=== PATIENT | female | born 1965 ===

== ENCOUNTER 2016-04-29 20:42 | Emergency (ER) | payer SELFPAY, MEDICAID ==
[2016-04-29 20:42] VITALS: BMI 24.2
[2016-04-29 20:56] VITALS: BP 125/90; PULSE 92; RESP 16; TEMP 97.5; O2SAT 99
[2016-04-29] MEDS ORDERED: Albuterol-Ipratrop 3 mg / 0.5 (3 ml) UD INH STA (21:02)
[2016-04-29] MEDS ORDERED: Albuterol-Ipratrop 3 mg / 0.5 (3 ml) UD ONE (22:00)
--- NOTE | 2016-04-29 22:39 | ED PDOC ---
Lower Extremity Pain/Injury Time Seen by Provider: 04/29/16 20:58 Chief Complaint (Nursing): Lower Extremity Problem/Injury Chief Complaint (Provider): Left Knee Pain/Injury History Per: Patient History/Exam Limitations: no limitations Onset/Duration Of Symptoms: Days (x2) Current Symptoms Are (Timing): Still Present Severity: Moderate Additional Complaint(s): Marion Hudson is a 51 year old female, with a past medical history inclusive of HTN, asthma and previous pneumonia, who presents to the ED on 04/29/16 for the evaluation of a moderate amount of left knee pain that she has experienced since a mechanical fall 2 days prior to arrival. Associated swelling also reported, though patient is capable of unassisted ambulation, with patient stating that ED visit was prompted secondary to persistence of pain. Denies distal numbness and has taken no analgesics prior to arrival. Of note, patient has a secondary complaint of a nonproductive cough that she has experienced x1 week. Patient claims that she was recently admitted to [facility] for pneumonia and is concerned that this may be a recurrence. Denies fever/chills. Patient is undomiciled and is well known to both this provider and this ED for similar complaints. PMD: none Past Medical History Reviewed: Historical Data, Nursing Documentation, Vital Signs Vital Signs: Last Vital Signs Temp 97.5 F L 04/29/16 20:54 Pulse 92 H 04/29/16 20:54 Resp 16 04/29/16 20:54 BP 125/90 04/29/16 20:54 Pulse Ox 99 04/29/16 20:54 - Medical History PMH: Anxiety, Asthma, Depression, HTN, Paranoia, Pneumonia, Schizophrenia, TIA Denies: Chronic Kidney Disease - Surgical History Surgical History: No Surg Hx - Family History Family History: States: No Known Family Hx - Living Arrangements Living Arrangements: Other (undomiciled) - Social History Current smoker - smoking cessation education provided: Yes Alcohol: None Drugs: Denies - Immunization History Hx Tetanus Toxoid Vaccination: No Hx Influenza Vaccination: No Hx Pneumococcal Vaccination: No - Home Medications Home Medications: Ambulatory Orders Medication Instructions Recorded Albuterol HFA [Ventolin HFA 90 1 - 2 puff IH Q6 PRN #1 inhaler 04/23/16 mcg/actuation (8 g)] Naproxen [Naprosyn] 1 tab PO BID PRN #60 tab 04/29/16 - Allergies Allergies/Adverse Reactions: Allergies Allergy/AdvReac Type Severity Reaction Status Date / Time shellfish derived Allergy Severe SWELLING Verified 04/27/16 00:42 Review of Systems Constitutional: Negative for: Fever, Chills Respiratory: Positive for: Cough. Negative for: Sputum Musculoskeletal: Positive for: Leg Pain (left knee s/p fall, associated swelling ) Neurological: Negative for: Numbness Physical Exam - Reviewed Nursing Documentation Reviewed: Yes Vital Signs Reviewed: Yes - Physical Exam Appears: Positive for: Non-toxic, In Acute Distress (minimal painful distress; unkempt/malodorous) Head Exam: Positive for: ATRAUMATIC, NORMOCEPHALIC Skin: Positive for: Normal Color, Warm, Dry Eye Exam: Positive for: Normal appearance, PERRL Cardiovascular/Chest: Positive for: Regular Rate, Rhythm. Negative for: Murmur Respiratory: Positive for: Rhonchi (scattered, occasional rhonchi b/l). Negative for: Accessory Muscle Use, Rales, Wheezing, Respiratory Distress Extremity: Positive for: Normal ROM (full, active ROM of left knee; (-) laxity) , Tenderness (along lateral aspect of left knee), Swelling (mild edema along lateral aspect of left knee), Other (dried scabs noted diffusely to b/l arms and legs, patient reports this is secondary to psoriasis). Negative for: Deformity Neurologic/Psych: Positive for: Alert, Oriented. Negative for: Motor/Sensory Deficits (5/5 left knee, neurovascularly intact distally) - ECG O2 Sat by Pulse Oximetry: 99 (RA) Pulse Ox Interpretation: Normal - Radiology X-Ray: Interpreted by Me, Viewed By Me X-Ray Interpretation: No Acute Disease - Other Rad XR Left Knee X-Ray: Interpreted by Me, Viewed By Me X-Ray Interpretation: no fx/dis Medical Decision Making Medical Decision Makin:58 Initial Impression: left knee contusion, cough; will r/o fracture/dislocation, pneumonia Initial Plan: * CXR * XR Left Knee (3 Views) * Motrin 600mg PO * Duoneb 3ml INH * Peak Flow Pre/Post Treatment * Reevaluation 22:31 CXR reviewed, no acute disease. XR Left Knee shows no fracture/dislocation. Upon provider reevaluation patient is feeling better, is medically stable, and requires no further treatment in the ED at this time. Patient will be discharged home with Rx for naprosyn. Counseling was provided and all questions were answered regarding diagnosis and need for follow up with the referred clinic. There is agreement to discharge plan. Return if symptoms persist or worsen. Clinical Impression: knee injury, cough Scribe Attestation: Documented by Angelica Dickinson, acting as a scribe for Chiquita Baldwin MD. Provider Scribe Attestation: All medical record entries made by the Scribe were at my direction and personally dictated by me. I have reviewed the chart and agree that the record accurately reflects my personal performance of the history, physical exam, medical decision making, and the department course for this patient. I have also personally directed, reviewed, and agree with the discharge instructions and disposition. Disposition - Clinical Impression Clinical Impression: Knee injury, Cough - Patient ED Disposition Is Patient to be Admitted: No Counseled Patient/Family Regarding: Studies Performed, Diagnosis, Need For Followup, Rx Given, Smoking Cessation - Disposition Referrals: [facility] [Outside] [facility] [Outside] Disposition: Routine/Home Disposition Time: 22:31 Condition: STABLE Prescriptions: Naproxen [Naprosyn] 1 tab PO BID PRN #60 tab PRN Reason: Pain Instructions: Contusion in Adults (ED), Bronchospasm (ED)
--- NOTE | 2016-04-30 12:02 | RAD ---
HISTORY: cough COMPARISON: 04/26/2016 TECHNIQUE: Chest PA and lateral FINDINGS: LUNGS: The lungs are well inflated and clear. PLEURA: No significant pleural effusion identified. No pneumothorax apparent. CARDIOVASCULAR: The cardiomediastinal silhouette is normal. OSSEOUS STRUCTURES: No significant abnormalities. VISUALIZED UPPER ABDOMEN: Normal. OTHER FINDINGS: None. IMPRESSION: No active pulmonary disease.
--- NOTE | 2016-04-30 12:04 | RAD ---
PROCEDURE: Left Knee Radiographs. HISTORY: Pain. COMPARISON: None. FINDINGS: BONES: There is no acute fracture or bone destruction. Bone alignment and mineralization are normal. JOINTS: There is mild degenerative osteoarthrosis in the medial compartment with reduced joint space and marginal spurring. JOINT EFFUSION: There is a small suprapatellar joint effusion. OTHER FINDINGS: None. IMPRESSION: Mild degenerative osteoarthrosis in the medial compartment and small suprapatellar joint effusion.
[2016-04-30] MEDS ORDERED: Albuterol 0.083% Inhal Sol (2.5 mg/3 mL) UD ONE (13:07)
== END 2016-04-29 23:00 | disposition home or self-care (01) ==
LOC: H.ER 20:42
DX: S80.02XA Contusion of left knee, initial encounter (principal); W19.XXXA Unspecified fall, initial encounter; Y92.89 Other specified places as the place of occurrence of the external cause; I10 Essential (primary) hypertension; J45.909 Unspecified asthma, uncomplicated; Z86.73 Personal history of transient ischemic attack (TIA), and cerebral infarction without residual deficits; R05 Cough

== ENCOUNTER 2016-04-30 11:07 | Emergency (ER) | payer SELFPAY, MEDICAID ==
[2016-04-30 11:07] VITALS: BMI 24.2
[2016-04-30 11:20] VITALS: BP 124/79; PULSE 79; TEMP 96; O2SAT 95
[2016-04-30 11:34] VITALS: RESP 18
[2016-04-30] MEDS ORDERED: Albuterol 0.083% Inhal Sol (2.5 mg/3 mL) UD INH STA (12:28)
--- NOTE | 2016-04-30 14:29 | ED PDOC ---
HPI: General Adult Time Seen by Provider: 04/30/16 11:20 Chief Complaint (Nursing): Shortness Of Breath Chief Complaint (Provider): Medical refill History Per: Patient History/Exam Limitations: no limitations Onset/Duration Of Symptoms: Days Have you had recent travel within the past 21 days to any of the following countries: [place], [place], [place] or [place]?: No Current Symptoms Are (Timing): Still Present Severity: None Additional History Per: Patient Additional Complaint(s): The patient is a 51yo female with PMHx of HTN, Anxiety, Asthma, TIA, presents to the ED for evaluation of mild shortness of breath. Pt is requesting albuterol treatment and refills of her ventolin. She denies any chest pain, dizziness, light headedness. At present, she offers no additional medical complaints. PMD: [place] Past Medical History Reviewed: Historical Data, Nursing Documentation, Vital Signs Vital Signs: Last Vital Signs Temp 96 F L 04/30/16 11:19 Pulse 79 04/30/16 11:19 Resp 18 04/30/16 11:28 BP 124/79 04/30/16 11:19 Pulse Ox 95 04/30/16 11:19 - Medical History PMH: Anxiety, Asthma, Depression, HTN, Paranoia, Pneumonia, Schizophrenia, TIA Denies: Chronic Kidney Disease - Family History Family History: States: Unknown Family Hx - Living Arrangements Living Arrangements: Alone - Immunization History Hx Tetanus Toxoid Vaccination: No Hx Influenza Vaccination: No Hx Pneumococcal Vaccination: No - Home Medications Home Medications: Ambulatory Orders Medication Instructions Recorded Albuterol HFA [Ventolin HFA 90 1 - 2 puff IH Q6 PRN #1 inhaler 04/23/16 mcg/actuation (8 g)] Naproxen [Naprosyn] 1 tab PO BID PRN #60 tab 04/29/16 Albuterol HFA [Ventolin HFA 90 2 puff IH [id number] PRN #60 puff 04/30/16 mcg/actuation (8 g)] - Allergies Allergies/Adverse Reactions: Allergies Allergy/AdvReac Type Severity Reaction Status Date / Time shellfish derived Allergy Severe SWELLING Verified 04/30/16 11:22 Review of Systems ROS Statement: Except As Marked, All Systems Reviewed And Found Negative Respiratory: Positive for: Shortness of Breath (mild) Physical Exam - Reviewed Nursing Documentation Reviewed: Yes Vital Signs Reviewed: Yes - Physical Exam Appears: Positive for: Well, Non-toxic, No Acute Distress Head Exam: Positive for: ATRAUMATIC, NORMAL INSPECTION, NORMOCEPHALIC Skin: Positive for: Normal Color, Warm Eye Exam: Positive for: Normal appearance Neck: Positive for: Normal Cardiovascular/Chest: Positive for: Regular Rate, Rhythm Respiratory: Positive for: Normal Breath Sounds, Wheezing (mild expitory). Negative for: Respiratory Distress Neurologic/Psych: Positive for: Alert, Oriented - ECG O2 Sat by Pulse Oximetry: 95 (RA) Medical Decision Making Medical Decision Making: Time: 1400 Impression: Medication refill Plan: -- Albuterol 2.5 mg iNH --Reassess Time: 1422 Pt reports feeling much better. Stable for discharge home, advised to f/u with pcp. Scribe Attestation: Documented by Suzanne Crabtree acting as a scribe for NADIYA Ferris. Provider Attestation: All medical record entries made by the Scribe were at my direction and personally dictated by me. I have reviewed the chart and agree that the record accurately reflects my personal performance of the history, physical exam, medical decision making, and the department course for this patient. I have also personally directed, reviewed, and agree with the discharge instructions and disposition. Disposition - Clinical Impression Clinical Impression: Asthma - Patient ED Disposition Is Patient to be Admitted: No - Disposition Disposition: Routine/Home Disposition Time: 14:22 Condition: STABLE Prescriptions: Albuterol HFA [Ventolin HFA 90 mcg/actuation (8 g)] 2 puff IH [id number] PRN #60 puff PRN Reason: Cough Instructions: Asthma (ED) Print Language: CYMRO
== END 2016-04-30 14:41 | disposition home or self-care (01) ==
LOC: H.ER 11:07
DX: J45.909 Unspecified asthma, uncomplicated (principal)

== ENCOUNTER 2016-05-02 19:14 | Emergency (ER) | payer MEDICAID, SELFPAY ==
[2016-05-02 19:15] VITALS: BMI 24.2
[2016-05-02 19:38] VITALS: RESP 16; TEMP 97.8; O2SAT 99
[2016-05-02] MEDS ORDERED: Albuterol 0.083% Inhal Sol (2.5 mg/3 mL) UD INH STA (19:39)
[2016-05-02] MEDS ORDERED: Albuterol-Ipratrop 3 mg / 0.5 (3 ml) UD ONE (19:47)
[2016-05-02] MEDS ORDERED: Albuterol 0.083% Inhal Sol (2.5 mg/3 mL) UD ONE (19:53)
--- NOTE | 2016-05-02 20:04 | ED PDOC ---
HPI: CCC, URI, Sore Throat Time Seen by Provider: 05/02/16 19:32 Chief Complaint (Nursing): Alcohol Ingestion Chief Complaint (Provider): Cough/Shortness of Breath History Per: Patient History/Exam Limitations: no limitations Have you had recent travel within the past 21 days to any of the following countries: [place], [place], [place] or [place]?: No Onset/Duration Of Symptoms: Days (today) Current Symptoms Are (Timing): Still Present Sick Contacts (Context): None Associated Symptoms: Cough. denies: Fever, Chills, Other (no chest pain, back pain) Additional Complaint(s): Marion Hudson is a 51 year old female, with a past medical history inclusive of asthma and psoriasis, who presents to the ED on 05/02/16, via EMS, with complaints of both cough and shortness of breath that she has experienced over the course of the day today. Denies fever, chills, chest or back pain, but reports that she has had pneumonia 3x since November 2015 and is requesting a breathing treatment. When asked about alcohol use today, patient states that she "didn't drink much". Patient has a steady gait and is requesting a room with a TV. Of note, patient is currently homeless and is well known to both this ED and this provider for similar complaints. Most recent CXR was as of a visit to this ED 2 days ago, which had subsequently been read as normal by the radiologist. PMD: none Past Medical History Reviewed: Historical Data, Nursing Documentation, Vital Signs Vital Signs: Last Vital Signs Temp 97.8 F 05/02/16 19:20 Pulse 87 05/02/16 20:56 Resp 16 05/02/16 19:20 BP 132/81 05/02/16 20:56 Pulse Ox 99 05/02/16 20:15 - Medical History PMH: Anxiety, Asthma, Depression, HTN, Paranoia, Pneumonia, Schizophrenia, TIA Denies: Chronic Kidney Disease - Surgical History Other surgeries: D&C - Family History Family History: States: Unknown Family Hx - Living Arrangements Living Arrangements: Other (homeless) - Immunization History Hx Tetanus Toxoid Vaccination: No Hx Influenza Vaccination: No Hx Pneumococcal Vaccination: No - Home Medications Home Medications: Ambulatory Orders Medication Instructions Recorded Albuterol HFA [Ventolin HFA 90 1 - 2 puff IH Q6 PRN #1 inhaler 04/23/16 mcg/actuation (8 g)] Naproxen [Naprosyn] 1 tab PO BID PRN #60 tab 04/29/16 Albuterol HFA [Ventolin HFA 90 2 puff IH [id number] PRN #60 puff 04/30/16 mcg/actuation (8 g)] Albuterol HFA [Ventolin HFA 90 2 puff IH Q4 PRN #1 unit 05/02/16 mcg/actuation (8 g)] - Allergies Allergies/Adverse Reactions: Allergies Allergy/AdvReac Type Severity Reaction Status Date / Time shellfish derived Allergy Severe SWELLING Verified 04/30/16 11:22 Review of Systems Constitutional: Negative for: Fever, Chills Cardiovascular: Negative for: Chest Pain Respiratory: Positive for: Cough, Shortness of Breath. Negative for: Sputum Physical Exam - Reviewed Nursing Documentation Reviewed: Yes Vital Signs Reviewed: Yes - Physical Exam Appears: Positive for: Non-toxic, No Acute Distress Head Exam: Positive for: ATRAUMATIC, NORMOCEPHALIC Skin: Positive for: Normal Color, Warm, Dry Cardiovascular/Chest: Positive for: Regular Rate, Rhythm. Negative for: Edema, Murmur Respiratory: Positive for: Normal Breath Sounds. Negative for: Rales, Rhonchi, Wheezing, Respiratory Distress Extremity: Positive for: Other (multiple excoriations noted to b/l UE and LE; no evidence of infection) Neurologic/Psych: Positive for: Alert, Oriented, Gait (steady) - ECG O2 Sat by Pulse Oximetry: 99 (RA) Pulse Ox Interpretation: Normal Medical Decision Making Medical Decision Makin:32 Initial Impression: cough, alcohol dependence Patient is exhibiting no clinical signs of alcohol intoxication at this time. Vital signs normal. Will give albuterol treatment as requested. Initial Plan: * Albuterol 0.083% 2.5mg INH * Peak Flow Pre/Post Treatment. * Reevaluation 20:05 Upon provider reevaluation patient is feeling better, is medically stable, and requires no further treatment in the ED at this time. Patient will be discharged home with Rx for an Albuterol HFA inhaler. Counseling was provided and all questions were answered regarding diagnosis and need for follow up with the referred clinic. There is agreement to discharge plan. Return if symptoms persist or worsen. Clinical Impression: cough, alcohol dependence Scribe Attestation: Documented by Angelica Dickinson, acting as a scribe for Fracisco Garcia PA-C. Provider Scribe Attestation: All medical record entries made by the Scribe were at my direction and personally dictated by me. I have reviewed the chart and agree that the record accurately reflects my personal performance of the history, physical exam, medical decision making, and the department course for this patient. I have also personally directed, reviewed, and agree with the discharge instructions and disposition. Disposition - Clinical Impression Clinical Impression: Cough, Alcohol dependence - Patient ED Disposition Is Patient to be Admitted: No Counseled Patient/Family Regarding: Diagnosis, Need For Followup, Rx Given - Disposition Referrals: [facility] [Outside] Disposition: Routine/Home Disposition Time: 20:05 Condition: STABLE Prescriptions: Albuterol HFA [Ventolin HFA 90 mcg/actuation (8 g)] 2 puff IH Q4 PRN #1 unit PRN Reason: Wheezing Instructions: Abuse of Alcohol (ED) Print Language: BENINESE
[2016-05-02 20:57] VITALS: BP 132/81; PULSE 87
== END 2016-05-02 20:56 | disposition home or self-care (01) ==
LOC: H.ER 19:14
DX: F10.20 Alcohol dependence, uncomplicated (principal); R05 Cough; I10 Essential (primary) hypertension

== ENCOUNTER 2016-05-03 18:35 | Emergency (ER) | payer MEDICAID, SELFPAY ==
[2016-05-03 18:36] VITALS: BMI 24.2
[2016-05-03 18:52] VITALS: PULSE 80; RESP 14; TEMP 98; O2SAT 97
--- NOTE | 2016-05-03 18:57 | ED PDOC ---
HPI: Psych/Substance Abuse Time Seen by Provider: 05/03/16 18:50 Chief Complaint (Nursing): Alcohol Ingestion Chief Complaint (Provider): Alcohol Ingestion History Per: Patient History/Exam Limitations: no limitations Onset/Duration Of Symptoms: Unknown Current Symptoms Are (Timing): Still Present Suicide/Self Injury Attempted (Context): None Modifying Factor(s): Alcohol Involuntary Hold By: None Additional Complaint(s): Marion Hudson is a 51 year old female, with a past medical history inclusive of asthma and habitual alcohol abuse, who presents to the ED on 05/03/16, via EMS, for the evaluation of acute alcohol intoxication of unknown duration after she had been found sitting in the street just prior to arrival. Patient admits to alcohol ingestion and is requesting both food and a room with a TV upon initial evaluation. Patient is undomiciled and is well known to ED for similar complaints/presentation. Of note, patient is also complaining of cough, further stating "I have pneumonia ", though most recent CXR (performed 4 days ago) showed no acute disease as per radiology report. PMD: none Past Medical History Reviewed: Historical Data, Nursing Documentation, Vital Signs Vital Signs: Last Vital Signs Temp 98.0 F 05/03/16 18:50 Pulse 80 05/03/16 18:50 Resp 14 05/03/16 18:50 BP Pulse Ox 97 05/03/16 18:50 - Medical History PMH: Anxiety, Asthma, Depression, HTN, Paranoia, Pneumonia, Schizophrenia, TIA Denies: Chronic Kidney Disease - Surgical History Surgical History: No Surg Hx - Family History Family History: States: Unknown Family Hx - Living Arrangements Living Arrangements: Other (undomiciled) - Social History Alcohol: > 2 Drinks/Day Drugs: Denies - Immunization History Hx Tetanus Toxoid Vaccination: No Hx Influenza Vaccination: No Hx Pneumococcal Vaccination: No - Home Medications Home Medications: Ambulatory Orders Medication Instructions Recorded Albuterol HFA [Ventolin HFA 90 1 - 2 puff IH Q6 PRN #1 inhaler 04/23/16 mcg/actuation (8 g)] Naproxen [Naprosyn] 1 tab PO BID PRN #60 tab 04/29/16 Albuterol HFA [Ventolin HFA 90 2 puff IH [id number] PRN #60 puff 04/30/16 mcg/actuation (8 g)] Albuterol HFA [Ventolin HFA 90 2 puff IH Q4 PRN #1 unit 05/02/16 mcg/actuation (8 g)] - Allergies Allergies/Adverse Reactions: Allergies Allergy/AdvReac Type Severity Reaction Status Date / Time shellfish derived Allergy Severe SWELLING Verified 05/03/16 18:50 Review of Systems Respiratory: Positive for: Cough Psych: Positive for: Other (acute alcohol intoxication) Physical Exam - Reviewed Nursing Documentation Reviewed: Yes Vital Signs Reviewed: Yes - Physical Exam Appears: Positive for: Non-toxic, No Acute Distress Head Exam: Positive for: ATRAUMATIC, NORMOCEPHALIC Skin: Positive for: Normal Color, Warm, Dry ENT: Positive for: Other ((+) alcohol on breath) Cardiovascular/Chest: Positive for: Regular Rate, Rhythm Respiratory: Positive for: Normal Breath Sounds. Negative for: Rales, Rhonchi, Wheezing, Respiratory Distress Neurologic/Psych: Positive for: Alert, Oriented - ECG O2 Sat by Pulse Oximetry: 97 (RA) Pulse Ox Interpretation: Normal Medical Decision Making Medical Decision Makin:50 Initial Impression: alcohol abuse with intoxication Initial Plan: * Accucheck Will observe until clinical sobriety. Scribe Attestation: Documented by Angelica Dickinson, acting as a scribe for Shante Stein PA-C. Provider Scribe Attestation: All medical record entries made by the Scribe were at my direction and personally dictated by me. I have reviewed the chart and agree that the record accurately reflects my personal performance of the history, physical exam, medical decision making, and the department course for this patient. I have also personally directed, reviewed, and agree with the discharge instructions and disposition. Disposition - Clinical Impression Clinical Impression: Alcohol abuse with intoxication - Patient ED Disposition Is Patient to be Admitted: No - Disposition Disposition: Routine/Home Disposition Time: 23:28 Condition: STABLE
[2016-05-03 20:05] VITALS: BP 112/70
== END 2016-05-03 23:35 | disposition home or self-care (01) ==
LOC: H.ER 18:35
DX: F10.129 Alcohol abuse with intoxication, unspecified (principal)

== ENCOUNTER 2016-05-25 06:28 | Emergency (ER) | payer OTHER, SELFPAY ==
[2016-05-25 06:29] VITALS: BMI 24.2
[2016-05-25 06:39] VITALS: BP 142/76; PULSE 88; RESP 18; TEMP 97.9; O2SAT 95
[2016-05-25] MEDS ORDERED: Albuterol-Ipratrop 3 mg / 0.5 (3 ml) UD ONE (06:39)
[2016-05-25] MEDS ORDERED: Albuterol 0.083% Inhal Sol (2.5 mg/3 mL) UD INH ONE (06:42)
--- NOTE | 2016-05-25 06:53 | ED PDOC ---
HPI: General Adult Time Seen by Provider: 05/25/16 06:39 Chief Complaint (Nursing): Alcohol Ingestion Chief Complaint (Provider): Persistent Cough History Per: Patient History/Exam Limitations: no limitations Onset/Duration Of Symptoms: Hrs Have you had recent travel within the past 21 days to any of the following countries: [place], [place], [place] or [place]?: No Current Symptoms Are (Timing): Still Present Severity: Moderate Additional Complaint(s): Marion Hudson is a 51 year old female, with a past medical history of asthma , hypertension, and pneumonia, who presents to the emergency department via EMS due to ETOH abuse, with complaints of a persistent cough. Patient requests nebulizer treatment. PMD: none specified Past Medical History Reviewed: Historical Data, Nursing Documentation, Vital Signs Vital Signs: Last Vital Signs Temp 97.9 F 05/25/16 06:36 Pulse 88 05/25/16 06:36 Resp 18 05/25/16 06:49 BP 142/76 05/25/16 06:36 Pulse Ox 95 05/25/16 06:58 - Medical History PMH: Anxiety, Asthma, Depression, HTN, Paranoia, Pneumonia, Schizophrenia, TIA Denies: Chronic Kidney Disease - Family History Family History: States: Unknown Family Hx - Social History Current smoker - smoking cessation education provided: Yes Alcohol: Occasional - Immunization History Hx Tetanus Toxoid Vaccination: Yes Hx Influenza Vaccination: No Hx Pneumococcal Vaccination: No - Home Medications Home Medications: Ambulatory Orders Medication Instructions Recorded Albuterol HFA [Ventolin HFA 90 1 - 2 puff IH Q6 PRN #1 inhaler 04/23/16 mcg/actuation (8 g)] Albuterol HFA [Ventolin HFA 90 2 puff IH [id number] #1 puff 05/13/16 mcg/actuation (8 g)] Prednisone [Deltasone] 20 mg PO DAILY #5 tablet 05/13/16 Albuterol HFA [Ventolin HFA 90 1 puff INH Q4 PRN #1 inhaler 05/22/16 mcg/actuation (8 g)] Albuterol/Ipratropium [Duoneb 3 3 ml INH RQ6 PRN #1 neb 05/22/16 mg/0.5 mg (3 ml) UD] Gabapentin [Neurontin] 300 mg PO BID #60 cap 05/22/16 Mirtazapine [Remeron] 15 mg PO HS #30 tab 05/22/16 traZODone [Desyrel] 50 mg PO HS PRN #30 tab 05/22/16 hydrOXYzine HCl [Atarax] 25 mg PO Q6 PRN #60 tab 05/23/16 Non-Formulary 1 ea .ROUTE Q6 #1 ea 05/25/16 - Allergies Allergies/Adverse Reactions: Allergies Allergy/AdvReac Type Severity Reaction Status Date / Time shellfish derived Allergy Severe SWELLING Verified 05/19/16 08:43 Review of Systems ROS Statement: Except As Marked, All Systems Reviewed And Found Negative Respiratory: Positive for: Cough Physical Exam - Reviewed Nursing Documentation Reviewed: Yes Vital Signs Reviewed: Yes - Physical Exam Appears: Positive for: No Acute Distress Head Exam: Positive for: ATRAUMATIC, NORMOCEPHALIC Skin: Positive for: Normal Color, Dry Neck: Positive for: Normal, Painless ROM Cardiovascular/Chest: Positive for: Regular Rate, Rhythm. Negative for: Murmur Respiratory: Positive for: Rhonchi. Negative for: Respiratory Distress Gastrointestinal/Abdominal: Positive for: Normal Exam, Soft. Negative for: Tenderness Extremity: Positive for: Normal ROM. Negative for: Tenderness Neurologic/Psych: Positive for: Alert, Oriented - ECG O2 Sat by Pulse Oximetry: 95 (RA) Pulse Ox Interpretation: Normal Medical Decision Making Medical Decision Makin:39 Initial Impression: Asthma Initial Plan: * Nebulizer Treatment * Respiratory Therapy: Peak Flow Pre/Post Treatment * Albuterol 0.083% 2.5 mg INH * Reevaluation pt feels better w treatment instructed outp follow up with neb at home and follow up with pcp in 2 days return to ED if not better Scribe Attestation: Documented by Ron Romero, acting as a scribe for Esperanza Villaseñor MD. Provider Scribe Attestation: All medical record entries made by the Scribe were at my direction and personally dictated by me. I have reviewed the chart and agree that the record accurately reflects my personal performance of the history, physical exam, medical decision making, and the department course for this patient. I have also personally directed, reviewed, and agree with the discharge instructions and disposition. Disposition - Clinical Impression Clinical Impression: Asthma - Patient ED Disposition Is Patient to be Admitted: No Counseled Patient/Family Regarding: Studies Performed, Diagnosis, Need For Followup - Disposition Referrals: [facility] [Outside] [facility] [Outside] Disposition: Routine/Home Disposition Time: 07:00 Condition: GOOD Additional Instructions: follow up with your primary doctor in 1-2 days. return to the ED with any worsening or concerning symptoms. Prescriptions: Non-Formulary 1 ea .ROUTE Q6 #1 ea Instructions: Asthma (ED)
== END 2016-05-25 07:13 | disposition home or self-care (01) ==
LOC: H.ER 06:28
DX: J45.909 Unspecified asthma, uncomplicated (principal); R05 Cough; F20.9 Schizophrenia, unspecified; F41.9 Anxiety disorder, unspecified; I10 Essential (primary) hypertension; Z86.73 Personal history of transient ischemic attack (TIA), and cerebral infarction without residual deficits; F17.200 Nicotine dependence, unspecified, uncomplicated

== ENCOUNTER 2016-06-08 23:31 | Emergency (ER) | payer OTHER, SELFPAY ==
[2016-06-08 23:32] VITALS: BMI 24.2
[2016-06-08 23:39] VITALS: BP 136/73; PULSE 86; RESP 17; TEMP 98.6; O2SAT 97
[2016-06-08] MEDS ORDERED: Albuterol-Ipratrop 3 mg / 0.5 (3 ml) UD INH STA (23:50)
--- NOTE | 2016-06-08 23:57 | ED PDOC ---
HPI: Psych/Substance Abuse Time Seen by Provider: 06/08/16 23:47 Chief Complaint (Nursing): Alcohol Ingestion Chief Complaint (Provider): ETOH History Per: EMS History/Exam Limitations: no limitations Additional Complaint(s): Pretty Hudson is a 51 y/o female well known to the ED and provider, brought in by EMS on 06/08/2016 with complaints of " I need a treatment". Upon arrival, patient is alert awake and ambulatory. Patient admits to drinking alcohol tonight. Rest of HPI/ROS is limited due to patient's state of intoxication . Past Medical History Reviewed: Historical Data, Nursing Documentation, Vital Signs Vital Signs: Last Vital Signs Temp 98.6 F 06/08/16 23:33 Pulse 86 06/08/16 23:33 Resp 17 06/08/16 23:33 BP 136/73 06/08/16 23:33 Pulse Ox 97 06/08/16 23:33 - Medical History PMH: Anxiety, Asthma, Depression, HTN, Paranoia, Pneumonia, Schizophrenia, TIA Denies: Chronic Kidney Disease - Family History Family History: States: Unknown Family Hx - Social History Alcohol: Social - Immunization History Hx Tetanus Toxoid Vaccination: Yes Hx Influenza Vaccination: No Hx Pneumococcal Vaccination: No - Home Medications Home Medications: Ambulatory Orders Medication Instructions Recorded Albuterol HFA [Ventolin HFA 90 1 - 2 puff IH Q6 PRN #1 inhaler 04/23/16 mcg/actuation (8 g)] Albuterol HFA [Ventolin HFA 90 2 puff IH [id number] #1 puff 05/13/16 mcg/actuation (8 g)] Prednisone [Deltasone] 20 mg PO DAILY #5 tablet 05/13/16 Albuterol HFA [Ventolin HFA 90 1 puff INH Q4 PRN #1 inhaler 05/22/16 mcg/actuation (8 g)] Albuterol/Ipratropium [Duoneb 3 3 ml INH RQ6 PRN #1 neb 05/22/16 mg/0.5 mg (3 ml) UD] Gabapentin [Neurontin] 300 mg PO BID #60 cap 05/22/16 Mirtazapine [Remeron] 15 mg PO HS #30 tab 05/22/16 traZODone [Desyrel] 50 mg PO HS PRN #30 tab 05/22/16 hydrOXYzine HCl [Atarax] 25 mg PO Q6 PRN #60 tab 05/23/16 Non-Formulary 1 ea .ROUTE Q6 #1 ea 05/25/16 - Allergies Allergies/Adverse Reactions: Allergies Allergy/AdvReac Type Severity Reaction Status Date / Time shellfish derived Allergy Severe SWELLING Verified 05/19/16 08:43 Review of Systems Review Of Systems: ROS cannot be obtained secondary to pt's inabilty to answer questions. Physical Exam - Reviewed Nursing Documentation Reviewed: Yes Vital Signs Reviewed: Yes - Physical Exam Appears: Positive for: No Acute Distress. Negative for: Non-toxic Head Exam: Positive for: ATRAUMATIC, NORMOCEPHALIC Skin: Positive for: Normal Color, Warm, Dry Eye Exam: Positive for: Normal appearance, EOMI, PERRL Neck: Positive for: Normal, Painless ROM, Supple Cardiovascular/Chest: Positive for: Regular Rate, Rhythm. Negative for: Murmur Respiratory: Positive for: Normal Breath Sounds. Negative for: Wheezing, Respiratory Distress Extremity: Positive for: Normal ROM. Negative for: Deformity, Swelling Neurologic/Psych: Positive for: Alert, Oriented (x3), Gait (normal ). Negative for: Motor/Sensory Deficits - ECG O2 Sat by Pulse Oximetry: 97 Medical Decision Making Medical Decision Makin:47 Initial Impression- ETOH intoxication Initial Plan- * Duoneb 3 ml INH * Pepcid 20 mg PO * Peak Flow 1AM: Pt. stable for discharge. Documented by Patricia Boss, acting as a scribe for Ramírez Stephens MD. All medical record entries made by the Scribe were at my direction and personally dictated by me. I have reviewed the chart and agree that the record accurately reflects my personal performance of the history, physical exam, medical decision making, and the department course for this patient. I have also personally directed, reviewed, and agree with the discharge instructions and disposition. Disposition - Clinical Impression Clinical Impression: Homelessness - Patient ED Disposition Is Patient to be Admitted: No - Disposition Disposition: Routine/Home Disposition Time: 01:20 Condition: STABLE Instructions: Normal Exam (ED)
== END 2016-06-09 03:32 | disposition home or self-care (01) ==
LOC: H.ER 23:31
DX: F10.129 Alcohol abuse with intoxication, unspecified (principal); J45.909 Unspecified asthma, uncomplicated; F20.9 Schizophrenia, unspecified; F41.9 Anxiety disorder, unspecified; I10 Essential (primary) hypertension; Z86.73 Personal history of transient ischemic attack (TIA), and cerebral infarction without residual deficits

== ENCOUNTER 2016-06-09 13:45 | Emergency (ER) | payer OTHER, SELFPAY ==
[2016-06-09 13:46] VITALS: BMI 24.2
[2016-06-09 13:59] VITALS: BP 128/76; PULSE 70; RESP 20; TEMP 97.8; O2SAT 98
[2016-06-09] MEDS ORDERED: Albuterol-Ipratrop 3 mg / 0.5 (3 ml) UD INH STA (14:38)
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
== END 2016-06-09 14:53 | disposition home or self-care (01) ==
LOC: H.ER 13:45
DX: J45.901 Unspecified asthma with (acute) exacerbation (principal); I10 Essential (primary) hypertension; F17.200 Nicotine dependence, unspecified, uncomplicated; Z86.59 Personal history of other mental and behavioral disorders

== ENCOUNTER 2016-06-11 19:37 | Emergency (ER) | payer MEDICAID, OTHER ==
[2016-06-11 19:37] VITALS: BMI 24.2
[2016-06-11 19:57] VITALS: PULSE 84; RESP 14; TEMP 98; O2SAT 96
--- NOTE | 2016-06-11 20:03 | ED PDOC ---
HPI: General Adult Time Seen by Provider: 06/11/16 19:44 Chief Complaint (Nursing): Abnormal Skin Integrity Chief Complaint (Provider): Rash, itchy History/Exam Limitations: no limitations Onset/Duration Of Symptoms: Days Have you had recent travel within the past 21 days to any of the following countries: [place], [place], [place] or [place]?: No Additional Complaint(s): PT states she was diagnosed with scabies and is still itchy. PT states she did not fill Rx for cream. Pt refusing to get undressed and asking for direction to the path. Past Medical History Reviewed: Historical Data, Nursing Documentation, Vital Signs Vital Signs: Last Vital Signs Temp 98.0 F 06/11/16 19:54 Pulse 84 06/11/16 19:54 Resp 14 06/11/16 19:54 BP Pulse Ox 96 06/11/16 19:54 - Medical History PMH: Anxiety, Asthma, Depression, HTN, Paranoia, Pneumonia, Schizophrenia, TIA Denies: Chronic Kidney Disease - Surgical History Surgical History: No Surg Hx - Family History Family History: States: Unknown Family Hx - Living Arrangements Living Arrangements: With Family - Social History Current smoker - smoking cessation education provided: No - Immunization History Hx Tetanus Toxoid Vaccination: Yes Hx Influenza Vaccination: No Hx Pneumococcal Vaccination: No - Home Medications Home Medications: Ambulatory Orders Medication Instructions Recorded Albuterol HFA [Ventolin HFA 90 1 - 2 puff IH Q6 PRN #1 inhaler 04/23/16 mcg/actuation (8 g)] Albuterol HFA [Ventolin HFA 90 2 puff IH [id number] #1 puff 05/13/16 mcg/actuation (8 g)] Prednisone [Deltasone] 20 mg PO DAILY #5 tablet 05/13/16 Albuterol HFA [Ventolin HFA 90 1 puff INH Q4 PRN #1 inhaler 05/22/16 mcg/actuation (8 g)] Albuterol/Ipratropium [Duoneb 3 3 ml INH RQ6 PRN #1 neb 05/22/16 mg/0.5 mg (3 ml) UD] Gabapentin [Neurontin] 300 mg PO BID #60 cap 05/22/16 Mirtazapine [Remeron] 15 mg PO HS #30 tab 05/22/16 traZODone [Desyrel] 50 mg PO HS PRN #30 tab 05/22/16 hydrOXYzine HCl [Atarax] 25 mg PO Q6 PRN #60 tab 05/23/16 Non-Formulary 1 ea .ROUTE Q6 #1 ea 05/25/16 Albuterol HFA [Ventolin HFA 90 1 puff IH ASDIR #1 unit 06/09/16 mcg/actuation (8 g)] - Allergies Allergies/Adverse Reactions: Allergies Allergy/AdvReac Type Severity Reaction Status Date / Time shellfish derived Allergy Severe SWELLING Verified 06/11/16 19:53 Review of Systems ROS Statement: Except As Marked, All Systems Reviewed And Found Negative Skin: Positive for: Rash Physical Exam - Reviewed Nursing Documentation Reviewed: Yes Vital Signs Reviewed: Yes (Limited, pt refusing to be evaluated ) - Physical Exam Appears: Positive for: Well, Non-toxic, No Acute Distress Head Exam: Positive for: ATRAUMATIC, NORMAL INSPECTION, NORMOCEPHALIC Skin: Positive for: Normal Color, Warm, DRY Eye Exam: Positive for: Normal appearance ENT: Positive for: Normal ENT Inspection Neck: Positive for: Normal, Painless ROM Respiratory: Negative for: Accessory Muscle Use, Respiratory Distress Back: Positive for: Normal Inspection Extremity: Positive for: Normal ROM Neurologic/Psych: Positive for: Alert, Oriented, Gait - ECG O2 Sat by Pulse Oximetry: 96 Medical Decision Making Medical Decision Making: Pt discharged and advised to fill Rx. Disposition - Clinical Impression Clinical Impression: Rash - Patient ED Disposition Is Patient to be Admitted: No - Disposition Disposition: Routine/Home Disposition Time: 20:06 Condition: STABLE
== END 2016-06-11 20:30 | disposition home or self-care (01) ==
LOC: H.ER 19:37
DX: R21 Rash and other nonspecific skin eruption (principal)

== ENCOUNTER 2016-06-14 22:23 | Emergency (ER) | payer MEDICAID, OTHER ==
[2016-06-14 22:24] VITALS: BMI 24.2
[2016-06-14 22:32] VITALS: BP 134/83; PULSE 74; RESP 16; TEMP 97.7; O2SAT 100
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
== END 2016-06-14 22:32 | disposition home or self-care (01) ==
LOC: H.ER 22:23
DX: F10.10 Alcohol abuse, uncomplicated (principal); F20.9 Schizophrenia, unspecified; F41.9 Anxiety disorder, unspecified; I10 Essential (primary) hypertension; J45.909 Unspecified asthma, uncomplicated; Z86.73 Personal history of transient ischemic attack (TIA), and cerebral infarction without residual deficits

== ENCOUNTER 2016-07-11 23:27 | Emergency (ER) | payer MEDICAID, OTHER ==
[2016-07-11 23:27] VITALS: BMI 24.2
[2016-07-11 23:30] VITALS: BP 134/82; PULSE 83; RESP 17; TEMP 98; O2SAT 98
--- NOTE | 2016-07-11 23:54 | ED PDOC ---
HPI: Psych/Substance Abuse Time Seen by Provider: 07/11/16 23:34 Chief Complaint (Nursing): Alcohol Ingestion Chief Complaint (Provider): Alcohol Ingestion History Per: Patient Onset/Duration Of Symptoms: Hrs Current Symptoms Are (Timing): Still Present Additional Complaint(s): 51 y/o female presents to the emergency department via EMS for alcohol intoxication prior to arrival. Reports she has an associated headache but is a poor historian and unwilling to answer questions. Patient is well known to the provider for multiple alcohol visits to the ED. Past Medical History Reviewed: Historical Data, Nursing Documentation, Vital Signs Vital Signs: Last Vital Signs Temp 98 F 07/11/16 23:28 Pulse 83 07/11/16 23:28 Resp 17 07/11/16 23:28 BP 134/82 07/11/16 23:28 Pulse Ox 98 07/11/16 23:28 - Medical History PMH: Anxiety, Asthma, Depression, HTN, Paranoia, Pneumonia, Schizophrenia, TIA Denies: Diabetes, Hepatitis, HIV, Chronic Kidney Disease, Seizures, Sexually Transmitted Disease - Surgical History Surgical History: No Surg Hx - Family History Family History: States: Unknown Family Hx - Immunization History Hx Tetanus Toxoid Vaccination: Yes Hx Influenza Vaccination: No Hx Pneumococcal Vaccination: No - Home Medications Home Medications: Ambulatory Orders Medication Instructions Recorded Albuterol HFA [Ventolin HFA 90 1 - 2 puff IH Q6 PRN #1 inhaler 04/23/16 mcg/actuation (8 g)] Albuterol HFA [Ventolin HFA 90 2 puff IH [id number] #1 puff 05/13/16 mcg/actuation (8 g)] Prednisone [Deltasone] 20 mg PO DAILY #5 tablet 05/13/16 Albuterol HFA [Ventolin HFA 90 1 puff INH Q4 PRN #1 inhaler 05/22/16 mcg/actuation (8 g)] Albuterol/Ipratropium [Duoneb 3 3 ml INH RQ6 PRN #1 neb 05/22/16 mg/0.5 mg (3 ml) UD] Gabapentin [Neurontin] 300 mg PO BID #60 cap 05/22/16 Mirtazapine [Remeron] 15 mg PO HS #30 tab 05/22/16 traZODone [Desyrel] 50 mg PO HS PRN #30 tab 05/22/16 hydrOXYzine HCl [Atarax] 25 mg PO Q6 PRN #60 tab 05/23/16 Non-Formulary 1 ea .ROUTE Q6 #1 ea 05/25/16 Albuterol HFA [Ventolin HFA 90 1 puff IH ASDIR #1 unit 06/09/16 mcg/actuation (8 g)] Albuterol HFA [Ventolin HFA 90 1 - 2 puff IH Q6 PRN #1 inhaler 07/12/16 mcg/actuation (8 g)] - Allergies Allergies/Adverse Reactions: Allergies Allergy/AdvReac Type Severity Reaction Status Date / Time shellfish derived Allergy Severe SWELLING Verified 07/11/16 23:30 Review of Systems ROS Statement: Except As Marked, All Systems Reviewed And Found Negative Neurological: Positive for: Headache Physical Exam - Reviewed Nursing Documentation Reviewed: Yes Vital Signs Reviewed: Yes - Physical Exam Appears: Positive for: Non-toxic, No Acute Distress Head Exam: Positive for: ATRAUMATIC, NORMOCEPHALIC Skin: Positive for: Normal Color, Warm, Dry Neck: Positive for: Normal, Supple Cardiovascular/Chest: Positive for: Regular Rate, Rhythm. Negative for: Murmur Respiratory: Positive for: Normal Breath Sounds. Negative for: Accessory Muscle Use, Respiratory Distress Gastrointestinal/Abdominal: Positive for: Normal Exam, Soft. Negative for: Tenderness Extremity: Positive for: Normal ROM. Negative for: Pedal Edema Neurologic/Psych: Positive for: Alert, Oriented, Other (Disheveled with poor hygiene) - ECG O2 Sat by Pulse Oximetry: 98 (RA) Pulse Ox Interpretation: Normal Medical Decision Making Medical Decision Making: Time: 23:34 Initial impression: 51 y/o female with headache insetting of alcohol intoxication Initial plan: --Head w/o contrast CT --Urine --Tylenol 650 mg PO --Revaluation Time: 02:48 --Head CT FINDINGS: Artifacts: Motion artifact limits this study. Brain: The white-lara differentiation is preserved demonstrating no definitive acute territorial type infarct. There is mild prominence of the ventricles and sulci, compatible with atrophy. No definitive acute intracranial hemorrhage is seen. No edema. Midline shift: There is no midline shift. Ventricles: See above. Bones/joints: The calvarium demonstrates no evidence for a depressed fracture. Soft tissues: There is mild soft tissue swelling or scarring of the right frontal scalp. Vasculature: There is atherosclerotic calcification of the cavernous internal carotid arteries. Sinuses: There is mild mucosal thickening of the bilateral maxillary sinuses. Mastoid air cells: No mastoid effusion. IMPRESSION: 1. No definitive acute intracranial hemorrhage or acute territorial type infarct on this motion limited study. 2. Mild atrophy 3. There is mild soft tissue swelling or scarring of the right frontal scalp. 4. If further evaluation is clinically indicated, an MRI of the brain is recommended. Time: 02:55 Upon provider reevaluation patient is medically stable, and requires no further treatment in the ED at this time. Patient will be discharged home with Rx for Ventolin HFA 90 mcg/actuation 8g. Counseling was provided and all questions were answered regarding diagnosis. There is agreement to discharge plan. Return if symptoms persist or worsen. Clinical Impression: Alcohol abuse with uncomplicated intoxication and headache Scribe Attestation: Documented by Mirtha Lao, acting as a scribe for Emeka Carrera MD. Provider Scribe Attestation: All medical record entries made by the Scribe were at my direction and personally dictated by me. I have reviewed the chart and agree that the record accurately reflects my personal performance of the history, physical exam, medical decision making, and the department course for this patient. I have also personally directed, reviewed, and agree with the discharge instructions and disposition. Disposition - Clinical Impression Clinical Impression: Alcohol abuse with uncomplicated intoxication, Headache - Patient ED Disposition Is Patient to be Admitted: No Counseled Patient/Family Regarding: Studies Performed, Diagnosis - Disposition Disposition: Routine/Home Disposition Time: 02:55 Condition: STABLE Prescriptions: Albuterol HFA [Ventolin HFA 90 mcg/actuation (8 g)] 1 - 2 puff IH Q6 PRN #1 inhaler PRN Reason: Shortness Of Breath Instructions: Alcohol Dependence (ED)
[2016-07-12] MEDS ORDERED: Albuterol-Ipratrop 3 mg / 0.5 (3 ml) UD INH STA (00:01)
--- NOTE | 2016-07-12 09:23 | CT ---
PROCEDURE: CT HEAD WITHOUT CONTRAST. HISTORY: headache COMPARISON: Comparison made with prior study dated 02/21/2016. TECHNIQUE: Axial computed tomography images were obtained through the head/brain without intravenous contrast. Radiation dose: Total exam DLP = mGy-cm. This CT exam was performed using one or more of the following dose reduction techniques: Automated exposure control, adjustment of the mA and/or kV according to patient size, and/or use of iterative reconstruction technique. FINDINGS: HEMORRHAGE: No acute parenchymal, subarachnoid nor extra-axial there hemorrhage. BRAIN: Appears to be some minimal chronic periventricular white matter ischemic changes the mild generalized volume loss. . VENTRICLES: No obstructive hydrocephalus. CALVARIUM: No acute calvarial fractures. Hearing in lipoma within the right superior pole soft tissues ; possibly representing a old scar. Clinical correlation recommended to exclude acute posttraumatic soft tissue swelling PARANASAL SINUSES: Unremarkable as visualized. No significant inflammatory changes. MASTOID AIR CELLS: Unremarkable as visualized. No inflammatory changes. OTHER FINDINGS: None. IMPRESSION: No acute intracranial hemorrhage. Suspect minimal chronic periventricular white matter ischemic changes. Mild volume loss. The the the post a
== END 2016-07-12 04:53 | disposition home or self-care (01) ==
LOC: H.ER 23:27
DX: F10.129 Alcohol abuse with intoxication, unspecified (principal); R51 Headache; F20.9 Schizophrenia, unspecified; F32.9 Major depressive disorder, single episode, unspecified; F41.9 Anxiety disorder, unspecified; I10 Essential (primary) hypertension; J45.909 Unspecified asthma, uncomplicated; Z86.73 Personal history of transient ischemic attack (TIA), and cerebral infarction without residual deficits

== ENCOUNTER 2016-07-15 02:39 | Emergency (ER) | payer OTHER ==
[2016-07-15 02:40] VITALS: BMI 24.2
[2016-07-15 02:52] VITALS: PULSE 91; RESP 16; TEMP 97.6; O2SAT 98
[2016-07-15] MEDS ORDERED: Amoxicillin-Clav 875-125 mg Tab PO STA (02:59)
--- NOTE | 2016-07-15 03:03 | ED PDOC ---
HPI: Dental Pain/Injury Time Seen by Provider: 07/15/16 02:52 Chief Complaint (Nursing): ENT Problem Chief Complaint (Provider): toothache History Per: Patient History/Exam Limitations: no limitations Onset/Duration Of Symptoms: Days (1) Current Symptoms Are (Timing): Still Present Dental: 1 - pain Additional History Per: Patient Additional Complaint(s): 51 y/o female presents with left upper tooth pain x 1 day. Patient thinks she chipped that molar yesterday, today noted pain with associated facial swelling. Denies fever, nausea/vomiting, difficulty speaking/swallowing. Past Medical History Reviewed: Historical Data, Nursing Documentation, Vital Signs Vital Signs: Last Vital Signs Temp 97.6 F 07/15/16 02:50 Pulse 91 H 07/15/16 02:50 Resp 16 07/15/16 02:50 BP Pulse Ox 98 07/15/16 02:50 - Medical History PMH: Anxiety, Asthma, Depression, HTN, Paranoia, Pneumonia, Schizophrenia, TIA Denies: HIV, Chronic Kidney Disease, Seizures, Sexually Transmitted Disease - Family History Family History: States: Unknown Family Hx - Immunization History Hx Tetanus Toxoid Vaccination: Yes Hx Influenza Vaccination: No Hx Pneumococcal Vaccination: No - Home Medications Home Medications: Ambulatory Orders Medication Instructions Recorded Albuterol HFA [Ventolin HFA 90 1 puff INH Q4 PRN #1 inhaler 05/22/16 mcg/actuation (8 g)] Albuterol/Ipratropium [Duoneb 3 3 ml INH RQ6 PRN #1 neb 05/22/16 mg/0.5 mg (3 ml) UD] Gabapentin [Neurontin] 300 mg PO BID #60 cap 05/22/16 Mirtazapine [Remeron] 15 mg PO HS #30 tab 05/22/16 traZODone [Desyrel] 50 mg PO HS PRN #30 tab 05/22/16 hydrOXYzine HCl [Atarax] 25 mg PO Q6 PRN #60 tab 05/23/16 Amoxicillin/Clavulanate [Augmentin 1 tab PO Q12 #13 tab 07/15/16 875 MG-125 MG] Ibuprofen [Motrin Tab] 1 tab PO Q6 PRN #20 tab 07/15/16 - Allergies Allergies/Adverse Reactions: Allergies Allergy/AdvReac Type Severity Reaction Status Date / Time shellfish derived Allergy Severe SWELLING Verified 07/13/16 15:54 Review of Systems ROS Statement: Except As Marked, All Systems Reviewed And Found Negative ENT: Positive for: Mouth Pain (left upper molar) Physical Exam - Reviewed Nursing Documentation Reviewed: Yes Vital Signs Reviewed: Yes - Physical Exam Appears: Positive for: Well, Non-toxic, No Acute Distress Head Exam: Positive for: ATRAUMATIC, NORMAL INSPECTION, NORMOCEPHALIC ENT: Positive for: Other (poor dentition; multiple dental caries. Tender left upper back molar with + left facial swelling. No abscess noted) Cardiovascular/Chest: Positive for: Regular Rate, Rhythm Respiratory: Positive for: Normal Breath Sounds Neurologic/Psych: Positive for: Alert, Oriented - ECG O2 Sat by Pulse Oximetry: 98 - Progress ED Course And Treament: Patient educated on findings, discharged with rx Augmentin, ibuprofen (doses given in ED) information given to f/up at dental clinics. Return to ED for worsening/concerning symptoms. Disposition - Clinical Impression Clinical Impression: Toothache, Dental caries - Patient ED Disposition Is Patient to be Admitted: No Counseled Patient/Family Regarding: Diagnosis, Need For Followup, Rx Given - Disposition Disposition: Routine/Home Disposition Time: 03:12 Condition: STABLE Prescriptions: Amoxicillin/Clavulanate [Augmentin 875 MG-125 MG] 1 tab PO Q12 #13 tab Ibuprofen [Motrin Tab] 1 tab PO Q6 PRN #20 tab PRN Reason: Pain, Moderate (4-7) Instructions: Dental Caries (ED), Toothache (ED)
[2016-07-15] MEDS ORDERED: Amoxicillin-Clav 875-125 mg Tab PO ONE (03:08)
== END 2016-07-15 06:46 | disposition home or self-care (01) ==
LOC: H.ER 02:39
DX: K02.9 Dental caries, unspecified (principal); F20.9 Schizophrenia, unspecified; F10.129 Alcohol abuse with intoxication, unspecified

== ENCOUNTER 2016-07-15 14:18 | Emergency (ER) | payer OTHER ==
[2016-07-15 14:18] VITALS: BMI 24.2
[2016-07-15 14:22] VITALS: BP 117/79; PULSE 95; RESP 16; TEMP 98; O2SAT 97
--- NOTE | 2016-07-15 15:05 | ED PDOC ---
HPI: Psych/Substance Abuse Time Seen by Provider: 07/15/16 15:03 Chief Complaint (Nursing): Psychiatric Evaluation Chief Complaint (Provider): left side dental pain History Per: Patient (51 y/o female h/o Alcohol abuse here for left side dental pain . Patient states symptoms ongoing. Denies any fevers/chills.) Past Medical History Reviewed: Historical Data, Nursing Documentation, Vital Signs Vital Signs: Last Vital Signs Temp 98.0 F 07/15/16 14:19 Pulse 95 H 07/15/16 14:19 Resp 16 07/15/16 14:19 BP 117/79 07/15/16 14:19 Pulse Ox 97 07/15/16 14:19 - Medical History PMH: Anxiety, Asthma, Depression, HTN, Paranoia, Pneumonia, Schizophrenia, TIA Denies: HIV, Chronic Kidney Disease, Seizures, Sexually Transmitted Disease - Family History Family History: States: Unknown Family Hx - Immunization History Hx Tetanus Toxoid Vaccination: Yes Hx Influenza Vaccination: No Hx Pneumococcal Vaccination: No - Home Medications Home Medications: Ambulatory Orders Medication Instructions Recorded Albuterol HFA [Ventolin HFA 90 1 puff INH Q4 PRN #1 inhaler 05/22/16 mcg/actuation (8 g)] Albuterol/Ipratropium [Duoneb 3 3 ml INH RQ6 PRN #1 neb 05/22/16 mg/0.5 mg (3 ml) UD] Gabapentin [Neurontin] 300 mg PO BID #60 cap 05/22/16 Mirtazapine [Remeron] 15 mg PO HS #30 tab 05/22/16 traZODone [Desyrel] 50 mg PO HS PRN #30 tab 05/22/16 hydrOXYzine HCl [Atarax] 25 mg PO Q6 PRN #60 tab 05/23/16 Amoxicillin/Clavulanate [Augmentin 1 tab PO Q12 #13 tab 07/15/16 875 MG-125 MG] Clindamycin [Cleocin] 300 mg PO Q6 #40 cap 07/15/16 Ibuprofen [Motrin Tab] 1 tab PO Q6 PRN #20 tab 07/15/16 - Allergies Allergies/Adverse Reactions: Allergies Allergy/AdvReac Type Severity Reaction Status Date / Time shellfish derived Allergy Severe SWELLING Verified 07/15/16 14:19 Review of Systems ROS Statement: Except As Marked, All Systems Reviewed And Found Negative Physical Exam - Reviewed Nursing Documentation Reviewed: Yes Vital Signs Reviewed: Yes - Physical Exam Appears: Positive for: Well, Non-toxic, No Acute Distress Head Exam: Positive for: ATRAUMATIC, NORMAL INSPECTION, NORMOCEPHALIC Skin: Positive for: Normal Color, Warm, DRY Eye Exam: Positive for: EOMI, Normal appearance, PERRL ENT: Positive for: Other (dental caries. Left sided facial swelling noted.). Negative for: Normal ENT Inspection Neck: Positive for: Normal, Painless ROM Cardiovascular/Chest: Positive for: Regular Rate, Rhythm Respiratory: Positive for: CNT, Normal Breath Sounds Gastrointestinal/Abdominal: Positive for: Normal Exam, Bowel Sounds, Soft Back: Positive for: Normal Inspection Extremity: Positive for: Normal ROM Neurologic/Psych: Positive for: Alert, Oriented - ECG O2 Sat by Pulse Oximetry: 97 - Progress ED Course And Treament: Clindamycin 300 mg x 1 dose Disposition - Clinical Impression Clinical Impression: Pain, dental - Disposition Referrals: Luis Culver DDS [Staff Provider] - Disposition: Routine/Home Disposition Time: 15:06 Condition: FAIR Prescriptions: Clindamycin [Cleocin] 300 mg PO Q6 #40 cap Instructions: Toothache (ED)
== END 2016-07-15 16:22 | disposition home or self-care (01) ==
LOC: H.ER 14:18
DX: K02.9 Dental caries, unspecified (principal); F10.129 Alcohol abuse with intoxication, unspecified

== ENCOUNTER 2016-07-15 21:29 | Emergency (ER) | payer MEDICAID, OTHER ==
[2016-07-15 21:29] VITALS: BMI 24.2
[2016-07-15 21:36] VITALS: BP 134/92; PULSE 88; RESP 16; TEMP 98.1; O2SAT 97
--- NOTE | 2016-07-15 21:55 | ED PDOC ---
HPI: Dental Pain/Injury Time Seen by Provider: 07/15/16 21:53 Chief Complaint (Nursing): Dental Pain Chief Complaint (Provider): dental pain History Per: Patient (51 y/o female here with persistent dental pain. Seen in ED earlier today and was given clindamycin. Patient request provider pull out her tooth.) Past Medical History Reviewed: Historical Data, Nursing Documentation, Vital Signs Vital Signs: Last Vital Signs Temp 98.1 F 07/15/16 21:32 Pulse 88 07/15/16 21:32 Resp 16 07/15/16 21:32 BP 134/92 H 07/15/16 21:32 Pulse Ox 97 07/15/16 21:32 - Medical History PMH: Anxiety, Asthma, Depression, HTN, Paranoia, Pneumonia, Schizophrenia, TIA Denies: HIV, Chronic Kidney Disease, Seizures, Sexually Transmitted Disease - Family History Family History: States: Unknown Family Hx - Immunization History Hx Tetanus Toxoid Vaccination: Yes Hx Influenza Vaccination: No Hx Pneumococcal Vaccination: No - Home Medications Home Medications: Ambulatory Orders Medication Instructions Recorded Albuterol HFA [Ventolin HFA 90 1 puff INH Q4 PRN #1 inhaler 05/22/16 mcg/actuation (8 g)] Albuterol/Ipratropium [Duoneb 3 3 ml INH RQ6 PRN #1 neb 05/22/16 mg/0.5 mg (3 ml) UD] Gabapentin [Neurontin] 300 mg PO BID #60 cap 05/22/16 Mirtazapine [Remeron] 15 mg PO HS #30 tab 05/22/16 traZODone [Desyrel] 50 mg PO HS PRN #30 tab 05/22/16 hydrOXYzine HCl [Atarax] 25 mg PO Q6 PRN #60 tab 05/23/16 Amoxicillin/Clavulanate [Augmentin 1 tab PO Q12 #13 tab 07/15/16 875 MG-125 MG] Clindamycin [Cleocin] 300 mg PO Q6 #40 cap 07/15/16 Ibuprofen [Motrin Tab] 1 tab PO Q6 PRN #20 tab 07/15/16 - Allergies Allergies/Adverse Reactions: Allergies Allergy/AdvReac Type Severity Reaction Status Date / Time shellfish derived Allergy Severe SWELLING Verified 07/15/16 21:32 Review of Systems ROS Statement: Except As Marked, All Systems Reviewed And Found Negative ENT: Positive for: Other (dental pain) Physical Exam - Reviewed Nursing Documentation Reviewed: Yes Vital Signs Reviewed: Yes - Physical Exam Appears: Positive for: Well, Non-toxic, No Acute Distress Head Exam: Positive for: ATRAUMATIC, NORMAL INSPECTION, NORMOCEPHALIC Skin: Positive for: Normal Color, Warm, DRY Eye Exam: Positive for: EOMI, Normal appearance, PERRL ENT: Positive for: Normal ENT Inspection, Other (left facial swelling/dental caries) Neck: Positive for: Normal, Painless ROM Cardiovascular/Chest: Positive for: Regular Rate, Rhythm Respiratory: Positive for: CNT, Normal Breath Sounds Gastrointestinal/Abdominal: Positive for: Normal Exam, Bowel Sounds, Soft Back: Positive for: Normal Inspection Extremity: Positive for: Normal ROM Neurologic/Psych: Positive for: Alert, Oriented - ECG O2 Sat by Pulse Oximetry: 97 Disposition - Clinical Impression Clinical Impression: Dental caries, Toothache - Disposition Disposition: Routine/Home Disposition Time: 21:55 Condition: FAIR Instructions: Dental Caries (ED), Toothache (ED)
== END 2016-07-15 22:19 | disposition home or self-care (01) ==
LOC: H.ER 21:29
DX: K02.9 Dental caries, unspecified (principal)

== ENCOUNTER 2016-07-16 13:08 | Observation (INO) | payer SELFPAY ==
[2016-07-16 13:08] VITALS: BMI 24.2
[2016-07-16 13:42] LABS: HEMATOCRIT 33.2 % (34.0-47.0); MEAN CELL VOLUME 85.6 fl (81.0-99.0); MEAN CORPUSCULAR HEMOGLOBIN 28.5 pg (27.0-31.0); MEAN CORPUSCULAR HGB CONC 33.3 g/dL (33.0-37.0); RED CELL DISTRIBUTION WIDTH 16.7 % (11.5-14.5); WHITE BLOOD COUNT 4.7 K/uL (4.8-10.8)
--- NOTE | 2016-07-16 14:04 | RAD ---
HISTORY: psychiatric consult COMPARISON: Comparison chest 04/29/2016 TECHNIQUE: Chest PA and lateral FINDINGS: LUNGS: Round/elliptical shaped opacities both lung bases consistent with nipple shadow artifact. . There is a linear/curvilinear densities in the right medial lung base likely representing chronic atelectasis/scarring PLEURA: No significant pleural effusion identified. No pneumothorax apparent. CARDIOVASCULAR: Normal. OSSEOUS STRUCTURES: Mild multilevel degenerative spondylosis of the thoracic spine VISUALIZED UPPER ABDOMEN: Normal. OTHER FINDINGS: None. IMPRESSION: No acute consolidation. Suspect mild chronic scarring right medial lung base
[2016-07-16 14:30] LABS: ALB/GLOB RATIO 1.3 (1.0-2.1); ALKALINE PHOSPHATASE 88 U/L (38-126); ALT/SGPT 28 U/L (9-52); AST/SGOT 51 U/L (14-36); BILIRUBIN,TOTAL 0.3 mg/dl (0.2-1.3); BLOOD UREA NITROGEN 15 mg/dl (7-17); CALCIUM 8.5 mg/dL (8.4-10.2); CARBON DIOXIDE 25 mmol/L (22-30); CHLORIDE 107 mmol/L (98-107); GFR AFRICAN-AMERICAN > 60; GLUCOSE,RANDOM 85 mg/dL (65-105); POTASSIUM 3.8 MMOL/L (3.6-5.0); SODIUM 147 mmol/l (132-148); TOTAL PROTEIN 7.8 G/DL (6.3-8.2)
--- NOTE | 2016-07-16 15:53 | ED PDOC ---
HPI: Psych/Substance Abuse Time Seen by Provider: 07/16/16 13:09 Chief Complaint (Nursing): Psychiatric Evaluation Chief Complaint (Provider): Suicidal Ideations History Per: Patient History/Exam Limitations: no limitations Additional Complaint(s): Marion Hudson,a 51 year old female, was brought into the ED for suicidal ideation. The patient states that she does not want to be in the ER and is only here because her mom called the police. The patient reports drinking an unknown amount of alcohol prior to arrival. Past Medical History Reviewed: Historical Data, Nursing Documentation, Vital Signs Vital Signs: Last Vital Signs Temp 98.0 F 07/16/16 13:13 Pulse 90 07/16/16 13:13 Resp 14 07/16/16 13:13 BP Pulse Ox 98 07/16/16 13:13 - Medical History PMH: Anxiety, Asthma, Depression, HTN, Paranoia, Pneumonia, Schizophrenia, TIA Denies: HIV, Chronic Kidney Disease, Seizures, Sexually Transmitted Disease - Family History Family History: States: Unknown Family Hx - Immunization History Hx Tetanus Toxoid Vaccination: Yes Hx Influenza Vaccination: No Hx Pneumococcal Vaccination: No - Home Medications Home Medications: Ambulatory Orders Medication Instructions Recorded Albuterol HFA [Ventolin HFA 90 1 puff INH Q4 PRN #1 inhaler 05/22/16 mcg/actuation (8 g)] Albuterol/Ipratropium [Duoneb 3 3 ml INH RQ6 PRN #1 neb 05/22/16 mg/0.5 mg (3 ml) UD] Gabapentin [Neurontin] 300 mg PO BID #60 cap 05/22/16 Mirtazapine [Remeron] 15 mg PO HS #30 tab 05/22/16 traZODone [Desyrel] 50 mg PO HS PRN #30 tab 05/22/16 hydrOXYzine HCl [Atarax] 25 mg PO Q6 PRN #60 tab 05/23/16 Amoxicillin/Clavulanate [Augmentin 1 tab PO Q12 #13 tab 07/15/16 875 MG-125 MG] Clindamycin [Cleocin] 300 mg PO Q6 #40 cap 07/15/16 Ibuprofen [Motrin Tab] 1 tab PO Q6 PRN #20 tab 07/15/16 - Allergies Allergies/Adverse Reactions: Allergies Allergy/AdvReac Type Severity Reaction Status Date / Time shellfish derived Allergy Severe SWELLING Verified 07/16/16 13:13 Review of Systems Psych: Positive for: Suicidal ideation Physical Exam - Reviewed Nursing Documentation Reviewed: Yes Vital Signs Reviewed: Yes - Physical Exam Appears: Positive for: Non-toxic, No Acute Distress Skin: Positive for: Normal Color, Warm, Dry Eye Exam: Positive for: Normal appearance, EOMI ENT: Positive for: Normal ENT Inspection Neck: Positive for: Normal, Painless ROM Cardiovascular/Chest: Positive for: Regular Rate, Rhythm. Negative for: Chest Non Tender, Tachycardia Respiratory: Positive for: Normal Breath Sounds, Accessory Muscle Use. Negative for: Wheezing, Respiratory Distress Gastrointestinal/Abdominal: Positive for: Normal Exam, Soft. Negative for: Tenderness Back: Positive for: Normal Inspection Extremity: Positive for: Normal ROM. Negative for: Tenderness, Deformity, Swelling Neurologic/Psych: Positive for: Alert, Oriented - Laboratory Results Result Diagrams: 07/16/16 13:30 07/16/16 13:55 - ECG O2 Sat by Pulse Oximetry: 98 (RA) Pulse Ox Interpretation: Normal Medical Decision Making Medical Decision Makin:09 51 year old female brought into the ED for suicidal ideation Initial Plan: * EKG * Alcohol serum * CMP * Urine drug screen * Crisis evaluation * CBC * CXR * Admit 15:45 * Reevaluation Scribe Attestation Documented by Jannette Woods acting as a scribe for Rajwinder Mcdaniels PA-C. Provider Attestation All medical record entries made by the Scribe were at my direction and personally dictated by me. I have reviewed the chart and agree that the record accurately reflects my personal performance of the history, physical exam, medical decision making, and the department course for this patient. I have also personally directed, reviewed, and agree with the discharge instructions and disposition. ED OBSERVATION Date of observation admission: 07/16/16 Time of observation admission: 15:45 - Observation admission statement Patient is being placed in observation because:: Pending Sobriety. - Progress Note Progress Note: 07/16/16 19:13 - Patient was up and requested water. 07/16/16 22:34 Pt evaluated by crisis. Pt being sent to [facility] for detox. 07/16/16 23:11 Pt reports feeling tremors. Pt given ativan and permetherin cream for scabies. 07/16/16 00:00 Pt endorsed pending acceptence by [facility] detox. Disposition - Clinical Impression Clinical Impression: Alcohol intoxication, Scabies - Patient ED Disposition Is Patient to be Admitted: Transfer of Care - Disposition Disposition: Transfer of Care Disposition Time: 23:12 Condition: GOOD
[2016-07-16] MEDS ORDERED: Permethrin 5% CREAM TOP STA (23:06)
[2016-07-17 01:14] VITALS: PULSE 86; O2SAT 99
[2016-07-17 01:32] LABS: RBC URINE 8 /hpf (0-3); URINE BACTERIA RARE (<OCC); URINE BILIRUBIN NEGATIVE (NEGATIVE); URINE BLOOD SMALL (NEGATIVE); URINE COLOR YELLOW (YELLOW); URINE GLUCOSE (UA) NEG (Normal); URINE KETONE NEGATIVE (NEGATIVE); URINE LEUKOCYTE ESTERASE NEG Leu/uL (Negative); URINE PROTEIN 30 mg/dL (NEGATIVE); URINE UROBILINOGEN 0.2-1.0 mg/dL (0.2-1.0); WBC URINE 2 /hpf (0-5)
--- NOTE | 2016-07-17 05:29 | ED PDOC ---
- Laboratory Results Result Diagrams: 07/16/16 13:30 07/16/16 13:55 - ECG O2 Sat by Pulse Oximetry: 99 Medical Decision Making Medical Decision Making: pt signed out to me pending crisis eval and detox transfer. will endorse to Dr. Aguirre pending final dispo. Disposition - Clinical Impression Clinical Impression: Alcohol intoxication, Scabies - POA Present On Arrival: None - Disposition Disposition: Transfer of Care Disposition Time: 05:28 Condition: GOOD
--- NOTE | 2016-07-17 06:37 | ED PDOC ---
- Laboratory Results Result Diagrams: 07/16/16 13:30 07/16/16 13:55 - ECG O2 Sat by Pulse Oximetry: 99 - Progress ED Course And Treament: Assumed care from NADIYA [facility]. Pt is cleared by Dr John for discharge. There are no beds at [facility] for detox. Pt is stable for discharge. Disposition - Clinical Impression Clinical Impression: Alcohol intoxication, Scabies - POA Present On Arrival: None - Disposition Disposition: Routine/Home Disposition Time: 06:37 Condition: GOOD
[2016-07-17 06:43] VITALS: BP 125/79; RESP 16; TEMP 98.2
--- NOTE | 2016-07-17 09:01 | CARD ---
APPROVED REPORT EKG Measurement Heart [id number] <Conclusion> Normal sinus rhythm Normal ECG
== END 2016-07-17 06:39 | disposition home or self-care (01) ==
LOC: H.ER 13:08 → H.EROBSV 15:45
PROVIDERS: ADMIT Emergency Medicine; ATTEND Emergency Medicine
DX: F10.129 Alcohol abuse with intoxication, unspecified (principal); B86 Scabies; I10 Essential (primary) hypertension; Z86.59 Personal history of other mental and behavioral disorders; J45.909 Unspecified asthma, uncomplicated; Y90.8 Blood alcohol level of 240 mg/100 ml or more
CPT/HCPCS: 71020; 80053; 81003; 85027; 93005; 99284; G0378; G0480

== ENCOUNTER 2016-07-18 01:07 | Emergency (ER) | payer SELFPAY ==
[2016-07-18 01:07] VITALS: BMI 24.2
--- NOTE | 2016-07-18 01:12 | ED PDOC ---
HPI: General Adult Time Seen by Provider: 07/18/16 01:10 History Per: Patient History/Exam Limitations: no limitations Additional Complaint(s): Pt. comes to ED c/o of "I have scabies", itching rash. Pt. well known to ED with mult visits for ETOH and similar complaints to today. Past Medical History Vital Signs: Last Vital Signs Temp 98.1 F 07/18/16 01:21 Pulse 77 07/18/16 01:21 Resp 16 07/18/16 01:21 BP 134/72 07/18/16 01:21 Pulse Ox 98 07/18/16 01:21 - Medical History PMH: Anxiety, Asthma, Depression, HTN, Paranoia, Pneumonia, Schizophrenia, TIA Denies: HIV, Chronic Kidney Disease, Seizures, Sexually Transmitted Disease - Family History Family History: States: Unknown Family Hx - Immunization History Hx Tetanus Toxoid Vaccination: Yes Hx Influenza Vaccination: No Hx Pneumococcal Vaccination: No - Home Medications Home Medications: Ambulatory Orders Medication Instructions Recorded Albuterol HFA [Ventolin HFA 90 1 puff INH Q4 PRN #1 inhaler 05/22/16 mcg/actuation (8 g)] Albuterol/Ipratropium [Duoneb 3 3 ml INH RQ6 PRN #1 neb 05/22/16 mg/0.5 mg (3 ml) UD] Gabapentin [Neurontin] 300 mg PO BID #60 cap 05/22/16 Mirtazapine [Remeron] 15 mg PO HS #30 tab 05/22/16 traZODone [Desyrel] 50 mg PO HS PRN #30 tab 05/22/16 hydrOXYzine HCl [Atarax] 25 mg PO Q6 PRN #60 tab 05/23/16 Amoxicillin/Clavulanate [Augmentin 1 tab PO Q12 #13 tab 07/15/16 875 MG-125 MG] Clindamycin [Cleocin] 300 mg PO Q6 #40 cap 07/15/16 Ibuprofen [Motrin Tab] 1 tab PO Q6 PRN #20 tab 07/15/16 Albuterol HFA [Ventolin HFA 90 1 puff IH Q6 #60 puff 07/17/16 mcg/actuation (8 g)] Bacitracin OINT 1 applic TP BID #3 tube 07/17/16 DiphenhydrAMINE [Benadryl] 25 mg PO Q4H PRN #30 cap 07/17/16 predniSONE [Prednisone] 20 mg PO BID #10 tab 07/17/16 Permethrin 5% [Permethrin 5% Cream] 60 gm EXT ONCE #1 tube 07/18/16 - Allergies Allergies/Adverse Reactions: Allergies Allergy/AdvReac Type Severity Reaction Status Date / Time shellfish derived Allergy Severe SWELLING Verified 07/17/16 08:39 Review of Systems ROS Statement: Except As Marked, All Systems Reviewed And Found Negative Skin: Positive for: Rash Physical Exam - Reviewed Nursing Documentation Reviewed: Yes Vital Signs Reviewed: Yes - Physical Exam Appears: Positive for: Well (disheveled), Non-toxic, No Acute Distress, Uncomfortable Head Exam: Positive for: ATRAUMATIC, NORMAL INSPECTION, NORMOCEPHALIC Skin: Positive for: Normal Color, Warm, Rash (scaling, toughened skin, papules to hands bilaterally) Eye Exam: Positive for: EOMI, Normal appearance, PERRL ENT: Positive for: Normal ENT Inspection Neck: Positive for: Normal, Painless ROM Cardiovascular/Chest: Positive for: Regular Rate, Rhythm Respiratory: Positive for: CNT, Normal Breath Sounds Gastrointestinal/Abdominal: Positive for: Normal Exam, Bowel Sounds, Soft Back: Positive for: Normal Inspection Extremity: Positive for: Normal ROM Neurologic/Psych: Positive for: Alert, Oriented Medical Decision Making Medical Decision Making: Pt. w/ possible scabies,will d/c home with permethrin. Disposition - Clinical Impression Clinical Impression: Scabies - Patient ED Disposition Is Patient to be Admitted: No - Disposition Referrals: [facility] [Outside] Disposition: Routine/Home Disposition Time: 01:12 Condition: STABLE Prescriptions: Permethrin 5% [Permethrin 5% Cream] 60 gm EXT ONCE #1 tube Instructions: Permethrin (On the skin), Scabies (ED)
[2016-07-18 01:23] VITALS: BP 134/72; PULSE 77; RESP 16; TEMP 98.1; O2SAT 98
== END 2016-07-18 02:15 | disposition home or self-care (01) ==
LOC: H.ER 01:07
DX: B86 Scabies (principal)

== ENCOUNTER 2016-07-21 21:18 | Emergency (ER) | payer SELFPAY ==
[2016-07-21 21:19] VITALS: BMI 24.2
[2016-07-21 21:23] VITALS: BP 127/74; PULSE 74; RESP 18; TEMP 98; O2SAT 99
--- NOTE | 2016-07-21 21:38 | ED PDOC ---
HPI: Psych/Substance Abuse Time Seen by Provider: 07/21/16 21:28 Chief Complaint (Nursing): Alcohol Ingestion Chief Complaint (Provider): Alcohol ingestion History Per: Patient History/Exam Limitations: no limitations Suicide/Self Injury Attempted (Context): None Modifying Factor(s): Alcohol Additional Complaint(s): The pt is a 51yo female, brought to the ED by EMS for public intoxication. Pt admits to drinking. She offers no medical complaints. Past Medical History Reviewed: Historical Data, Nursing Documentation, Vital Signs Vital Signs: Last Vital Signs Temp 98 F 07/21/16 21:21 Pulse 74 07/21/16 21:21 Resp 18 07/21/16 21:21 BP 127/74 07/21/16 21:21 Pulse Ox 99 07/21/16 21:21 - Medical History PMH: Anxiety, Asthma, Depression, HTN, Paranoia, Pneumonia, Schizophrenia, TIA Denies: HIV, Chronic Kidney Disease, Seizures, Sexually Transmitted Disease - Surgical History Surgical History: No Surg Hx - Family History Family History: States: Unknown Family Hx - Social History Alcohol: > 2 Drinks/Day - Immunization History Hx Tetanus Toxoid Vaccination: Yes Hx Influenza Vaccination: No Hx Pneumococcal Vaccination: No - Home Medications Home Medications: Ambulatory Orders Medication Instructions Recorded Albuterol HFA [Ventolin HFA 90 2 puff IH [id number] PRN 07/23/16 mcg/actuation (8 g)] - Allergies Allergies/Adverse Reactions: Allergies Allergy/AdvReac Type Severity Reaction Status Date / Time shellfish derived Allergy Severe SWELLING Verified 07/23/16 08:19 Review of Systems ROS Statement: Except As Marked, All Systems Reviewed And Found Negative Constitutional: Negative for: Fever Psych: Negative for: Anxiety, Suicidal ideation Physical Exam - Reviewed Nursing Documentation Reviewed: Yes Vital Signs Reviewed: Yes - Physical Exam Appears: Positive for: Well, Non-toxic, No Acute Distress Head Exam: Positive for: ATRAUMATIC, NORMAL INSPECTION, NORMOCEPHALIC Skin: Positive for: Normal Color Eye Exam: Positive for: Normal appearance ENT: Positive for: Normal ENT Inspection Neck: Positive for: Normal Cardiovascular/Chest: Positive for: Regular Rate, Rhythm Respiratory: Positive for: Normal Breath Sounds. Negative for: Respiratory Distress Back: Positive for: Normal Inspection Extremity: Positive for: Normal ROM Neurologic/Psych: Positive for: Alert, Oriented, Gait (steady). Negative for: Motor/Sensory Deficits - ECG O2 Sat by Pulse Oximetry: 99 Medical Decision Making Medical Decision Making: Time: 2137 Impression: ETOH intoxication Plan: -- Pt w/ normal speech and steady gait. Stable for d/c home. Scribe Attestation: Documented by Suzanne Crabtree, acting as a scribe for NADIYA Haro Provider Attestation: All medical record entries made by the Scribe were at my direction and personally dictated by me. I have reviewed the chart and agree that the record accurately reflects my personal performance of the history, physical exam, medical decision making, and the department course for this patient. I have also personally directed, reviewed, and agree with the discharge instructions and disposition. Disposition - Clinical Impression Clinical Impression: Alcohol abuse - Patient ED Disposition Is Patient to be Admitted: No - Disposition Disposition: Routine/Home Disposition Time: 21:38 Condition: GOOD
== END 2016-07-21 21:41 | disposition home or self-care (01) ==
LOC: H.ER 21:18
DX: F10.129 Alcohol abuse with intoxication, unspecified (principal)

== ENCOUNTER 2016-07-30 22:50 | Observation (INO) | payer SELFPAY ==
[2016-07-30 22:51] VITALS: BMI 21.6
[2016-07-30 23:48] LABS: BASO % 0.4 % (0.0-2.0); EOS # 0.1 K/uL (0.0-0.7); HEMATOCRIT 32.4 % (34.0-47.0); LYMPH # 1.9 K/uL (1.0-4.3); LYMPH % 33.6 % (20.0-40.0); MEAN CELL VOLUME 89.4 fl (81.0-99.0); MEAN CORPUSCULAR HEMOGLOBIN 28.6 pg (27.0-31.0); MEAN PLATELET VOLUME 6.6 fl (7.2-11.7); MONO # 0.4 K/uL (0.0-0.8); MONO % 6.5 % (0.0-10.0); NEUT # 3.3 K/uL (1.8-7.0); NEUT % 57.5 % (50.0-75.0); RED CELL DISTRIBUTION WIDTH 17.6 % (11.5-14.5); WHITE BLOOD COUNT 5.8 K/uL (4.8-10.8)
[2016-07-30 23:54] LABS: ALB/GLOB RATIO 1.2 (1.0-2.1); ALKALINE PHOSPHATASE 99 U/L (38-126); ALT/SGPT 41 U/L (9-52); AST/SGOT 67 U/L (14-36); BILIRUBIN,TOTAL 0.5 mg/dl (0.2-1.3); BLOOD UREA NITROGEN 13 mg/dl (7-17); CALCIUM 8.5 mg/dL (8.4-10.2); CARBON DIOXIDE 28 mmol/L (22-30); CHLORIDE 107 mmol/L (98-107); GFR AFRICAN-AMERICAN > 60; GLUCOSE,RANDOM 86 mg/dL (65-105); POTASSIUM 3.6 MMOL/L (3.6-5.0); SODIUM 146 mmol/l (132-148); TOTAL PROTEIN 8.1 G/DL (6.3-8.2)
[2016-07-31 00:03] LABS: ALCOHOL SERUM 485 mg/dl (0-10)
--- NOTE | 2016-07-31 00:10 | ED PDOC ---
HPI: Psych/Substance Abuse Time Seen by Provider: 07/30/16 22:56 Chief Complaint (Nursing): Alcohol Ingestion Chief Complaint (Provider): alcohol intoxication, SI History Per: Patient History/Exam Limitations: no limitations Onset/Duration Of Symptoms: Hrs Current Symptoms Are (Timing): Still Present Additional Complaint(s): 51yo female well known to ED for multiple previous visits presents for eval of alcohol intoxication and suicidal ideation. Patient verbalized suicidal ideation (plan to jump off of bridge) and is also extremely agitated. No other medical or psychiatric complaints at this time. Past Medical History Reviewed: Historical Data, Nursing Documentation, Vital Signs Vital Signs: Last Vital Signs Temp 97.1 F L 07/30/16 22:55 Pulse 88 07/30/16 22:55 Resp 16 07/30/16 22:55 BP 122/92 H 07/30/16 22:55 Pulse Ox 99 07/30/16 22:55 - Medical History PMH: Anxiety, Asthma, Depression, HTN, Paranoia, Pneumonia, Schizophrenia, TIA ( a year ago) - Surgical History Surgical History: No Surg Hx - Family History Family History: States: No Known Family Hx - Immunization History Hx Tetanus Toxoid Vaccination: No Hx Influenza Vaccination: No Hx Pneumococcal Vaccination: Yes - Home Medications Home Medications: Ambulatory Orders Medication Instructions Recorded Albuterol HFA [Ventolin HFA 90 2 puff IH [id number] PRN 07/23/16 mcg/actuation (8 g)] - Allergies Allergies/Adverse Reactions: Allergies Allergy/AdvReac Type Severity Reaction Status Date / Time shellfish derived Allergy Severe SWELLING Verified 07/30/16 22:55 Review of Systems ROS Statement: Except As Marked, All Systems Reviewed And Found Negative Psych: Positive for: Suicidal ideation Physical Exam - Reviewed Nursing Documentation Reviewed: Yes Vital Signs Reviewed: Yes - Physical Exam Appears: Positive for: No Acute Distress (poor hygiene, malodorous ) Head Exam: Positive for: ATRAUMATIC, NORMAL INSPECTION, NORMOCEPHALIC Skin: Positive for: Normal Color, Warm, Dry Eye Exam: Positive for: Normal appearance, EOMI, PERRL ENT: Positive for: Normal ENT Inspection Neck: Positive for: Normal, Painless ROM, Supple Cardiovascular/Chest: Positive for: Regular Rate, Rhythm. Negative for: Murmur , Tachycardia Respiratory: Positive for: Normal Breath Sounds. Negative for: Wheezing, Respiratory Distress Gastrointestinal/Abdominal: Positive for: Normal Exam, Soft. Negative for: Tenderness Back: Positive for: Normal Inspection Extremity: Positive for: Normal ROM. Negative for: Deformity, Swelling Neurologic/Psych: Positive for: Alert, Oriented - Laboratory Results Result Diagrams: 07/30/16 23:43 07/30/16 23:43 - ECG O2 Sat by Pulse Oximetry: 99 Pulse Ox Interpretation: Normal (RA) Medical Decision Making Medical Decision Makin: Impression: 51yo female w suicidal ideation in setting of alcohol intoxication Plan: Labs crisis eval Ativan 2mg IM, Haldol 5mg IM accucheck ED obs reassess 2326: Patient at high risk for elopement and self/staff injury. 4 point restraints and 1:1 ordered. Patient s/o to Dr. Jorgensen at 0700 pending crisis eval and re-eval. Scribe Attestation: Documented by Bela Mendiola acting as a scribe for Emeka Carrera MD. Provider Scribe Attestation: All medical record entries made by the Scribe were at my direction and personally dictated by me. I have reviewed the chart and agree that the record accurately reflects my personal performance of the history, physical exam, medical decision making, and the department course for this patient. I have also personally directed, reviewed, and agree with the discharge instructions and disposition. ED OBSERVATION Date of observation admission: 07/31/16 Time of observation admission: 00:00 - Observation admission statement Patient is being placed in observation because:: intoxication, SI - Goals of Observation Goals of observation are:: pending sobriety and crisis eval - Progress Note Progress Note: 0130: Patient sleeping comfortably in bed, vitals stable. 0300: Patient sleeping comfortably in bed, vitals stable. 0430: Patient sleeping comfortably in bed, vitals stable. Disposition - Clinical Impression Clinical Impression: Alcohol intoxication - Patient ED Disposition Is Patient to be Admitted: Transfer of Care - Disposition Disposition: Transfer of Care Disposition Time: 00:00 Condition: FAIR Patient Signed Over To: Janet Jorgensen Handoff Comments: pending crisis eval and re-eval
[2016-07-31 05:47] VITALS: RESP 18
--- NOTE | 2016-07-31 07:26 | ED PDOC ---
- Laboratory Results Result Diagrams: 07/30/16 23:43 07/30/16 23:43 - ECG O2 Sat by Pulse Oximetry: 99 (RA) Pulse Ox Interpretation: Normal Medical Decision Making Medical Decision Makin:00 Patient was signed off to me by Emeka Carrera MD. Pending clinical sobriety, crisis evaluation and dispostion. Scribe Attestation: Documented by Marisa Kwan, acting as a scribe for Janet Jorgensen MD. Provider Scribe Attestation: All medical record entries made by the Scribe were at my direction and personally dictated by me. I have reviewed the chart and agree that the record accurately reflects my personal performance of the history, physical exam, medical decision making, and the department course for this patient. I have also personally directed, reviewed, and agree with the discharge instructions and disposition Disposition - Clinical Impression Clinical Impression: Alcohol intoxication - Disposition Condition: FAIR
[2016-07-31 08:44] VITALS: TEMP 97.7
[2016-07-31 14:15] VITALS: BP 130/78; PULSE 70; O2SAT 98
== END 2016-07-31 01:55 | disposition home or self-care (01) ==
LOC: H.ER 22:50 → H.EROBSV 07-31
PROVIDERS: ADMIT Emergency Medicine; ATTEND Emergency Medicine
DX: F10.129 Alcohol abuse with intoxication, unspecified (principal); F20.9 Schizophrenia, unspecified; I10 Essential (primary) hypertension; J45.909 Unspecified asthma, uncomplicated; Z86.73 Personal history of transient ischemic attack (TIA), and cerebral infarction without residual deficits; F32.9 Major depressive disorder, single episode, unspecified; F41.9 Anxiety disorder, unspecified; R45.851 Suicidal ideations; Y90.8 Blood alcohol level of 240 mg/100 ml or more
CPT/HCPCS: 36415; 80053; 82948; 85025; 96372; 99282; G0378; G0480; J1630; J2060

== ENCOUNTER 2016-08-18 04:02 | Emergency (ER) | payer OTHER ==
[2016-08-18 04:20] VITALS: BMI 23.3
[2016-08-18 04:23] VITALS: BP 130/86; PULSE 76; RESP 16; TEMP 99; O2SAT 98
--- NOTE | 2016-08-18 04:43 | ED PDOC ---
HPI: Psych/Substance Abuse Time Seen by Provider: 08/18/16 04:16 Chief Complaint (Nursing): Alcohol Ingestion Chief Complaint (Provider): Alcohol Ingestion ED Caveat: Intoxicated History Per: Patient History/Exam Limitations: no limitations Current Symptoms Are (Timing): Still Present Suicide/Self Injury Attempted (Context): None Modifying Factor(s): Alcohol Additional Complaint(s): 51 year old female presents to ED due to alcohol intoxication. According to EMS , patient walked into [employer] station claiming to not feel well. Patient was brought here afterwards. PCP: None Past Medical History Reviewed: Historical Data, Nursing Documentation, Vital Signs Vital Signs: Last Vital Signs Temp 99.0 F 08/18/16 04:20 Pulse 76 08/18/16 04:20 Resp 16 08/18/16 04:20 BP 130/86 08/18/16 04:20 Pulse Ox 98 08/18/16 04:20 - Medical History PMH: Anxiety, Asthma, Depression, HTN, Paranoia, Pneumonia, Schizophrenia, TIA - Family History Family History: States: Unknown Family Hx - Social History Alcohol: Social - Immunization History Hx Tetanus Toxoid Vaccination: No Hx Influenza Vaccination: No Hx Pneumococcal Vaccination: Yes - Home Medications Home Medications: Ambulatory Orders Medication Instructions Recorded Albuterol HFA [Ventolin HFA 90 2 puff IH [id number] PRN 07/23/16 mcg/actuation (8 g)] - Allergies Allergies/Adverse Reactions: Allergies Allergy/AdvReac Type Severity Reaction Status Date / Time shellfish derived Allergy Severe SWELLING Verified 08/18/16 04:20 Review of Systems Review Of Systems: ROS cannot be obtained secondary to pt's inabilty to answer questions. Physical Exam - Reviewed Nursing Documentation Reviewed: Yes Vital Signs Reviewed: Yes - Physical Exam Appears: Positive for: Non-toxic, No Acute Distress Skin: Positive for: Normal Color, Warm, Dry Eye Exam: Positive for: Normal appearance, EOMI, PERRL Cardiovascular/Chest: Positive for: Regular Rate, Rhythm. Negative for: Murmur Respiratory: Positive for: Normal Breath Sounds. Negative for: Wheezing Gastrointestinal/Abdominal: Positive for: Soft. Negative for: Tenderness Neurologic/Psych: Positive for: Alert, Gait (unsteady). Negative for: Motor/ Sensory Deficits - ECG O2 Sat by Pulse Oximetry: 98 (RA) Pulse Ox Interpretation: Normal Medical Decision Making Medical Decision Makin Initial impression: alcohol intoxication Initial plan: * Observe patient 600 Pt. awake and alert with steady gait. Scribe Attestation: Documented by Lori Maldonado acting as a scribe for Ramírez Stephens MD. Scribe Attestation: All medical record entries made by the Scribe were at my direction and personally dictated by me. I have reviewed the chart and agree that the record accurately reflects my personal performance of the history, physical exam, medical decision making, and the department course for this patient. I have also personally directed, reviewed, and agree with the discharge instructions and disposition. Disposition - Clinical Impression Clinical Impression: Alcohol intoxication - Disposition Referrals: [facility] [Outside] Disposition Time: 06:00 Condition: STABLE Instructions: Alcohol Intoxication (ED)
== END 2016-08-18 06:12 | disposition home or self-care (01) ==
LOC: H.ER 04:02
DX: F10.129 Alcohol abuse with intoxication, unspecified (principal)

== ENCOUNTER 2016-09-02 18:26 | Observation (INO) | payer OTHER, SELFPAY ==
[2016-09-02 18:26] VITALS: BMI 23.3
[2016-09-02 18:36] VITALS: BP 113/67; PULSE 91; RESP 16; TEMP 98.2; O2SAT 96
--- NOTE | 2016-09-02 20:41 | ED PDOC ---
HPI: General Adult Time Seen by Provider: 09/02/16 19:19 Chief Complaint (Nursing): Medical Clearance Chief Complaint (Provider): Medical And Psychiatric Clearance History Per: Patient History/Exam Limitations: no limitations Have you had recent travel within the past 21 days to any of the following countries: [place], [place], [place] or [place]?: No Additional Complaint(s): Marion Hudson, a 51 year old female, is brought into the ED for medical and psychiatric clearance. The patient is in the custody of the police and is under arrest. She denies any medical complaints. There was no report of public intoxication, drug use or psychiatric behaviour. Denies medical complaints and HI/SI hallucinations. Past Medical History Reviewed: Historical Data, Nursing Documentation, Vital Signs Vital Signs: Last Vital Signs Temp 98.2 F 09/02/16 18:33 Pulse 91 H 09/02/16 18:33 Resp 16 09/02/16 18:33 BP 113/67 09/02/16 18:33 Pulse Ox 96 09/02/16 22:13 - Medical History PMH: Anxiety, Asthma, COPD, Depression, HTN, Paranoia, Pneumonia, Schizophrenia , TIA - Family History Family History: States: Unknown Family Hx - Immunization History Hx Tetanus Toxoid Vaccination: No Hx Influenza Vaccination: No Hx Pneumococcal Vaccination: Yes - Home Medications Home Medications: Ambulatory Orders Medication Instructions Recorded No Known Home Med 08/29/16 - Allergies Allergies/Adverse Reactions: Allergies Allergy/AdvReac Type Severity Reaction Status Date / Time shellfish derived Allergy Severe SWELLING Verified 09/02/16 18:33 Review of Systems ROS Statement: Except As Marked, All Systems Reviewed And Found Negative Constitutional: Positive for: Other (Denies any medical complaints.) Psych: Positive for: Other (Denies homicidal ideations.). Negative for: Suicidal ideation Physical Exam - Reviewed Nursing Documentation Reviewed: Yes Vital Signs Reviewed: Yes - Physical Exam Appears: Positive for: Non-toxic, No Acute Distress (Appears disheveled.) Head Exam: Positive for: ATRAUMATIC, NORMAL INSPECTION, NORMOCEPHALIC Skin: Positive for: Normal Color, Warm, Dry Eye Exam: Positive for: Normal appearance, EOMI ENT: Positive for: Normal ENT Inspection Neck: Positive for: Normal, Painless ROM, Supple Cardiovascular/Chest: Positive for: Regular Rate, Rhythm. Negative for: Tachycardia Respiratory: Positive for: Normal Breath Sounds. Negative for: Wheezing, Respiratory Distress Gastrointestinal/Abdominal: Positive for: Normal Exam, Bowel Sounds, Soft. Negative for: Tenderness, Guarding, Rebound Extremity: Positive for: Normal ROM. Negative for: Tenderness, Pedal Edema, Deformity, Swelling Neurologic/Psych: Positive for: Alert, Oriented, Gait (steady) - ECG O2 Sat by Pulse Oximetry: 96 (RA) Pulse Ox Interpretation: Normal Medical Decision Making Medical Decision Makin Initial Impression: 51 year old female presenting for medical and psychiatric clearance Differentials: Alcohol Intoxication Initial plan: * Alcohol Serum * Drug Screen * Crisis Evaluation * Upreg * Reevaluation Medically patient is cleared and psychiatric evaluation requested. Pt is cleared by crisis Dr John. Medically stable for discharge. Scribe Attestation Documented by Jannette Woods acting as a scribe for Arnold Aguirre MD. Provider Attestation: All medical record entries made by the Scribe were at my direction and personally dictated by me. I have reviewed the chart and agree that the record accurately reflects my personal performance of the history, physical exam, medical decision making, and the department course for this patient. I have also personally directed, reviewed, and agree with the discharge instructions and disposition. ED OBSERVATION Date of observation admission: 09/02/16 Time of observation admission: 09:09 - Observation admission statement Patient is being placed in observation because:: Pending sobriety. Disposition - Clinical Impression Clinical Impression: Alcohol intoxication - Patient ED Disposition Is Patient to be Admitted: No Doctor Will See Patient In The: Office Counseled Patient/Family Regarding: Studies Performed, Diagnosis, Need For Followup - Disposition Disposition: Discharged/Transfer to Law Enforcement Disposition Time: 21:08 Condition: GOOD
[2016-09-02 20:55] LABS: BARBITURATES, UR NEGATIVE (NEGATIVE); BENZODIAZEPINES, UR POSITIVE (NEGATIVE); OPIATES, UR NEGATIVE (NEGATIVE); PHENCYCLIDINE, UR NEGATIVE (NEGATIVE)
== END 2016-09-02 22:30 | disposition home or self-care (01) ==
LOC: H.ER 18:26 → H.EROBSV 21:08
PROVIDERS: ADMIT Emergency Medicine; ATTEND Emergency Medicine
DX: F10.129 Alcohol abuse with intoxication, unspecified (principal); F20.9 Schizophrenia, unspecified; F22 Delusional disorders; I10 Essential (primary) hypertension; J44.9 Chronic obstructive pulmonary disease, unspecified; Z86.73 Personal history of transient ischemic attack (TIA), and cerebral infarction without residual deficits; F32.9 Major depressive disorder, single episode, unspecified; F41.9 Anxiety disorder, unspecified; Y90.8 Blood alcohol level of 240 mg/100 ml or more

== ENCOUNTER 2016-09-11 16:13 | Observation (INO) | payer SELFPAY ==
[2016-09-11 16:13] VITALS: BMI 23.3
[2016-09-11 16:23] VITALS: RESP 16; O2SAT 97
--- NOTE | 2016-09-11 16:42 | ED PDOC ---
HPI: Psych/Substance Abuse Time Seen by Provider: 09/11/16 16:30 Chief Complaint (Nursing): Alcohol Ingestion Chief Complaint (Provider): Alcohol Ingestion ED Caveat: Intoxicated History Per: Patient History/Exam Limitations: intoxication Onset/Duration Of Symptoms: Hrs (Prior to arrival) Current Symptoms Are (Timing): Still Present Additional Complaint(s): Marion is a 51-year-old female who was brought to the ED for alcohol intoxication. Patient is sleeping in ED, unable to awaken. PMD: Unknown Past Medical History Reviewed: Historical Data, Nursing Documentation, Vital Signs Vital Signs: Last Vital Signs Temp 99 F 09/11/16 16:20 Pulse 80 09/11/16 16:20 Resp 16 09/11/16 16:20 BP 109/59 L 09/11/16 16:20 Pulse Ox 97 09/11/16 16:20 - Medical History PMH: Anxiety, Asthma, COPD, Depression, HTN, Paranoia, Pneumonia, Schizophrenia , TIA - Surgical History Surgical History: No Surg Hx - Family History Family History: States: Unknown Family Hx - Immunization History Hx Tetanus Toxoid Vaccination: No Hx Influenza Vaccination: No Hx Pneumococcal Vaccination: Yes - Home Medications Home Medications: Ambulatory Orders Medication Instructions Recorded No Known Home Med 08/29/16 - Allergies Allergies/Adverse Reactions: Allergies Allergy/AdvReac Type Severity Reaction Status Date / Time shellfish derived Allergy Severe SWELLING Verified 09/02/16 18:33 Review of Systems Review Of Systems: ROS cannot be obtained secondary to pt's inabilty to answer questions. Physical Exam - Reviewed Nursing Documentation Reviewed: Yes Vital Signs Reviewed: Yes - Physical Exam Appears: Positive for: Non-toxic (but appears disheveled), No Acute Distress Head Exam: Positive for: ATRAUMATIC, NORMAL INSPECTION (no trauma noted to head or extremities), NORMOCEPHALIC Skin: Positive for: Normal Color, Warm, Dry Neck: Positive for: Normal, Painless ROM Cardiovascular/Chest: Positive for: Regular Rate, Rhythm. Negative for: Murmur Respiratory: Positive for: Normal Breath Sounds. Negative for: Accessory Muscle Use, Respiratory Distress Extremity: Positive for: Normal ROM. Negative for: Pedal Edema, Deformity Neurologic/Psych: Positive for: Other (Patient somnulent, unable to arouse with verbal stimuli). Negative for: Alert - ECG O2 Sat by Pulse Oximetry: 97 (RA) Pulse Ox Interpretation: Normal Medical Decision Making Medical Decision Making: Time: 16:31 Initial Impression: ETOH intoxication Initial Plan: --Ordered alcohol serum and AccuCheck --Pending clinical sobriety and reevaluation Time: 16:55 --Patient placed under ED-Observation for altered mentation, pending clinical sobriety Scribe Attestation: Documented by Eri Cerda, acting as a scribe for Hui Villarreal PA-C Provider Scribe Attestation: All medical record entries made by the Scribe were at my direction and personally dictated by me. I have reviewed the chart and agree that the record accurately reflects my personal performance of the history, physical exam, medical decision making, and the department course for this patient. I have also personally directed, reviewed, and agree with the discharge instructions and disposition. ED OBSERVATION Date of observation admission: 09/11/16 Time of observation admission: 16:55 - Observation admission statement Patient is being placed in observation because:: Altered mentation - Goals of Observation Goals of observation are:: Clinical sobriety - Progress Note Progress Note: 09/11/16 Time: 17:00 --Patient is resting comfortably. Vital signs stable. Time: 18:30 --Patient continues to rest. Vital signs stable. Time: 20:00 --Patient is resting comfortably. Vital signs are stable. alcohol 262 Time: 21:30 --Patient continues to rest. Vital signs remain stable. 09/11/16 22:12 Re-evaluated at 22:00 Patient ambulating without difficulty. Appears clinically sober. 09/11/16 22:14 Disposition - Clinical Impression Clinical Impression: Alcohol intoxication - Patient ED Disposition Is Patient to be Admitted: No - Disposition Disposition: Routine/Home Disposition Time: 22:13 Condition: FAIR
[2016-09-11 22:14] VITALS: BP 138/68; PULSE 78; TEMP 98
== END 2016-09-11 22:17 | disposition home or self-care (01) ==
LOC: H.ER 16:13 → H.EROBSV 16:56
PROVIDERS: ADMIT Emergency Medicine; ATTEND Emergency Medicine
DX: F10.129 Alcohol abuse with intoxication, unspecified (principal); F20.9 Schizophrenia, unspecified; F22 Delusional disorders; I10 Essential (primary) hypertension; J44.9 Chronic obstructive pulmonary disease, unspecified; Z86.73 Personal history of transient ischemic attack (TIA), and cerebral infarction without residual deficits; F32.9 Major depressive disorder, single episode, unspecified; F41.9 Anxiety disorder, unspecified; J18.9 Pneumonia, unspecified organism

== ENCOUNTER 2016-09-24 17:36 | Emergency (ER) | payer SELFPAY ==
[2016-09-24 17:36] VITALS: BMI 23.3
[2016-09-24 17:42] VITALS: BP 155/103; PULSE 98; RESP 18; TEMP 97.2; O2SAT 100
[2016-09-24] MEDS ORDERED: Alum-Mag Hydrox-Simethicone Susp (30 mL) PO STA (17:45)
[2016-09-24] MEDS ORDERED: Alum-Mag Hydrox-Simethicone Susp (30 mL) ONE (17:57)
--- NOTE | 2016-10-17 20:12 | ED PDOC ---
HPI: Psych/Substance Abuse Time Seen by Provider: 09/24/16 17:44 Chief Complaint (Nursing): Alcohol Ingestion Chief Complaint (Provider): Alcohol Ingestion History Per: Patient History/Exam Limitations: no limitations Onset/Duration Of Symptoms: Mins (just prior to arrival) Current Symptoms Are (Timing): Still Present Modifying Factor(s): Alcohol Severity: Moderate Associated Symptoms: Agitation Additional Complaint(s): 51 year old female with a pertinent medical history of psychiatric problems, well known to the ED, is brought into the ED by EMS for a psychiatric evaluation. Patient was found in a [facility] yelling and cursing at customers just prior to arrival. Patient admits to drinking alcohol. Patient reports having mild abdominal pain, but states that she "does not want to be here". PMD: Patient does not have a PMD. Past Medical History Reviewed: Historical Data, Nursing Documentation, Vital Signs Vital Signs: Last Vital Signs Temp 97.2 F L 09/24/16 17:39 Pulse 98 H 09/24/16 17:39 Resp 18 09/24/16 17:39 BP 155/103 H 09/24/16 17:39 Pulse Ox 100 09/24/16 17:39 - Medical History PMH: Anxiety, Asthma, COPD, Depression, HTN, Paranoia, Pneumonia, Schizophrenia , TIA - Family History Family History: States: Unknown Family Hx - Social History Alcohol: > 2 Drinks/Day - Immunization History Hx Tetanus Toxoid Vaccination: No Hx Influenza Vaccination: No Hx Pneumococcal Vaccination: Yes - Home Medications Home Medications: Ambulatory Orders Medication Instructions Recorded Cephalexin [cephalexin] 500 mg PO Q6 #27 cap 09/30/16 - Allergies Allergies/Adverse Reactions: Allergies Allergy/AdvReac Type Severity Reaction Status Date / Time shellfish derived Allergy Severe SWELLING Verified 09/26/16 01:51 Review of Systems ROS Statement: Except As Marked, All Systems Reviewed And Found Negative Gastrointestinal: Positive for: Abdominal Pain (mild). Negative for: Nausea, Vomiting, Diarrhea Physical Exam - Reviewed Nursing Documentation Reviewed: Yes Vital Signs Reviewed: Yes - Physical Exam Appears: Positive for: Well, Non-toxic, No Acute Distress Head Exam: Positive for: ATRAUMATIC, NORMOCEPHALIC Skin: Positive for: Normal Color, Warm, Dry Cardiovascular/Chest: Positive for: Regular Rate, Rhythm Respiratory: Positive for: Normal Breath Sounds. Negative for: Respiratory Distress Gastrointestinal/Abdominal: Positive for: Normal Exam Neurologic/Psych: Positive for: Alert, Oriented (3x), Gait (steady) - ECG O2 Sat by Pulse Oximetry: 100 (RA) Pulse Ox Interpretation: Normal Medical Decision Making Medical Decision Makin:44 Initial impression: 51 year old female with alcohol ingestion. Initial plan: * maalox plus 30ml PO * reevaluation 18:50 Patient reports that her abdominal pain has resolved, and is now asking for a sandwich. Patient is stable for discharge. Scribe Attestation: Documented by Olya Grey, acting as a scribe for Rajwinder Mcdaniels PA-C. Provider Scribe Attestation: All medical record entries made by the Scribe were at my direction and personally dictated by me. I have reviewed the chart and agree that the record accurately reflects my personal performance of the history, physical exam, medical decision making, and the department course for this patient. I have also personally directed, reviewed, and agree with the discharge instructions and disposition. Disposition - Clinical Impression Clinical Impression: Alcohol abuse - Disposition Disposition: Routine/Home Disposition Time: 18:50 Condition: STABLE Forms: [employer] (Thai)
== END 2016-09-24 18:50 | disposition home or self-care (01) ==
LOC: H.ER 17:36
DX: F10.10 Alcohol abuse, uncomplicated (principal); Z86.59 Personal history of other mental and behavioral disorders

== ENCOUNTER 2016-09-28 16:42 | Emergency (ER) | payer SELFPAY ==
[2016-09-28 16:42] VITALS: BMI 23.3
[2016-09-28 16:47] VITALS: BP 108/69; PULSE 88; RESP 16; TEMP 98.3; O2SAT 100
--- NOTE | 2016-09-28 16:56 | ED PDOC ---
HPI: Psych/Substance Abuse Time Seen by Provider: 09/28/16 16:47 Chief Complaint (Nursing): Alcohol Ingestion Chief Complaint (Provider): Medical Clearance History Per: Patient, EMS Additional Complaint(s): Marion Hudson is a 51 y/o female, accompanied via [place] [employer], presenting to the ER on 09/28/2016 for medical clearance. Patient was initally under custody of the police. Upon arrival, the police decided to release the patient from custody. Patient is offering no medical or physical complaints at this time. Rest of HPI/ROS is limited. Past Medical History Reviewed: Historical Data, Nursing Documentation, Vital Signs Vital Signs: Last Vital Signs Temp 98.3 F 09/28/16 16:43 Pulse 88 09/28/16 16:43 Resp 16 09/28/16 16:43 BP 108/69 09/28/16 16:43 Pulse Ox 100 09/28/16 16:43 - Medical History PMH: Anxiety, Asthma, COPD, Depression, HTN, Paranoia, Pneumonia, Schizophrenia , TIA - Surgical History Surgical History: No Surg Hx - Family History Family History: States: Unknown Family Hx - Social History Current smoker - smoking cessation education provided: No Alcohol: Social Drugs: Denies - Immunization History Hx Tetanus Toxoid Vaccination: No Hx Influenza Vaccination: No Hx Pneumococcal Vaccination: Yes - Home Medications Home Medications: Ambulatory Orders Medication Instructions Recorded No Known Home Med 08/29/16 - Allergies Allergies/Adverse Reactions: Allergies Allergy/AdvReac Type Severity Reaction Status Date / Time shellfish derived Allergy Severe SWELLING Verified 09/26/16 01:51 Review of Systems Review Of Systems: ROS cannot be obtained secondary to pt's inabilty to answer questions. Physical Exam - Reviewed Nursing Documentation Reviewed: Yes Vital Signs Reviewed: Yes - Physical Exam Appears: Positive for: Non-toxic, No Acute Distress Head Exam: Positive for: ATRAUMATIC, NORMOCEPHALIC Skin: Positive for: Normal Color. Negative for: Rash Eye Exam: Positive for: Normal appearance Neck: Positive for: Normal Cardiovascular/Chest: Positive for: Regular Rate, Rhythm. Negative for: Murmur Respiratory: Positive for: Normal Breath Sounds. Negative for: Respiratory Distress Extremity: Positive for: Normal ROM. Negative for: Deformity, Swelling Neurologic/Psych: Positive for: Alert, Oriented. Negative for: Motor/Sensory Deficits - ECG O2 Sat by Pulse Oximetry: 100 Medical Decision Making Medical Decision Makin:47 Initial Impression- Medical Clearance Pt is no longer under involuntary hold by [place] [employer]. Pt does not require any emergent treatment in the ED as she does not present with any acute emergencies. Pt is stable for routine discharge. Documented by Patricia Boss, acting as a scribe for Rajwinder Mcdaniels PA-C All medical record entries made by the Scribe were at my direction and personally dictated by me. I have reviewed the chart and agree that the record accurately reflects my personal performance of the history, physical exam, medical decision making, and the department course for this patient. I have also personally directed, reviewed, and agree with the discharge instructions and disposition. Disposition - Clinical Impression Clinical Impression: Normal exam - Disposition Disposition Time: 16:55 Condition: GOOD Forms: [facility] (Puerto Rican)
--- NOTE | 2016-09-28 17:08 | ED PDOC ---
HPI: Psych/Substance Abuse Time Seen by Provider: 09/28/16 16:47 Chief Complaint (Nursing): Alcohol Ingestion Past Medical History Vital Signs: Last Vital Signs Temp 98.3 F 09/28/16 16:43 Pulse 88 09/28/16 16:43 Resp 16 09/28/16 16:43 BP 108/69 09/28/16 16:43 Pulse Ox 100 09/28/16 16:43 - Medical History PMH: Anxiety, Asthma, COPD, Depression, HTN, Paranoia, Pneumonia, Schizophrenia , TIA - Family History Family History: States: Unknown Family Hx - Immunization History Hx Tetanus Toxoid Vaccination: No Hx Influenza Vaccination: No Hx Pneumococcal Vaccination: Yes - Home Medications Home Medications: Ambulatory Orders Medication Instructions Recorded No Known Home Med 08/29/16 - Allergies Allergies/Adverse Reactions: Allergies Allergy/AdvReac Type Severity Reaction Status Date / Time shellfish derived Allergy Severe SWELLING Verified 09/26/16 01:51 - ECG O2 Sat by Pulse Oximetry: 100 Disposition - Clinical Impression Clinical Impression: Normal exam - Patient ED Disposition Is Patient to be Admitted: No - Disposition Disposition: Routine/Home Disposition Time: 16:52 Condition: GOOD
== END 2016-09-28 17:09 | disposition home or self-care (01) ==
LOC: H.ER 16:42
DX: Z00.00 Encounter for general adult medical examination without abnormal findings (principal)

== ENCOUNTER 2016-09-30 20:53 | Emergency (ER) | payer SELFPAY ==
[2016-09-30 20:54] VITALS: BMI 23.3
[2016-09-30 20:59] VITALS: BP 136/83; PULSE 103; RESP 16; TEMP 98.5; O2SAT 100
--- NOTE | 2016-09-30 21:13 | ED PDOC ---
Lower Extremity Pain/Injury Time Seen by Provider: 09/30/16 20:59 Chief Complaint (Nursing): Lower Extremity Problem/Injury Chief Complaint (Provider): right knee pain History Per: Patient History/Exam Limitations: no limitations Onset/Duration Of Symptoms: Days (2) Current Symptoms Are (Timing): Still Present Additional History Per: Patient Additional Complaint(s): 51 y/o female brought in by EMS for eval of right knee pain x 2 days. Patient states she noticed cut to right knee a few days ago, since then has noticed white pus coming out of it. Denies fever, nausea/vomiting, numbness/weakness lower extremities, limitation of movement. Past Medical History Reviewed: Historical Data, Nursing Documentation, Vital Signs Vital Signs: Last Vital Signs Temp 98.5 F 09/30/16 20:56 Pulse 103 H 09/30/16 20:56 Resp 16 09/30/16 20:56 BP 136/83 09/30/16 20:56 Pulse Ox 100 09/30/16 20:56 - Medical History PMH: Anxiety, Asthma, COPD, Depression, HTN, Paranoia, Pneumonia, Schizophrenia , TIA - Family History Family History: States: Unknown Family Hx - Immunization History Hx Tetanus Toxoid Vaccination: No Hx Influenza Vaccination: No Hx Pneumococcal Vaccination: Yes - Home Medications Home Medications: Ambulatory Orders Medication Instructions Recorded Cephalexin [cephalexin] 500 mg PO Q6 #27 cap 09/30/16 - Allergies Allergies/Adverse Reactions: Allergies Allergy/AdvReac Type Severity Reaction Status Date / Time shellfish derived Allergy Severe SWELLING Verified 09/26/16 01:51 Review of Systems ROS Statement: Except As Marked, All Systems Reviewed And Found Negative Musculoskeletal: Positive for: Leg Pain (right knee pain) Physical Exam - Reviewed Nursing Documentation Reviewed: Yes Vital Signs Reviewed: Yes - Physical Exam Appears: Positive for: Well, Non-toxic, No Acute Distress Cardiovascular/Chest: Positive for: Regular Rate, Rhythm Respiratory: Positive for: Normal Breath Sounds Extremity: Positive for: Normal ROM, Other (scabbed abrasion noted right lateral knee with surrounding erythema. No drainage, fluctuance noted. FROM right lower extremity) - ECG O2 Sat by Pulse Oximetry: 100 - Progress ED Course And Treament: tylenol PO, keflex PO Patient educated on findings, discharged with rx Keflex. Advised neosporin. Follow up PMD 2-3 days. Return to ED for worsening/concerning symptoms. Disposition - Clinical Impression Clinical Impression: Abrasion of knee, right, Cellulitis - Patient ED Disposition Is Patient to be Admitted: No Counseled Patient/Family Regarding: Diagnosis, Need For Followup, Rx Given - Disposition Disposition: Routine/Home Disposition Time: 21:14 Condition: GOOD Prescriptions: Cephalexin [cephalexin] 500 mg PO Q6 #27 cap Instructions: Cellulitis (ED), Abrasion (ED)
== END 2016-09-30 22:08 | disposition home or self-care (01) ==
LOC: H.ER 20:53
DX: L03.115 Cellulitis of right lower limb (principal); F20.9 Schizophrenia, unspecified; F32.9 Major depressive disorder, single episode, unspecified; F41.9 Anxiety disorder, unspecified; I10 Essential (primary) hypertension; Z86.73 Personal history of transient ischemic attack (TIA), and cerebral infarction without residual deficits

== ENCOUNTER 2016-10-08 21:17 | Emergency (ER) | payer SELFPAY ==
--- NOTE | 2016-10-08 21:43 | ED PDOC ---
HPI: General Adult Time Seen by Provider: 10/08/16 21:28 Chief Complaint (Provider): Thirsty History Per: Patient History/Exam Limitations: no limitations Have you had recent travel within the past 21 days to any of the following countries: [place], [place], [place] or [place]?: No Additional Complaint(s): Pt broughti n by EMS and [place] police for evaluation. Pt states she is thirsty. Past Medical History Reviewed: Historical Data, Nursing Documentation, Vital Signs - Medical History PMH: Anxiety, Asthma, COPD, Depression, HTN, Paranoia, Pneumonia, Schizophrenia , TIA - Family History Family History: States: Unknown Family Hx - Immunization History Hx Tetanus Toxoid Vaccination: No Hx Influenza Vaccination: No Hx Pneumococcal Vaccination: Yes - Home Medications Home Medications: Ambulatory Orders Medication Instructions Recorded Cephalexin [cephalexin] 500 mg PO Q6 #27 cap 09/30/16 - Allergies Allergies/Adverse Reactions: Allergies Allergy/AdvReac Type Severity Reaction Status Date / Time shellfish derived Allergy Severe SWELLING Verified 09/26/16 01:51 Review of Systems ROS Statement: Except As Marked, All Systems Reviewed And Found Negative Constitutional: Negative for: Fever Cardiovascular: Negative for: Chest Pain Respiratory: Negative for: Cough, Shortness of Breath Physical Exam - Reviewed Nursing Documentation Reviewed: Yes Vital Signs Reviewed: Yes - Physical Exam Appears: Positive for: Well, Non-toxic, No Acute Distress Head Exam: Positive for: ATRAUMATIC, NORMAL INSPECTION, NORMOCEPHALIC Skin: Positive for: Normal Color, Warm, DRY Eye Exam: Positive for: Normal appearance ENT: Positive for: Normal ENT Inspection Neck: Positive for: Normal, Painless ROM Cardiovascular/Chest: Positive for: Regular Rate, Rhythm Respiratory: Positive for: CNT, Normal Breath Sounds Gastrointestinal/Abdominal: Positive for: Normal Exam, Bowel Sounds, Soft Back: Positive for: Normal Inspection Extremity: Positive for: Normal ROM Neurologic/Psych: Positive for: Alert, Oriented Medical Decision Making Medical Decision Making: crisis evaluation completed. Disposition - Clinical Impression Clinical Impression: Alcohol abuse - Patient ED Disposition Is Patient to be Admitted: No Counseled Patient/Family Regarding: Diagnosis, Need For Followup - Disposition Disposition: Routine/Home Disposition Time: 21:29 Condition: GOOD Additional Instructions: Pt is medically and psychiatrically stable for incarceration. Instructions: Abuse of Alcohol (ED)
[2016-10-08 21:47] VITALS: BP 124/82; PULSE 84; RESP 18; TEMP 97.9; O2SAT 99
== END 2016-10-08 22:35 | disposition home or self-care (01) ==
LOC: H.ER 21:17
DX: F10.10 Alcohol abuse, uncomplicated (principal); F20.9 Schizophrenia, unspecified; F32.9 Major depressive disorder, single episode, unspecified; F41.9 Anxiety disorder, unspecified; I10 Essential (primary) hypertension; Z86.73 Personal history of transient ischemic attack (TIA), and cerebral infarction without residual deficits

== ENCOUNTER 2016-10-20 16:44 | Emergency (ER) | payer SELFPAY | END 2016-10-20 16:58 | disposition left against medical advice (07) | LOC: H.ER 16:44 | DX: Z02.89 Encounter for other administrative examinations (principal) ==

== ENCOUNTER 2016-10-27 18:43 | Emergency (ER) | payer SELFPAY ==
[2016-10-27 19:11] VITALS: BMI 23.3
[2016-10-27 19:13] VITALS: BP 118/74; PULSE 90; RESP 16; TEMP 98; O2SAT 98
--- NOTE | 2016-10-27 19:13 | ED PDOC ---
HPI: General Adult Time Seen by Provider: 10/27/16 18:47 Chief Complaint (Provider): Denies complaint History Per: Patient History/Exam Limitations: no limitations Have you had recent travel within the past 21 days to any of the following countries: [place], [place], [place] or [place]?: No Additional Complaint(s): Pt walks in with EMS with steady gait. PT denies complaint. Pt asks to use the phone. EMS state they were told to bring her by police. Past Medical History Reviewed: Historical Data, Nursing Documentation, Vital Signs - Medical History PMH: Anxiety, Asthma, COPD, Depression, HTN, Paranoia, Pneumonia, Schizophrenia , TIA Denies: Diabetes, Hepatitis, HIV, Seizures, Sexually Transmitted Disease - Surgical History Surgical History: No Surg Hx - Family History Family History: States: Unknown Family Hx - Living Arrangements Living Arrangements: With Family - Social History Current smoker - smoking cessation education provided: No Alcohol: Occasional Drugs: Denies - Immunization History Hx Tetanus Toxoid Vaccination: No Hx Influenza Vaccination: No Hx Pneumococcal Vaccination: Yes - Home Medications Home Medications: Ambulatory Orders Medication Instructions Recorded Cephalexin [cephalexin] 500 mg PO Q6 #27 cap 09/30/16 - Allergies Allergies/Adverse Reactions: Allergies Allergy/AdvReac Type Severity Reaction Status Date / Time shellfish derived Allergy Severe SWELLING Verified 10/27/16 19:11 Review of Systems ROS Statement: Except As Marked, All Systems Reviewed And Found Negative Constitutional: Negative for: Fever, Chills Cardiovascular: Negative for: Chest Pain Respiratory: Negative for: Cough, Shortness of Breath Physical Exam - Reviewed Nursing Documentation Reviewed: Yes Vital Signs Reviewed: Yes - Physical Exam Appears: Positive for: Well, Non-toxic, No Acute Distress Head Exam: Positive for: ATRAUMATIC, NORMAL INSPECTION, NORMOCEPHALIC Skin: Positive for: Normal Color, Warm, DRY Eye Exam: Positive for: Normal appearance ENT: Positive for: Normal ENT Inspection Neck: Positive for: Normal, Painless ROM Cardiovascular/Chest: Positive for: Regular Rate, Rhythm Respiratory: Positive for: CNT, Normal Breath Sounds Back: Positive for: Normal Inspection Extremity: Positive for: Normal ROM Neurologic/Psych: Positive for: Alert, Oriented Disposition - Clinical Impression Clinical Impression: Alcohol abuse - Patient ED Disposition Is Patient to be Admitted: No - Disposition Disposition: Routine/Home Disposition Time: 18:51 Condition: GOOD
== END 2016-10-27 19:22 | disposition home or self-care (01) ==
LOC: H.ER 18:43
DX: F10.129 Alcohol abuse with intoxication, unspecified (principal)

== ENCOUNTER 2016-11-01 02:02 | Emergency (ER) | payer SELFPAY ==
[2016-11-01 02:03] VITALS: BMI 23.3
--- NOTE | 2016-11-01 03:53 | ED PDOC ---
HPI: Psych/Substance Abuse Time Seen by Provider: 11/01/16 03:53 Chief Complaint (Provider): etoh History Per: Patient, EMS Additional Complaint(s): 51 year old female with history of alcohol abuse presents to ED acutely intoxicated. Patient is non-domiciled and well known to ED. She offers no acute complaints. Past Medical History Reviewed: Historical Data, Nursing Documentation, Vital Signs - Medical History PMH: Anxiety, Asthma, COPD, Depression, HTN, Paranoia, Schizophrenia - Family History Family History: States: No Known Family Hx - Living Arrangements Living Arrangements: Other (non-domiciled) - Social History Alcohol: > 2 Drinks/Day - Home Medications Home Medications: Ambulatory Orders Medication Instructions Recorded Cephalexin [cephalexin] 500 mg PO Q6 #27 cap 09/30/16 - Allergies Allergies/Adverse Reactions: Allergies Allergy/AdvReac Type Severity Reaction Status Date / Time shellfish derived Allergy Severe SWELLING Verified 10/27/16 19:11 Review of Systems ROS Statement: Except As Marked, All Systems Reviewed And Found Negative Psych: Positive for: Other (etoh) Physical Exam - Reviewed Nursing Documentation Reviewed: Yes Vital Signs Reviewed: Yes - Physical Exam Appears: Positive for: Well Head Exam: Positive for: ATRAUMATIC, NORMAL INSPECTION Skin: Negative for: Rash Eye Exam: Positive for: Normal appearance Cardiovascular/Chest: Positive for: Regular Rate, Rhythm Respiratory: Positive for: Normal Breath Sounds. Negative for: Wheezing, Respiratory Distress - ECG O2 Sat by Pulse Oximetry: 100 Pulse Ox Interpretation: Normal Medical Decision Making Medical Decision Makin51 year old intoxicated female Patient was observed in ED for 3 hours. He condition has remained stable throughout ED stay. 6:00 AM: patient is awake, alert, steady gait, stable for discharge. Disposition - Clinical Impression Clinical Impression: Alcohol intoxication, Alcoholism - Patient ED Disposition Is Patient to be Admitted: No - Disposition Referrals: [facility] [Outside] Disposition: Routine/Home Disposition Time: 04:06 Condition: STABLE Instructions: Alcohol Intoxication (ED), Abuse of Alcohol (ED)
[2016-11-01 04:06] VITALS: O2SAT 100
[2016-11-01 07:22] VITALS: BP 123/79; PULSE 83; RESP 18; TEMP 97.9
== END 2016-11-01 04:50 | disposition home or self-care (01) ==
LOC: H.ER 02:02
DX: F10.229 Alcohol dependence with intoxication, unspecified (principal); F20.9 Schizophrenia, unspecified; F32.9 Major depressive disorder, single episode, unspecified; F41.9 Anxiety disorder, unspecified; I10 Essential (primary) hypertension; J44.9 Chronic obstructive pulmonary disease, unspecified

== ENCOUNTER 2016-11-01 19:00 | Observation (INO) | payer SELFPAY ==
[2016-11-01 19:01] VITALS: BMI 23.3
[2016-11-01 19:06] VITALS: RESP 16
--- NOTE | 2016-11-01 22:02 | ED PDOC ---
HPI: CCC, URI, Sore Throat Time Seen by Provider: 11/01/16 19:31 Chief Complaint (Nursing): Cough, Cold, Congestion Chief Complaint (Provider): Cough History Per: Patient History/Exam Limitations: no limitations Onset/Duration Of Symptoms: Days (chronic) Additional Complaint(s): Marion Hudson is a 51 year old female, with a past history of alcohol abuse, who presents to the emergency department intoxicated complaining of chronic cough. Patient is well known in the ED and denies any acute complaints. PMD: None provided. Past Medical History Reviewed: Historical Data, Nursing Documentation, Vital Signs Vital Signs: Last Vital Signs Temp 98.1 F 11/01/16 19:04 Pulse 81 11/01/16 19:04 Resp 16 11/01/16 19:04 BP 128/79 11/01/16 19:04 Pulse Ox 100 11/02/16 01:47 - Medical History PMH: Anxiety, Asthma, COPD, Depression, HTN, Paranoia, Pneumonia, Schizophrenia , TIA Denies: Diabetes, Hepatitis, HIV, Seizures, Sexually Transmitted Disease - Family History Family History: States: Unknown Family Hx - Social History Alcohol: < 2 Drinks/Day - Immunization History Hx Tetanus Toxoid Vaccination: No Hx Influenza Vaccination: No Hx Pneumococcal Vaccination: Yes - Home Medications Home Medications: Ambulatory Orders Medication Instructions Recorded Cephalexin [cephalexin] 500 mg PO Q6 #27 cap 09/30/16 Albuterol HFA [Ventolin HFA 90 2 puff IH [id number] #1 puff 11/02/16 mcg/actuation (8 g)] - Allergies Allergies/Adverse Reactions: Allergies Allergy/AdvReac Type Severity Reaction Status Date / Time shellfish derived Allergy Severe SWELLING Verified 11/01/16 07:09 Review of Systems ROS Statement: Except As Marked, All Systems Reviewed And Found Negative Respiratory: Positive for: Cough Physical Exam - Reviewed Nursing Documentation Reviewed: Yes Vital Signs Reviewed: Yes - Physical Exam Appears: Positive for: Well, No Acute Distress Head Exam: Positive for: ATRAUMATIC, NORMAL INSPECTION, NORMOCEPHALIC Skin: Positive for: Normal Color, Warm, Dry Eye Exam: Positive for: Normal appearance, EOMI, PERRL Neck: Positive for: Normal, Painless ROM, Supple Respiratory: Positive for: Normal Breath Sounds. Negative for: Respiratory Distress Gastrointestinal/Abdominal: Positive for: Normal Exam, Bowel Sounds, Soft Extremity: Positive for: Normal ROM Neurologic/Psych: Positive for: Alert, Oriented - ECG O2 Sat by Pulse Oximetry: 100 (RA) Pulse Ox Interpretation: Normal Medical Decision Making Medical Decision Making: Initial Impression: homelessness Initial Plan: --Chest two views (PA/LAT) [RAD] Time: 1999 Patient has been admitted to ED OBS Scribe Attestation: Documented by Aman Weiner, acting as a scribe for Ramírez Stephens MD Provider Scribe Attestation: All medical record entries made by the Scribe were at my direction and personally dictated by me. I have reviewed the chart and agree that the record accurately reflects my personal performance of the history, physical exam, medical decision making, and the department course for this patient. I have also personally directed, reviewed, and agree with the discharge instructions and disposition. ED OBSERVATION Discharge: Yes Date of observation admission: 11/01/16 Time of observation admission: 20:00 - Observation admission statement Patient is being placed in observation because:: Alcohol Intoxication - Goals of Observation Goals of observation are:: Clinical sobriety - Progress Note Progress Note: 11/01/16 21:30 Patient resting comfortably, vitals stable 11/01/16 23:00 Patient resting comfortably, vitals stable 11/02/16 12:30 Patient resting comfortably, vitals stable 11/02/16 1:47 Patient is medically stable for discharge. Patient is alert, oriented, and walking with a steady gait. Disposition - Clinical Impression Clinical Impression: Chronic cough - Disposition Disposition Time: 20:00 Condition: STABLE - Pt Status Changed To: Hospital Disposition Of: Observation (ED OBS)
[2016-11-02 04:58] VITALS: BP 129/71; PULSE 73; TEMP 98.3; O2SAT 97
--- NOTE | 2016-11-02 11:39 | RAD ---
HISTORY: cough COMPARISON: 07/16/2016 TECHNIQUE: Chest PA and lateral FINDINGS: LUNGS: No active pulmonary disease. PLEURA: No significant pleural effusion identified. No pneumothorax apparent. CARDIOVASCULAR: No radiographic findings to suggest acute or significant cardiovascular disease. OSSEOUS STRUCTURES: No significant abnormalities. VISUALIZED UPPER ABDOMEN: Large air-fluid level in the stomach of uncertain etiology/ significance. OTHER FINDINGS: None. IMPRESSION: No active disease. No acute/significant interval changes. No preliminary report provided by emergency department personnel.
== END 2016-11-02 06:37 | disposition home or self-care (01) ==
LOC: H.ER 19:00 → H.EROBSV 20:00
PROVIDERS: ADMIT Emergency Medicine; ATTEND Emergency Medicine
DX: J44.9 Chronic obstructive pulmonary disease, unspecified (principal); F10.10 Alcohol abuse, uncomplicated; I10 Essential (primary) hypertension; F20.9 Schizophrenia, unspecified; F41.9 Anxiety disorder, unspecified; F32.9 Major depressive disorder, single episode, unspecified; Z59.0 Homelessness; Z86.73 Personal history of transient ischemic attack (TIA), and cerebral infarction without residual deficits
CPT/HCPCS: 71020; 99282; G0378

== ENCOUNTER 2016-11-05 12:29 | Emergency (ER) | payer SELFPAY ==
[2016-11-05 12:33] VITALS: BP 125/90; PULSE 101; RESP 16; TEMP 98.7; O2SAT 97; BMI 18.3
--- NOTE | 2016-11-05 13:10 | ED PDOC ---
HPI: Psych/Substance Abuse Time Seen by Provider: 11/05/16 12:40 Chief Complaint (Nursing): Cough, Cold, Congestion Chief Complaint (Provider): Cough History Per: Patient History/Exam Limitations: no limitations Additional Complaint(s): Marion Hudson is a 51 year old female that is well known to the ED with police. PT denies complaint. Patient denies any fever. Pt asks to use phone. Past Medical History Reviewed: Historical Data, Nursing Documentation, Vital Signs Vital Signs: Last Vital Signs Temp 98.7 F 11/05/16 12:32 Pulse 101 H 11/05/16 12:32 Resp 16 11/05/16 12:32 BP 125/90 11/05/16 12:32 Pulse Ox 97 11/05/16 12:32 - Medical History PMH: Anxiety, Asthma, COPD, Depression, HTN, Paranoia, Pneumonia, Schizophrenia , TIA Denies: Diabetes, Hepatitis, HIV, Seizures, Sexually Transmitted Disease - Family History Family History: States: Unknown Family Hx - Immunization History Hx Tetanus Toxoid Vaccination: No Hx Influenza Vaccination: No Hx Pneumococcal Vaccination: Yes - Home Medications Home Medications: Ambulatory Orders Medication Instructions Recorded Cephalexin [cephalexin] 500 mg PO Q6 #27 cap 09/30/16 Albuterol HFA [Ventolin HFA 90 2 puff IH [id number] #1 puff 11/02/16 mcg/actuation (8 g)] - Allergies Allergies/Adverse Reactions: Allergies Allergy/AdvReac Type Severity Reaction Status Date / Time shellfish derived Allergy Severe SWELLING Verified 11/01/16 07:09 Review of Systems Constitutional: Negative for: Fever Respiratory: Positive for: Cough Physical Exam - Reviewed Nursing Documentation Reviewed: Yes Vital Signs Reviewed: Yes - Physical Exam Appears: Positive for: Non-toxic, No Acute Distress Head Exam: Positive for: ATRAUMATIC, NORMOCEPHALIC Skin: Positive for: Normal Color, Warm Eye Exam: Positive for: Normal appearance, EOMI, PERRL ENT: Positive for: Normal ENT Inspection Neck: Positive for: Normal Cardiovascular/Chest: Positive for: Regular Rate, Rhythm. Negative for: Murmur Respiratory: Positive for: Normal Breath Sounds. Negative for: Wheezing Back: Positive for: Normal Inspection Extremity: Positive for: Normal ROM Neurologic/Psych: Positive for: Alert, Oriented, Gait (steady). Negative for: Motor/Sensory Deficits - ECG O2 Sat by Pulse Oximetry: 97 (RA) Pulse Ox Interpretation: Normal Medical Decision Making Medical Decision Making: Impression: Cough Plan: * Patient has no complaints, and reports that she does not want to be seen. Patient is stable for discharge, but left ED before papers were printed. Scribe Attestation: Documented by Irma Felipe, acting as a scribe for Rajwinder Mcdaniels PA-C. Provider Scribe Attestation: All medical record entries made by the Scribe were at my direction and personally dictated by me. I have reviewed the chart and agree that the record accurately reflects my personal performance of the history, physical exam, medical decision making, and the department course for this patient. I have also personally directed, reviewed, and agree with the discharge instructions and disposition. Disposition - Clinical Impression Clinical Impression: Normal exam - Patient ED Disposition Is Patient to be Admitted: No - Disposition Disposition: Routine/Home Disposition Time: 13:05 Condition: STABLE Forms: [employer] (Estonian)
== END 2016-11-05 13:00 | disposition left against medical advice (07) ==
LOC: H.ER 12:29
DX: R05 Cough (principal); F20.9 Schizophrenia, unspecified; F32.9 Major depressive disorder, single episode, unspecified; F41.9 Anxiety disorder, unspecified; I10 Essential (primary) hypertension; Z86.73 Personal history of transient ischemic attack (TIA), and cerebral infarction without residual deficits; J44.9 Chronic obstructive pulmonary disease, unspecified

== ENCOUNTER 2016-11-16 04:36 | Emergency (ER) | payer OTHER ==
[2016-11-16 04:36] VITALS: BMI 27.4
[2016-11-16 04:40] VITALS: BP 139/96; PULSE 83; RESP 18; TEMP 98.2; O2SAT 99
== END 2016-11-16 06:16 | disposition home or self-care (01) ==
LOC: H.ER 04:36
DX: F10.129 Alcohol abuse with intoxication, unspecified (principal)

== ENCOUNTER 2016-12-24 12:26 | Emergency (ER) | payer SELFPAY ==
[2016-12-24 12:31] VITALS: BP 134/70; PULSE 92; RESP 18; TEMP 97; O2SAT 97
--- NOTE | 2016-12-24 12:39 | ED PDOC ---
HPI: Psych/Substance Abuse Time Seen by Provider: 12/24/16 12:33 Chief Complaint (Nursing): Alcohol Ingestion History Per: EMS (Brought by EMS for ETOH ingestion. Pt denies SI/HI. No trauma) Modifying Factor(s): Alcohol Past Medical History Vital Signs: Last Vital Signs Temp 97 F L 12/24/16 12:29 Pulse 92 H 12/24/16 12:29 Resp 18 12/24/16 12:29 BP 134/70 12/24/16 12:29 Pulse Ox 97 12/24/16 12:29 - Medical History PMH: Anxiety, Asthma, COPD, Depression, HTN, Paranoia, Pneumonia, Schizophrenia , TIA Denies: Diabetes, Hepatitis, HIV, Seizures, Sexually Transmitted Disease - Family History Family History: States: Unknown Family Hx - Immunization History Hx Tetanus Toxoid Vaccination: No Hx Influenza Vaccination: No Hx Pneumococcal Vaccination: No - Home Medications Home Medications: Ambulatory Orders Medication Instructions Recorded Erythromycin 0.5% [Erythromycin] 1 applic OU Q6 #1 tube 12/22/16 - Allergies Allergies/Adverse Reactions: Allergies Allergy/AdvReac Type Severity Reaction Status Date / Time shellfish derived Allergy Severe SWELLING Verified 12/24/16 12:29 Review of Systems Psych: Negative for: Suicidal ideation Physical Exam - Physical Exam Appears: Positive for: Non-toxic, No Acute Distress Cardiovascular/Chest: Positive for: Regular Rate, Rhythm Respiratory: Positive for: CNT, Normal Breath Sounds Neurologic/Psych: Positive for: Alert, Oriented, Motor/Sensory Deficits (Awake alert ambulating without difficulty.) - ECG O2 Sat by Pulse Oximetry: 97 Disposition - Clinical Impression Clinical Impression: Alcohol ingestion - Patient ED Disposition Is Patient to be Admitted: No Counseled Patient/Family Regarding: Diagnosis, Need For Followup - Disposition Disposition: Routine/Home Disposition Time: 12:39 Condition: FAIR Instructions: Alcohol Use Disorder (ED)
== END 2016-12-24 13:41 | disposition home or self-care (01) ==
LOC: H.ER 12:26
DX: F10.129 Alcohol abuse with intoxication, unspecified (principal)

== ENCOUNTER 2017-01-22 10:15 | Emergency (ER) | payer MEDICAID, OTHER, SELFPAY ==
[2017-01-22 10:28] VITALS: BP 122/81; PULSE 63; RESP 20; TEMP 97; O2SAT 96
--- NOTE | 2017-01-22 11:19 | ED PDOC ---
HPI: General Adult Time Seen by Provider: 01/22/17 10:35 Chief Complaint (Nursing): Medical Clearance History Per: Patient Additional Complaint(s): Pt. brought in by [facility] for medical and psychiatric clearance for incarceration. Pt. c/o b/l leg pain x 3-4 months. States pain has been the same throughout. Denies SOB, fever, weakness, bleeding, melena, hematochezia, BRBPR, hematemesis , chest pain. Of note, pt. was seen in [facility] ED for leg pain and had blood work done. Past Medical History Reviewed: Historical Data, Nursing Documentation, Vital Signs Vital Signs: Last Vital Signs Temp 97.0 F L 01/22/17 10:28 Pulse 63 01/22/17 10:28 Resp 20 01/22/17 10:28 BP 122/81 01/22/17 10:28 Pulse Ox 96 01/22/17 10:28 - Medical History PMH: Anxiety, Asthma, COPD, Depression, HTN, Paranoia, Pneumonia, Schizophrenia , TIA Denies: Diabetes, Hepatitis, HIV, Seizures, Sexually Transmitted Disease - Family History Family History: States: No Known Family Hx - Immunization History Hx Tetanus Toxoid Vaccination: No Hx Influenza Vaccination: No Hx Pneumococcal Vaccination: No - Home Medications Home Medications: Ambulatory Orders Medication Instructions Recorded Erythromycin 0.5% [Erythromycin] 1 applic OU Q6 #1 tube 12/22/16 Azithromycin [Zithromax] 250 mg PO DAILY #4 tab 01/22/17 - Allergies Allergies/Adverse Reactions: Allergies Allergy/AdvReac Type Severity Reaction Status Date / Time shellfish derived Allergy Severe SWELLING Verified 01/21/17 09:08 Review of Systems ROS Statement: Except As Marked, All Systems Reviewed And Found Negative Musculoskeletal: Positive for: Leg Pain Physical Exam - Reviewed Nursing Documentation Reviewed: Yes Vital Signs Reviewed: Yes - Physical Exam Appears: Positive for: Well, Non-toxic, No Acute Distress Head Exam: Positive for: ATRAUMATIC, NORMAL INSPECTION, NORMOCEPHALIC Skin: Positive for: Normal Color, Warm. Negative for: Rash Eye Exam: Positive for: EOMI, Normal appearance, PERRL ENT: Positive for: TM Is/Are (non-erythematous, non-bulging b/l), Other (dry blood noted b/l; white FB noted in R nostril (likely tissue)). Negative for: Pharyngeal Erythema, Tonsillar Exudate, Tonsillar Swelling Neck: Positive for: Normal, Painless ROM Cardiovascular/Chest: Positive for: Regular Rate, Rhythm Respiratory: Positive for: CNT, Normal Breath Sounds Gastrointestinal/Abdominal: Positive for: Normal Exam, Bowel Sounds, Soft. Negative for: Tenderness Back: Positive for: Normal Inspection Extremity: Positive for: Normal ROM. Negative for: Pedal Edema (b/l), Calf Tenderness (b/l) Neurologic/Psych: Positive for: Alert, Oriented, Gait (steady). Negative for: Aphasia, Facial Droop - ECG O2 Sat by Pulse Oximetry: 96 - Progress ED Course And Treament: Labs and case d/w Dr. Aguirre and states pt. can be cleared medically. Pt. denies SI/HI, hallucinations. Disposition - Clinical Impression Clinical Impression: Alcohol intoxication, Cough, Epistaxis - Patient ED Disposition Is Patient to be Admitted: No - Disposition Referrals: [facility] [Outside] Disposition Time: 11:00 Condition: STABLE Additional Instructions: Patient is medically and psychiatrically cleared for incarceration. Prescriptions: Azithromycin [Zithromax] 250 mg PO DAILY #4 tab Instructions: Nosebleed (ED), Acute Bronchitis (ED), Alcohol Intoxication (ED) Print Language: AMERICAN
== END 2017-01-22 12:13 ==
LOC: H.ER 10:15
DX: F10.129 Alcohol abuse with intoxication, unspecified (principal)

== ENCOUNTER 2017-01-22 15:30 | Emergency (ER) | payer MEDICAID, OTHER, SELFPAY ==
[2017-01-22 15:55] VITALS: BP 154/89; PULSE 84; RESP 16; O2SAT 100
[2017-01-22] MEDS ORDERED: DiphenhydrAMINE 50 mg/ml Inj ONE (16:55)
[2017-01-22] MEDS ORDERED: DiphenhydrAMINE 50 mg/ml Inj IM STA (16:56)
--- NOTE | 2017-01-22 17:10 | ED PDOC ---
HPI: General Adult Time Seen by Provider: 01/22/17 15:37 Chief Complaint (Nursing): Lower Extremity Problem/Injury History Per: Patient, Other ([facility]) Additional Complaint(s): As per [facility] pt. 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 Pt. states her nail discoloration has been going on for several years. Reports no pain to the foot. Denies fever, trauma. Of note, pt. was seen earlier today for medical and psych clearance for incarceration. Past Medical History Reviewed: Historical Data, Nursing Documentation, Vital Signs Vital Signs: Last Vital Signs Temp Pulse 84 01/22/17 15:51 Resp 16 01/22/17 15:51 BP 154/89 H 01/22/17 15:51 Pulse Ox 100 01/22/17 19:22 - Medical History PMH: Anxiety, Asthma, COPD, Depression, HTN, Paranoia, Pneumonia, Schizophrenia , TIA Denies: Diabetes, Hepatitis, HIV, Seizures, Sexually Transmitted Disease - Family History Family History: States: Unknown Family Hx - Immunization History Hx Tetanus Toxoid Vaccination: No Hx Influenza Vaccination: No Hx Pneumococcal Vaccination: No - Home Medications Home Medications: Ambulatory Orders Medication Instructions Recorded Clotrimazole 1% Cream [Lotrimin 1% 1 applic EXT BID #1 tube 01/22/17 CREAM] - Allergies Allergies/Adverse Reactions: Allergies Allergy/AdvReac Type Severity Reaction Status Date / Time shellfish derived Allergy Severe SWELLING Verified 01/22/17 15:33 Review of Systems ROS Statement: Except As Marked, All Systems Reviewed And Found Negative Physical Exam - Physical Exam Appears: Positive for: Well, Non-toxic, No Acute Distress Skin: Positive for: Normal Color, Warm. Negative for: Rash Pulses-Dorsalis Pedis (L): 2+ Pulses-Dorsalis Pedis (R): 2+ Extremity: Positive for: Other (all toes with greenish discoloration to toenails without break in skin integrity; old healing laceraiton on L calf without surrounding erythema; chronic swelling to b/l legs; negative santana's sign b/l) Neurologic/Psych: Positive for: Alert, Oriented - ECG O2 Sat by Pulse Oximetry: 100 - Progress ED Course And Treament: Duplex b/l lower extremity vein US ordered. Duplex b/l lower extremity vein US: no DVT. L calf area with old healing 2cm laceration without active bleeding or surrounding erythema. Pt. is uncertain how or when she sustained laceration. Wound irrigated and DSD applied. Denies SI/HI, hallucinations. Disposition - Clinical Impression Clinical Impression: Onychomycosis, Leg edema - Patient ED Disposition Is Patient to be Admitted: No - Disposition [facility]errals: [facility] [Outside] Disposition: Discharged/Transfer to Law Enforcement Disposition Time: 19:19 Condition: STABLE Additional Instructions: Patient is medically and psychiatrically cleared for incarceration. Prescriptions: Clotrimazole 1% Cream [Lotrimin 1% CREAM] 1 applic EXT BID #1 tube Instructions: Skin Yeast Infection (ED), Leg Edema (ED) Forms: [email or web address] (Nepali) Print Language: YI
--- NOTE | 2017-01-22 18:49 | US ---
PROCEDURE: Bilateral lower extremity venous duplex Doppler. HISTORY: pain COMPARISON: None available. TECHNIQUE: Bilateral common femoral, superficial femoral, popliteal and posterior tibial veins were evaluated. Flow was assessed with color Doppler, compressibility, assessment of phasic flow and augmentation response. FINDINGS: COMMON FEMORAL VEIN: Right CFV: Unremarkable. Left CFV: Unremarkable. SUPERFICIAL FEMORAL VEIN: Right SFV: Unremarkable. Left SFV: Unremarkable. POPLITEAL VEIN: Right Popliteal: Unremarkable. Left Popliteal: Unremarkable. POSTERIOR TIBIAL VEIN: Right PTV: Unremarkable. Left PTV: Unremarkable. OTHER FINDINGS: None. IMPRESSION: No evidence of deep venous thrombosis of the right or left lower extremity. .
== END 2017-01-22 20:10 ==
LOC: H.ER 15:30
DX: R60.0 Localized edema (principal); B35.1 Tinea unguium; F20.9 Schizophrenia, unspecified; F32.9 Major depressive disorder, single episode, unspecified; F41.9 Anxiety disorder, unspecified; I10 Essential (primary) hypertension; J44.9 Chronic obstructive pulmonary disease, unspecified; Z86.73 Personal history of transient ischemic attack (TIA), and cerebral infarction without residual deficits
CPT/HCPCS: 93970; 96372; 99282; J1200

== ENCOUNTER 2017-04-25 17:04 | Emergency (ER) | payer MEDICAID, OTHER ==
[2017-04-25 17:10] VITALS: BP 122/82; PULSE 74; RESP 16; TEMP 98; O2SAT 97
--- NOTE | 2017-04-25 20:05 | CT ---
EXAM: CT Head Without Intravenous Contrast CLINICAL HISTORY: 52 years old, female; Signs and symptoms; Other: Fall/etho TECHNIQUE: Axial computed tomography images of the head/brain without intravenous contrast. All CT scans at this facility use one or more dose reduction techniques, viz.: automated exposure control; ma/kV adjustment per patient size (including targeted exams where dose is matched to indication; i.e. head); or iterative reconstruction technique. Coronal and sagittal reformatted images were created and reviewed. COMPARISON: CT - HEAD W/O CONTRAST 2016-07-12 01:53 FINDINGS: Brain: No hemorrhage. No significant white matter disease. No edema. Ventricles: No hydrocephalus. Bones: Skull is intact. Soft tissues: Right frontal scalp hematoma, correlate clinically. Sinuses: No acute sinusitis. Mastoid air cells: No mastoid effusion. IMPRESSION: No CT evidence of acute intracranial abnormality. Right frontal scalp hematoma, correlate clinically.
--- NOTE | 2017-05-06 13:15 | ED PDOC ---
HPI: Psych/Substance Abuse Time Seen by Provider: 04/25/17 18:02 Chief Complaint (Nursing): Alcohol Ingestion Chief Complaint (Provider): Alcohol ingestion History Per: Patient History/Exam Limitations: no limitations Onset/Duration Of Symptoms: Hrs (today) Current Symptoms Are (Timing): Still Present Suicide/Self Injury Attempted (Context): None Associated Symptoms: denies: Suicidal Thoughts, Suicidal Plan Involuntary Hold By: None Additional Complaint(s): Marion Hudson is a 52 year old female, with a previous history of alcohol abuse, who was brought to the emergency department via EMS for alcohol intoxication. Per EMS, patient was found publicly intoxicated with an unsteady gait. Patient admits to drink alcohol. She denies any suicidal or homicidal ideation. No further medical complaints. PMD: None provided. Past Medical History Reviewed: Historical Data, Nursing Documentation, Vital Signs Vital Signs: Last Vital Signs Temp 98.0 F 04/25/17 17:09 Pulse 74 04/25/17 17:09 Resp 16 04/25/17 17:09 BP 122/82 04/25/17 17:09 Pulse Ox 97 04/25/17 17:09 - Medical History PMH: Anxiety, Asthma, COPD, Depression, HTN, Paranoia, Pneumonia, Schizophrenia , TIA Denies: Diabetes, Hepatitis, HIV, Seizures, Sexually Transmitted Disease - Surgical History Surgical History: No Surg Hx - Family History Family History: States: Unknown Family Hx - Social History Current smoker - smoking cessation education provided: Yes (Heavy smoker >10 cigarettes daily) Alcohol: > 2 Drinks/Day Drugs: Denies - Immunization History Hx Tetanus Toxoid Vaccination: No Hx Influenza Vaccination: No Hx Pneumococcal Vaccination: No - Home Medications Home Medications: Ambulatory Orders Medication Instructions Recorded Clotrimazole 1% Cream [Lotrimin 1% 1 applic EXT BID #1 tube 01/22/17 CREAM] Azithromycin [Zithromax] 250 mg PO DAILY #6 tab 05/05/17 Benzonatate [Tessalon Perle] 100 mg PO Q8 PRN #10 capsule 05/05/17 - Allergies Allergies/Adverse Reactions: Allergies Allergy/AdvReac Type Severity Reaction Status Date / Time shellfish derived Allergy Severe SWELLING Verified 05/05/17 22:08 Review of Systems ROS Statement: Except As Marked, All Systems Reviewed And Found Negative Constitutional: Positive for: Other (alcohol intoxication) Psych: Negative for: Suicidal ideation (or homicidal ideation) Physical Exam - Reviewed Nursing Documentation Reviewed: Yes Vital Signs Reviewed: Yes - Physical Exam Appears: Positive for: Non-toxic Head Exam: Positive for: NORMAL INSPECTION, NORMOCEPHALIC Skin: Positive for: Normal Color, Warm, Dry Eye Exam: Positive for: Normal appearance Neck: Positive for: Painless ROM Extremity: Positive for: Normal ROM. Negative for: Deformity, Swelling Neurologic/Psych: Positive for: Alert - ECG O2 Sat by Pulse Oximetry: 97 (RA) Pulse Ox Interpretation: Normal Medical Decision Making Medical Decision Making: Initial Impression: Alcohol intoxication Initial Plan: --Head w/o contrast [CT] --Reevaluation 20:[address] FINDINGS: Brain: No hemorrhage. No significant white matter disease. No edema. Ventricles: No hydrocephalus. Bones: Skull is intact. Soft tissues: Right frontal scalp hematoma, correlate clinically. Sinuses: No acute sinusitis. Mastoid air cells: No mastoid effusion. IMPRESSION: No CT evidence of acute intracranial abnormality. Right frontal scalp hematoma, correlate clinically. Scribe Attestation: Documented by Aman Weiner, acting as a scribe for John Peterson PA-C Provider Scribe Attestation: All medical record entries made by the Scribe were at my direction and personally dictated by me. I have reviewed the chart and agree that the record accurately reflects my personal performance of the history, physical exam, medical decision making, and the department course for this patient. I have also personally directed, reviewed, and agree with the discharge instructions and disposition. Disposition - Clinical Impression Clinical Impression: Alcohol abuse, Alcohol intoxication, Alcohol abuse with alcohol-induced disorder - Patient ED Disposition Is Patient to be Admitted: No - Disposition Referrals: [facility] [Outside] Disposition Time: 17:09 Condition: FAIR Instructions: Alcohol Abuse and Alcoholism (DC) Forms: [employer] (Korean)
== END 2017-04-25 20:39 | disposition home or self-care (01) ==
LOC: H.ER 17:04
DX: F10.129 Alcohol abuse with intoxication, unspecified (principal); F17.210 Nicotine dependence, cigarettes, uncomplicated; Z86.59 Personal history of other mental and behavioral disorders; I10 Essential (primary) hypertension; J44.9 Chronic obstructive pulmonary disease, unspecified; Z86.73 Personal history of transient ischemic attack (TIA), and cerebral infarction without residual deficits

== ENCOUNTER 2017-04-28 12:54 | Emergency (ER) | payer MEDICAID, OTHER ==
[2017-04-28 14:02] LABS: BASO % 0.7 % (0.0-2.0); EOS % 0.7 % (0.0-4.0); HEMOGLOBIN 11.6 g/dL (12.0-16.0); LYMPH # 2.9 K/uL (1.0-4.3); LYMPH % 46.2 % (20.0-40.0); MEAN CELL VOLUME 83.9 fl (81.0-99.0); MEAN CORPUSCULAR HEMOGLOBIN 28.5 pg (27.0-31.0); MEAN PLATELET VOLUME 7.5 fl (7.2-11.7); MONO # 0.3 K/uL (0.0-0.8); MONO % 4.4 % (0.0-10.0); NEUT # 3.1 K/uL (1.8-7.0); NRBC % 0.1 % (0.0-0.0); RBC 4.08 Mil/uL (3.80-5.20); RED CELL DISTRIBUTION WIDTH 18.4 % (11.5-14.5)
[2017-04-28 14:14] LABS: WHITE BLOOD COUNT 6.4 K/uL (4.8-10.8)
[2017-04-28 14:20] LABS: BLOOD UREA NITROGEN 18 mg/dl (7-17); CALCIUM 8.9 mg/dL (8.4-10.2); GFR AFRICAN-AMERICAN > 60; GFR NON-AFRICAN AMERICAN > 60
--- NOTE | 2017-04-28 16:16 | ED PDOC ---
HPI: Psych/Substance Abuse Time Seen by Provider: 04/28/17 13:19 Chief Complaint (Nursing): Alcohol Ingestion History Per: EMS (patient brought by EMS from [place] for intoxication and aggressive behavior) History/Exam Limitations: intoxication Past Medical History Reviewed: Historical Data, Nursing Documentation, Vital Signs Vital Signs: Last Vital Signs Temp 97.8 F 04/28/17 13:15 Pulse 76 04/28/17 15:30 Resp 14 04/28/17 15:30 BP 122/75 04/28/17 15:30 Pulse Ox 98 04/28/17 15:30 - Medical History PMH: Anxiety, Asthma, COPD, Depression, HTN, Paranoia, Pneumonia, Schizophrenia , TIA Denies: Diabetes, Hepatitis, HIV, Chronic Kidney Disease, Seizures, Sexually Transmitted Disease - Family History Family History: States: Unknown Family Hx - Immunization History Hx Tetanus Toxoid Vaccination: No Hx Influenza Vaccination: No Hx Pneumococcal Vaccination: No - Home Medications Home Medications: Ambulatory Orders Medication Instructions Recorded Clotrimazole 1% Cream [Lotrimin 1% 1 applic EXT BID #1 tube 01/22/17 CREAM] - Allergies Allergies/Adverse Reactions: Allergies Allergy/AdvReac Type Severity Reaction Status Date / Time shellfish derived Allergy Severe SWELLING Verified 04/28/17 12:58 Review of Systems Review Of Systems: ROS cannot be obtained secondary to pt's inabilty to answer questions. Physical Exam - Reviewed Nursing Documentation Reviewed: Yes Vital Signs Reviewed: Yes - Physical Exam Appears: Positive for: Well, Non-toxic, No Acute Distress Head Exam: Positive for: ATRAUMATIC, NORMAL INSPECTION, NORMOCEPHALIC Eye Exam: Positive for: Normal appearance ENT: Positive for: Normal ENT Inspection Neck: Positive for: Normal, Painless ROM Cardiovascular/Chest: Positive for: Regular Rate, Rhythm Respiratory: Positive for: CNT, Normal Breath Sounds - Laboratory Results Result Diagrams: 04/28/17 13:30 04/28/17 13:30 - ECG O2 Sat by Pulse Oximetry: 98 Disposition - Clinical Impression Clinical Impression: Alcohol intoxication - Patient ED Disposition Is Patient to be Admitted: Transfer of Care - Disposition Disposition: Transfer of Care Disposition Time: 16:50 Condition: STABLE Instructions: Alcohol Abuse and Alcoholism (DC) Patient Signed Over To: Chiquita Baldwin Present On Arrival: None
[2017-04-28 19:25] VITALS: O2SAT 99
--- NOTE | 2017-04-28 20:47 | ED PDOC ---
- Laboratory Results Result Diagrams: 04/28/17 13:30 04/28/17 13:30 - ECG O2 Sat by Pulse Oximetry: 99 Medical Decision Making Medical Decision Makin:00 -Patient was endorsed to me by Dr. Trammell. Patient is intoxicated and medicated for violent behavior and alcohol induced psychosis. 20:00 -Patient is awake, stable for discharge to police custody. Disposition - Clinical Impression Clinical Impression: Alcohol intoxication - Disposition Condition: IMPROVED Additional Instructions: MEDICALLY AND PSYCHIATRICALLY STABLE FOR INCARCERATION Instructions: Alcohol Abuse and Alcoholism (DC) Forms: [employer] (Yi)
[2017-04-29 03:37] VITALS: RESP 17
[2017-04-29 03:39] VITALS: BP 121/73; PULSE 82; TEMP 98
== END 2017-04-28 21:00 ==
LOC: H.ER 12:54
DX: F10.129 Alcohol abuse with intoxication, unspecified (principal); F20.9 Schizophrenia, unspecified; I10 Essential (primary) hypertension; Z86.73 Personal history of transient ischemic attack (TIA), and cerebral infarction without residual deficits; B20 Human immunodeficiency virus [HIV] disease
CPT/HCPCS: 80048; 80320; 82948; 85025; 96372; 99285; J1630; J2060

== ENCOUNTER 2017-05-05 22:07 | Emergency (ER) | payer OTHER ==
[2017-05-05 22:13] VITALS: BP 112/80; PULSE 98; RESP 16; TEMP 98.5; O2SAT 97
--- NOTE | 2017-05-05 22:21 | ED PDOC ---
History of Present Illness History of Present Illness: Non-productive cough since 05/02/2017. Denies fever, chest pain, SOB, bodyaches, hemoptysis. Pt. states she had pneumonia last year. HPI: Influenza Time Seen by Provider: 05/05/17 22:14 Chief Complaint: Cough, Cold, Congestion Past Medical History Reviewed: Historical Data, Nursing Documentation, Vital Signs Vital Signs: Last Vital Signs Temp 98.5 F 05/05/17 22:08 Pulse 98 H 05/05/17 22:08 Resp 16 05/05/17 22:08 BP 112/80 05/05/17 22:08 Pulse Ox 97 05/05/17 22:08 - Medical History PMH: Anxiety, Asthma, COPD, Depression, HTN, Paranoia, Pneumonia, Schizophrenia , TIA Denies: Diabetes, Hepatitis, HIV, Chronic Kidney Disease, Seizures, Sexually Transmitted Disease - Family History Family History: States: No Known Family Hx - Immunization History Hx Tetanus Toxoid Vaccination: No Hx Influenza Vaccination: No Hx Pneumococcal Vaccination: No - Home Medications Home Medications: Ambulatory Orders Medication Instructions Recorded Clotrimazole 1% Cream [Lotrimin 1% 1 applic EXT BID #1 tube 01/22/17 CREAM] Azithromycin [Zithromax] 250 mg PO DAILY #6 tab 05/05/17 Benzonatate [Tessalon Perle] 100 mg PO Q8 PRN #10 capsule 05/05/17 - Allergies Allergies/Adverse Reactions: Allergies Allergy/AdvReac Type Severity Reaction Status Date / Time shellfish derived Allergy Severe SWELLING Verified 05/05/17 22:08 Review of Systems ROS Statement: Except As Marked, All Systems Reviewed And Found Negative Respiratory: Positive for: Cough Physical Exam - Physical Exam Appears: Positive for: Well, Non-toxic, No Acute Distress Skin: Positive for: Normal Color, Warm. Negative for: Rash Eye Exam: Positive for: Normal appearance ENT: Positive for: Normal ENT Inspection Neck: Positive for: Normal, Painless ROM Cardiovascular/Chest: Positive for: Regular Rate, Rhythm Respiratory: Positive for: Normal Breath Sounds. Negative for: Respiratory Distress Back: Positive for: Normal Inspection Extremity: Positive for: Normal ROM Neurologic/Psych: Positive for: Alert, Oriented, Gait (steady, unassisted) - ECG O2 Sat by Pulse Oximetry: 97 - Radiology X-Ray: Interpreted by Me (CXR) X-Ray Interpretation: No Acute Disease Disposition - Clinical Impression Clinical Impression: Acute bronchitis - Disposition Referrals: [facility] [Outside] Disposition: Routine/Home Disposition Time: 22:33 Condition: STABLE Prescriptions: Azithromycin [Zithromax] 250 mg PO DAILY #6 tab Benzonatate [Tessalon Perle] 100 mg PO Q8 PRN #10 capsule PRN Reason: Cough Instructions: Acute Bronchitis, Adult (DC) Forms: [employer] (Nauruan)
--- NOTE | 2017-05-06 08:23 | RAD ---
HISTORY: cough COMPARISON: No prior. TECHNIQUE: Chest PA and lateral FINDINGS: LUNGS: No active pulmonary disease. PLEURA: No significant pleural effusion identified. No pneumothorax apparent. CARDIOVASCULAR: Normal. OSSEOUS STRUCTURES: No significant abnormalities. VISUALIZED UPPER ABDOMEN: Normal. OTHER FINDINGS: None. IMPRESSION: No interval pathology noted. Prior radiographic findings compatible with reactive airway disease and/or viral bronchitis have cleared/resolved
== END 2017-05-05 23:05 | disposition home or self-care (01) ==
LOC: H.ER 22:07
DX: J20.9 Acute bronchitis, unspecified (principal); F17.210 Nicotine dependence, cigarettes, uncomplicated

== ENCOUNTER 2017-05-06 23:27 | Emergency (ER) | payer OTHER ==
[2017-05-06 23:35] VITALS: BP 113/71; PULSE 80; RESP 19; TEMP 98.2; O2SAT 98
--- NOTE | 2017-05-07 00:37 | ED PDOC ---
HPI: Psych/Substance Abuse Time Seen by Provider: 05/07/17 00:19 Chief Complaint (Nursing): Alcohol Ingestion Chief Complaint (Provider): Alcohol Intoxication History Per: Patient History/Exam Limitations: no limitations Onset/Duration Of Symptoms: Hrs Current Symptoms Are (Timing): Better Additional Complaint(s): Patient is a 52 year old female who presents to ED via [facility] for evaluation of alcohol intoxication. Patient was found intoxicated in a [employer]. Patient admits to drinking vodka tonight, however cannot quantify how much and states "a lot". Patient states she has no physical complaints at this time. Patient is well known to ED staff and presents often with ETOH intoxication. PMD: Vikram Past Medical History Reviewed: Historical Data, Nursing Documentation, Vital Signs Vital Signs: Last Vital Signs Temp 98.2 F 05/06/17 23:34 Pulse 80 05/06/17 23:34 Resp 19 05/06/17 23:34 BP 113/71 05/06/17 23:34 Pulse Ox 98 05/06/17 23:34 - Medical History PMH: Anxiety, Asthma, COPD, Depression, HTN, Paranoia, Pneumonia, Schizophrenia , TIA Denies: Diabetes, Hepatitis, HIV, Chronic Kidney Disease, Seizures, Sexually Transmitted Disease - Surgical History Other surgeries: D&C x3 - Family History Family History: States: Unknown Family Hx - Social History Current smoker - smoking cessation education provided: No Alcohol: > 2 Drinks/Day - Home Medications Home Medications: Ambulatory Orders Medication Instructions Recorded Clotrimazole 1% Cream [Lotrimin 1% 1 applic EXT BID #1 tube 01/22/17 CREAM] Azithromycin [Zithromax] 250 mg PO DAILY #6 tab 05/05/17 Benzonatate [Tessalon Perle] 100 mg PO Q8 PRN #10 capsule 05/05/17 - Allergies Allergies/Adverse Reactions: Allergies Allergy/AdvReac Type Severity Reaction Status Date / Time shellfish derived Allergy Severe SWELLING Verified 05/06/17 23:35 Review of Systems ROS Statement: Except As Marked, All Systems Reviewed And Found Negative Psych: Positive for: Other (intoxication) Physical Exam - Reviewed Nursing Documentation Reviewed: Yes Vital Signs Reviewed: Yes - Physical Exam Appears: Positive for: Well, Non-toxic, No Acute Distress Head Exam: Positive for: ATRAUMATIC, NORMOCEPHALIC Skin: Positive for: Warm, Dry Eye Exam: Positive for: EOMI, PERRL. Negative for: Nystagmus, Conjunctival injection Neck: Positive for: Painless ROM, Supple Cardiovascular/Chest: Positive for: Regular Rate, Rhythm. Negative for: Bradycardia, Tachycardia Respiratory: Positive for: Normal Breath Sounds (respirations even and nonlabored, speaking in full sentences.). Negative for: Decreased Breath Sounds , Accessory Muscle Use, Stridor, Wheezing, Respiratory Distress Gastrointestinal/Abdominal: Positive for: Soft. Negative for: Tenderness, Distended, Guarding Neurologic/Psych: Positive for: Alert, Oriented (x3), Gait (steady in ED). Negative for: Motor/Sensory Deficits, Aphasia, Facial Droop - ECG O2 Sat by Pulse Oximetry: 98 (RA) Pulse Ox Interpretation: Normal Medical Decision Making Medical Decision Making: Initial Impression: ETOH ingestion/intoxication Plan: -Given patient ambulatory in ED with steady, unassisted gait and alert and oriented x3, VSS - patient requires no further intervention at this time. Patient was able to provide her HPI and cooperated with physical exam. Patient is stable and appropriate for discharge. -ETOH cessation Based on history, exam and diagnostic results, plan will be for outpatient follow up. Patient instructed to follow-up with pmd / referral provided / the clinic in 1- 2 days without fail. Return to the emergency room at any time for any new or worsening symptoms. Patient states she fully agrees with and understands discharge instructions. States that she agrees with the plan and disposition. Verbalized and repeated discharge instructions and plan. I have given the patient opportunity to ask any additional questions. Patient ambulated from ED exam room without further incident. Disposition - Clinical Impression Clinical Impression: Alcohol ingestion - Patient ED Disposition Is Patient to be Admitted: No Counseled Patient/Family Regarding: Diagnosis, Need For Followup - Disposition Referrals: Kam Sue MD [Staff Provider] - [facility] [Outside] Disposition: Routine/Home Disposition Time: 00:41 Condition: FAIR Instructions: Alcohol Use - When Is Drinking a Problem?, Alcohol Abuse and Alcoholism (DC) Forms: [employer] (Arabic) Print Language: AMHARIC - POA Present On Arrival: None
[2017-05-07] MEDS ORDERED: Albuterol-Ipratrop 3 mg / 0.5 (3 ml) UD ONE (06:44)
== END 2017-05-07 01:29 | disposition home or self-care (01) ==
LOC: H.ER 23:27
DX: F10.129 Alcohol abuse with intoxication, unspecified (principal)

== ENCOUNTER 2017-05-07 02:57 | Emergency (ER) | payer OTHER ==
[2017-05-07 03:00] VITALS: BMI 21.6
[2017-05-07 03:05] VITALS: TEMP 98; O2SAT 100
--- NOTE | 2017-05-07 04:42 | ED PDOC ---
HPI: Psych/Substance Abuse Time Seen by Provider: 05/07/17 02:58 Chief Complaint (Nursing): Alcohol Ingestion Chief Complaint (Provider): Alcohol Ingestion ED Caveat: Uncooperative History Per: Patient History/Exam Limitations: no limitations Modifying Factor(s): Alcohol Additional Complaint(s): 52 year old female brought in by EMS presents to ED due to alcohol intoxication and is well known to this ED. EMS states patient jumped in front of their EMS rig. Patient brought to the ED for an evaluation but is uncooperative. PCP: None Past Medical History Reviewed: Historical Data, Nursing Documentation, Vital Signs Vital Signs: Last Vital Signs Temp 98 F 05/07/17 03:00 Pulse 97 H 05/07/17 03:00 Resp 18 05/07/17 03:00 BP 134/90 05/07/17 03:00 Pulse Ox 100 05/07/17 03:00 - Medical History PMH: Anxiety, Asthma, COPD, Depression, HTN, Paranoia, Pneumonia, Schizophrenia , TIA Denies: Diabetes, Hepatitis, HIV, Chronic Kidney Disease, Seizures, Sexually Transmitted Disease - Family History Family History: States: Unknown Family Hx - Social History Alcohol: > 2 Drinks/Day - Immunization History Hx Tetanus Toxoid Vaccination: No Hx Influenza Vaccination: No Hx Pneumococcal Vaccination: No - Home Medications Home Medications: Ambulatory Orders Medication Instructions Recorded Clotrimazole 1% Cream [Lotrimin 1% 1 applic EXT BID #1 tube 01/22/17 CREAM] Azithromycin [Zithromax] 250 mg PO DAILY #6 tab 05/05/17 Benzonatate [Tessalon Perle] 100 mg PO Q8 PRN #10 capsule 05/05/17 - Allergies Allergies/Adverse Reactions: Allergies Allergy/AdvReac Type Severity Reaction Status Date / Time shellfish derived Allergy Severe SWELLING Verified 05/07/17 03:06 Review of Systems Review Of Systems: ROS cannot be obtained secondary to pt's inabilty to answer questions. (Patient is uncooperative in ED.) Physical Exam - Reviewed Nursing Documentation Reviewed: Yes Vital Signs Reviewed: Yes - Physical Exam Appears: Positive for: Non-toxic, No Acute Distress (alcohol on breath) Skin: Positive for: Normal Color, Warm, Dry Cardiovascular/Chest: Positive for: Regular Rate, Rhythm. Negative for: Murmur Respiratory: Positive for: Normal Breath Sounds. Negative for: Respiratory Distress Gastrointestinal/Abdominal: Positive for: Soft. Negative for: Tenderness Neurologic/Psych: Positive for: Alert, Gait (unsteady), Other (patinet is slurring her speech). Negative for: Motor/Sensory Deficits - ECG O2 Sat by Pulse Oximetry: 100 (RA) Pulse Ox Interpretation: Normal Medical Decision Making Medical Decision Makin Initial impression: alcohol intoxication Initial plan: * EtOH serum * Accucheck 0315 Patient is extremely uncooperative and is a high risk of elopement. Patient will be placed in 4 point restrained and be chemically sedated to relieve acute agitation. 07 Patient signed out to Dr. Trammell pending sobriety and re-evaluation. Scribe Attestation: Documented by Lori Maldonado acting as a scribe Emeka Carrera MD. Scribe Attestation: All medical record entries made by the Scribe were at my direction and personally dictated by me. I have reviewed the chart and agree that the record accurately reflects my personal performance of the history, physical exam, medical decision making, and the department course for this patient. I have also personally directed, reviewed, and agree with the discharge instructions and disposition. Disposition - Clinical Impression Clinical Impression: Alcohol intoxication - Patient ED Disposition Is Patient to be Admitted: Transfer of Care - Disposition Disposition: Transfer of Care Disposition Time: 07:00 Condition: FAIR Forms: [employer] (Ethiopian) Patient Signed Over To: Laurie Trammell
[2017-05-07] MEDS ORDERED: Albuterol-Ipratrop 3 mg / 0.5 (3 ml) UD INH STA (06:40)
--- NOTE | 2017-05-07 07:45 | ED PDOC ---
- ECG O2 Sat by Pulse Oximetry: 100 (RA) Medical Decision Making Medical Decision Makin:00a - received patient from Dr. Carrera. Regular visitor with EtOH abuse. COPD history. Wheezing a bit. duoneb ordered. Disposition Doctor Will See Patient In The: Office Counseled Patient/Family Regarding: Diagnosis, Need For Followup - Clinical Impression Clinical Impression: Alcohol intoxication - POA Present On Arrival: None - Disposition Disposition: Routine/Home Disposition Time: 14:42 Condition: IMPROVED Forms: [employer] (Martiniquais)
[2017-05-07 08:06] VITALS: RESP 16
[2017-05-07 15:28] VITALS: BP 111/79; PULSE 90
== END 2017-05-07 14:50 | disposition home or self-care (01) ==
LOC: H.ER 02:57
DX: F10.129 Alcohol abuse with intoxication, unspecified (principal); J44.9 Chronic obstructive pulmonary disease, unspecified; Z86.73 Personal history of transient ischemic attack (TIA), and cerebral infarction without residual deficits; F20.9 Schizophrenia, unspecified; I10 Essential (primary) hypertension
CPT/HCPCS: 12011; 80320; 94640; 96372; 99284; J1630; J2060

== ENCOUNTER 2017-05-11 03:46 | Emergency (ER) | payer OTHER ==
[2017-05-11 03:46] VITALS: BMI 21.6
[2017-05-11 03:59] VITALS: O2SAT 98
[2017-05-11] MEDS ORDERED: Albuterol-Ipratrop 3 mg / 0.5 (3 ml) UD ONE (04:40)
[2017-05-11] MEDS: Albuterol-Ipratrop 3 mg / 0.5 (3 ml) UD INH STA (04:41)
--- NOTE | 2017-05-11 04:56 | ED PDOC ---
HPI: General Adult Time Seen by Provider: 05/11/17 03:58 Chief Complaint (Nursing): Cough, Cold, Congestion Chief Complaint (Provider): Cough, Cold, Congestion History Per: Patient History/Exam Limitations: no limitations Onset/Duration Of Symptoms: Sudden Onset Current Symptoms Are (Timing): Still Present Additional Complaint(s): Patient is a 52 year old female who presents to ED via [facility] for evaluation cough, cold, and congestion, onset of 2 days. Of note, patient is also intoxicated from drinking alcohol and is well known to the provider and this ED for several alcohol intoxication visits in the past. Patient states she has no physical complaints at this time. PMD: Kam Sue Past Medical History Reviewed: Historical Data, Nursing Documentation, Vital Signs Vital Signs: Last Vital Signs Temp 98.6 F 05/11/17 03:57 Pulse 86 05/11/17 03:57 Resp 16 05/11/17 03:57 BP 130/86 05/11/17 03:57 Pulse Ox 98 05/11/17 05:02 - Medical History PMH: Anxiety, Asthma, COPD, Depression, HTN, Paranoia, Pneumonia, Schizophrenia , TIA Denies: Diabetes, Hepatitis, HIV, Chronic Kidney Disease, Seizures, Sexually Transmitted Disease - Family History Family History: States: Unknown Family Hx - Social History Current smoker - smoking cessation education provided: Yes (heavy) Ex-Smoker (has not smoked in the last 12 months): No Alcohol: > 2 Drinks/Day Drugs: Denies - Immunization History Hx Tetanus Toxoid Vaccination: No Hx Influenza Vaccination: No Hx Pneumococcal Vaccination: No - Home Medications Home Medications: Ambulatory Orders Medication Instructions Recorded No Known Home Med 05/10/17 - Allergies Allergies/Adverse Reactions: Allergies Allergy/AdvReac Type Severity Reaction Status Date / Time shellfish derived Allergy Severe SWELLING Verified 05/10/17 01:08 Review of Systems ROS Statement: Except As Marked, All Systems Reviewed And Found Negative Constitutional: Positive for: Chills ENT: Positive for: Nose Congestion Respiratory: Positive for: Cough Psych: Negative for: Suicidal ideation Physical Exam - Reviewed Nursing Documentation Reviewed: Yes Vital Signs Reviewed: Yes - Physical Exam Appears: Positive for: Well, Non-toxic, No Acute Distress Head Exam: Positive for: ATRAUMATIC, NORMAL INSPECTION, NORMOCEPHALIC Skin: Positive for: Normal Color, Warm, DRY Eye Exam: Positive for: EOMI, Normal appearance, PERRL ENT: Positive for: Normal ENT Inspection Neck: Positive for: Normal, Painless ROM Cardiovascular/Chest: Positive for: Regular Rate, Rhythm. Negative for: Murmur Respiratory: Positive for: Normal Breath Sounds. Negative for: Respiratory Distress Gastrointestinal/Abdominal: Positive for: Normal Exam, Soft. Negative for: Tenderness Back: Positive for: Normal Inspection Extremity: Positive for: Normal ROM. Negative for: Pedal Edema, Deformity Neurologic/Psych: Positive for: Alert, Oriented, Gait (steady) - ECG O2 Sat by Pulse Oximetry: 98 (RA) Pulse Ox Interpretation: Normal Medical Decision Making Medical Decision Making: Time: --04:29 Impression: --52 yo female with alcohol intoxication, cough, cold and congestion Plan: --albuterol 3ml INH --Peak Flow Pre/ Post Tx Reassess -- Scribe Attestation: Documented by Wyatt Toth acting as a scribe for Emeka Carrera MD. Provider Attestation: All medical record entries made by the Scribe were at my direction and personally dictated by me. I have reviewed the chart and agree that the record accurately reflects my personal performance of the history, physical exam, medical decision making, and the department course for this patient. I have also personally directed, reviewed, and agree with the discharge instructions and disposition. Transfers Disposition - Clinical Impression Clinical Impression: URI (upper respiratory infection) - Patient ED Disposition Is Patient to be Admitted: No - Disposition Disposition: Routine/Home Disposition Time: 05:00 Condition: STABLE Instructions: Acute Bronchitis Forms: [employer] (Belarusian)
[2017-05-11 06:57] VITALS: BP 135/82; PULSE 83; RESP 17; TEMP 98.4
== END 2017-05-11 06:45 | disposition home or self-care (01) ==
LOC: H.ER 03:46
DX: J06.9 Acute upper respiratory infection, unspecified (principal); Z86.73 Personal history of transient ischemic attack (TIA), and cerebral infarction without residual deficits; I10 Essential (primary) hypertension; F32.9 Major depressive disorder, single episode, unspecified; F41.9 Anxiety disorder, unspecified

== ENCOUNTER 2017-05-11 18:44 | Emergency (ER) | payer OTHER ==
[2017-05-11 18:44] VITALS: BMI 21.6
[2017-05-11 18:48] VITALS: TEMP 98.2; O2SAT 99
--- NOTE | 2017-05-11 20:42 | ED PDOC ---
HPI: General Adult Time Seen by Provider: 05/11/17 19:06 Chief Complaint (Nursing): Medical Clearance Chief Complaint (Provider): medical clearance Past Medical History Vital Signs: Last Vital Signs Temp 98.2 F 05/11/17 18:46 Pulse 90 05/11/17 18:46 Resp 18 05/11/17 18:46 BP 125/85 05/11/17 18:46 Pulse Ox 99 05/11/17 18:46 - Medical History PMH: Anxiety, Asthma, COPD, Depression, HTN, Paranoia, Pneumonia, Schizophrenia , TIA Denies: Diabetes, Hepatitis, HIV, Chronic Kidney Disease, Seizures, Sexually Transmitted Disease - Family History Family History: States: Unknown Family Hx - Immunization History Hx Tetanus Toxoid Vaccination: No Hx Influenza Vaccination: No Hx Pneumococcal Vaccination: No - Home Medications Home Medications: Ambulatory Orders Medication Instructions Recorded No Known Home Med 05/10/17 - Allergies Allergies/Adverse Reactions: Allergies Allergy/AdvReac Type Severity Reaction Status Date / Time shellfish derived Allergy Severe SWELLING Verified 05/10/17 01:08 - ECG O2 Sat by Pulse Oximetry: 99 Disposition - Clinical Impression Clinical Impression: Alcoholism - Disposition Disposition: Discharged/Transfer to Law Enforcement Disposition Time: 20:42 Condition: STABLE Additional Instructions: MEDICALLY AND PSYCHIATRICALLY STABLE FOR INCARCERATION Instructions: Alcohol Abuse and Alcoholism (DC)
[2017-05-11 21:23] VITALS: BP 151/87; PULSE 95; RESP 16
== END 2017-05-11 21:57 ==
LOC: H.ER 18:44
DX: F10.20 Alcohol dependence, uncomplicated (principal)

== ENCOUNTER 2017-05-20 16:14 | Emergency (ER) | payer MEDICAID, OTHER ==
[2017-05-20 16:14] VITALS: BMI 21.6
[2017-05-20 16:33] VITALS: BP 124/87; PULSE 78; RESP 16; TEMP 97.3; O2SAT 97
--- NOTE | 2017-05-20 16:46 | ED PDOC ---
HPI: Psych/Substance Abuse Time Seen by Provider: 05/20/17 16:42 Chief Complaint (Nursing): Alcohol Ingestion Chief Complaint (Provider): alcohol intoxicatioon Additional Complaint(s): Pt brought in for public intoxication. Pt would like to be discharged and offers no complaints. Requesting to use phone. Admits alcohol use today. Denies trauma/fall/drugs. Known well to ER for alcohol intoxication. Past Medical History Reviewed: Historical Data, Nursing Documentation, Vital Signs Vital Signs: Last Vital Signs Temp 97.3 F L 05/20/17 16:17 Pulse 78 05/20/17 16:17 Resp 16 05/20/17 16:17 BP 124/87 05/20/17 16:17 Pulse Ox 97 05/20/17 16:17 - Medical History PMH: Anxiety, Asthma, COPD, Depression, HTN, Paranoia, Pneumonia, Schizophrenia , TIA Denies: Diabetes, Hepatitis, HIV, Chronic Kidney Disease, Seizures, Sexually Transmitted Disease - Family History Family History: States: Unknown Family Hx - Immunization History Hx Tetanus Toxoid Vaccination: No Hx Influenza Vaccination: No Hx Pneumococcal Vaccination: No - Home Medications Home Medications: Ambulatory Orders Medication Instructions Recorded No Known Home Med 05/10/17 - Allergies Allergies/Adverse Reactions: Allergies Allergy/AdvReac Type Severity Reaction Status Date / Time shellfish derived Allergy Severe SWELLING Verified 05/10/17 01:08 Review of Systems ROS Statement: Except As Marked, All Systems Reviewed And Found Negative Neurological: Negative for: Weakness, Numbness, Headache, Dizziness Physical Exam - Reviewed Nursing Documentation Reviewed: Yes Vital Signs Reviewed: Yes - Physical Exam Appears: Positive for: No Acute Distress (but dissheveled and unkempt) Head Exam: Positive for: ATRAUMATIC, NORMOCEPHALIC Skin: Positive for: Warm, Dry Eye Exam: Positive for: Nystagmus (mild) ENT: Positive for: Other (tacky mucus membranes) Neck: Positive for: Painless ROM, Supple Respiratory: Negative for: Accessory Muscle Use, Respiratory Distress Gastrointestinal/Abdominal: Negative for: Distended Extremity: Positive for: Normal ROM. Negative for: Deformity Lymphatic: Negative for: Adenopathy Neurologic/Psych: Positive for: Alert, Oriented, Gait (steady), Other (mild slurred). Negative for: Motor/Sensory Deficits - ECG O2 Sat by Pulse Oximetry: 97 Disposition - Clinical Impression Clinical Impression: Alcohol intoxication Counseled Patient/Family Regarding: Studies Performed, Diagnosis - Disposition Referrals: [facility] [place] [Outside] Disposition: Routine/Home Disposition Time: 16:45 Condition: STABLE Instructions: Alcohol Abuse and Alcoholism (DC)
== END 2017-05-20 16:53 | disposition home or self-care (01) ==
LOC: H.ER 16:14
DX: F10.129 Alcohol abuse with intoxication, unspecified (principal)

== ENCOUNTER 2017-05-20 17:24 | Emergency (ER) | payer MEDICAID ==
[2017-05-20 17:24] VITALS: BMI 21.6
[2017-05-20 17:31] VITALS: BP 126/82; PULSE 71; RESP 16; TEMP 97.6; O2SAT 97
--- NOTE | 2017-05-20 17:47 | ED PDOC ---
HPI: Psych/Substance Abuse Time Seen by Provider: 05/20/17 17:42 Chief Complaint (Nursing): Alcohol Ingestion Chief Complaint (Provider): etoh History Per: Patient, EMS Additional Complaint(s): 56-year-old female with history of alcohol abuse presents to emergency department for the second time today. EMS states the patient tried to get on a bus and police were called. Patient offers no complaints upon arrival and states that she would like to leave. Past Medical History Reviewed: Historical Data, Nursing Documentation, Vital Signs Vital Signs: Last Vital Signs Temp 97.6 F 05/20/17 17:28 Pulse 71 05/20/17 17:28 Resp 16 05/20/17 17:28 BP 126/82 05/20/17 17:28 Pulse Ox 97 05/20/17 17:28 - Medical History PMH: Anxiety, Asthma, COPD, Depression, HTN, Paranoia, Pneumonia, Schizophrenia , TIA - Family History Family History: States: No Known Family Hx - Social History Alcohol: > 2 Drinks/Day - Immunization History Hx Tetanus Toxoid Vaccination: No Hx Influenza Vaccination: No Hx Pneumococcal Vaccination: No - Home Medications Home Medications: Ambulatory Orders Medication Instructions Recorded No Known Home Med 05/10/17 - Allergies Allergies/Adverse Reactions: Allergies Allergy/AdvReac Type Severity Reaction Status Date / Time shellfish derived Allergy Severe SWELLING Verified 05/10/17 01:08 Review of Systems ROS Statement: Except As Marked, All Systems Reviewed And Found Negative Psych: Positive for: Other (etoh) Physical Exam - Reviewed Nursing Documentation Reviewed: Yes Vital Signs Reviewed: Yes - Physical Exam Appears: Positive for: Non-toxic, No Acute Distress. Negative for: Well ( Unkempt, smells of urine) Skin: Negative for: Rash Eye Exam: Positive for: Normal appearance Cardiovascular/Chest: Positive for: Regular Rate, Rhythm Respiratory: Positive for: Normal Breath Sounds Neurologic/Psych: Positive for: Alert, Oriented, Gait (steady) - ECG O2 Sat by Pulse Oximetry: 97 Pulse Ox Interpretation: Normal Medical Decision Making Medical Decision Makin-year-old female with history of alcohol abuse. Patient arrives for the second time today. Patient is awake and alert, has steady gait, she is asking to leave. Patient stable for discharge. Disposition - Clinical Impression Clinical Impression: Alcohol abuse - Patient ED Disposition Is Patient to be Admitted: No Counseled Patient/Family Regarding: Need For Followup - Disposition Referrals: [facility] [place] [Outside] Disposition: Routine/Home Disposition Time: 17:48 Condition: STABLE Instructions: Alcohol Abuse and Alcoholism (DC) Forms: [employer] (Divehi)
== END 2017-05-20 19:52 | disposition home or self-care (01) ==
LOC: H.ER 17:24
DX: F10.10 Alcohol abuse, uncomplicated (principal)

== ENCOUNTER 2017-05-22 16:15 | Emergency (ER) | payer MEDICAID ==
[2017-05-22 16:16] VITALS: BMI 21.6
[2017-05-22 16:38] VITALS: BP 113/75; PULSE 90; RESP 18; TEMP 97.6; O2SAT 99
--- NOTE | 2017-05-22 16:46 | ED PDOC ---
HPI: General Adult Time Seen by Provider: 05/22/17 16:43 Chief Complaint (Nursing): Medical Clearance Chief Complaint (Provider): "I just want to relax" History Per: Patient History/Exam Limitations: no limitations Onset/Duration Of Symptoms: Days Have you had recent travel within the past 21 days to any of the following countries: [place], [place], [place] or [place]?: No Current Symptoms Are (Timing): Still Present Additional Complaint(s): Pt brought in police custody for evaluation. PT denies complaints. Pt calm in ER and states she just wants to relax. Pt drank juice in ER. Pt reports drinking earlier today and falling asleep in doorway of [employer]. PT denies SI/ HI. Past Medical History Reviewed: Historical Data, Nursing Documentation, Vital Signs Vital Signs: Last Vital Signs Temp 97.6 F 05/22/17 16:36 Pulse 90 05/22/17 16:36 Resp 18 05/22/17 16:36 BP 113/75 05/22/17 16:36 Pulse Ox 99 05/22/17 16:46 - Medical History PMH: Anxiety, Asthma, COPD, Depression, HTN, Paranoia, Pneumonia, Schizophrenia , TIA Denies: Diabetes, Hepatitis, HIV, Chronic Kidney Disease, Seizures, Sexually Transmitted Disease - Family History Family History: States: Unknown Family Hx - Living Arrangements Living Arrangements: With Family - Social History Current smoker - smoking cessation education provided: No - Immunization History Hx Tetanus Toxoid Vaccination: No Hx Influenza Vaccination: No Hx Pneumococcal Vaccination: No - Home Medications Home Medications: Ambulatory Orders Medication Instructions Recorded No Known Home Med 05/10/17 - Allergies Allergies/Adverse Reactions: Allergies Allergy/AdvReac Type Severity Reaction Status Date / Time shellfish derived Allergy Severe SWELLING Verified 05/10/17 01:08 Review of Systems ROS Statement: Except As Marked, All Systems Reviewed And Found Negative Constitutional: Negative for: Fever, Chills Cardiovascular: Negative for: Chest Pain Respiratory: Negative for: Cough, Shortness of Breath Gastrointestinal: Negative for: Abdominal Pain Psych: Negative for: Psychosis, Suicidal ideation Physical Exam - Reviewed Nursing Documentation Reviewed: Yes Vital Signs Reviewed: Yes - Physical Exam Appears: Positive for: Non-toxic, No Acute Distress. Negative for: Well (Poor hygiene ) Head Exam: Positive for: ATRAUMATIC, NORMAL INSPECTION, NORMOCEPHALIC Skin: Positive for: Normal Color, Warm, DRY Eye Exam: Positive for: Normal appearance ENT: Positive for: Normal ENT Inspection Neck: Positive for: Normal, Painless ROM Cardiovascular/Chest: Positive for: Regular Rate, Rhythm Respiratory: Positive for: CNT, Normal Breath Sounds Back: Positive for: Normal Inspection Extremity: Positive for: Normal ROM Neurologic/Psych: Positive for: Alert, Oriented - ECG O2 Sat by Pulse Oximetry: 99 Disposition - Clinical Impression Clinical Impression: Alcohol abuse - Patient ED Disposition Is Patient to be Admitted: No Counseled Patient/Family Regarding: Diagnosis, Need For Followup - Disposition Referrals: [facility] [Outside] Disposition: Routine/Home Disposition Time: 16:46 Condition: GOOD Additional Instructions: Pt. is medically and psychiatrically stable for incarceration. Instructions: General (DC) Forms: [employer] (Luxembourgish)
== END 2017-05-22 17:23 ==
LOC: H.ER 16:15
DX: F10.10 Alcohol abuse, uncomplicated (principal); F20.9 Schizophrenia, unspecified; Z86.73 Personal history of transient ischemic attack (TIA), and cerebral infarction without residual deficits; I10 Essential (primary) hypertension

== ENCOUNTER 2017-05-30 21:45 | Emergency (ER) | payer MEDICAID ==
[2017-05-30 21:45] VITALS: BMI 21.6
[2017-05-30 21:55] VITALS: BP 112/77; PULSE 87; RESP 16; TEMP 97.9; O2SAT 98
--- NOTE | 2017-05-30 22:07 | ED PDOC ---
HPI: General Adult Time Seen by Provider: 05/30/17 22:03 Chief Complaint (Nursing): Weakness/Neurological Deficit Chief Complaint (Provider): etoh History Per: Patient, EMS Additional Complaint(s): 52 year old female with history of etoh abuse presents to ED stating she is tired and feels weak after walking in the rain today. Patient admits to drinking today. Upon entry to ED room, patient states she wants to be switched to a room with a TV. Past Medical History Reviewed: Historical Data, Nursing Documentation, Vital Signs Vital Signs: Last Vital Signs Temp 97.9 F 05/30/17 21:53 Pulse 87 05/30/17 21:53 Resp 16 05/30/17 21:53 BP 112/77 05/30/17 21:53 Pulse Ox 98 05/30/17 22:08 - Medical History PMH: Anxiety, Asthma, COPD, Depression, HTN, Paranoia, Pneumonia, Schizophrenia , TIA - Family History Family History: States: No Known Family Hx - Social History Alcohol: > 2 Drinks/Day - Home Medications Home Medications: Ambulatory Orders Medication Instructions Recorded No Known Home Med 05/10/17 - Allergies Allergies/Adverse Reactions: Allergies Allergy/AdvReac Type Severity Reaction Status Date / Time shellfish derived Allergy Severe SWELLING Verified 05/30/17 21:52 Review of Systems ROS Statement: Except As Marked, All Systems Reviewed And Found Negative Constitutional: Positive for: Weakness Cardiovascular: Negative for: Chest Pain Gastrointestinal: Negative for: Nausea, Vomiting Psych: Positive for: Other (etoh) Physical Exam - Reviewed Nursing Documentation Reviewed: Yes Vital Signs Reviewed: Yes - Physical Exam Appears: Positive for: Non-toxic, No Acute Distress. Negative for: Well ( appears unkempt, smells of urine) Skin: Positive for: Normal Color. Negative for: Rash Cardiovascular/Chest: Positive for: Regular Rate, Rhythm Respiratory: Positive for: Normal Breath Sounds Neurologic/Psych: Positive for: Alert, Oriented, Gait (steady) - ECG O2 Sat by Pulse Oximetry: 98 Pulse Ox Interpretation: Normal Medical Decision Making Medical Decision Makin52 year old with history of alcohol abuse Patient is awake, alert, has steady gait. She was observed in ED for 1.5 hours. Her condition has remained stable throughout her stay. 11:30 pm: patient is stable for discharge. Disposition - Clinical Impression Clinical Impression: Alcohol abuse with intoxication - Patient ED Disposition Is Patient to be Admitted: No - Disposition Referrals: [facility] [Outside] Disposition: Routine/Home Disposition Time: 23:20 Condition: STABLE Instructions: Alcohol Abuse and Alcoholism (DC), Effects of Alcohol on Your Health Forms: [employer] (Frisian)
== END 2017-05-30 23:27 | disposition home or self-care (01) ==
LOC: H.ER 21:45
DX: F10.129 Alcohol abuse with intoxication, unspecified (principal); F20.9 Schizophrenia, unspecified; Z86.73 Personal history of transient ischemic attack (TIA), and cerebral infarction without residual deficits; F32.9 Major depressive disorder, single episode, unspecified; F41.9 Anxiety disorder, unspecified; I10 Essential (primary) hypertension; J44.9 Chronic obstructive pulmonary disease, unspecified

== ENCOUNTER 2017-06-01 09:11 | Emergency (ER) | payer MEDICAID ==
[2017-06-01 09:12] VITALS: BMI 21.6
[2017-06-01 09:26] VITALS: BP 143/78; PULSE 83; RESP 18; TEMP 98; O2SAT 97
--- NOTE | 2017-06-01 09:32 | ED PDOC ---
HPI: Psych/Substance Abuse Time Seen by Provider: 06/01/17 09:21 Chief Complaint (Nursing): Alcohol Ingestion Chief Complaint (Provider): Alcohol Ingestion History Per: Patient History/Exam Limitations: no limitations Onset/Duration Of Symptoms: Mins (prior to arrival) Current Symptoms Are (Timing): Still Present Modifying Factor(s): Alcohol Additional Complaint(s): 52 year old female well known to provider and ED with a history of alcoholism was brought to the ED via EMS for evaluation. Patient was found sleeping [employer] and brought here. Denies any medical complaints. PMD: none provided Past Medical History Reviewed: Historical Data, Nursing Documentation, Vital Signs Vital Signs: Last Vital Signs Temp 98 F 06/01/17 09:15 Pulse 83 06/01/17 09:15 Resp 18 06/01/17 09:15 BP 143/78 06/01/17 09:15 Pulse Ox 97 06/01/17 09:15 - Medical History PMH: Anxiety, Asthma, COPD, Depression, HTN, Paranoia, Pneumonia, Schizophrenia , TIA Denies: Diabetes, Hepatitis, HIV, Chronic Kidney Disease, Seizures, Sexually Transmitted Disease - Surgical History Surgical History: No Surg Hx - Family History Family History: States: Unknown Family Hx - Immunization History Hx Tetanus Toxoid Vaccination: No Hx Influenza Vaccination: No Hx Pneumococcal Vaccination: No - Home Medications Home Medications: Ambulatory Orders Medication Instructions Recorded No Known Home Med 05/10/17 - Allergies Allergies/Adverse Reactions: Allergies Allergy/AdvReac Type Severity Reaction Status Date / Time shellfish derived Allergy Severe SWELLING Verified 05/30/17 21:52 Review of Systems ROS Statement: Except As Marked, All Systems Reviewed And Found Negative Physical Exam - Reviewed Nursing Documentation Reviewed: Yes Vital Signs Reviewed: Yes - Physical Exam Appears: Positive for: No Acute Distress Head Exam: Positive for: ATRAUMATIC, NORMOCEPHALIC Skin: Positive for: Normal Color, Warm, Dry Eye Exam: Positive for: EOMI, Normal appearance, PERRL Neurologic/Psych: Positive for: Alert, Oriented (x 3), Gait (steady) - ECG O2 Sat by Pulse Oximetry: 97 (RA) Pulse Ox Interpretation: Normal Medical Decision Making Medical Decision Making: Upon provider evaluation, patient requires no further treatment in the ED at this time. Will be discharged home. Return if symptoms persist or worsen. Scribe Attestation: Documented by Ladan Johnson, acting as a scribe for Esperanza Villaseñor MD Provider Scribe Attestation: All medical record entries made by the Scribe were at my direction and personally dictated by me. I have reviewed the chart and agree that the record accurately reflects my personal performance of the history, physical exam, medical decision making, and the department course for this patient. I have also personally directed, reviewed, and agree with the discharge instructions and disposition. Disposition - Clinical Impression Clinical Impression: Alcohol abuse - Patient ED Disposition Is Patient to be Admitted: No - Disposition Disposition: Transfer of Care Disposition Time: 09:30 Condition: IMPROVED Additional Instructions: follow up with your doctor return with any worsening symptoms Instructions: Effects of Alcohol on Your Health Forms: [employer] (Burmese)
== END 2017-06-01 09:23 | disposition home or self-care (01) ==
LOC: H.ER 09:11
DX: F10.10 Alcohol abuse, uncomplicated (principal)

== ENCOUNTER 2017-06-13 17:44 | Emergency (ER) | payer MEDICAID, OTHER ==
[2017-06-13 17:44] VITALS: BMI 21.6
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
--- NOTE | 2017-06-13 20:18 | CT ---
EXAM: CT Head Without Intravenous Contrast EXAM DATE/TIME: 06/13/2017 5:55 PM CLINICAL HISTORY: 52 years old, female; Injury or trauma; Fall; Initial encounter; Blunt trauma (contusions or hematomas); Additional info: Fall yesterday TECHNIQUE: Axial computed tomography images of the head/brain without intravenous contrast. All CT scans at this facility use one or more dose reduction techniques, viz.: automated exposure control; ma/kV adjustment per patient size (including targeted exams where dose is matched to indication; i.e. head); or iterative reconstruction technique. Coronal and sagittal reformatted images were created and reviewed. COMPARISON: Prior head CT of 2015-01-14 FINDINGS: LIMITATIONS: Mild streak/motion artifact. BRAIN: No significant acute abnormality identified. No acute hemorrhage seen within the brain. No acute extra-axial fluid collections visualized. No evidence of significant mass effect within the brain. VENTRICLES: No evidence of significant hydrocephalus. BONES/JOINTS: No acute fractures or other acute bony abnormality noted. SOFT TISSUES: Soft tissue swelling in the right frontal scalp. SINUSES: Visualized paranasal sinuses appear clear. MASTOID AIR CELLS: Mastoid air cells appear clear. IMPRESSION: - No evidence of acute intracranial injury or fractures. - See above for remaining findings.
--- NOTE | 2017-06-13 20:35 | CT ---
EXAM: CT Maxillofacial Without Intravenous Contrast EXAM DATE/TIME: 06/13/2017 5:55 PM CLINICAL HISTORY: 52 years old, female; Injury or trauma; Fall; Initial encounter; Blunt trauma (contusions or hematomas); Lip/oral cavity; Upper; Additional info: Fall yesterday TECHNIQUE: Axial computed tomography images of the face without intravenous contrast. All CT scans at this facility use one or more dose reduction techniques, viz.: automated exposure control; ma/kV adjustment per patient size (including targeted exams where dose is matched to indication; i.e. head); or iterative reconstruction technique. Coronal and sagittal reformatted images were created and reviewed. COMPARISON: Prior CT facial bones of 2015-01-14 FINDINGS: BONES/JOINTS: No acute fractures seen. No evidence of acute dislocation. SOFT TISSUES: Soft tissue swelling in the region anteriorly. ORBITS: Intraorbital soft tissues appear grossly intact. No evidence of significant orbital emphysema. SINUSES: No evidence of sinus fluid levels. DENTAL: Lucencies are seen surrounding the roots of multiple, bilateral upper and lower teeth, suspicious for multiple periodontal abscesses. IMPRESSION: - No acute facial bone fractures identified. - Incidental multiple periodontal abscesses. - See above for remaining findings.
[2017-06-13 23:57] VITALS: BP 123/78; PULSE 84; RESP 18; TEMP 98.5; O2SAT 100
== END 2017-06-13 23:57 | disposition home or self-care (01) ==
LOC: H.ER 17:44
DX: F10.129 Alcohol abuse with intoxication, unspecified (principal); K05.219 Aggressive periodontitis, localized, unspecified severity; S09.90XA Unspecified injury of head, initial encounter; S09.93XA Unspecified injury of face, initial encounter; W19.XXXA Unspecified fall, initial encounter; Y92.89 Other specified places as the place of occurrence of the external cause; F20.9 Schizophrenia, unspecified; F32.9 Major depressive disorder, single episode, unspecified; F41.9 Anxiety disorder, unspecified; I10 Essential (primary) hypertension; J44.9 Chronic obstructive pulmonary disease, unspecified; Z86.73 Personal history of transient ischemic attack (TIA), and cerebral infarction without residual deficits

== ENCOUNTER 2017-06-14 07:24 | Emergency (ER) | payer MEDICAID ==
[2017-06-14 07:24] VITALS: BMI 21.6
[2017-06-14 07:38] VITALS: RESP 18; TEMP 97.5; O2SAT 97
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
[2017-06-14 08:25] VITALS: BP 104/67; PULSE 79
== END 2017-06-14 08:10 | disposition home or self-care (01) ==
LOC: H.ER 07:24
DX: F10.10 Alcohol abuse, uncomplicated (principal); I10 Essential (primary) hypertension; J44.9 Chronic obstructive pulmonary disease, unspecified; S00.31XA Abrasion of nose, initial encounter; Z86.73 Personal history of transient ischemic attack (TIA), and cerebral infarction without residual deficits; Z87.891 Personal history of nicotine dependence

== ENCOUNTER 2017-06-20 11:53 | Emergency (ER) | payer MEDICAID, OTHER ==
[2017-06-20 11:53] VITALS: BMI 21.6
--- NOTE | 2017-06-20 12:11 | ED PDOC ---
HPI: General Adult Time Seen by Provider: 06/20/17 11:57 Chief Complaint (Nursing): Medical Clearance Chief Complaint (Provider): Denies complaint History Per: Patient History/Exam Limitations: no limitations Have you had recent travel within the past 21 days to any of the following countries: [place], [place], [place] or [place]?: No Additional Complaint(s): 52 yo female with history of alcohol abuse and COPD brought in by police for evaluation. Pt denies fever/chills, N/V/D, SOB or chest pain. Past Medical History Reviewed: Historical Data, Nursing Documentation, Vital Signs Vital Signs: Last Vital Signs Temp 97.5 F L 06/20/17 12:07 Pulse 100 H 06/20/17 12:07 Resp 20 06/20/17 12:07 BP 133/73 06/20/17 12:07 Pulse Ox 98 06/20/17 12:10 - Medical History PMH: Anxiety, Asthma, COPD, Depression, HTN, Paranoia, Pneumonia, Schizophrenia , TIA Denies: Diabetes, Hepatitis, HIV, Chronic Kidney Disease, Seizures, Sexually Transmitted Disease - Surgical History Surgical History: No Surg Hx - Family History Family History: States: Unknown Family Hx - Living Arrangements Living Arrangements: With Family - Social History Current smoker - smoking cessation education provided: No - Immunization History Hx Tetanus Toxoid Vaccination: No Hx Influenza Vaccination: No Hx Pneumococcal Vaccination: No - Home Medications Home Medications: Ambulatory Orders Medication Instructions Recorded Amoxicillin 500 mg PO TID #30 tablet 06/13/17 - Allergies Allergies/Adverse Reactions: Allergies Allergy/AdvReac Type Severity Reaction Status Date / Time shellfish derived Allergy Severe SWELLING Verified 06/20/17 11:56 Review of Systems ROS Statement: Except As Marked, All Systems Reviewed And Found Negative Constitutional: Negative for: Fever, Chills Cardiovascular: Negative for: Chest Pain, Palpitations Respiratory: Negative for: Cough, Shortness of Breath Gastrointestinal: Negative for: Nausea, Vomiting, Abdominal Pain, Diarrhea Physical Exam - Reviewed Nursing Documentation Reviewed: Yes Vital Signs Reviewed: Yes - Physical Exam Appears: Positive for: Well, Non-toxic, No Acute Distress Head Exam: Positive for: ATRAUMATIC, NORMAL INSPECTION, NORMOCEPHALIC Skin: Positive for: Normal Color, Warm, DRY Eye Exam: Positive for: Normal appearance ENT: Positive for: Normal ENT Inspection Neck: Positive for: Normal, Painless ROM Cardiovascular/Chest: Positive for: Regular Rate, Rhythm Respiratory: Positive for: Normal Breath Sounds. Negative for: Accessory Muscle Use, Respiratory Distress Back: Positive for: Normal Inspection Extremity: Positive for: Normal ROM Neurologic/Psych: Positive for: Alert, Oriented - ECG O2 Sat by Pulse Oximetry: 98 Medical Decision Making Medical Decision Making: Crisis evaluation completed. Disposition - Clinical Impression Clinical Impression: Normal exam - Patient ED Disposition Is Patient to be Admitted: No - Disposition Disposition: Routine/Home Disposition Time: 12:10 Condition: GOOD Additional Instructions: Pt is medically and psychiatrically stable for incarceration. Instructions: General (DC) Forms: [employer] (Faroese)
[2017-06-20 12:12] VITALS: BP 133/73; PULSE 100; RESP 20; TEMP 97.5; O2SAT 98
== END 2017-06-20 13:14 | disposition home or self-care (01) ==
LOC: H.ER 11:53
DX: F20.9 Schizophrenia, unspecified; F32.9 Major depressive disorder, single episode, unspecified; F41.9 Anxiety disorder, unspecified; I10 Essential (primary) hypertension; J44.9 Chronic obstructive pulmonary disease, unspecified; Z86.73 Personal history of transient ischemic attack (TIA), and cerebral infarction without residual deficits

== ENCOUNTER 2017-06-22 13:47 | Emergency (ER) | payer OTHER ==
[2017-06-22 13:48] VITALS: BMI 21.6
[2017-06-22 13:55] VITALS: BP 98/72; PULSE 104; RESP 18; TEMP 97; O2SAT 98
== END 2017-06-22 14:15 | disposition left against medical advice (07) ==
LOC: H.ER 13:47
DX: Z02.89 Encounter for other administrative examinations (principal)

== ENCOUNTER 2017-06-26 12:30 | Emergency (ER) | payer OTHER ==
[2017-06-26 12:30] VITALS: BMI 21.6
[2017-06-26 12:37] VITALS: BP 120/76; PULSE 79; RESP 18; TEMP 97.8; O2SAT 98
--- NOTE | 2017-06-26 13:31 | ED PDOC ---
HPI: Psych/Substance Abuse Time Seen by Provider: 06/26/17 12:52 Chief Complaint (Nursing): Alcohol Ingestion Chief Complaint (Provider): Medical Clearance for Incaceration History Per: Patient History/Exam Limitations: no limitations Suicide/Self Injury Attempted (Context): None Modifying Factor(s): Alcohol Involuntary Hold By: None Additional Complaint(s): 52 year old female is brought into the emergency department by emergency medical services for medical clearance for incarceration. Patient admits to drinking alcohol. She offers no medical complaint at this time and states that she just wants to go home. Denies chest pain, shortness of breath, abdominal pain, SI/HI, hallucinations. Patient was eating a sandwich during history. Past Medical History Reviewed: Historical Data, Nursing Documentation, Vital Signs Vital Signs: Last Vital Signs Temp 97.8 F 06/26/17 12:35 Pulse 79 06/26/17 12:35 Resp 18 06/26/17 12:35 BP 120/76 06/26/17 12:35 Pulse Ox 98 06/26/17 12:35 - Medical History PMH: Anxiety, Asthma, COPD, Depression, HTN, Paranoia, Pneumonia, Schizophrenia , TIA Denies: Diabetes, Hepatitis, HIV, Chronic Kidney Disease, Seizures, Sexually Transmitted Disease - Surgical History Surgical History: No Surg Hx - Family History Family History: States: Unknown Family Hx - Social History Current smoker - smoking cessation education provided: No Ex-Smoker (has not smoked in the last 12 months): No Alcohol: > 2 Drinks/Day Drugs: Denies - Immunization History Hx Tetanus Toxoid Vaccination: No Hx Influenza Vaccination: No Hx Pneumococcal Vaccination: No - Home Medications Home Medications: Ambulatory Orders Medication Instructions Recorded Amoxicillin 500 mg PO TID #30 tablet 06/13/17 - Allergies Allergies/Adverse Reactions: Allergies Allergy/AdvReac Type Severity Reaction Status Date / Time shellfish derived Allergy Severe SWELLING Verified 06/22/17 13:53 Review of Systems ROS Statement: Except As Marked, All Systems Reviewed And Found Negative Cardiovascular: Negative for: Chest Pain Respiratory: Negative for: Shortness of Breath Gastrointestinal: Negative for: Abdominal Pain Physical Exam - Reviewed Nursing Documentation Reviewed: Yes Vital Signs Reviewed: Yes - Physical Exam Appears: Positive for: Non-toxic, No Acute Distress Head Exam: Positive for: NORMAL INSPECTION Skin: Positive for: Normal Color, Warm, Dry, Rash Eye Exam: Positive for: Normal appearance, EOMI, PERRL, Nystagmus ENT: Positive for: Normal ENT Inspection, Other (Alcohol on breath). Negative for: Nasal Congestion, Tonsillar Exudate, Tonsillar Swelling Neck: Positive for: Normal, Painless ROM, Supple Cardiovascular/Chest: Positive for: Regular Rate, Rhythm, Chest Non Tender. Negative for: Tachycardia Respiratory: Positive for: Normal Breath Sounds. Negative for: Wheezing, Respiratory Distress Gastrointestinal/Abdominal: Positive for: Normal Exam, Bowel Sounds, Soft. Negative for: Tenderness, Mass, Guarding, Rebound Back: Positive for: Normal Inspection. Negative for: L CVA Tenderness, R CVA Tenderness Extremity: Positive for: Normal ROM. Negative for: Tenderness, Deformity, Swelling Neurologic/Psych: Positive for: Alert (AAO x3), Oriented, Gait - ECG O2 Sat by Pulse Oximetry: 98 (RA) Pulse Ox Interpretation: Normal Medical Decision Making Medical Decision Makin Initial Impression 52 year old female presenting for medical clearance for incarceration Documented by Jannette Woods acting as a scribe for Tadeo Villafuerte PA-C. All medical record entries made by the Scribe were at my direction and personally dictated by me. I have reviewed the chart and agree that the record accurately reflects my personal performance of the history, physical exam, medical decision making, and the department course for this patient. I have also personally directed, reviewed, and agree with the discharge instructions and disposition. Disposition - Clinical Impression Clinical Impression: Alcohol intoxication - Patient ED Disposition Is Patient to be Admitted: No - Disposition Disposition: Discharged/Transfer to Law Enforcement Disposition Time: 13:00 Condition: STABLE Additional Instructions: Patient is medically and psychiatrically cleared for incarceration. Instructions: Alcohol Abuse and Alcoholism (DC) Forms: [employer] (French) Print Language: YORUBA
== END 2017-06-26 13:24 ==
LOC: H.ER 12:30
DX: F10.129 Alcohol abuse with intoxication, unspecified (principal); F20.9 Schizophrenia, unspecified; F32.9 Major depressive disorder, single episode, unspecified; F41.9 Anxiety disorder, unspecified; I10 Essential (primary) hypertension; J44.9 Chronic obstructive pulmonary disease, unspecified; Z86.73 Personal history of transient ischemic attack (TIA), and cerebral infarction without residual deficits

== ENCOUNTER 2017-07-11 05:55 | Emergency (ER) | payer OTHER ==
[2017-07-11 05:55] VITALS: BMI 21.6
[2017-07-11] MEDS ORDERED: Albuterol-Ipratrop 3 mg / 0.5 (3 ml) UD INH STA (06:11)
--- NOTE | 2017-07-11 06:21 | ED PDOC ---
History of Present Illness History of Present Illness: 52 years old female with history of COPD brought to the ED by [facility] for evaluation of shortness of breath and cough. Patient is well known to provider for multiple visits related alcohol abuse. Patient is requesting treatment. PMD: non provided HPI: Influenza Time Seen by Provider: 07/11/17 06:03 Chief Complaint: Cough, Cold, Congestion Chief Complaint (Provider): Cough, Cold, Congestion History Per: Patient Exam Limitations: no limitations Symptoms include: cough Past Medical History Reviewed: Historical Data, Nursing Documentation, Vital Signs Vital Signs: Last Vital Signs Temp 97.8 F 07/11/17 06:07 Pulse 82 07/11/17 06:07 Resp 18 07/11/17 06:07 BP 98/53 L 07/11/17 06:07 Pulse Ox 100 07/11/17 06:07 - Medical History PMH: Anxiety, Asthma, COPD, Depression, HTN, Paranoia, Pneumonia, Schizophrenia , TIA Denies: Diabetes, Hepatitis, HIV, Chronic Kidney Disease, Seizures, Sexually Transmitted Disease - Surgical History Surgical History: No Surg Hx - Family History Family History: States: Unknown Family Hx - Social History Current smoker - smoking cessation education provided: Yes Alcohol: > 2 Drinks/Day Drugs: Denies - Immunization History Hx Tetanus Toxoid Vaccination: No Hx Influenza Vaccination: No Hx Pneumococcal Vaccination: No - Home Medications Home Medications: Ambulatory Orders Medication Instructions Recorded Amoxicillin 500 mg PO TID #30 tablet 06/13/17 Albuterol HFA [Ventolin HFA 90 1 puff IH ASDIR #1 unit 07/11/17 mcg/actuation (8 g)] Albuterol Sulfate [Proair Hfa] 0.09 mg IH Q6 PRN #1 inh 07/11/17 Prednisone 50 mg PO DAILY #5 tablet 07/11/17 predniSONE [predniSONE Tab] 60 mg PO QAM #12 tab 07/11/17 - Allergies Allergies/Adverse Reactions: Allergies Allergy/AdvReac Type Severity Reaction Status Date / Time shellfish derived Allergy Severe SWELLING Verified 07/12/17 01:31 Review of Systems ROS Statement: Except As Marked, All Systems Reviewed And Found Negative Respiratory: Positive for: Cough, Shortness of Breath, Wheezing Physical Exam - Reviewed Nursing Documentation Reviewed: Yes Vital Signs Reviewed: Yes - Physical Exam Appears: Positive for: No Acute Distress Head Exam: Positive for: ATRAUMATIC, NORMOCEPHALIC Skin: Positive for: Normal Color, Warm, Dry Respiratory: Positive for: Wheezing (Bilateral expiratory) Neurologic/Psych: Positive for: Alert, Oriented Medical Decision Making Medical Decision Making: Time: 610 Initial Impression: 52 years old female with COPD. Patient is instructed to avoid smoking. Initial Plan: --Duoneb 3 mg --PredniSONE 60 mg PO --Peak flow pre/post treatment Scribe Attestation: Documented by Jaye Jamil, acting as a scribe for Emeka Carrera MD. Provider Scribe Attestation: All medical record entries made by the Scribe were at my direction and personally dictated by me. I have reviewed the chart and agree that the record accurately reflects my personal performance of the history, physical exam, medical decision making, and the department course for this patient. I have also personally directed, reviewed, and agree with the discharge instructions and disposition. - ECG O2 Sat by Pulse Oximetry: 100 Disposition - Clinical Impression Clinical Impression: Bronchitis, COPD (chronic obstructive pulmonary disease) - Disposition Disposition: Routine/Home Disposition Time: 06:30 Condition: IMPROVED Prescriptions: Albuterol Sulfate [Proair Hfa] 0.09 mg IH Q6 PRN #1 inh PRN Reason: Shortness Of Breath predniSONE [predniSONE Tab] 60 mg PO QAM #12 tab Instructions: Chronic Bronchitis Forms: [employer] (Ukrainian)
[2017-07-11] MEDS ORDERED: Albuterol-Ipratrop 3 mg / 0.5 (3 ml) UD ONE (06:45)
[2017-07-11 07:48] VITALS: BP 112/67; PULSE 81; RESP 20; TEMP 98.1
[2017-07-12 06:22] VITALS: O2SAT 100
== END 2017-07-11 07:20 | disposition home or self-care (01) ==
LOC: H.ER 05:55
DX: J44.9 Chronic obstructive pulmonary disease, unspecified (principal); J40 Bronchitis, not specified as acute or chronic; F20.9 Schizophrenia, unspecified; F32.9 Major depressive disorder, single episode, unspecified; F41.9 Anxiety disorder, unspecified; I10 Essential (primary) hypertension; Z86.73 Personal history of transient ischemic attack (TIA), and cerebral infarction without residual deficits; F17.200 Nicotine dependence, unspecified, uncomplicated

== ENCOUNTER 2017-07-11 21:44 | Emergency (ER) | payer OTHER ==
[2017-07-11 21:44] VITALS: BMI 21.6
[2017-07-11 21:49] VITALS: RESP 17; O2SAT 100
--- NOTE | 2017-07-11 21:55 | ED PDOC ---
HPI: General Adult Time Seen by Provider: 07/11/17 21:50 Chief Complaint (Nursing): Cough, Cold, Congestion Chief Complaint (Provider): cough History Per: Patient Additional Complaint(s): 52-year-old female well-known to emergency department presents this evening requesting a breathing treatment. Patient was seen last night for same and was given prescription for albuterol and prednisone but she did not fill the prescriptions. Patient admits to drinking today. She is well-known to emergency department for frequent visits. PMD: none Past Medical History Reviewed: Historical Data, Nursing Documentation, Vital Signs Vital Signs: Last Vital Signs Temp 97.5 F L 07/11/17 21:46 Pulse 67 07/11/17 21:46 Resp 17 07/11/17 21:46 BP 132/75 07/11/17 21:46 Pulse Ox 100 07/11/17 21:55 - Medical History PMH: Anxiety, Asthma, COPD, Depression, HTN, Paranoia, Schizophrenia, TIA - Family History Family History: States: No Known Family Hx - Living Arrangements Living Arrangements: Other (non-domiciled) - Social History Current smoker - smoking cessation education provided: Yes Alcohol: > 2 Drinks/Day - Home Medications Home Medications: Ambulatory Orders Medication Instructions Recorded Amoxicillin 500 mg PO TID #30 tablet 06/13/17 Albuterol HFA [Ventolin HFA 90 1 puff IH ASDIR #1 unit 07/11/17 mcg/actuation (8 g)] Albuterol Sulfate [Proair Hfa] 0.09 mg IH Q6 PRN #1 inh 07/11/17 Prednisone 50 mg PO DAILY #5 tablet 07/11/17 predniSONE [predniSONE Tab] 60 mg PO QAM #12 tab 07/11/17 - Allergies Allergies/Adverse Reactions: Allergies Allergy/AdvReac Type Severity Reaction Status Date / Time shellfish derived Allergy Severe SWELLING Verified 06/22/17 13:53 Review of Systems ROS Statement: Except As Marked, All Systems Reviewed And Found Negative Cardiovascular: Negative for: Chest Pain Respiratory: Positive for: Cough Psych: Positive for: Other (etoh) Physical Exam - Reviewed Nursing Documentation Reviewed: Yes Vital Signs Reviewed: Yes - Physical Exam Appears: Negative for: Well (unkempt appearing) Skin: Positive for: Normal Color. Negative for: Rash Eye Exam: Positive for: Normal appearance Cardiovascular/Chest: Positive for: Regular Rate, Rhythm Respiratory: Positive for: Wheezing (bilateral inspiratory and expiratory) Extremity: Positive for: Normal ROM Neurologic/Psych: Positive for: Alert, Oriented, Gait (steady) - ECG O2 Sat by Pulse Oximetry: 100 Pulse Ox Interpretation: Normal Medical Decision Making Medical Decision Making: Impression: asthma exacerbation Plan: Duoneb x 1 PO prednisone 60 mg Patient is ambulatory throughout ED, asking for food. Patient given prescriptions for Ventolin and prednisone. She is stable for discharge. Disposition - Clinical Impression Clinical Impression: Asthma - Patient ED Disposition Is Patient to be Admitted: No Counseled Patient/Family Regarding: Diagnosis, Need For Followup, Rx Given - Disposition Referrals: [facility] [Outside] Disposition: Routine/Home Disposition Time: 22:04 Condition: STABLE Additional Instructions: TAKE RX MEDS DIRECTED. FOLLOW UP WITH CLINIC. Prescriptions: Albuterol HFA [Ventolin HFA 90 mcg/actuation (8 g)] 1 puff IH ASDIR #1 unit Prednisone 50 mg PO DAILY #5 tablet Instructions: Asthma, Adult (DC) Forms: [employer] (Bahamian)
[2017-07-11] MEDS ORDERED: Albuterol-Ipratrop 3 mg / 0.5 (3 ml) UD INH STA (22:03)
[2017-07-11] MEDS ORDERED: Albuterol-Ipratrop 3 mg / 0.5 (3 ml) UD ONE (22:14)
[2017-07-11 22:31] VITALS: BP 131/74; PULSE 88; TEMP 97.9
== END 2017-07-11 23:00 | disposition home or self-care (01) ==
LOC: H.ER 21:44
DX: J45.901 Unspecified asthma with (acute) exacerbation (principal); F20.9 Schizophrenia, unspecified; F32.9 Major depressive disorder, single episode, unspecified; F41.9 Anxiety disorder, unspecified; I10 Essential (primary) hypertension; J44.9 Chronic obstructive pulmonary disease, unspecified; Z86.73 Personal history of transient ischemic attack (TIA), and cerebral infarction without residual deficits; F17.200 Nicotine dependence, unspecified, uncomplicated

== ENCOUNTER 2017-07-19 08:43 | Emergency (ER) | payer OTHER ==
[2017-07-19 08:48] VITALS: TEMP 98
--- NOTE | 2017-07-19 09:41 | ED PDOC ---
HPI: Psych/Substance Abuse Time Seen by Provider: 07/19/17 09:36 Chief Complaint (Nursing): Lower Extremity Problem/Injury History Per: EMS Onset/Duration Of Symptoms: Unknown Current Symptoms Are (Timing): Still Present Modifying Factor(s): Alcohol Additional Complaint(s): Brought by EMS found in street, h/o ETOH consumption Past Medical History Vital Signs: Last Vital Signs Temp 98 F 07/19/17 08:47 Pulse 85 07/19/17 08:47 Resp 20 07/19/17 08:47 BP 138/90 07/19/17 08:47 Pulse Ox 98 07/19/17 08:49 - Medical History PMH: Anxiety, Asthma, COPD, Depression, HTN, Paranoia, Pneumonia, Schizophrenia , TIA Denies: Diabetes, Hepatitis, HIV, Chronic Kidney Disease, Seizures, Sexually Transmitted Disease - Family History Family History: States: Unknown Family Hx - Immunization History Hx Tetanus Toxoid Vaccination: No Hx Influenza Vaccination: No Hx Pneumococcal Vaccination: No - Home Medications Home Medications: Ambulatory Orders Medication Instructions Recorded Amoxicillin 500 mg PO TID #30 tablet 06/13/17 Albuterol HFA [Ventolin HFA 90 1 puff IH ASDIR #1 unit 07/11/17 mcg/actuation (8 g)] Albuterol Sulfate [Proair Hfa] 0.09 mg IH Q6 PRN #1 inh 07/11/17 Prednisone 50 mg PO DAILY #5 tablet 07/11/17 predniSONE [predniSONE Tab] 60 mg PO QAM #12 tab 07/11/17 - Allergies Allergies/Adverse Reactions: Allergies Allergy/AdvReac Type Severity Reaction Status Date / Time shellfish derived Allergy Severe SWELLING Verified 07/19/17 08:49 Review of Systems Review Of Systems: ROS cannot be obtained secondary to pt's inabilty to answer questions. Physical Exam - Reviewed Nursing Documentation Reviewed: Yes Vital Signs Reviewed: Yes - Physical Exam Appears: Positive for: Non-toxic, No Acute Distress Head Exam: Positive for: ATRAUMATIC, NORMAL INSPECTION, NORMOCEPHALIC Skin: Positive for: Normal Color, Warm, DRY Eye Exam: Positive for: EOMI, Normal appearance, PERRL ENT: Positive for: Normal ENT Inspection Neck: Positive for: Normal, Painless ROM Cardiovascular/Chest: Positive for: Regular Rate, Rhythm Respiratory: Positive for: CNT, Normal Breath Sounds Gastrointestinal/Abdominal: Positive for: Normal Exam, Soft Back: Positive for: Normal Inspection Extremity: Positive for: Normal ROM Neurologic/Psych: Negative for: Alert (Sleept arousable, slurred speech), Motor/ Sensory Deficits - ECG O2 Sat by Pulse Oximetry: 98 - Progress Re-evaluation Time: 11:00 Condition: Improved (Awake alert oriented x 3 no focal neuro defiicts) Disposition - Clinical Impression Clinical Impression: Alcohol abuse - Patient ED Disposition Is Patient to be Admitted: No - Disposition Disposition Time: 11:00 Condition: FAIR Instructions: Alcohol Abuse and Alcoholism (DC) Forms: [facility] (Andorran)
[2017-07-19 14:24] VITALS: BP 130/90; PULSE 83; RESP 18; O2SAT 99
== END 2017-07-19 13:45 | disposition home or self-care (01) ==
LOC: H.ER 08:43
DX: F10.10 Alcohol abuse, uncomplicated (principal); Z86.59 Personal history of other mental and behavioral disorders; I10 Essential (primary) hypertension; J44.9 Chronic obstructive pulmonary disease, unspecified; Z86.73 Personal history of transient ischemic attack (TIA), and cerebral infarction without residual deficits

== ENCOUNTER 2017-07-31 06:31 | Emergency (ER) | payer OTHER ==
[2017-07-31 06:41] VITALS: BP 147/89; PULSE 104; RESP 16; TEMP 98; O2SAT 99
[2017-07-31] MEDS ORDERED: Albuterol-Ipratrop 3 mg / 0.5 (3 ml) UD INH STA (07:36)
--- NOTE | 2017-07-31 07:39 | ED PDOC ---
Lower Extremity Pain/Injury Time Seen by Provider: 07/31/17 07:31 Chief Complaint (Nursing): Lower Extremity Problem/Injury Chief Complaint (Provider): Lower Extremity Problem/Injury History Per: Patient History/Exam Limitations: no limitations Onset/Duration Of Symptoms: Days (a couple) Current Symptoms Are (Timing): Still Present Additional History Per: EMS Additional Complaint(s): 52 year old female well known to the ED presents today via EMS complaining of a laceration to her left buttocks that she acquired at her mothers house a couple days ago. Upon entering the room, the patient was resting comfortably. She is requesting a breathing treatment, and speaking in full sentences. PMD: none provided Past Medical History Reviewed: Historical Data, Nursing Documentation, Vital Signs Vital Signs: Last Vital Signs Temp 98 F 07/31/17 06:40 Pulse 104 H 07/31/17 06:40 Resp 16 07/31/17 06:40 BP 147/89 07/31/17 06:40 Pulse Ox 99 07/31/17 06:40 - Medical History PMH: Anxiety, Asthma, COPD, Depression, HTN, Paranoia, Pneumonia, Schizophrenia , TIA Denies: Diabetes, Hepatitis, HIV, Chronic Kidney Disease, Seizures, Sexually Transmitted Disease - Surgical History Other surgeries: Dialation and curettage - Family History Family History: States: Unknown Family Hx - Social History Ex-Smoker (has not smoked in the last 12 months): Yes Alcohol: Social Drugs: Denies - Immunization History Hx Tetanus Toxoid Vaccination: No Hx Influenza Vaccination: No Hx Pneumococcal Vaccination: No - Home Medications Home Medications: Ambulatory Orders Medication Instructions Recorded Amoxicillin 500 mg PO TID #30 tablet 06/13/17 Albuterol HFA [Ventolin HFA 90 1 puff IH ASDIR #1 unit 07/11/17 mcg/actuation (8 g)] Albuterol Sulfate [Proair Hfa] 0.09 mg IH Q6 PRN #1 inh 07/11/17 Prednisone 50 mg PO DAILY #5 tablet 07/11/17 predniSONE [predniSONE Tab] 60 mg PO QAM #12 tab 07/11/17 Cephalexin [cephalexin] 500 mg PO QID #27 cap 07/31/17 Ibuprofen [Motrin] 600 mg PO Q6H PRN #20 tab 07/31/17 - Allergies Allergies/Adverse Reactions: Allergies Allergy/AdvReac Type Severity Reaction Status Date / Time shellfish derived Allergy Severe SWELLING Verified 07/19/17 08:49 Review of Systems ROS Statement: Except As Marked, All Systems Reviewed And Found Negative Skin: Positive for: Other (laceration to left buttocks) Physical Exam - Reviewed Nursing Documentation Reviewed: Yes Vital Signs Reviewed: Yes - Physical Exam Appears: Positive for: No Acute Distress (sleeping comfortably) Head Exam: Positive for: ATRAUMATIC, NORMOCEPHALIC Skin: Positive for: Normal Color, Warm, Dry Eye Exam: Positive for: Normal appearance ENT: Positive for: Normal ENT Inspection Neck: Positive for: Normal, Painless ROM, Supple Cardiovascular/Chest: Positive for: Regular Rate, Rhythm. Negative for: Murmur Respiratory: Positive for: Normal Breath Sounds. Negative for: Accessory Muscle Use, Wheezing, Respiratory Distress Extremity: Positive for: Normal ROM, Other (2cm laceration to left inferior buttocks with no erythema, edema, fluctuance, or drainage). Negative for: Tenderness, Pedal Edema, Swelling Neurologic/Psych: Positive for: Alert, Oriented (x3). Negative for: Motor/ Sensory Deficits - ECG O2 Sat by Pulse Oximetry: 99 (RA) Pulse Ox Interpretation: Normal Medical Decision Making Medical Decision Making: Time: 07:36 Initial Plan: --Duoneb 3ml INH --Keflex 500mg PO --Peak flow pre/post 7:36 Patient informed that laceration is too old to be sutured. Scribe Attestation: Documented by Angei Cee, acting as a scribe for Janet Jorgensen MD. Provider Scribe Attestation: All medical entries made by the Scribe were at my direction and personally dictated by me. I have reviewed the chart and agree that the record accurately reflects my personal performance of the history, physical exam, medical decision making, and the department course for this patient. I have also personally directed, reviewed, and agree with the discharge instructions and disposition. Disposition - Clinical Impression Clinical Impression: Laceration - Disposition Referrals: [facility] [Outside] Disposition: Routine/Home Disposition Time: 08:43 Condition: STABLE Prescriptions: Cephalexin [cephalexin] 500 mg PO QID #27 cap Ibuprofen [Motrin] 600 mg PO Q6H PRN #20 tab PRN Reason: Pain, Moderate (4-7) Instructions: Wound Care Forms: [facility] (Romansh)
== END 2017-07-31 09:20 | disposition home or self-care (01) ==
LOC: H.ER 06:31
DX: S31.821A Laceration without foreign body of left buttock, initial encounter (principal); Y92.89 Other specified places as the place of occurrence of the external cause; J44.9 Chronic obstructive pulmonary disease, unspecified; F20.9 Schizophrenia, unspecified; F32.9 Major depressive disorder, single episode, unspecified; F41.9 Anxiety disorder, unspecified; I10 Essential (primary) hypertension; Z86.73 Personal history of transient ischemic attack (TIA), and cerebral infarction without residual deficits; Z87.891 Personal history of nicotine dependence

== ENCOUNTER 2017-09-04 20:53 | Emergency (ER) | payer OTHER ==
[2017-09-04 20:53] VITALS: BMI 23.3
[2017-09-04 21:02] VITALS: PULSE 76; RESP 20; TEMP 98; O2SAT 98
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
[2017-09-04 22:57] VITALS: BP 130/86
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
== END 2017-09-04 23:14 | disposition home or self-care (01) ==
LOC: H.ER 20:53
DX: S09.90XA Unspecified injury of head, initial encounter (principal); S02.2XXA Fracture of nasal bones, initial encounter for closed fracture; S00.03XA Contusion of scalp, initial encounter; Z86.59 Personal history of other mental and behavioral disorders; I10 Essential (primary) hypertension; J44.9 Chronic obstructive pulmonary disease, unspecified; Z86.73 Personal history of transient ischemic attack (TIA), and cerebral infarction without residual deficits; Y04.2XXA Assault by strike against or bumped into by another person, initial encounter

== ENCOUNTER 2017-09-10 19:06 | Emergency (ER) | payer OTHER ==
[2017-09-10 19:06] VITALS: BMI 23.3
[2017-09-10 19:12] VITALS: BP 139/79; PULSE 78; RESP 20; O2SAT 96
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
[2017-09-10 20:41] VITALS: TEMP 98
== END 2017-09-10 19:40 | disposition home or self-care (01) ==
LOC: H.ER 19:06
DX: F10.10 Alcohol abuse, uncomplicated (principal)

== ENCOUNTER 2017-09-11 04:08 | Emergency (ER) | payer OTHER ==
[2017-09-11 04:08] VITALS: BMI 23.3
[2017-09-11 04:45] VITALS: RESP 18; O2SAT 99
[2017-09-11] MEDS ORDERED: Atrop/Hyos/Scop/PhenoB Elixir PO STA (05:02)
[2017-09-11] MEDS ORDERED: Sodium Chloride 0.9% 1,000 ML IV STA (05:03)
[2017-09-11 06:02] LABS: BASO % 0.7 % (0.0-2.0); EOS # 0.1 K/uL (0.0-0.7); EOS % 1.5 % (0.0-4.0); HEMOGLOBIN 9.8 g/dL (12.0-16.0); LYMPH # 0.7 K/uL (1.0-4.3); LYMPH % 15.5 % (20.0-40.0); MEAN CELL VOLUME 97.3 fl (81.0-99.0); MEAN CORPUSCULAR HEMOGLOBIN 32.2 pg (27.0-31.0); MEAN CORPUSCULAR HGB CONC 33.1 g/dL (33.0-37.0); MONO # 0.5 K/uL (0.0-0.8); MONO % 10.8 % (0.0-10.0); NEUT # 3.4 K/uL (1.8-7.0); NEUT % 71.5 % (50.0-75.0); RBC 3.05 Mil/uL (3.80-5.20); RED CELL DISTRIBUTION WIDTH 19.5 % (11.5-14.5); WHITE BLOOD COUNT 4.8 K/uL (4.8-10.8)
[2017-09-11 06:12] LABS: ALB/GLOB RATIO 1.2 (1.0-2.1); ALBUMIN 4.2 g/dL (3.5-5.0); ALT/SGPT 99 U/L (9-52); AST/SGOT 235 U/L (14-36); BLOOD UREA NITROGEN 14 mg/dl (7-17); CALCIUM 8.5 mg/dL (8.4-10.2); GFR NON-AFRICAN AMERICAN > 60; LIPASE 99 U/L (23-300)
--- NOTE | 2017-09-11 06:23 | ED PDOC ---
HPI: Abdomen Time Seen by Provider: 09/11/17 04:46 Chief Complaint (Nursing): Abdominal Pain Chief Complaint (Provider): Abdominal Pain History Per: Patient History/Exam Limitations: no limitations Onset/Duration Of Symptoms: Days (x1) Current Symptoms Are (Timing): Still Present Additional Complaint(s): 52 year old female with pmHx of HTN, COPD and gastritis, arrives to ED with complaints of upper abdominal pain associated with nonbloody, nonbilious vomiting ongoing for 1 day. Additionally, patient reports having shakes from alcohol withdrawal. She states she wants to quit drinking for herself. Last alcohol use was reported as last night. Patient denies any chest pain, shortness of breath, fever, chills or diarrhea. Past Medical History Reviewed: Historical Data, Nursing Documentation, Vital Signs Vital Signs: Last Vital Signs Temp 98.9 F 09/11/17 04:15 Pulse 79 09/11/17 04:15 Resp 18 09/11/17 04:15 BP 146/96 H 09/11/17 04:15 Pulse Ox 99 09/11/17 06:29 - Medical History PMH: Anxiety, Asthma, COPD, Depression, Gastritis, HTN, Paranoia, Pneumonia, Schizophrenia, TIA Denies: HIV, Chronic Kidney Disease, Sexually Transmitted Disease - Surgical History Surgical History: No Surg Hx - Family History Family History: States: Unknown Family Hx - Immunization History Hx Tetanus Toxoid Vaccination: No Hx Influenza Vaccination: No Hx Pneumococcal Vaccination: No - Home Medications Home Medications: Ambulatory Orders Medication Instructions Recorded Nitrofurantoin Macrocrystals 1 cap PO BID #14 cap 08/13/17 [Macrobid] Phenazopyridine [Pyridium] 200 mg PO TID #15 tab 08/13/17 Ciprofloxacin [Cipro] 1 tab PO BID #14 tab 08/25/17 Ondansetron [Zofran Odt] 4 mg PO Q8 PRN #10 odt 08/25/17 Famotidine [Pepcid] 20 mg PO DAILY #14 tab 09/11/17 - Allergies Allergies/Adverse Reactions: Allergies Allergy/AdvReac Type Severity Reaction Status Date / Time shellfish derived Allergy Severe SWELLING Verified 09/11/17 04:41 Review of Systems ROS Statement: Except As Marked, All Systems Reviewed And Found Negative Constitutional: Negative for: Fever, Chills Cardiovascular: Negative for: Chest Pain Respiratory: Negative for: Shortness of Breath Gastrointestinal: Positive for: Vomiting (NBNB), Abdominal Pain (upper). Negative for: Diarrhea Neurological: Positive for: Other (shaking) Physical Exam - Reviewed Nursing Documentation Reviewed: Yes Vital Signs Reviewed: Yes - Physical Exam Appears: Positive for: Non-toxic, No Acute Distress Head Exam: Positive for: ATRAUMATIC, NORMAL INSPECTION, NORMOCEPHALIC Skin: Positive for: Normal Color Eye Exam: Positive for: Normal appearance ENT: Positive for: Normal ENT Inspection Neck: Positive for: Normal Cardiovascular/Chest: Positive for: Regular Rate, Rhythm Respiratory: Positive for: Normal Breath Sounds. Negative for: Wheezing, Respiratory Distress Gastrointestinal/Abdominal: Positive for: Soft, Tenderness (epigastric). Negative for: Mass Neurologic/Psych: Positive for: Alert (x3), Oriented. Negative for: Motor/ Sensory Deficits - Laboratory Results Result Diagrams: 09/11/17 05:50 09/11/17 05:50 - ECG O2 Sat by Pulse Oximetry: 99 (RA) Pulse Ox Interpretation: Normal Medical Decision Making Medical Decision Making: Initial Impression: Epigastric pain; vomiting; shaking Differential diagnosis include but not limited to: gastritis; pancreatitis; early alcohol withdrawal Initial Plan: * Alcohol serum * CMP * Lipase * Urine * Urine dipstick * CBC * 5ml PO * Librium 50mg PO * Lidocaine 2% viscous 15ml PO * NS 1,000ml IV per 1,000mls/hr * Pepcid 20mg IVP * Zofran 4mg IVP Scribe Attestation: Documented by Marisa Kwan, acting as a scribe for Arnold Aguirre MD. Provider Scribe Attestation: All medical record entries made by the Scribe were at my direction and personally dictated by me. I have reviewed the chart and agree that the record accurately reflects my personal performance of the history, physical exam, medical decision making, and the department course for this patient. I have also personally directed, reviewed, and agree with the discharge instructions and disposition. Disposition - Clinical Impression Clinical Impression: Abdominal pain - Patient ED Disposition Is Patient to be Admitted: No Doctor Will See Patient In The: Office Counseled Patient/Family Regarding: Studies Performed, Diagnosis, Need For Followup - Disposition Referrals: Kam Sue MD [Staff Provider] - Disposition: Routine/Home Disposition Time: 06:35 Condition: GOOD Additional Instructions: Follow up with your PCP in 2-3 days. Prescriptions: Famotidine [Pepcid] 20 mg PO DAILY #14 tab Instructions: Stomach Ache and Stomach Upset
[2017-09-11 07:07] VITALS: BP 149/89; PULSE 74; TEMP 98.3
== END 2017-09-11 07:10 | disposition home or self-care (01) ==
LOC: H.ER 04:08
DX: R10.9 Unspecified abdominal pain (principal); Z86.59 Personal history of other mental and behavioral disorders; I10 Essential (primary) hypertension; J44.9 Chronic obstructive pulmonary disease, unspecified; Z86.73 Personal history of transient ischemic attack (TIA), and cerebral infarction without residual deficits
CPT/HCPCS: 80053; 80320; 81025; 83690; 85025; 96361; 96374; 96375; 99284; J2405; J7030

== ENCOUNTER 2017-09-17 01:38 | Emergency (ER) | payer OTHER ==
[2017-09-17 01:39] VITALS: BMI 23.3
--- NOTE | 2017-09-17 01:55 | ED PDOC ---
HPI: General Adult Time Seen by Provider: 09/17/17 01:52 Chief Complaint (Nursing): Alcohol Ingestion Chief Complaint (Provider): clearance History Per: Patient Additional Complaint(s): 52 y/o female presents for medical and psychiatric clearance prior to incarceration. Patient arrives with [place] police matron at bedside and is currently under arrest. Patient has history of alcohol abuse and admits to drinking today. Patient is well known to ED. She offers no acute complaints at this time. PMD: none Past Medical History Reviewed: Historical Data, Nursing Documentation, Vital Signs Vital Signs: Last Vital Signs Temp 98.0 F 09/17/17 01:47 Pulse 69 09/17/17 01:47 Resp 18 09/17/17 01:47 BP 133/85 09/17/17 01:47 Pulse Ox 96 09/17/17 01:55 - Medical History PMH: Anxiety, Asthma, COPD, Depression, Gastritis, HTN, Paranoia, Schizophrenia , Seizures, TIA Denies: Sexually Transmitted Disease - Family History Family History: States: No Known Family Hx - Living Arrangements Living Arrangements: Other (non-domiciled) - Social History Alcohol: > 2 Drinks/Day - Home Medications Home Medications: Ambulatory Orders Medication Instructions Recorded Nitrofurantoin Macrocrystals 1 cap PO BID #14 cap 08/13/17 [Macrobid] Phenazopyridine [Pyridium] 200 mg PO TID #15 tab 08/13/17 Ciprofloxacin [Cipro] 1 tab PO BID #14 tab 08/25/17 Ondansetron [Zofran Odt] 4 mg PO Q8 PRN #10 odt 08/25/17 Famotidine [Pepcid] 20 mg PO DAILY #14 tab 09/11/17 - Allergies Allergies/Adverse Reactions: Allergies Allergy/AdvReac Type Severity Reaction Status Date / Time shellfish derived Allergy Severe SWELLING Verified 09/11/17 04:41 Review of Systems ROS Statement: Except As Marked, All Systems Reviewed And Found Negative Psych: Negative for: Suicidal ideation Physical Exam - Reviewed Nursing Documentation Reviewed: Yes Vital Signs Reviewed: Yes - Physical Exam Appears: Positive for: Well, Non-toxic, No Acute Distress Skin: Positive for: Normal Color. Negative for: Rash Eye Exam: Positive for: Normal appearance Cardiovascular/Chest: Positive for: Regular Rate, Rhythm Respiratory: Positive for: Normal Breath Sounds. Negative for: Respiratory Distress Extremity: Positive for: Normal ROM Neurologic/Psych: Positive for: Alert, Oriented - ECG O2 Sat by Pulse Oximetry: 96 Pulse Ox Interpretation: Normal Medical Decision Making Medical Decision Makin-year-old female here for medical and psychiatric clearance. As per crisis counselor and psychiatrist conservation biology professor Dr. John, patient does not meet criteria for psychiatric admission. Patient is medically and psychiatrically stable for incarceration. Disposition - Clinical Impression Clinical Impression: Alcohol abuse - Patient ED Disposition Is Patient to be Admitted: No - Disposition Referrals: [facility] [Outside] Disposition: Discharged/Transfer to Law Enforcement Disposition Time: 03:32 Condition: FAIR Additional Instructions: Patient is medically and psychiatrically stable for incarceration. Instructions: Alcohol Abuse and Alcoholism (DC) Forms: [employer] (Australian)
[2017-09-17 04:29] VITALS: BP 111/68; PULSE 80; RESP 16; TEMP 98; O2SAT 98
== END 2017-09-17 04:20 ==
LOC: H.ER 01:38
DX: F10.10 Alcohol abuse, uncomplicated (principal)

== ENCOUNTER 2017-10-30 21:29 | Emergency (ER) | payer SELFPAY ==
[2017-10-30 21:29] VITALS: BMI 23.3
--- NOTE | 2017-10-30 22:25 | ED PDOC ---
HPI: Psych/Substance Abuse Time Seen by Provider: 10/30/17 21:47 Chief Complaint (Nursing): Alcohol Ingestion Chief Complaint (Provider): Alcohol Intoxication ED Caveat: Intoxicated History Per: Patient, EMS History/Exam Limitations: no limitations Additional Complaint(s): 52 year old female, with a past medical history of anxiety, asthma, COPD, gastritis, HTN, schizophrenia, seizures, and TIA, brought in by EMS for alcohol intoxication. Patient was reportedly seen running in and out of traffic. Patient reported to be agitated on scene and en route to ED. Patient denies any complaints or reports of trauma at this time. Patient is well known to ED staff for frequent visits due to alcohol abuse. Past Medical History Reviewed: Historical Data, Nursing Documentation, Vital Signs Vital Signs: Last Vital Signs Temp 98.0 F 10/30/17 21:38 Pulse 94 H 10/30/17 21:38 Resp 16 10/30/17 21:38 BP 143/96 H 10/30/17 21:38 Pulse Ox 98 10/30/17 21:38 - Medical History PMH: Anxiety, Asthma, COPD, Depression, Fractures (nasal fracture), Gastritis, HTN, Paranoia, Pneumonia, Schizophrenia, Seizures, TIA - Surgical History Surgical History: No Surg Hx - Family History Family History: States: Unknown Family Hx - Living Arrangements Living Arrangements: Other (undomiciled) - Social History Alcohol: > 2 Drinks/Day - Home Medications Home Medications: Ambulatory Orders Medication Instructions Recorded Nitrofurantoin Macrocrystals 1 cap PO BID #14 cap 08/13/17 [Macrobid] Phenazopyridine [Pyridium] 200 mg PO TID #15 tab 08/13/17 Ciprofloxacin [Cipro] 1 tab PO BID #14 tab 08/25/17 Ondansetron [Zofran Odt] 4 mg PO Q8 PRN #10 odt 08/25/17 Famotidine [Pepcid] 20 mg PO DAILY #14 tab 09/11/17 - Allergies Allergies/Adverse Reactions: Allergies Allergy/AdvReac Type Severity Reaction Status Date / Time shellfish derived Allergy Severe SWELLING Verified 09/11/17 04:41 Review of Systems ROS Statement: Except As Marked, All Systems Reviewed And Found Negative Physical Exam - Reviewed Nursing Documentation Reviewed: Yes Vital Signs Reviewed: Yes - Physical Exam Comments: GENERAL APPEARANCE: Patient is ambulatory in ED with staggered gait. Odor of alcohol on breath. Disheveled appearing. SKIN: Warm, dry; (-) cyanosis ENMT: Mucous membranes moist. Airway patent: (-) stridor. NECK: Supple, FROM HEART AND CARDIOVASCULAR: (-) irregularity CHEST AND RESPIRATORY: (-) rales, (-) rhonchi, (-) wheezes; breath sounds equal. Respirations even and nonlabored. ABDOMEN: Soft, (-) distention, (-) tenderness, (-) guarding. NEURO AND PSYCH: Mental status as above. Affect: agitated. Pupils equal and reactive; EOMI; (-) facial asymmetry. - ECG O2 Sat by Pulse Oximetry: 98 (RA) Pulse Ox Interpretation: Normal Medical Decision Making Medical Decision Makin Impression: Alcohol intoxication Plan: -Will monitor until clinically sober -Accucheck -Re-evaluation Accucheck: 102 2300 Patient resting comfortably on re-evaluation with no additional complaints at present. 0230 Patient sleeping comfortably on re-evaluation. No acute distress noted. 0300 Patient requesting Tylenol at this time. Tylenol 650mg PO ordered. Patient also requesting a food tray. 0330 Patient tolerating PO intake. 0400 Patient asleep in ED. Vitals stable. 0600 Repeat HR: 71 Repeat BP: 141/72 Patient now awake, alert, and oriented x3. No complaints verbalized. Ambulatory in ED with a steady, unassisted gait. Lungs clear to auscultation, cardiac RRR, abdomen soft, non-tender, repeat neuro exam shows no focal findings. VSS, stable for discharge. Lab/Diagnostic results d/w the patient in great detail. Diagnosis of alcohol abuse with intoxication d/w the patient. Based on history, exam and diagnostic results, plan will be for outpatient follow up. Patient was observed in ED for 8+ hours with no evidence of neurologica deterioration. Patient instructed to follow-up with pmd / referral provided / the clinic in 1- 2 days without fail. Return to the emergency room at any time for any new or worsening symptoms. Patient states she fully agrees with and understands discharge instructions. States that she agrees with the plan and disposition. Verbalized and repeated discharge instructions and plan. I have given the patient opportunity to ask any additional questions. Scribe Attestation: Documented by Teodoro Pradhan, acting as a scribe for Olya Alexander PA-C. Provider Scribe Attestation: All medical record entries made by the Scribe were at my direction and personally dictated by me. I have reviewed the chart and agree that the record accurately reflects my personal performance of the history, physical exam, medical decision making, and the department course for this patient. I have also personally directed, reviewed, and agree with the discharge instructions and disposition. Disposition - Clinical Impression Clinical Impression: Alcohol abuse with intoxication - Patient ED Disposition Is Patient to be Admitted: No Counseled Patient/Family Regarding: Studies Performed, Diagnosis, Need For Followup - Disposition Referrals: LTAC[facility] within [facility] [Outside] Disposition: Routine/Home Disposition Time: 06:03 Condition: STABLE Additional Instructions: The emergency medical care you received today was directed towards the acute presenting symptoms. If you were prescribed any medication, please fill it and give as directed. It may take several days for your symptoms to resolve. Return to the Emergency Department at any time if symptoms worsen, do not improve, or if any other problems arise. Please contact your doctor in 2 days for re-evaluation and follow up / or call one of the physicians/clinics you have been referred to that are listed on the Patient Visit Information form that is included in your discharge packet. Bring any paperwork you were given at discharge with you along with any medications to your follow up visit. Our treatment cannot replace ongoing medical care by a primary care provider (PCP) outside of the emergency department. Instructions: Alcohol Abuse and Alcoholism (DC), Effects of Alcohol on Your Health Forms: [employer] (Divehi) Print Language: ARMENIAN - POA Present On Arrival: None Results - Lab Results Lab Results: 10/30/17 22:01 POC Glucose (mg/dL) 102
[2017-10-31 07:59] VITALS: TEMP 97.9
[2017-10-31 08:03] VITALS: BP 141/72; PULSE 71; RESP 16
[2017-11-02 12:08] VITALS: O2SAT 98
== END 2017-10-31 06:20 | disposition home or self-care (01) ==
LOC: H.ER 21:29
DX: F10.129 Alcohol abuse with intoxication, unspecified (principal)

== ENCOUNTER 2017-11-17 02:27 | Emergency (ER) | payer OTHER ==
[2017-11-17 02:27] VITALS: BMI 23.3
[2017-11-17 02:32] VITALS: BP 104/73; PULSE 83; RESP 18; TEMP 97.8; O2SAT 97
--- NOTE | 2017-11-17 03:48 | ED PDOC ---
HPI: Psych/Substance Abuse <Ramírez Stephens - Last Filed: 11/17/17 06:47> Chief Complaint (Provider): etoh History Per: Patient, EMS Additional Complaint(s): 52 y/o female brought in by EMS for alcohol intoxication. Patient was lying on ground of a building. Patient awake, admits to drinking tonight. Denies acute medical or psychiatric complaints. No signs of trauma noted <Bharti Sanford - Last Filed: 11/18/17 03:29> Time Seen by Provider: 11/17/17 02:30 Chief Complaint (Nursing): Alcohol Ingestion Past Medical History Vital Signs: Last Vital Signs Temp 97.8 F 11/17/17 02:30 Pulse 83 11/17/17 02:30 Resp 18 11/17/17 02:30 BP 104/73 11/17/17 02:30 Pulse Ox 97 11/17/17 03:48 <Ramírez Stephens - Last Filed: 11/17/17 06:47> Reviewed: Historical Data, Nursing Documentation, Vital Signs Vital Signs: Last Vital Signs Temp 97.8 F 11/17/17 02:30 Pulse 83 11/17/17 02:30 Resp 18 11/17/17 02:30 BP 104/73 11/17/17 02:30 Pulse Ox 97 11/17/17 02:30 - Medical History PMH: Anxiety, Asthma, COPD, Depression, Fractures, Gastritis, HTN, Paranoia, Pneumonia, Schizophrenia, Seizures, TIA Denies: Diabetes, Hepatitis, HIV, Chronic Kidney Disease, Sexually Transmitted Disease - Family History Family History: States: Unknown Family Hx - Immunization History Hx Tetanus Toxoid Vaccination: Yes Hx Influenza Vaccination: No Hx Pneumococcal Vaccination: No <Bharti Sanford - Last Filed: 11/18/17 03:29> - Home Medications Home Medications: Ambulatory Orders Medication Instructions Recorded No Known Home Med 11/16/17 - Allergies Allergies/Adverse Reactions: Allergies Allergy/AdvReac Type Severity Reaction Status Date / Time shellfish derived Allergy Severe SWELLING Verified 11/16/17 05:01 Review of Systems ROS Statement: Except As Marked, All Systems Reviewed And Found Negative <Bharti Sanford - Last Filed: 11/18/17 03:29> Physical Exam - Reviewed Nursing Documentation Reviewed: Yes Vital Signs Reviewed: Yes - Physical Exam Appears: Positive for: Well, Non-toxic, No Acute Distress Head Exam: Positive for: ATRAUMATIC, NORMAL INSPECTION, NORMOCEPHALIC Skin: Positive for: Normal Color Eye Exam: Positive for: Normal appearance ENT: Positive for: Normal ENT Inspection Cardiovascular/Chest: Positive for: Regular Rate, Rhythm Respiratory: Positive for: Normal Breath Sounds Gastrointestinal/Abdominal: Positive for: Normal Exam Back: Positive for: Normal Inspection Extremity: Positive for: Normal ROM Neurologic/Psych: Positive for: Alert, Oriented <Bharti Sanford - Last Filed: 11/18/17 03:29> - ECG O2 Sat by Pulse Oximetry: 97 - Progress ED Course And Treament: accucheck 6:00 Patient awake, alert, oriented x3. Ambulating steady gait Stable for discharge <Bharti Sanford - Last Filed: 11/18/17 03:29> Disposition <Ramírez Stephens - Last Filed: 11/17/17 06:47> - Patient ED Disposition Is Patient to be Admitted: No Counseled Patient/Family Regarding: Studies Performed, Diagnosis, Need For Followup - Disposition Disposition: Routine/Home Disposition Time: 06:00 <Bharti Sanford - Last Filed: 11/18/17 03:29> - Clinical Impression Clinical Impression: Alcohol intoxication - Disposition Condition: STABLE Instructions: Alcohol Abuse and Alcoholism (DC) - PA / IT RISK ADVISOR / Resident Statement MD/ has reviewed & agrees with the documentation as recorded. <Ramírez Stephens - Last Filed: 11/17/17 06:47>
== END 2017-11-17 06:37 | disposition home or self-care (01) ==
LOC: H.ER 02:27
DX: F10.129 Alcohol abuse with intoxication, unspecified (principal)

== ENCOUNTER 2017-11-19 21:16 | Emergency (ER) | payer SELFPAY ==
[2017-11-19 21:16] VITALS: BMI 23.3
[2017-11-19 21:20] VITALS: BP 130/83; PULSE 104; RESP 16; TEMP 98.4; O2SAT 98
== END 2017-11-19 21:45 | disposition left against medical advice (07) ==
LOC: H.ER 21:16
DX: Z02.89 Encounter for other administrative examinations (principal)

== ENCOUNTER 2017-11-19 22:09 | Emergency (ER) | payer SELFPAY ==
[2017-11-19 22:09] VITALS: BMI 23.3
[2017-11-19 22:17] VITALS: BP 140/68; PULSE 88; RESP 16; TEMP 98.3; O2SAT 97
== END 2017-11-19 22:22 | disposition left against medical advice (07) ==
LOC: H.ER 22:09
DX: Z02.89 Encounter for other administrative examinations (principal)

== ENCOUNTER 2017-11-29 03:32 | Emergency (ER) | payer OTHER ==
[2017-11-29 03:32] VITALS: BMI 23.3
[2017-11-29 03:47] VITALS: RESP 16; TEMP 97.9
--- NOTE | 2017-11-29 04:07 | ED PDOC ---
HPI: Psych/Substance Abuse Time Seen by Provider: 11/29/17 03:49 Chief Complaint (Nursing): Alcohol Ingestion Chief Complaint (Provider): Alcohol Ingestion ED Caveat: Intoxicated History Per: EMS History/Exam Limitations: intoxication Onset/Duration Of Symptoms: Mins (sea captain) Current Symptoms Are (Timing): Still Present Additional Complaint(s): 52 year old female well known the ED staff for frequent visits presents to the ED via EMS for alcohol intoxication. Pt was found sleeping in the street. At this time, due to intoxication, pt is a poor historian, limiting history. All pmhx was pulled from previous charting. No reports of trauma. PMD: none provided Past Medical History Reviewed: Historical Data, Nursing Documentation, Vital Signs Vital Signs: Last Vital Signs Temp 97.9 F 11/29/17 03:44 Pulse 87 11/29/17 03:44 Resp 16 11/29/17 03:44 BP Pulse Ox 97 11/29/17 03:44 - Medical History PMH: Anxiety, Asthma, COPD, Depression, Fractures, Gastritis, HTN, Paranoia, Pneumonia, Schizophrenia, Seizures, TIA - Family History Family History: States: Unknown Family Hx - Living Arrangements Living Arrangements: Other (homeless) - Social History Alcohol: Other (hx abuse) - Home Medications Home Medications: Ambulatory Orders Medication Instructions Recorded No Known Home Med 11/16/17 - Allergies Allergies/Adverse Reactions: Allergies Allergy/AdvReac Type Severity Reaction Status Date / Time shellfish derived Allergy Severe SWELLING Verified 11/30/17 18:55 Review of Systems Review Of Systems: ROS cannot be obtained secondary to pt's inabilty to answer questions. Physical Exam - Reviewed Nursing Documentation Reviewed: Yes Vital Signs Reviewed: Yes - Physical Exam Comments: GENERAL APPEARANCE: Patient is somnolent, but responsive to painful stimuli, in no acute distress. Odor of alcohol. Poor hygiene, disheveled appearing. ENMT: Mucous membranes moist. Airway patent: (-) stridor. NECK: Supple HEART AND CARDIOVASCULAR: (-) irregularity CHEST AND RESPIRATORY: (-) rales, (-) rhonchi, (-) wheezes; breath sounds equal. ABDOMEN: Soft, (-) distention, (-) tenderness, (-) guarding. NEURO AND PSYCH: Mental status as above. Affect: somnolent.Pupils equal and reactive; (-) facial asymmetry - ECG O2 Sat by Pulse Oximetry: 97 (RA) Pulse Ox Interpretation: Normal Medical Decision Making Medical Decision Making: Initial Impression: alcohol abuse and intoxication Time: 035 Initial Plan: --Accucheck --Re-evaluation Accucheck: 92 0530 Patient sleeping comfortably on re-evaluation. No distress noted. 0600 Continuation of care per Dr Stephens. [address] Fox pending re-evaluation and clinical sobriety. Scribe Attestation: Documented by Angie Cee, acting as a scribe for Olya Alexander PA-C. Provider Scribe Attestation: All medical record entries made by the Scribe were at my direction and personally dictated by me. I have reviewed the chart and agree that the record accurately reflects my personal performance of the history, physical exam, m edical decision making, and the department course for this patient. I have also personally directed, reviewed, and agree with the discharge instructions and disposition. Disposition - Clinical Impression Clinical Impression: Alcohol abuse with intoxication - Disposition Disposition: Transfer of Care (Dr oFx @ 0700 pending sobriety) Disposition Time: 07:00 Condition: FAIR Instructions: Alcohol Abuse and Alcoholism (DC), Effects of Alcohol on Your Health Forms: [employer] (Latvian) Print Language: KYRGYZ - POA Present On Arrival: None Results - Lab Results Lab Results: 11/29/17 11/29/17 05:39 04:00 POC Glucose (mg/dL) 93 Alcohol, Quantitative 414 H*
--- NOTE | 2017-11-29 07:11 | ED PDOC ---
- ECG O2 Sat by Pulse Oximetry: 97 (RA) Medical Decision Making Medical Decision Makinam received pending sobriety etoh 414 allowed to sleep in ED 8+ hrs and obtain clinical sobriety. Poor hygiene but stable gait and no acute complaints on re-eval prior to DC Disposition Counseled Patient/Family Regarding: Studies Performed, Diagnosis, Need For Followup - Clinical Impression Clinical Impression: Alcohol abuse with intoxication - POA Present On Arrival: None - Disposition Disposition: Routine/Home Disposition Time: 15:30 Condition: FAIR Instructions: Alcohol Abuse and Alcoholism (DC), Effects of Alcohol on Your Health Forms: [employer] (Guatemalan) Print Language: FRENCH
[2017-11-30 07:13] VITALS: BP 106/64; PULSE 87
[2017-11-30 15:23] VITALS: O2SAT 97
== END 2017-11-29 18:00 | disposition home or self-care (01) ==
LOC: H.ER 03:32
DX: F10.129 Alcohol abuse with intoxication, unspecified (principal)

== ENCOUNTER 2017-12-04 01:24 | Emergency (ER) | payer OTHER ==
[2017-12-04 01:24] VITALS: BMI 23.3
[2017-12-04 01:28] VITALS: BP 124/79; PULSE 93; RESP 17; TEMP 98; O2SAT 100
--- NOTE | 2017-12-04 01:44 | ED PDOC ---
HPI: Psych/Substance Abuse Time Seen by Provider: 12/04/17 01:29 Chief Complaint (Nursing): Alcohol Ingestion Chief Complaint (Provider): Alcohol Intoxication History Per: Patient History/Exam Limitations: no limitations Onset/Duration Of Symptoms: Hrs Current Symptoms Are (Timing): Still Present Modifying Factor(s): Alcohol Additional Complaint(s): 52 y/o female brought in by EMS for public alcohol intoxication, onset prior to arrival. Patient is well known to the provider for multiple visits related to alcohol abuse. Patient offers no complaints at this time. PMD: None Provided Past Medical History Reviewed: Historical Data, Nursing Documentation, Vital Signs Vital Signs: Last Vital Signs Temp 98.0 F 12/04/17 01:26 Pulse 93 H 12/04/17 01:26 Resp 17 12/04/17 01:26 BP 124/79 12/04/17 01:26 Pulse Ox 100 12/04/17 01:26 - Medical History PMH: Anxiety, Asthma, COPD, Depression, Fractures, Gastritis, HTN, Paranoia, Pneumonia, Schizophrenia, Seizures, TIA Denies: Diabetes, Hepatitis, HIV, Chronic Kidney Disease, Sexually Transmitted Disease - Surgical History Surgical History: No Surg Hx - Family History Family History: States: Unknown Family Hx - Social History Alcohol: > 2 Drinks/Day Drugs: Denies - Immunization History Hx Tetanus Toxoid Vaccination: Yes Hx Influenza Vaccination: No Hx Pneumococcal Vaccination: No - Home Medications Home Medications: Ambulatory Orders Medication Instructions Recorded Polymyxin/Trimethoprim Sulfate 1 drop OU BID 5 Days #1 bottle 12/03/17 [Polytrim Ophth Soln] - Allergies Allergies/Adverse Reactions: Allergies Allergy/AdvReac Type Severity Reaction Status Date / Time shellfish derived Allergy Severe SWELLING Verified 12/03/17 01:57 Review of Systems ROS Statement: Except As Marked, All Systems Reviewed And Found Negative Psych: Positive for: Other (Alcohol Intoxication) Physical Exam - Reviewed Nursing Documentation Reviewed: Yes Vital Signs Reviewed: Yes - Physical Exam Appears: Positive for: No Acute Distress Head Exam: Positive for: ATRAUMATIC, NORMOCEPHALIC Skin: Positive for: Normal Color, Warm, Dry Eye Exam: Positive for: Normal appearance, EOMI, PERRL Neck: Positive for: Normal, Painless ROM Cardiovascular/Chest: Positive for: Regular Rate, Rhythm. Negative for: Murmur Respiratory: Positive for: Normal Breath Sounds. Negative for: Respiratory Distress Gastrointestinal/Abdominal: Positive for: Normal Exam, Soft. Negative for: Tenderness Back: Positive for: Normal Inspection. Negative for: L CVA Tenderness, R CVA Tenderness, Vertebral Tenderness Extremity: Positive for: Normal ROM. Negative for: Pedal Edema, Deformity Neurologic/Psych: Positive for: Gait (steady), Other (Normal speech). Negative for: Motor/Sensory Deficits - ECG O2 Sat by Pulse Oximetry: 100 (RA) Pulse Ox Interpretation: Normal Medical Decision Making Medical Decision Making: Time: 144 Impression: 52 y/o female with alcohol intoxication. Plan: -- Patient to be discharged home, pending clinical sobriety. Time: 608 -- At this time, patient appears clinically sober. Patient is stable for discharge home with a diagnosis of alcoholism _ ___ Scribe Attestation: Documented by Karina Lopez, acting as a scribe for Emeka Carrera MD. Provider Scribe Attestation: All medical record entries made by the Scribe were at my direction and personally dictated by me. I have reviewed the chart and agree that the record accurately reflects my personal performance of the history, physical exam, medical decision making, and the department course for this patient. I have also personally directed, reviewed, and agree with the discharge instructions and disposition. Disposition - Clinical Impression Clinical Impression: Alcoholism - Patient ED Disposition Is Patient to be Admitted: No - Disposition Disposition: Routine/Home Disposition Time: 06:09 Condition: STABLE Instructions: Alcohol Abuse and Alcoholism (DC) Forms: [employer] (Djiboutian)
== END 2017-12-04 06:30 | disposition home or self-care (01) ==
LOC: H.ER 01:24
DX: F10.229 Alcohol dependence with intoxication, unspecified (principal); Z86.59 Personal history of other mental and behavioral disorders; I10 Essential (primary) hypertension; J44.9 Chronic obstructive pulmonary disease, unspecified; Z86.73 Personal history of transient ischemic attack (TIA), and cerebral infarction without residual deficits

== ENCOUNTER 2017-12-12 14:06 | Emergency (ER) | payer OTHER, SELFPAY ==
[2017-12-12 14:06] VITALS: BMI 23.3
[2017-12-12 14:22] VITALS: RESP 18
[2017-12-12 15:39] LABS: BASO % 0.4 % (0.0-2.0); EOS % 1.3 % (0.0-4.0); HEMOGLOBIN 10.6 g/dL (12.0-16.0); LYMPH # 0.8 K/uL (1.0-4.3); LYMPH % 35.4 % (20.0-40.0); MEAN CELL VOLUME 94.7 fl (81.0-99.0); MEAN CORPUSCULAR HEMOGLOBIN 31.2 pg (27.0-31.0); MONO # 0.2 K/uL (0.0-0.8); MONO % 8.7 % (0.0-10.0); NEUT # 1.3 K/uL (1.8-7.0); NEUT % 54.2 % (50.0-75.0); NRBC % 0.1 % (0.0-0.0); RBC 3.4 Mil/uL (3.80-5.20); WHITE BLOOD COUNT 2.3 K/uL (4.8-10.8)
[2017-12-12 16:18] LABS: ALB/GLOB RATIO 1.1 (1.0-2.1); ALT/SGPT 41 U/L (9-52); AST/SGOT 98 U/L (14-36); BLOOD UREA NITROGEN 13 mg/dl (7-17); CALCIUM 8.4 mg/dL (8.4-10.2); GFR NON-AFRICAN AMERICAN > 60
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
[2017-12-12 23:28] VITALS: BP 114/68; PULSE 105; TEMP 99; O2SAT 97
== END 2017-12-13 00:07 | disposition home or self-care (01) ==
LOC: H.ER 14:06
DX: F10.129 Alcohol abuse with intoxication, unspecified (principal); F20.9 Schizophrenia, unspecified; F32.9 Major depressive disorder, single episode, unspecified; I10 Essential (primary) hypertension
CPT/HCPCS: 80053; 80320; 85025; 96372; 99284; J2060

== ENCOUNTER 2018-01-16 11:28 | Emergency (ER) | payer MEDICAID, OTHER ==
[2018-01-16 11:28] VITALS: BMI 23.3
--- NOTE | 2018-01-16 14:19 | ED PDOC ---
Lower Extremity Pain/Injury Time Seen by Provider: 01/16/18 12:11 Chief Complaint (Nursing): Lower Extremity Problem/Injury Chief Complaint (Provider): Chronic Pain History Per: Patient History/Exam Limitations: no limitations Onset/Duration Of Symptoms: Days (seven days s/p tib fib fx) Additional Complaint(s): Pt presents to the ED complaining of pain resulting from a previously treated tib fib fx for which she is not wearing a hard cast or boot, but is wearing a soft brace; she indicates that [facility] provided her with pain medications and she still has several tablets remaining, but desires to save them for later and is seeking narcotic relief at the Emergency Room. - Risk Factors DVT Risk Factors: Pos: None Past Medical History Reviewed: Historical Data, Nursing Documentation, Vital Signs Vital Signs: Last Vital Signs Temp 98.0 F 01/16/18 12:12 Pulse 80 01/16/18 12:12 Resp 19 01/16/18 12:12 BP 109/62 01/16/18 12:12 Pulse Ox 100 01/16/18 12:12 - Medical History PMH: Anxiety, Asthma, COPD, Depression, Fractures, Gastritis, HTN, Paranoia, Pneumonia, Schizophrenia, Seizures, TIA Denies: Diabetes, Hepatitis, HIV, Chronic Kidney Disease, Sexually Transmitted Disease - Family History Family History: States: Unknown Family Hx - Immunization History Hx Tetanus Toxoid Vaccination: Yes Hx Influenza Vaccination: No Hx Pneumococcal Vaccination: No - Home Medications Home Medications: Ambulatory Orders Medication Instructions Recorded Docusate [Colace] 100 mg PO BID #60 cap 01/11/18 Lactobacillus Acidophilus [Bacid 1 cap PO BID #60 cap 01/11/18 Acidophilus] Multivitamins [Hexavitamin] 1 tab PO DAILY #30 tab 01/11/18 oxyCODONE/Acetaminophen [Percocet 1 tab PO Q6H PRN #15 tab 01/11/18 5/325 mg Tab] - Allergies Allergies/Adverse Reactions: Allergies Allergy/AdvReac Type Severity Reaction Status Date / Time shellfish derived Allergy Severe SWELLING Verified 12/27/17 07:53 Review of Systems ROS Statement: Except As Marked, All Systems Reviewed And Found Negative Musculoskeletal: Positive for: Leg Pain (right leg pain s/p fracture) Psych: Positive for: Anxiety, Depression. Negative for: Suicidal ideation Physical Exam - Reviewed Nursing Documentation Reviewed: Yes Vital Signs Reviewed: Yes - Physical Exam Appears: Positive for: Well, Non-toxic, No Acute Distress Head Exam: Positive for: ATRAUMATIC, NORMAL INSPECTION Skin: Positive for: Normal Color Eye Exam: Positive for: Normal appearance Neck: Positive for: Normal, Painless ROM, Supple. Negative for: Decreased ROM Cardiovascular/Chest: Positive for: Regular Rate, Rhythm. Negative for: Chest Non Tender, Edema, Gallop, Bradycardia, Tachycardia Respiratory: Positive for: Normal Breath Sounds. Negative for: Decreased Breath Sounds, Accessory Muscle Use, Crackles, Rales, Rhonchi, Stridor, Wheezing Pulses-Carotid (L): 2+ Pulses-Carotid (R): 2+ Pulses-Radial (L): 2+ Pulses-Radial (R): 2+ Extremity: Positive for: Tenderness (left lower leg), Capillary Refill (less than two seconds bilaterally). Negative for: Pedal Edema, Calf Tenderness, Deformity, Swelling - ECG O2 Sat by Pulse Oximetry: 100 Medical Decision Making Medical Decision Making: treated with toradol 60mg IM Disposition - Clinical Impression Clinical Impression: Chronic pain due to injury - Patient ED Disposition Is Patient to be Admitted: No Doctor Will See Patient In The: Hospital (follow up at [facility] as currently scheduled tomorrow for orthopedic procedure) Counseled Patient/Family Regarding: Studies Performed, Diagnosis, Need For Followup - Disposition Disposition: Routine/Home Disposition Time: 14:22 Condition: STABLE Instructions: Chronic Pain (DC)
[2018-01-16 18:06] VITALS: BP 107/74; PULSE 84; RESP 18; TEMP 99.5; O2SAT 98
== END 2018-01-16 15:11 | disposition home or self-care (01) ==
LOC: H.ER 11:28
DX: G89.21 Chronic pain due to trauma (principal)
CPT/HCPCS: 96372; 99285; J1885

== ENCOUNTER 2018-01-26 10:06 | Emergency (ER) | payer OTHER ==
[2018-01-26 10:06] VITALS: BMI 23.3
[2018-01-26 10:12] VITALS: O2SAT 98
--- NOTE | 2018-01-26 10:47 | ED PDOC ---
Lower Extremity Pain/Injury Time Seen by Provider: 01/26/18 10:45 Chief Complaint (Nursing): Lower Extremity Problem/Injury Chief Complaint (Provider): right leg pain/cough History Per: Patient (52 y/o female here for evaluation of ongoing right leg pain while in cast. Patient has had h/o trimalleolar fracture 12/27/2017 and has had surgical repair at that time. Notes additional complaint of cough and concerned for pneumonia.) Past Medical History Reviewed: Historical Data, Nursing Documentation, Vital Signs Vital Signs: Last Vital Signs Temp 99.0 F 01/26/18 10:11 Pulse 96 H 01/26/18 10:11 Resp 18 01/26/18 10:11 BP 146/96 H 01/26/18 10:11 Pulse Ox 98 01/26/18 10:11 - Medical History PMH: Anemia, Anxiety, Asthma, COPD, Depression, Fractures, Gastritis, HTN, Paranoia, Pneumonia, Schizophrenia, Seizures, TIA Denies: Diabetes, Hepatitis, HIV, Chronic Kidney Disease, Sexually Transmitted Disease - Family History Family History: States: Unknown Family Hx - Immunization History Hx Tetanus Toxoid Vaccination: Yes Hx Influenza Vaccination: No Hx Pneumococcal Vaccination: No - Home Medications Home Medications: Ambulatory Orders Medication Instructions Recorded RX: Docusate [Colace] 100 mg PO BID #60 cap 01/11/18 RX: Lactobacillus Acidophilus 1 cap PO BID #60 cap 01/11/18 [Bacid Acidophilus] RX: Multivitamins [Hexavitamin] 1 tab PO DAILY #30 tab 01/11/18 Cephalexin [Keflex] 500 mg PO TID #21 capsule 01/26/18 Sulfamethoxazole/Trimethoprim 1 tab PO BID #14 tab 01/26/18 [Bactrim DS 800 mg-160 mg] - Allergies Allergies/Adverse Reactions: Allergies Allergy/AdvReac Type Severity Reaction Status Date / Time shellfish derived Allergy Severe SWELLING Verified 01/25/18 01:39 Review of Systems ROS Statement: Except As Marked, All Systems Reviewed And Found Negative Physical Exam - Reviewed Nursing Documentation Reviewed: Yes Vital Signs Reviewed: Yes - Physical Exam Appears: Positive for: Well, Non-toxic, No Acute Distress Head Exam: Positive for: ATRAUMATIC, NORMAL INSPECTION, NORMOCEPHALIC Skin: Positive for: Normal Color, Warm, DRY Eye Exam: Positive for: EOMI, Normal appearance, PERRL ENT: Positive for: Normal ENT Inspection Neck: Positive for: Normal, Painless ROM Cardiovascular/Chest: Positive for: Regular Rate, Rhythm Respiratory: Positive for: CNT, Normal Breath Sounds Gastrointestinal/Abdominal: Positive for: Normal Exam, Soft Back: Positive for: Normal Inspection Extremity: Positive for: Normal ROM, Other (right leg in short leg cast. ) Neurologic/Psych: Positive for: Alert, Oriented - Laboratory Results Result Diagrams: 01/26/18 13:27 01/26/18 13:27 - ECG O2 Sat by Pulse Oximetry: 98 - Progress ED Course And Treament: d/w podiatry resident 10:35am recommends zosyn 3.375gm /vancomycin and possible admission. cxr: nad See by Dr. Ortiz, hospitalist after d/w podiatry resident. Patient to f/u outpatient with podiatry clinic for I &D. We will d/c with keflex/bactrim Disposition - Clinical Impression Clinical Impression: Leg wound, right - Patient ED Disposition Is Patient to be Admitted: No - Disposition Referrals: Kam Sue MD [Primary Care Provider] - Podiatry Clinic [Outside] Disposition: Routine/Home Disposition Time: 14:41 Condition: FAIR Prescriptions: Cephalexin [Keflex] 500 mg PO TID #21 capsule Sulfamethoxazole/Trimethoprim [Bactrim DS 800 mg-160 mg] 1 tab PO BID #14 tab Instructions: Wound Care (DC), Wound Infection
--- NOTE | 2018-01-26 12:15 | RAD ---
Date of service: 01/26/2018 HISTORY: routine COMPARISON: 05/05/2017 TECHNIQUE: Chest PA and lateral FINDINGS: LUNGS: No active pulmonary disease. PLEURA: No significant pleural effusion identified. No pneumothorax apparent. CARDIOVASCULAR: No aortic atherosclerotic calcification present. Normal cardiac size. No pulmonary vascular congestion. OSSEOUS STRUCTURES: No significant abnormalities. VISUALIZED UPPER ABDOMEN: Normal. OTHER FINDINGS: None. IMPRESSION: No active disease. No significant interval change compared to the prior examination(s).
[2018-01-26] MEDS ORDERED: Piperacillin/Tazobact 3.375 GM in Sodium Chloride 0.9% 100 ML IVPB STA (12:17)
--- NOTE | 2018-01-26 12:42 | RAD ---
Date of service: 01/26/2018 PROCEDURE: Radiographs of the right tibia and fibula. HISTORY: leg pain COMPARISON: None available TECHNIQUE: Frontal and lateral views obtained. FINDINGS: BONES: Comminuted fracture of the medial malleolus-probably involving the tibial plafond and the posterior malleolus is suspect. Examination is made through casting material no comparisons are available. Evaluation for any concomitant lateral malleolar fracture components is impeded and indeterminate. There is a lateral bracket plate with multiple screws transfixing the distal tibial fractures. Above this there proximal tibial shaft radiolucencies inferred as prior orthopedic hardware related. JOINT SPACES: Unremarkable. OTHER FINDINGS: Soft tissue swelling about the medial and lateral ankle specially the lateral ankle-of unknown chronicity. IMPRESSION: Reduction internal fixation of a comminuted distal tibial fracture-the details of which are unclear but likely affect the medial malleolus and the posterior malleolus. Limited visualization of the tibial plafond on this exam. Fracture lines are partially visualize compatible with incomplete healing. Comparison with prior studies recommended No gross hardware failure appreciated.
[2018-01-26] MEDS ORDERED: Sodium Chloride 0.9% 1,000 ML IV STA (12:44)
[2018-01-26] MEDS ORDERED: Vancomycin 1 g Inj ONE (13:29)
[2018-01-26] MEDS ORDERED: Piperacillin/Tazobact 3.375 gm Inj IVPB ONE (13:29)
[2018-01-26 13:35] LABS: BASO # 0.1 K/uL (0.0-0.2); EOS % 0.6 % (0.0-4.0); HEMOGLOBIN 9.9 g/dL (12.0-16.0); LYMPH # 1.3 K/uL (1.0-4.3); MEAN CELL VOLUME 90.3 fl (81.0-99.0); MEAN CORPUSCULAR HEMOGLOBIN 29.7 pg (27.0-31.0); MEAN CORPUSCULAR HGB CONC 32.9 g/dL (33.0-37.0); MEAN PLATELET VOLUME 6.9 fl (7.2-11.7); MONO # 0.5 K/uL (0.0-0.8); MONO % 9.2 % (0.0-10.0); NEUT # 3.5 K/uL (1.8-7.0); NEUT % 65.2 % (50.0-75.0); NRBC % 0.1 % (0.0-0.0); RBC 3.35 Mil/uL (3.80-5.20); RED CELL DISTRIBUTION WIDTH 17.3 % (11.5-14.5); WHITE BLOOD COUNT 5.3 K/uL (4.8-10.8)
[2018-01-26 13:43] LABS: ALBUMIN 3.9 g/dL (3.5-5.0); ALT/SGPT 21 U/L (9-52); AST/SGOT 41 U/L (14-36); BLOOD UREA NITROGEN 13 mg/dl (7-17); CALCIUM 9.5 mg/dL (8.4-10.2); GFR NON-AFRICAN AMERICAN > 60
[2018-01-26 13:59] LABS: VENOUS BLOOD GAS PCO2 40 mmHg (40-60); VENOUS BLOOD GAS PO2 48 mm/Hg (30-55); VENOUS BLOOD PH 7.47 (7.32-7.43)
[2018-01-26 16:47] VITALS: BP 128/78; PULSE 78; RESP 19; TEMP 98
--- NOTE | 2018-01-27 07:33 | CP.PCM.CON ---
History of Present Illness - History of Present Illness History of Present Illness: Podiatry consult note for Dr. Ryan, 52 y/o female patient was seen and evaluated in the ED for ongoing right leg pain while in cast. Patient is s/p right ankle ORIF post tri-malleolar fracture. Patient has been seen at [facility] clinic sporadically, and is now presenting to the [place] ED. Patient states she is still drinking alcohol, and is currently homeless. Patient states she has been walking on her cast with crutches. Patient was diagnosed with scabies and states she has not yet taken the medication as she could not afford it. Patient is complaining of nausea, vomiting, and cough. PMHx: Anemia, Anxiety, Asthma, COPD, Depression, Fractures, Gastritis, HTN, Paranoia, Pneumonia, Schizophrenia, Seizures, TIA Review of Systems - Review of Systems Review of Systems: As per HPI Past Patient History - Infectious Disease Hx of Infectious Diseases: None - Tetanus Immunizations Tetanus Immunization: Unknown - Past Medical History & Family History Past Medical History?: Yes - Past Social History Smoking Status: Light Smoker < 10 Cigarettes Daily - CARDIAC Hx Hypertension: Yes - PULMONARY Hx Asthma: Yes Hx Chronic Obstructive Pulmonary Disease (COPD): Yes Hx Pneumonia: Yes - NEUROLOGICAL Hx Seizures: Yes Hx Transient Ischemic Attacks (TIA): Yes - HEENT Hx HEENT Problems: No - RENAL Hx Chronic Kidney Disease: No - ENDOCRINE/METABOLIC Hx Endocrine Disorders: No - HEMATOLOGICAL/ONCOLOGICAL Hx Anemia: Yes Hx Human Immunodeficiency Virus (HIV): No - INTEGUMENTARY Hx Dermatological Problems: Yes Hx Eczema: Yes Hx Psoriasis: Yes Other/Comment: scabies - MUSCULOSKELETAL/RHEUMATOLOGICAL Hx Fractures: Yes - GASTROINTESTINAL Hx Gastritis: Yes - GENITOURINARY/GYNECOLOGICAL Hx Sexually Transmitted Disorders: No - PSYCHIATRIC Hx Anxiety: Yes Hx Depression: Yes Hx Paranoia: Yes Hx Schizophrenia: Yes - SURGICAL HISTORY Hx Surgeries: Yes Hx Dilation and Curettage: Yes Other/Comment: rt leg s/p fx - ANESTHESIA Hx Anesthesia: Yes Hx Anesthesia Reactions: No Hx Malignant Hyperthermia: No Meds Allergies/Adverse Reactions: Allergies Allergy/AdvReac Type Severity Reaction Status Date / Time shellfish derived Allergy Severe SWELLING Verified 01/25/18 01:39 Physical Exam - Constitutional Appears: Well, Non-toxic, In Acute Distress - Head Exam Head Exam: ATRAUMATIC, NORMOCEPHALIC - Extremities Exam Additional comments: Right Lower Extremity Exam VASC: DP and PT 2/4, CFT less than 3 seconds X 5, moderate edema noted to the dorsum of the right foot and ankle DERM: wound dehiscence noted to lateral aspect of the incision site, lupe-wound erythema, no drainage, positive malodor, significant pain on palpation noted to the incision sites, incision to the medial aspect of the foot intact, no dehiscence noted NEURO: grossly intact ORTHO: pain on palpation to the incision sites, pain with ankle range of motion - Neurological Exam Neurological exam: Alert, Oriented x3 - Psychiatric Exam Psychiatric exam: Normal Affect, Normal Mood Results - Vital Signs Recent Vital Signs: Last Vital Signs Temp 98 F 01/26/18 16:46 Pulse 78 01/26/18 16:46 Resp 19 01/26/18 16:46 BP 128/78 01/26/18 16:46 Pulse Ox 98 01/26/18 16:46 - Labs Result Diagrams: 01/26/18 13:27 01/26/18 13:27 Labs: Laboratory Results - last 24 hr 01/26/18 01/26/18 01/26/18 13:10 13:27 13:27 WBC 5.3 D RBC 3.35 L Hgb 9.9 L Hct 30.3 L MCV 90.3 D MCH 29.7 MCHC 32.9 L RDW 17.3 H Plt Count 278 D MPV 6.9 L Neut % (Auto) 65.2 Lymph % (Auto) 24.0 [place] % (Auto) 9.2 Eos % (Auto) 0.6 Baso % (Auto) 1.0 Neut # (Auto) 3.5 Lymph # (Auto) 1.3 [place] # (Auto) 0.5 Eos # (Auto) 0.0 Baso # (Auto) 0.1 pO2 48 VBG pH 7.47 H VBG pCO2 40 VBG HCO3 28.6 VBG Total CO2 30.3 H VBG O2 Sat (Calc) 88.5 H VBG Base Excess 5.0 H VBG Potassium 3.6 Sodium 133.0 135 Chloride 98.0 97 L Glucose 118 H Lactate 1.7 FiO2 21.0 Potassium 3.8 Carbon Dioxide 27 Anion Gap 15 BUN 13 Creatinine 0.6 L Est GFR ( Amer) > 60 Est GFR (Non-Af Amer) > 60 Random Glucose 121 H Calcium 9.5 Total Bilirubin 0.7 AST 41 H D ALT 21 Alkaline Phosphatase 154 H D Troponin I < 0.0120 Total Protein 7.8 Albumin 3.9 Globulin 3.8 Albumin/Globulin Ratio 1.0 Venous Blood Potassium 3.6 Alcohol, Quantitative < 10 Assessment & Plan - Assessment and Plan (Free Text) Assessment: 53 y/o female patient s/p right ankle ORIF seen and evaluated in the ED for right ankle pain Plan: Patient seen and evaluated in ED Chart labs and vitals reviewed- VSS, afebrile Ordered x-rays - incomplete healing, fracture liens visualized, hardware intact Patient cast changed- and reapplied with dressing Patient strongly advised to follow up at the [facility] Patient to return to ED is signs of infection noted Thank you for the podiatry recommendation - Date & Time Date: 01/26/18 Time: 11:11
== END 2018-01-26 16:47 | disposition home or self-care (01) ==
LOC: H.ER 10:06 → SUPCPDRO 10:06 → H.ER 16:47
DX: S81.801A Unspecified open wound, right lower leg, initial encounter (principal); Z86.59 Personal history of other mental and behavioral disorders; I10 Essential (primary) hypertension; J44.9 Chronic obstructive pulmonary disease, unspecified; F17.210 Nicotine dependence, cigarettes, uncomplicated; Z86.73 Personal history of transient ischemic attack (TIA), and cerebral infarction without residual deficits
CPT/HCPCS: 71046; 73590; 80053; 80320; 82803; 84484; 85025; 87040; 96374; 96375; 99283; J2405; J2543; J7030

== ENCOUNTER 2018-01-29 16:42 | Emergency (ER) | payer OTHER ==
[2018-01-29 16:42] VITALS: BMI 23.3
[2018-01-29 16:50] VITALS: BP 104/86; PULSE 103; RESP 16; TEMP 97.6; O2SAT 97
--- NOTE | 2018-01-29 17:01 | ED PDOC ---
HPI: Psych/Substance Abuse Time Seen by Provider: 01/29/18 16:50 Chief Complaint (Nursing): Alcohol Ingestion Chief Complaint (Provider): Alcohol Ingestion History Per: Patient, EMS History/Exam Limitations: no limitations Onset/Duration Of Symptoms: Hrs Current Symptoms Are (Timing): Still Present Associated Symptoms: denies: Suicidal Thoughts Additional Complaint(s): Marion Hudson is a 52 year old female with a past medical history of hypertension, seizures, and anxiety who was brought to the ED by EMS after finding her in a park just prior to arrival. Patient admits to ETOH use and denies any injury, suicidal ideation, or homicidal ideation. Patient offers no other medical complaints at this time. PMD: none provided Past Medical History Reviewed: Historical Data, Nursing Documentation, Vital Signs Vital Signs: Last Vital Signs Temp 97.6 F 01/29/18 16:44 Pulse 103 H 01/29/18 16:44 Resp 16 01/29/18 16:44 BP 104/86 01/29/18 16:44 Pulse Ox 97 01/29/18 16:44 - Medical History PMH: Anemia, Anxiety, Asthma, COPD, Depression, Fractures, Gastritis, HTN, Paranoia, Pneumonia, Schizophrenia, Seizures, TIA Denies: Diabetes, Hepatitis, HIV, Chronic Kidney Disease, Sexually T ransmitted Disease - Surgical History Other surgeries: dilation and curretage - Family History Family History: States: Unknown Family Hx - Social History Current smoker - smoking cessation education provided: Yes Alcohol: Social Drugs: Denies - Immunization History Hx Tetanus Toxoid Vaccination: Yes Hx Influenza Vaccination: No Hx Pneumococcal Vaccination: No - Home Medications Home Medications: Ambulatory Orders Medication Instructions Recorded No Known Home Med 01/28/18 - Allergies Allergies/Adverse Reactions: Allergies Allergy/AdvReac Type Severity Reaction Status Date / Time shellfish derived Allergy Severe SWELLING Verified 01/25/18 01:39 Review of Systems ROS Statement: Except As Marked, All Systems Reviewed And Found Negative Constitutional: Negative for: Other (injury) Psych: Negative for: Suicidal ideation, Other (homicidal ideation) Physical Exam - Reviewed Nursing Documentation Reviewed: Yes Vital Signs Reviewed: Yes - Physical Exam Appears: Positive for: Non-toxic, No Acute Distress Head Exam: Positive for: ATRAUMATIC, NORMAL INSPECTION, NORMOCEPHALIC Skin: Positive for: Normal Color, Warm, DRY Eye Exam: Positive for: EOMI, Normal appearance, PERRL ENT: Positive for: Normal ENT Inspection Cardiovascular/Chest: Positive for: Regular Rate, Rhythm. Negative for: Murmur Respiratory: Positive for: Normal Breath Sounds. Negative for: Respiratory Distress Gastrointestinal/Abdominal: Positive for: Normal Exam, Soft. Negative for: Tenderness Extremity: Positive for: Normal ROM, Other (cast right lower extremity). Negative for: Deformity Neurologic/Psych: Positive for: Alert, Oriented. Negative for: Motor/Sensory Deficits - ECG O2 Sat by Pulse Oximetry: 97 (RA) Pulse Ox Interpretation: Normal Medical Decision Making Medical Decision Making: Time: 16:53 Plan: --Alcohol Serum --Accucheck Scribe Attestation: Documented by, Karen Ray acting as a scribe for King Kline MD. Provider Scribe Attestation: All medical record entries made by the Scribe were at my direction and personally dictated by me. I have reviewed the chart and agree that the record accurately reflects my personal performance of the history, physical exam, medical decision making, and the department course for this patient. I have also personally directed, reviewed, and agree with the discharge instructions and disposition. Disposition - Clinical Impression Clinical Impression: Alcohol intoxication - Patient ED Disposition Is Patient to be Admitted: Transfer of Care - Disposition Disposition: Transfer of Care Disposition Time: 19:00 Condition: FAIR Forms: [employer] ([place]) Patient Signed Over To: Ramírez Stephens
--- NOTE | 2018-01-29 20:02 | ED PDOC ---
- ECG O2 Sat by Pulse Oximetry: 97 (RA) Pulse Ox Interpretation: Normal Medical Decision Making Medical Decision Making: Time: 19:00 Patient was signed out to me by Dr. Kline pending sobriety. 2200 Sleeping comfortably 100 Patient requesting tylenol for non-specific pain 200 Patient awake, alert, steady on crutches Stable for discharge Scribe Attestation: Documented by, Karen Ray acting as a scribe for Ramírez Stephens MD. Provider Scribe Attestation: All medical record entries made by the Scribe were at my direction and personally dictated by me. I have reviewed the chart and agree that the record accurately reflects my personal performance of the history, physical exam, medical decision making, and the department course for this patient. I have also personally directed, reviewed, and agree with the discharge instructions and disposition. Disposition - Clinical Impression Clinical Impression: Alcohol intoxication - POA Present On Arrival: None - Disposition Referrals: Alcoholics Anonymous [Outside] Disposition: Routine/Home Disposition Time: 02:00 Condition: STABLE Instructions: Alcohol Abuse and Alcoholism (DC) Forms: [employer] ([place])
== END 2018-01-30 02:27 | disposition home or self-care (01) ==
LOC: H.ER 16:42
DX: F10.129 Alcohol abuse with intoxication, unspecified (principal); F17.200 Nicotine dependence, unspecified, uncomplicated; Z86.59 Personal history of other mental and behavioral disorders; I10 Essential (primary) hypertension; J44.9 Chronic obstructive pulmonary disease, unspecified; Z86.73 Personal history of transient ischemic attack (TIA), and cerebral infarction without residual deficits

== ENCOUNTER 2018-02-03 12:12 | Inpatient (IN) | payer OTHER, SELFPAY ==
[2018-02-03 12:18] VITALS: BMI 20.7
--- NOTE | 2018-02-03 12:27 | ED PDOC ---
HPI: General Adult Time Seen by Provider: 02/03/18 12:26 Chief Complaint (Nursing): Cough, Cold, Congestion Chief Complaint (Provider): cough, congestion History Per: Patient Additional Complaint(s): 53-year-old non-domiciled female with history of asthma presents with cough, chest congestion and chills 3 days. Patient states that today she felt as if she had fever. She states she has had history of pneumonia in the recent past. Patient denies any alcohol use today and states she is a nonsmoker. PMD: none Past Medical History Reviewed: Historical Data, Nursing Documentation, Vital Signs Vital Signs: Last Vital Signs Temp 97 F L 02/03/18 12:17 Pulse 114 H 02/03/18 12:17 Resp BP 130/72 02/03/18 12:17 Pulse Ox 97 02/03/18 12:17 - Medical History PMH: Anemia, Anxiety, Asthma, COPD, Depression, Fractures, Gastritis, HTN, Paranoia, Pneumonia, Schizophrenia, Seizures, TIA - Surgical History Other surgeries: right ankle surgery - Family History Family History: States: No Known Family Hx - Living Arrangements Living Arrangements: Other (non-domiciled) - Social History Current smoker - smoking cessation education provided: No Alcohol: > 2 Drinks/Day Drugs: Denies - Home Medications Home Medications: Ambulatory Orders Medication Instructions Recorded No Known Home Med 01/28/18 - Allergies Allergies/Adverse Reactions: Allergies Allergy/AdvReac Type Severity Reaction Status Date / Time shellfish derived Allergy Severe SWELLING Verified 01/25/18 01:39 Review of Systems ROS Statement: Except As Marked, All Systems Reviewed And Found Negative Constitutional: Positive for: Fever, Chills Cardiovascular: Positive for: Chest Pain Respiratory: Positive for: Cough, Shortness of Breath Gastrointestinal: Negative for: Nausea, Vomiting Musculoskeletal: Positive for: Leg Pain (right) Physical Exam - Reviewed Nursing Documentation Reviewed: Yes Vital Signs Reviewed: Yes - Physical Exam Appears: Positive for: Well, Non-toxic, No Acute Distress Skin: Positive for: Normal Color. Negative for: Rash Eye Exam: Positive for: Normal appearance Cardiovascular/Chest: Positive for: Regular Rate, Rhythm Respiratory: Positive for: Decreased Breath Sounds (over right lung base), W heezing, Respiratory Distress Extremity: Positive for: Other (cast in place to right lower extremity) Neurologic/Psych: Positive for: Alert, Oriented, Gait (using crutches) - Laboratory Results Result Diagrams: 02/03/18 18:45 02/03/18 18:45 - ECG Interpretation Of ECG: Sinus tach 106 bpm, otherwise normal ekg, reviewed by PA and ED attending O2 Sat by Pulse Oximetry: 97 Pulse Ox Interpretation: Normal - Other Rad CXR X-Ray: Interpreted by Me, Viewed By Me X-Ray Interpretation: RLL pneumonia Medical Decision Making Medical Decision Makin53 y/o female with URI symptoms Plan: CXR EKG CBC CMP Flu swab Blood cultures IVF PO prednisone PO tylenol and motrin Chest x-ray shows pneumonia. Patient's temperature continued to spike while in ED. Patient with WBC count of 15.5, fever, tachycardia and pneumonia on CXR. Hospitalist to admit patient. Patient agrees with admission. Initial doses zithromax and rocephin given. Disposition - Clinical Impression Clinical Impression: Pneumonia, Sepsis - Patient ED Disposition Is Patient to be Admitted: Yes - Disposition Disposition Time: 19:42 Condition: FAIR Forms: [employer] (Macedonian) - Pt Status Changed To: Hospital Disposition Of: Inpatient - Admit Certification Admit to Inpatient:: After my assessment, the patient will require hospitalization for at least two midnights. This is because of the severity of symptoms shown, intensity of services needed, and/or the medical risk in this patient being treated as an outpatient. Results - Diagnostic Imaging Results Radiology Results Chest X-Ray 02/03/18 12:28 IMPRESSION: Right lower lobe pneumonia. Follow-up after medical management is recommended to ensure complete resolution. - Lab Results Lab Results: 02/03/18 02/03/18 02/03/18 18:45 18:45 18:45 WBC 15.5 H D RBC 3.34 L Hgb 9.7 L Hct 30.0 L MCV 89.7 MCH 29.0 MCHC 32.3 L RDW 17.6 H Plt Count 199 MPV 7.1 L Neut % (Auto) 96.7 H Lymph % (Auto) 1.7 [place] % (Auto) 1.3 Eos % (Auto) 0.0 Baso % (Auto) 0.3 Neut # (Auto) 15.0 H Lymph # (Auto) 0.3 [place] # (Auto) 0.2 Eos # (Auto) 0.0 Baso # (Auto) 0.0 Neutrophils % (Manual) Pending Lymphocytes % (Manual) Pending Monocytes % (Manual) Pending Platelet Estimate Pending Sodium 133 Potassium 3.8 Chloride 98 Carbon Dioxide 21 L Anion Gap 18 BUN 16 Creatinine 1.1 Est GFR ( Amer) > 60 Est GFR (Non-Af Amer) 52 Random Glucose 175 H Calcium 9.1 Total Bilirubin 0.5 AST 40 H ALT 17 Alkaline Phosphatase 126 Total Protein 7.9 Albumin 3.9 Globulin 3.9 Albumin/Globulin Ratio 1.0 Influenza Typ A,B (EIA) Negative for flu a/b
[2018-02-03] MEDS ORDERED: Albuterol-Ipratrop 3 mg / 0.5 (3 ml) UD INH STA (12:28)
[2018-02-03] MEDS ORDERED: Albuterol-Ipratrop 3 mg / 0.5 (3 ml) UD ONE (12:43)
--- NOTE | 2018-02-03 13:59 | RAD ---
Date of service: 02/03/2018 HISTORY: Cough COMPARISON: 01/26/2018. TECHNIQUE: Chest PA and lateral FINDINGS: LINES AND TUBES: None. LUNG AND PLEURA: There is confluent airspace disease in the right lower lobe. The left lung is clear. HEART AND MEDIASTINUM: The heart is not enlarged. No aortic atherosclerotic calcification present. The hilar and mediastinal contours are within normal limits. SKELETAL STRUCTURES: The bony structures are within normal limits for the patient's age. VISUALIZED UPPER ABDOMEN: Normal. OTHER FINDINGS: None. IMPRESSION: Right lower lobe pneumonia. Follow-up after medical management is recommended to ensure complete resolution.
[2018-02-03] MEDS ORDERED: cefTRIAXone (Rocephin) 1 gm Inj IM STA (15:09)
[2018-02-03] MEDS ORDERED: Sodium Chloride 0.9% 1,000 ML IV STA (17:25)
[2018-02-03 18:59] LABS: BASO % 0.3 % (0.0-2.0); HEMOGLOBIN 9.7 g/dL (12.0-16.0); LYMPH # 0.3 K/uL (1.0-4.3); LYMPH % 1.7 % (20.0-40.0); MEAN CELL VOLUME 89.7 fl (81.0-99.0); MEAN CORPUSCULAR HGB CONC 32.3 g/dL (33.0-37.0); MEAN PLATELET VOLUME 7.1 fl (7.2-11.7); MONO # 0.2 K/uL (0.0-0.8); MONO % 1.3 % (0.0-10.0); NEUT % 96.7 % (50.0-75.0); PLATELET COUNT 199 K/uL (130-400); RBC 3.34 Mil/uL (3.80-5.20); RED CELL DISTRIBUTION WIDTH 17.6 % (11.5-14.5); WHITE BLOOD COUNT 15.5 K/uL (4.8-10.8)
[2018-02-03 19:10] LABS: ALBUMIN 3.9 g/dL (3.5-5.0); ALT/SGPT 17 U/L (9-52); AST/SGOT 40 U/L (14-36); BLOOD UREA NITROGEN 16 mg/dl (7-17); CALCIUM 9.1 mg/dL (8.4-10.2); GFR NON-AFRICAN AMERICAN 52
[2018-02-03 20:03] LABS: BANDS 2 % (0-2); LYMPHOCYTE 2 % (20-50); MONOCYTE 1 % (0-10); NEUTROPHIL 95 % (42-75); PLATELET ESTIMATE NORMAL (NORMAL); TOTAL CELLS COUNTED 100
[2018-02-03 20:04] LABS: ANISOCYTOSIS SLIGHT
[2018-02-03 20:05] LABS: OVALOCYTES SLIGHT; STOMATOCYTES SLIGHT
[2018-02-03 20:31] LABS: VENOUS BLOOD GAS PCO2 36 mmHg (40-60); VENOUS BLOOD GAS PO2 71 mm/Hg (30-55); VENOUS BLOOD PH 7.46 (7.32-7.43)
--- NOTE | 2018-02-03 20:38 | CP.PCM.HP ---
<ReedButch - Last Filed: 02/03/18 21:04> History of Present Illness - History of Present Illness History of Present Illness: 53 year old female homeless patient with a PMH of asthma, HTN, alcohol abuse, and pneumonia who presents to the ED c/o cough, chest congestion and chills 3 days. She reports feeling warm today like she has having fever and decide to come to the ED. Patient was noted to have a cast on R leg. Per medical records she had an admission last month on [facility] due to R tibial fracture. Patient also c/o having diarrhea x1 yesterday. She denies blurry vision, headache, shortness of breath, palpitations, chest pain, abdominal pain, or n/v/, melena, no urinary sx. Patient denies any alcohol use today and states she is a nonsmoker. Per records: PMD: none PMH: Astma, Heart murmur, HTN, Alcohol abuse, Ezcema, PNA, Anxiety/Depression PSH: D&C at age 45 with no complications Medications: Patient denies taking any medications, including prescription or herbal Allergies: NKDA FH: Mother had hypothyroid. Other family history unknown SH: Drinks half to one bottle of vodka daily. Last drink was 2 days ago. Denies smoking and drug use. Next of kin: Marion (Mom): Present on Admission - Present on Admission Any Indicators Present on Admission: No Review of Systems - Review of Systems All systems: reviewed and no additional remarkable complaints except (HPI) Past Patient History - Infectious Disease Hx of Infectious Diseases: None - Tetanus Immunizations Tetanus Immunization: Unknown - Past Medical History & Family History Past Medical History?: Yes - Past Social History Alcohol: > 2 Drinks/Day Drugs: Denies - CARDIAC Hx Hypertension: Yes - PULMONARY Hx Asthma: Yes Hx Chronic Obstructive Pulmonary Disease (COPD): Yes Hx Pneumonia: Yes - NEUROLOGICAL Hx Seizures: Yes Hx Transient Ischemic Attacks (TIA): Yes - HEENT Hx HEENT Problems: No - RENAL Hx Chronic Kidney Disease: No - ENDOCRINE/METABOLIC Hx Endocrine Disorders: No - HEMATOLOGICAL/ONCOLOGICAL Hx Anemia: Yes - INTEGUMENTARY Hx Dermatological Problems: Yes Hx Eczema: Yes Hx Psoriasis: Yes Other/Comment: scabies - MUSCULOSKELETAL/RHEUMATOLOGICAL Hx Fractures: Yes - GASTROINTESTINAL Hx Gastritis: Yes - GENITOURINARY/GYNECOLOGICAL Hx Sexually Transmitted Disorders: No - PSYCHIATRIC Hx Anxiety: Yes Hx Depression: Yes Hx Paranoia: Yes Hx Schizophrenia: Yes - SURGICAL HISTORY Hx Surgeries: Yes Hx Dilation and Curettage: Yes Other/Comment: rt leg s/p fx - ANESTHESIA Hx Anesthesia: Yes Hx Anesthesia Reactions: No Hx Malignant Hyperthermia: No Meds Allergies/Adverse Reactions: Allergies Allergy/AdvReac Type Severity Reaction Status Date / Time shellfish derived Allergy Severe SWELLING Verified 01/25/18 01:39 Physical Exam - Constitutional Additional comments: Sleepy but cooperative with exam - Head Exam Head Exam: NORMAL INSPECTION - Eye Exam Eye Exam: EOMI Pupil Exam: PERRL - Respiratory Exam Respiratory Exam: Decreased Breath Sounds, Wheezes. absent: Rales - Cardiovascular Exam Cardiovascular Exam: Tachycardia, REGULAR RHYTHM, +S1, +S2, Systolic Murmur - GI/Abdominal Exam GI & Abdominal Exam: Normal Bowel Sounds, Soft. absent: Distended, Tenderness - Extremities Exam Extremities exam: Negative for: pedal edema - Neurological Exam Neurological exam: CN II-XII Intact, Oriented x3 - Skin Skin Exam: Dry, Warm Additional comments: Multiple scratch lesions noted on back, legs and arms Results - Vital Signs Recent Vital Signs: Last Vital Signs Temp 99.2 F 02/03/18 20:04 Pulse 104 H 02/03/18 20:04 Resp 20 02/03/18 20:04 BP 131/81 02/03/18 20:27 Pulse Ox 98 02/03/18 20:04 - Labs Result Diagrams: 02/03/18 18:45 02/03/18 18:45 Labs: Laboratory Results - last 24 hr 02/03/18 02/03/18 02/03/18 18:45 18:45 18:45 WBC 15.5 H D RBC 3.34 L Hgb 9.7 L Hct 30.0 L MCV 89.7 MCH 29.0 MCHC 32.3 L RDW 17.6 H Plt Count 199 MPV 7.1 L Neut % (Auto) 96.7 H Lymph % (Auto) 1.7 L [place] % (Auto) 1.3 Eos % (Auto) 0.0 Baso % (Auto) 0.3 Neut # (Auto) 15.0 H Lymph # (Auto) 0.3 L [place] # (Auto) 0.2 Eos # (Auto) 0.0 Baso # (Auto) 0.0 Neutrophils % (Manual) 95 H Band Neutrophils % 2 Lymphocytes % (Manual) 2 L Monocytes % (Manual) 1 Platelet Estimate Normal Anisocytosis (manual) Slight Ovalocytes Slight Stomatocytes Slight pO2 VBG pH VBG pCO2 VBG HCO3 VBG Total CO2 VBG O2 Sat (Calc) VBG Base Excess VBG Potassium Glucose Lactate FiO2 Sodium 133 Potassium 3.8 Chloride 98 Carbon Dioxide 21 L Anion Gap 18 BUN 16 Creatinine 1.1 Est GFR ( Amer) > 60 Est GFR (Non-Af Amer) 52 Random Glucose 175 H Calcium 9.1 Total Bilirubin 0.5 AST 40 H ALT 17 Alkaline Phosphatase 126 Total Protein 7.9 Albumin 3.9 Globulin 3.9 Albumin/Globulin Ratio 1.0 Venous Blood Potassium Influenza Typ A,B (EIA) Negative for flu a/b 02/03/18 20:26 WBC RBC Hgb Hct MCV MCH MCHC RDW Plt Count MPV Neut % (Auto) Lymph % (Auto) [place] % (Auto) Eos % (Auto) Baso % (Auto) Neut # (Auto) Lymph # (Auto) [place] # (Auto) Eos # (Auto) Baso # (Auto) Neutrophils % (Manual) Band Neutrophils % Lymphocytes % (Manual) Monocytes % (Manual) Platelet Estimate Anisocytosis (manual) Ovalocytes Stomatocytes pO2 71 H VBG pH 7.46 H VBG pCO2 36 L VBG HCO3 26.4 VBG Total CO2 26.7 VBG O2 Sat (Calc) 96.8 H VBG Base Excess 2.0 VBG Potassium 3.7 Glucose 141 H Lactate 1.1 FiO2 21.0 Sodium 129.0 L Potassium Chloride 99.0 Carbon Dioxide Anion Gap BUN Creatinine Est GFR ( Amer) Est GFR (Non-Af Amer) Random Glucose Calcium Total Bilirubin AST ALT Alkaline Phosphatase Total Protein Albumin Globulin Albumin/Globulin Ratio Venous Blood Potassium 3.7 Influenza Typ A,B (EIA) Assessment & Plan - Assessment and Plan (Free Text) Assessment: 53 yo female patient admitted due to sepsis, pneumonia and asthma exacerbation. Patient is homeless and has h/o etoh abuse. Plan: Pneumonia/sepsis - fever, tachy, elevated wbc - admit to tele - CXR: R lower pneumonia - EKG: sinus tachy - s/p rocephin and azithro in Ed - Continue rocephin and azithromycin daily - tylenol for fever - pulmonology consul - labs and cultures in am Hx of Asthma - Duonebs Q6 vicky and q2 prn - Pulmonology consult Hx of alcohol abuse - Monitor for possible withdrawal symptoms - f/u Blood alcohol level - Ativan q4h PRN - start Folate and thiamine PO R tibial fracture - cast in place - following Dr Ryan at [facility] Normocytic anemia - Likely 2/2 alcohol abuse - f/u CBC Hx of HTN - Patient is not currently taking any medications - Patient is hemodynamically stable - monitor BP Hx of depression - As per prior medical records - Patient is not currently taking any medications Hx of schizophrenia - As per prior medical records - Patient is not currently taking any medications Prophylaxis - DVT: lovenox - GI protonix <Fredis Lakhani - Last Filed: 02/04/18 00:54> Results - Vital Signs Recent Vital Signs: Last Vital Signs Temp 98.2 F 02/03/18 23:41 Pulse 89 02/03/18 23:41 Resp 18 02/03/18 23:41 BP 123/74 02/03/18 23:41 Pulse Ox 98 02/03/18 23:41 - Labs Result Diagrams: 02/03/18 18:45 02/03/18 18:45 Labs: Laboratory Results - last 24 hr 02/03/18 02/03/18 02/03/18 18:45 18:45 18:45 WBC 15.5 H D RBC 3.34 L Hgb 9.7 L Hct 30.0 L MCV 89.7 MCH 29.0 MCHC 32.3 L RDW 17.6 H Plt Count 199 MPV 7.1 L Neut % (Auto) 96.7 H Lymph % (Auto) 1.7 L [place] % (Auto) 1.3 Eos % (Auto) 0.0 Baso % (Auto) 0.3 Neut # (Auto) 15.0 H Lymph # (Auto) 0.3 L [place] # (Auto) 0.2 Eos # (Auto) 0.0 Baso # (Auto) 0.0 Neutrophils % (Manual) 95 H Band Neutrophils % 2 Lymphocytes % (Manual) 2 L Monocytes % (Manual) 1 Platelet Estimate Normal Anisocytosis (manual) Slight Ovalocytes Slight Stomatocytes Slight pO2 VBG pH VBG pCO2 VBG HCO3 VBG Total CO2 VBG O2 Sat (Calc) VBG Base Excess VBG Potassium Glucose Lactate FiO2 Sodium 133 Potassium 3.8 Chloride 98 Carbon Dioxide 21 L Anion Gap 18 BUN 16 Creatinine 1.1 Est GFR ( Amer) > 60 Est GFR (Non-Af Amer) 52 Random Glucose 175 H Calcium 9.1 Total Bilirubin 0.5 AST 40 H ALT 17 Alkaline Phosphatase 126 Total Protein 7.9 Albumin 3.9 Globulin 3.9 Albumin/Globulin Ratio 1.0 Venous Blood Potassium Urine Opiates Screen Urine Methadone Screen Ur Barbiturates Screen Ur Phencyclidine Scrn Ur Amphetamines Screen U Benzodiazepines Scrn U Oth Cocaine Metabols U Cannabinoids Screen Alcohol, Quantitative Influenza Typ A,B (EIA) Negative for flu a/b 02/03/18 02/03/18 02/03/18 20:26 21:10 21:10 WBC RBC Hgb Hct MCV MCH MCHC RDW Plt Count MPV Neut % (Auto) Lymph % (Auto) [place] % (Auto) Eos % (Auto) Baso % (Auto) Neut # (Auto) Lymph # (Auto) [place] # (Auto) Eos # (Auto) Baso # (Auto) Neutrophils % (Manual) Band Neutrophils % Lymphocytes % (Manual) Monocytes % (Manual) Platelet Estimate Anisocytosis (manual) Ovalocytes Stomatocytes pO2 71 H VBG pH 7.46 H VBG pCO2 36 L VBG HCO3 26.4 VBG Total CO2 26.7 VBG O2 Sat (Calc) 96.8 H VBG Base Excess 2.0 VBG Potassium 3.7 Glucose 141 H Lactate 1.1 FiO2 21.0 Sodium 129.0 L Potassium Chloride 99.0 Carbon Dioxide Anion Gap BUN Creatinine Est GFR ( Amer) Est GFR (Non-Af Amer) Random Glucose Calcium Total Bilirubin AST ALT Alkaline Phosphatase Total Protein Albumin Globulin Albumin/Globulin Ratio Venous Blood Potassium 3.7 Urine Opiates Screen Negative Urine Methadone Screen Negative Ur Barbiturates Screen Negative Ur Phencyclidine Scrn Negative Ur Amphetamines Screen Negative U Benzodiazepines Scrn Negative U Oth Cocaine Metabols Negative U Cannabinoids Screen Negative Alcohol, Quantitative < 10 Influenza Typ A,B (EIA) Attending/Attestation - Attestation I have personally seen and examined this patient.: Yes I have fully participated in the care of the patient.: Yes I have reviewed all pertinent clinical information: Yes Notes (Text): 02/04/18 00:36 I saw, examined and discussed this patient with Dr Reed. I agree with the assessment and plan mentioned above which represent my direct input. This is a 53 years old homeless female who comes with productive cough, yellow sputum, generalized weakness and chills with Pneumonia diagnosed 2 weeks ago but did not fill her prescription. CXR shows right lower lobe infiltrate. The patient is being treated for Right lower lobe Pneumonia with Azithromycin and Ceftriaxone. The Asthmatic Crisis is being treated with Albuterol/Ipratropium. We will have a pulmonary consult. Treat Impending Alcohol withdrawal with Ativan PRN, Thiamine, Folic Acid and Multivitamins. The right distal Tibia/Fibula fracture will be followed OP by Dr Ryan at [facility]. Fredis Lakhani MD.
[2018-02-03 21:39] LABS: BARBITURATES, UR NEGATIVE (NEGATIVE); BENZODIAZEPINES, UR NEGATIVE (NEGATIVE); OPIATES, UR NEGATIVE (NEGATIVE); PHENCYCLIDINE, UR NEGATIVE (NEGATIVE)
[2018-02-03] MEDS: guaiFENesin 600 mg ER Tab PO SCH (23:11)
[2018-02-04] MEDS: Albuterol-Ipratrop 3 mg / 0.5 (3 ml) UD INH SCH ×4 (00:59→19:29)
[2018-02-04 06:13] LABS: BASO % 0.4 % (0.0-2.0); EOS % 0.2 % (0.0-4.0); HEMOGLOBIN 8.9 g/dL (12.0-16.0); LYMPH # 1.5 K/uL (1.0-4.3); LYMPH % 15.1 % (20.0-40.0); MEAN CELL VOLUME 89.4 fl (81.0-99.0); MEAN CORPUSCULAR HEMOGLOBIN 29.7 pg (27.0-31.0); MEAN CORPUSCULAR HGB CONC 33.2 g/dL (33.0-37.0); MEAN PLATELET VOLUME 7.4 fl (7.2-11.7); MONO # 0.5 K/uL (0.0-0.8); MONO % 4.9 % (0.0-10.0); NEUT # 7.7 K/uL (1.8-7.0); NEUT % 79.4 % (50.0-75.0); RED CELL DISTRIBUTION WIDTH 17.4 % (11.5-14.5); WHITE BLOOD COUNT 9.7 K/uL (4.8-10.8)
[2018-02-04 06:40] LABS: ALB/GLOB RATIO 0.9 (1.0-2.1); ALBUMIN 3.4 g/dL (3.5-5.0); ALT/SGPT 21 U/L (9-52); AST/SGOT 38 U/L (14-36); BLOOD UREA NITROGEN 11 mg/dl (7-17); CALCIUM 9.1 mg/dL (8.4-10.2); GFR NON-AFRICAN AMERICAN > 60
[2018-02-04] MEDS ORDERED: Potassium Chloride 20 mEq ER Tab PO ONE (07:08)
--- NOTE | 2018-02-04 08:41 | CP.PCM.PN ---
<GonzalezDennise - Last Filed: 02/04/18 11:35> Subjective - Date & Time of Evaluation Date of Evaluation: 02/04/18 Time of Evaluation: 08:38 - Subjective Subjective: 53 year old female homeless patient with a PMH of asthma, HTN, alcohol abuse, and pneumonia who presents seen at bedside c/o cough, chest congestion and chills 3 days. Denies acute overnight events. She denies blurry vision, headache, shortness of breath, palpitations, chest pain, abdominal pain, or n/v/, melena, no urinary sx. Objective - Vital Signs/Intake and Output Vital Signs (last 24 hours): Temp Pulse Resp BP Pulse Ox 98.5 F 95 H 18 138/83 100 02/04/18 08:05 02/04/18 08:05 02/04/18 08:05 02/04/18 08:05 02/04/18 08:05 - Medications Medications: Current Medications Acetaminophen (Tylenol 325mg Tab) 650 mg PO Q6 PRN PRN Reason: Other Acetaminophen (Tylenol 325mg Tab) 650 mg PO Q6 PRN PRN Reason: Fever >100.4 F Albuterol/Ipratropium (Duoneb 3 Mg/0.5 Mg (3 Ml) Ud) 3 ml INH RQ6 VICKY Last Admin: 02/04/18 07:59 Dose: 3 ml Albuterol/Ipratropium (Duoneb 3 Mg/0.5 Mg (3 Ml) Ud) 3 ml INH Q2 PRN PRN Reason: Shortness of Breath Azithromycin (Zithromax) 500 mg PO DAILY VICKY; Protocol Enoxaparin Sodium (Lovenox) 40 mg SC DAILY VICKY; Protocol Folic Acid (Folic Acid) 1 mg PO DAILY [facility] Guaifenesin (Mucinex La) 600 mg PO Q12 VICKY Last Admin: 02/03/18 23:11 Dose: 600 mg Ceftriaxone Sodium 1 gm/ (Sodium Chloride) 100 mls @ 100 mls/hr IVPB DAILY [facility]; Protocol Ibuprofen (Motrin Tab) 600 mg PO Q6 PRN PRN Reason: Pain, severe (8-10) Lorazepam (Ativan) 0.5 mg IVP Q4 PRN PRN Reason: Agitation Pantoprazole Sodium (Protonix Ec Tab) 40 mg PO DAILY [facility] Thiamine HCl (Vitamin B1 Tab) 100 mg PO DAILY [facility] - Labs Labs: 02/04/18 04:15 02/04/18 04:15 - Constitutional Appears: Well, Non-toxic, No Acute Distress - Head Exam Head Exam: ATRAUMATIC, NORMOCEPHALIC - Eye Exam Eye Exam: EOMI, Normal appearance Pupil Exam: NORMAL ACCOMODATION - ENT Exam ENT Exam: Mucous Membranes Moist - Respiratory Exam Respiratory Exam: Clear to Ausculation Bilateral, NORMAL BREATHING PATTERN - Cardiovascular Exam Cardiovascular Exam: REGULAR RHYTHM, +S1, +S2 - GI/Abdominal Exam GI & Abdominal Exam: Normal Bowel Sounds - Neurological Exam Neurological Exam: Alert, Awake, Oriented x3 - Psychiatric Exam Psychiatric exam: Normal Affect - Skin Skin Exam: Normal Color Assessment and Plan - Assessment and Plan (Free Text) Assessment: 53 yo female patient admitted due to sepsis, pneumonia and asthma exacerbation. Patient is homeless and has h/o etoh abus Plan: Pneumonia/sepsis - fever, tachy, elevated wbc - CXR: R lower pneumonia - EKG: sinus tachy - s/p rocephin and azithro in Ed - Continue rocephin and azithromycin daily - tylenol for fever - pulmonology consult - WBC 15.5 to 9.7 (today) - K 3.2, Potasisium chloride 40 meq PO once one - Mg lab ordered 1.4 - Strep and legionella ag urine ordered. Hx of Asthma - Duonebs Q6 vicky and q2 prn - Pulmonology consult Hx of alcohol abuse - Monitor for possible withdrawal symptoms - f/u Blood alcohol level - Ativan q4h PRN - start Folate and thiamine PO R tibial fracture - cast in place - Podiatry consult placed; recommendations appreciated Normocytic anemia - Likely 2/2 alcohol abuse - f/u CBC Hg 9.7 - 8.9 ( today ) Hx of HTN - Patient is not currently taking any medications - Patient is hemodynamically stable - monitor BP Hx of depression - As per prior medical records - Patient is not currently taking any medications Hx of schizophrenia - As per prior medical records - Patient is not currently taking any medications Prophylaxis - DVT: lovenox - GI protonix <Diana Ortiz - Last Filed: 02/04/18 15:52> Objective - Vital Signs/Intake and Output Vital Signs (last 24 hours): Temp Pulse Resp BP Pulse Ox 99.2 F 119 H 20 124/73 99 02/04/18 15:47 02/04/18 15:47 02/04/18 15:47 02/04/18 15:47 02/04/18 15:47 - Medications Medications: Current Medications Acetaminophen (Tylenol 325mg Tab) 650 mg PO Q6 PRN PRN Reason: Other Acetaminophen (Tylenol 325mg Tab) 650 mg PO Q6 PRN PRN Reason: Fever >100.4 F Albuterol/Ipratropium (Duoneb 3 Mg/0.5 Mg (3 Ml) Ud) 3 ml INH RQ6 VICKY Last Admin: 02/04/18 13:17 Dose: 3 ml Albuterol/Ipratropium (Duoneb 3 Mg/0.5 Mg (3 Ml) Ud) 3 ml INH Q2 PRN PRN Reason: Shortness of Breath Azithromycin (Zithromax) 500 mg PO DAILY [facility]; Protocol Last Admin: 02/04/18 09:31 Dose: 500 mg Enoxaparin Sodium (Lovenox) 40 mg SC DAILY VICKY; Protocol Last Admin: 02/04/18 09:30 Dose: 40 mg Folic Acid (Folic Acid) 1 mg PO DAILY VICKY Last Admin: 02/04/18 09:29 Dose: 1 mg Guaifenesin (Mucinex La) 600 mg PO Q12 VICKY Last Admin: 02/04/18 09:30 Dose: 600 mg Ceftriaxone Sodium 1 gm/ (Sodium Chloride) 100 mls @ 100 mls/hr IVPB DAILY VICKY; Protocol Last Admin: 02/04/18 09:37 Dose: 100 mls/hr Ibuprofen (Motrin Tab) 600 mg PO Q6 PRN PRN Reason: Pain, severe (8-10) Lorazepam (Ativan) 0.5 mg IVP Q4 PRN PRN Reason: Agitation Last Admin: 02/04/18 14:08 Dose: 0.5 mg Pantoprazole Sodium (Protonix Ec Tab) 40 mg PO DAILY VICKY Last Admin: 02/04/18 09:30 Dose: 40 mg Sodium Hypochlorite (Dakins Solution 0.125%) 1 appl TOP QOTHERDAY [facility] Thiamine HCl (Vitamin B1 Tab) 100 mg PO DAILY [facility] Last Admin: 02/04/18 09:31 Dose: 100 mg - Labs Labs: 02/04/18 04:15 02/04/18 04:15 Attending/Attestation - Attestation I have personally seen and examined this patient.: Yes I have fully participated in the care of the patient.: Yes I have reviewed all pertinent clinical information, including history, physical exam and plan: Yes Notes (Text): 02/04/18 15:51 agree with findings and plan as above. cont abx for pna, no longer septic. lower extremity wounds managed by podiatry. hd stable
[2018-02-04] MEDS ORDERED: cefTRIAXone 1,000 MG in PED IV SYRINGE 1 SYR IVPB SCH (09:00)
[2018-02-04] MEDS: guaiFENesin 600 mg ER Tab PO SCH ×2 (09:30→22:00)
[2018-02-04] MEDS: Pantoprazole 40 mg EC Tab PO SCH (09:30)
[2018-02-04] MEDS: Enoxaparin 40 mg Syringe SC SCH (09:30)
--- NOTE | 2018-02-04 11:23 | CP.PCM.CON ---
History of Present Illness - History of Present Illness History of Present Illness: Podiatry Consult note for Dr. Ryan 52 y/o F patient with PMH of Astma, Heart murmur, HTN, Alcohol abuse, Ezcema, PNA, Anxiety/Depression seen and evaluated in bedside 5 weeks s/p ORIF R ankle. Patient states that she had surgery at her right ankle last month and she did a surgery with Dr. Ryan to fix the fracture. Patient states that she was in the clinic at [facility] 2 weeks ago at where her cast was hanged. Patient states that she is admitted for her pneumonia. patient is very non compliant the cast looks dirty and loose from the plantar side. Patient denies any pain at the surgery site. Denies any further pedal complaints at this time. Denies any recent N/V/F/C/CP/SOB/D PMH: Astma, Heart murmur, HTN, Alcohol abuse, Ezcema, PNA, Anxiety/Depression PSH: D&C at age 45 with no complications, ORIF R ankle Allergies: Shellfish SH: Drinks half to one bottle of vodka daily. Last drink was 2 days ago. Denies smoking and drug use. Review of Systems - Review of Systems Review of Systems: As Per HPI Past Patient History - Infectious Disease Hx of Infectious Diseases: None - Tetanus Immunizations Tetanus Immunization: Unknown - Past Medical History & Family History Past Medical History?: Yes - Past Social History Smoking Status: Never Smoked - CARDIAC Hx Cardiac Disorders: Yes Hx Hypertension: Yes - PULMONARY Hx Respiratory Disorders: Yes Hx Asthma: Yes Hx Chronic Obstructive Pulmonary Disease (COPD): Yes Hx Pneumonia: Yes - NEUROLOGICAL Hx Neurological Disorder: Yes Hx Seizures: Yes Hx Transient Ischemic Attacks (TIA): Yes - HEENT Hx HEENT Problems: Yes Other/Comment: Eye glasses - RENAL Hx Chronic Kidney Disease: No - ENDOCRINE/METABOLIC Hx Endocrine Disorders: No - HEMATOLOGICAL/ONCOLOGICAL Hx Blood Disorders: Yes Hx Anemia: Yes Hx Blood Transfusions: Yes Hx Blood Transfusion Reaction: No - INTEGUMENTARY Hx Dermatological Problems: Yes Hx Eczema: Yes Hx Psoriasis: Yes Other/Comment: Scabies - MUSCULOSKELETAL/RHEUMATOLOGICAL Hx Musculoskeletal Disorders: Yes Hx Falls: Yes Hx Fractures: Yes (right ankle) - GASTROINTESTINAL Hx Gastrointestinal Disorders: Yes Hx Gastritis: Yes - GENITOURINARY/GYNECOLOGICAL Hx Genitourinary Disorders: No Hx Sexually Transmitted Disorders: No - PSYCHIATRIC Hx Psychophysiologic Disorder: Yes Hx Anxiety: Yes Hx Depression: Yes Hx Paranoia: Yes Hx Schizophrenia: Yes Hx Substance Use: No - SURGICAL HISTORY Hx Surgeries: Yes Hx Dilation and Curettage: Yes Other/Comment: rt leg s/p fx - ANESTHESIA Hx Anesthesia: Yes Hx Anesthesia Reactions: No Hx Malignant Hyperthermia: No Meds Allergies/Adverse Reactions: Allergies Allergy/AdvReac Type Severity Reaction Status Date / Time shellfish derived Allergy Severe SWELLING Verified 01/25/18 01:39 - Medications Medications: Current Medications Acetaminophen (Tylenol 325mg Tab) 650 mg PO Q6 PRN PRN Reason: Other Acetaminophen (Tylenol 325mg Tab) 650 mg PO Q6 PRN PRN Reason: Fever >100.4 F Albuterol/Ipratropium (Duoneb 3 Mg/0.5 Mg (3 Ml) Ud) 3 ml INH RQ6 JAIDA Last Admin: 02/04/18 07:59 Dose: 3 ml Albuterol/Ipratropium (Duoneb 3 Mg/0.5 Mg (3 Ml) Ud) 3 ml INH Q2 PRN PRN Reason: Shortness of Breath Azithromycin (Zithromax) 500 mg PO DAILY [facility]; Protocol Last Admin: 02/04/18 09:31 Dose: 500 mg Enoxaparin Sodium (Lovenox) 40 mg SC DAILY [facility]; Protocol Last Admin: 02/04/18 09:30 Dose: 40 mg Folic Acid (Folic Acid) 1 mg PO DAILY [facility] Last Admin: 02/04/18 09:29 Dose: 1 mg Guaifenesin (Mucinex La) 600 mg PO Q12 JAIDA Last Admin: 02/04/18 09:30 Dose: 600 mg Ceftriaxone Sodium 1 gm/ (Sodium Chloride) 100 mls @ 100 mls/hr IVPB DAILY [facility]; Protocol Last Admin: 02/04/18 09:37 Dose: 100 mls/hr Ibuprofen (Motrin Tab) 600 mg PO Q6 PRN PRN Reason: Pain, severe (8-10) Lorazepam (Ativan) 0.5 mg IVP Q4 PRN PRN Reason: Agitation Pantoprazole Sodium (Protonix Ec Tab) 40 mg PO DAILY [facility] Last Admin: 02/04/18 09:30 Dose: 40 mg Thiamine HCl (Vitamin B1 Tab) 100 mg PO DAILY [facility] Last Admin: 02/04/18 09:31 Dose: 100 mg Physical Exam - Constitutional Appears: Non-toxic, No Acute Distress - Head Exam Head Exam: ATRAUMATIC, NORMOCEPHALIC - Extremities Exam Additional comments: R LE focused exam: Vasc: DP/PT pulses are 2/4. Cap refill < 3 sec to all digits. Temp gradient warm to cool. Periwound erythema and moderate non pitting edema noted. Neuro: Epicritic and protective sensation grossly diminished to right LE Derm: Anterior ankle surgical site looks dehesced, Open with black yellow necrotic tissue, after debridement (an open ulcer about [id number] with fibrous, necrotic and granular base 50:20:30). positive malodor. Positive drainage of pus. No tracking or probing to bone noted. Other surgical wound looks well coapted and sutures intact and uin place with no signs of dehiscence. MSK: No pain on palpating the surgical sites, Muscle power couldn't be assessed due to the open wound. - Neurological Exam Neurological exam: Alert, Oriented x3 - Psychiatric Exam Psychiatric exam: Normal Affect, Normal Mood Results - Vital Signs Recent Vital Signs: Last Vital Signs Temp 98.5 F 02/04/18 08:05 Pulse 95 H 02/04/18 08:05 Resp 18 02/04/18 08:05 BP 138/83 02/04/18 08:05 Pulse Ox 100 02/04/18 08:05 - Labs Result Diagrams: 02/04/18 04:15 02/04/18 04:15 Labs: Laboratory Results - last 24 hr 02/03/18 02/03/18 02/03/18 18:45 18:45 18:45 WBC 15.5 H D RBC 3.34 L Hgb 9.7 L Hct 30.0 L MCV 89.7 MCH 29.0 MCHC 32.3 L RDW 17.6 H Plt Count 199 MPV 7.1 L Neut % (Auto) 96.7 H Lymph % (Auto) 1.7 L Doddridge % (Auto) 1.3 Eos % (Auto) 0.0 Baso % (Auto) 0.3 Neut # (Auto) 15.0 H Lymph # (Auto) 0.3 L Doddridge # (Auto) 0.2 Eos # (Auto) 0.0 Baso # (Auto) 0.0 Neutrophils % (Manual) 95 H Band Neutrophils % 2 Lymphocytes % (Manual) 2 L Monocytes % (Manual) 1 Platelet Estimate Normal Anisocytosis (manual) Slight Ovalocytes Slight Stomatocytes Slight pO2 VBG pH VBG pCO2 VBG HCO3 VBG Total CO2 VBG O2 Sat (Calc) VBG Base Excess VBG Potassium Glucose Lactate FiO2 Sodium 133 Potassium 3.8 Chloride 98 Carbon Dioxide 21 L Anion Gap 18 BUN 16 Creatinine 1.1 Est GFR ( Amer) > 60 Est GFR (Non-Af Amer) 52 Random Glucose 175 H Calcium 9.1 Magnesium Total Bilirubin 0.5 AST 40 H ALT 17 Alkaline Phosphatase 126 Total Protein 7.9 Albumin 3.9 Globulin 3.9 Albumin/Globulin Ratio 1.0 Venous Blood Potassium Urine Opiates Screen Urine Methadone Screen Ur Barbiturates Screen Ur Phencyclidine Scrn Ur Amphetamines Screen U Benzodiazepines Scrn U Oth Cocaine Metabols U Cannabinoids Screen Alcohol, Quantitative Influenza Typ A,B (EIA) Negative for flu a/b 02/03/18 02/03/18 02/03/18 20:26 21:10 21:10 WBC RBC Hgb Hct MCV MCH MCHC RDW Plt Count MPV Neut % (Auto) Lymph % (Auto) Doddridge % (Auto) Eos % (Auto) Baso % (Auto) Neut # (Auto) Lymph # (Auto) Doddridge # (Auto) Eos # (Auto) Baso # (Auto) Neutrophils % (Manual) Band Neutrophils % Lymphocytes % (Manual) Monocytes % (Manual) Platelet Estimate Anisocytosis (manual) Ovalocytes Stomatocytes pO2 71 H VBG pH 7.46 H VBG pCO2 36 L VBG HCO3 26.4 VBG Total CO2 26.7 VBG O2 Sat (Calc) 96.8 H VBG Base Excess 2.0 VBG Potassium 3.7 Glucose 141 H Lactate 1.1 FiO2 21.0 Sodium 129.0 L Potassium Chloride 99.0 Carbon Dioxide Anion Gap BUN Creatinine Est GFR ( Amer) Est GFR (Non-Af Amer) Random Glucose Calcium Magnesium Total Bilirubin AST ALT Alkaline Phosphatase Total Protein Albumin Globulin Albumin/Globulin Ratio Venous Blood Potassium 3.7 Urine Opiates Screen Negative Urine Methadone Screen Negative Ur Barbiturates Screen Negative Ur Phencyclidine Scrn Negative Ur Amphetamines Screen Negative U Benzodiazepines Scrn Negative U Oth Cocaine Metabols Negative U Cannabinoids Screen Negative Alcohol, Quantitative < 10 Influenza Typ A,B (EIA) 02/04/18 02/04/18 02/04/18 04:15 04:15 04:15 WBC 9.7 RBC 3.00 L Hgb 8.9 L Hct 26.9 L MCV 89.4 MCH 29.7 MCHC 33.2 RDW 17.4 H Plt Count 185 MPV 7.4 Neut % (Auto) 79.4 H Lymph % (Auto) 15.1 L Doddridge % (Auto) 4.9 Eos % (Auto) 0.2 Baso % (Auto) 0.4 Neut # (Auto) 7.7 H Lymph # (Auto) 1.5 Doddridge # (Auto) 0.5 Eos # (Auto) 0.0 Baso # (Auto) 0.0 Neutrophils % (Manual) Band Neutrophils % Lymphocytes % (Manual) Monocytes % (Manual) Platelet Estimate Anisocytosis (manual) Ovalocytes Stomatocytes pO2 VBG pH VBG pCO2 VBG HCO3 VBG Total CO2 VBG O2 Sat (Calc) VBG Base Excess VBG Potassium Glucose Lactate FiO2 Sodium 136 Potassium 3.2 L Chloride 102 Carbon Dioxide 24 Anion Gap 13 BUN 11 Creatinine 0.5 L Est GFR ( Amer) > 60 Est GFR (Non-Af Amer) > 60 Random Glucose 82 Calcium 9.1 Magnesium 1.6 Total Bilirubin 0.9 AST 38 H ALT 21 Alkaline Phosphatase 104 Total Protein 7.1 Albumin 3.4 L Globulin 3.6 Albumin/Globulin Ratio 0.9 L Venous Blood Potassium Urine Opiates Screen Urine Methadone Screen Ur Barbiturates Screen Ur Phencyclidine Scrn Ur Amphetamines Screen U Benzodiazepines Scrn U Oth Cocaine Metabols U Cannabinoids Screen Alcohol, Quantitative Influenza Typ A,B (EIA) Assessment & Plan - Assessment and Plan (Free Text) Assessment: 52 y/o F patient seen and evaluated in bedside 5 weeks s/p ORIF R ankle Plan: Patient seen and evaluated at the bedside Plan discussed with Dr. Ryan Chart, labs and vitals reviewed; Afebrile, absent leukocytosis ID consulted, recommendations appreciated Continue IV Abx as per ID Ordered R ankle and Tib-fibula X-ray Cast removed and and sutures removed from the anterior wound, bedside debridement was done, Patient didn't have pain Wound cleaned with betadine (Confirmed from the patient no betadine allergy), then washed with copious amount of saline, Xeroform and DSD applied as dressing. Posterior splint applied. Patient instructed to maintain the posterior splint C/D/I. Ordered Wound VAC for the patient to be applied with the next dressing. Patient might be taken later next week after being cleared from pneumonia to the OR for debridement Patient instructed to stay NWB and to use crutches with ambulation. Patient expressed verbal understanding. Podiatry will continue to follow up the patient while in house. - Date & Time Date: 02/04/18 Time: 15:57
[2018-02-04] MEDS ORDERED: Sodium Chloride 3% for Inhalation 4 ML VIAL.NEB IH PRN (12:59)
[2018-02-04] MEDS ORDERED: Povidone Iodine Topical 10% Sol ONE (13:24)
[2018-02-04] MEDS ORDERED: Povidone Iodine Topical 10% Sol TOP ONE (14:50)
--- NOTE | 2018-02-04 15:55 | CARD ---
APPROVED REPORT Date of service: 02/03/2018 EKG Measurement Heart [id number] [id number] <Conclusion> Sinus tachycardia Otherwise normal ECG
--- NOTE | 2018-02-04 15:57 | RAD ---
Date of service: 02/04/2018 PROCEDURE: Radiographs of the right tibia and fibula. HISTORY: Dehesced wound of ORIF R ankle, R/O OM COMPARISON: 01/26/2018 TECHNIQUE: Frontal and lateral views obtained. FINDINGS: BONES: Status post ORIF distal tibial fracture. No new fracture identified. Orthopedic hardware appears intact and unchanged in position. There is callus seen posterior to the posterior malleolar fracture fragment. There is also callus seen about the lateral aspect of the distal fibula implying possible healing fibular fracture. No osseous erosion appreciated. JOINT SPACES: Unremarkable. OTHER FINDINGS: None. IMPRESSION: Status post ORIF distal tibial fracture. No plain radiographic evidence of osteomyelitis.
--- NOTE | 2018-02-04 15:59 | RAD ---
Date of service: 02/04/2018 PROCEDURE: Right Ankle Radiographs. HISTORY: Dehesced wound of ORIF R ankle, R/O OM COMPARISON: 01/26/2018 FINDINGS: BONES: Status post ORIF distal tibial fracture. Fixation plate with screws as well as oblique medial malleolar screw are noted. The hardware is intact and unchanged in position. There is callus dorsal to the distal tibial fracture. There is a small amount of callus seen lateral to the distal fibula implying possible healing fracture. No osseous erosion. Bony detail partially obscured by overlying fiberglass splint. JOINTS: Normal. No osteoarthritis. Ankle mortise maintained. Talar dome intact SOFT TISSUES: Normal. OTHER FINDINGS: None. IMPRESSION: ORIF distal tibial fracture. Possible healing distal fibular fracture. No plain radiographic evidence of osteomyelitis.
--- NOTE | 2018-02-04 23:36 | CON ---
DATE: 02/03/2018 HISTORY OF PRESENT ILLNESS: Ms. Hudson is a 53-year-old female who was referred for pulmonary evaluation because of pneumonia. She indicated that she had ORIF of right ankle 5 weeks ago and has been living in a [facility]. She developed cough with some shortness of breath, exercise intolerance, and thick tenacious mucus production over the past several days, was seen in the emergency room and was admitted for pneumonia. PAST MEDICAL HISTORY: She has a past medical history of chronic alcoholism, bronchial asthma, homelessness, and pneumonia in the past. FAMILY HISTORY: Noncontributory. SOCIAL HISTORY: Socially, she continues to drink alcohol heavily. Denies smoking. Her last drink was just 2 days prior to presentation to the hospital. FAMILY HISTORY: Non-revealing. PHYSICAL EXAMINATION: GENERAL: The patient is alert and oriented. SKIN: Shows fair turgor. HEENT: Mouth shows poor hygiene with mucous engorgement of pharynx. Some facial lacerations noted. VITAL SIGNS: Blood pressure of 131/81, pulse of 104, respiratory rate 20. She is afebrile. O2 sat 98% on room air. SKIN: Shows fair turgor except for facial lacerations. LUNGS: Poor aeration bilaterally with coarse bilateral rales. HEART: Regular. BREASTS: Normal. ABDOMEN: Soft, nontender. No organomegaly. EXTREMITIES: Right lower extremity is bandaged. Left lower extremity appears unremarkable. CENTRAL NERVOUS SYSTEM: Grossly intact. LABORATORY DATA: WBC 15.5, hemoglobin 9.7, platelet count 199,000. Sodium 135, potassium 3.8, BUN 16, creatinine 1.1, glucose of 175. Chest x-ray is remarkable for pneumonia right lung. IMPRESSION: Pneumonia right lung, history of bronchial asthma, history of chronic alcoholism, history of right lower extremity surgery. PLAN: Intravenous antibiotics, intravenous fluids; would give anti-anxiety medications, oxygen. We would obtain sputum for Gram stain and cultures, Legionella mycoplasma titer, analgesics for pain and . The patient is advised alcohol abstinence. Further therapy will depend on findings. Cody Curry MD [facility] # [id number]
[2018-02-05] MEDS: Albuterol-Ipratrop 3 mg / 0.5 (3 ml) UD INH SCH ×4 (01:00→19:01)
[2018-02-05 06:49] LABS: HEMOGLOBIN 9.8 g/dL (12.0-16.0); MEAN CELL VOLUME 89.9 fl (81.0-99.0); MEAN CORPUSCULAR HEMOGLOBIN 29.6 pg (27.0-31.0); MEAN CORPUSCULAR HGB CONC 32.9 g/dL (33.0-37.0); RBC 3.3 Mil/uL (3.80-5.20); RED CELL DISTRIBUTION WIDTH 17.4 % (11.5-14.5)
[2018-02-05 07:32] LABS: BLOOD UREA NITROGEN 11 mg/dl (7-17); CALCIUM 9.3 mg/dL (8.4-10.2); GFR NON-AFRICAN AMERICAN > 60
[2018-02-05] MEDS: Pantoprazole 40 mg EC Tab PO SCH (09:36)
[2018-02-05] MEDS: guaiFENesin 600 mg ER Tab PO SCH ×2 (09:36→20:46)
[2018-02-05] MEDS: Enoxaparin 40 mg Syringe SC SCH (09:36)
--- NOTE | 2018-02-05 09:55 | CP.PCM.PN ---
Subjective - Date & Time of Evaluation Date of Evaluation: 02/05/18 Time of Evaluation: 09:50 - Subjective Subjective: Seen at bedside this morning. Denies pain. SOB improved. Had low grade temp overnight. Tolerating PO. C/o family not "taking care of her". Denies itching. No changes in urination or stools. "Wants to be able to walk again" Objective - Vital Signs/Intake and Output Vital Signs (last 24 hours): Temp Pulse Resp BP Pulse Ox 98.8 F 94 H 18 137/85 99 02/05/18 07:51 02/05/18 07:51 02/05/18 07:51 02/05/18 07:51 02/05/18 07:51 - Medications Medications: Current Medications Acetaminophen (Tylenol 325mg Tab) 650 mg PO Q6 PRN PRN Reason: Other Last Admin: 02/05/18 00:40 Dose: 650 mg Acetaminophen (Tylenol 325mg Tab) 650 mg PO Q6 PRN PRN Reason: Fever >100.4 F Albuterol/Ipratropium (Duoneb 3 Mg/0.5 Mg (3 Ml) Ud) 3 ml INH RQ6 JAIDA Last Admin: 02/05/18 08:24 Dose: 3 ml Albuterol/Ipratropium (Duoneb 3 Mg/0.5 Mg (3 Ml) Ud) 3 ml INH Q2 PRN PRN Reason: Shortness of Breath Azithromycin (Zithromax) 500 mg PO DAILY [facility]; Protocol Last Admin: 02/05/18 09:36 Dose: 500 mg Enoxaparin Sodium (Lovenox) 40 mg SC DAILY [facility]; Protocol Last Admin: 02/05/18 09:36 Dose: 40 mg Folic Acid (Folic Acid) 1 mg PO DAILY [facility] Last Admin: 02/05/18 09:36 Dose: 1 mg Guaifenesin (Mucinex La) 600 mg PO Q12 JAIDA Last Admin: 02/05/18 09:36 Dose: 600 mg Ceftriaxone Sodium 1 gm/ (Sodium Chloride) 100 mls @ 100 mls/hr IVPB DAILY [facility]; Protocol Last Admin: 02/05/18 09:37 Dose: 100 mls/hr Ibuprofen (Motrin Tab) 600 mg PO Q6 PRN PRN Reason: Pain, severe (8-10) Last Admin: 02/05/18 05:53 Dose: 600 mg Lorazepam (Ativan) 0.5 mg IVP Q4 PRN PRN Reason: Agitation Last Admin: 02/05/18 04:00 Dose: 0.5 mg Pantoprazole Sodium (Protonix Ec Tab) 40 mg PO DAILY [facility] Last Admin: 02/05/18 09:36 Dose: 40 mg Sodium Hypochlorite (Dakins Solution 0.125%) 1 appl TOP QOTHERDAY [facility] Thiamine HCl (Vitamin B1 Tab) 100 mg PO DAILY [facility] Last Admin: 02/05/18 09:36 Dose: 100 mg - Labs Labs: 02/05/18 06:18 02/05/18 06:18 - Constitutional Appears: Non-toxic, Other (Anxious) - Eye Exam Eye Exam: PERRL - ENT Exam ENT Exam: Mucous Membranes Moist - Respiratory Exam Respiratory Exam: Decreased Breath Sounds, Prolonged Expiratory Phase, NORMAL BREATHING PATTERN. absent: Wheezes, Respiratory Distress - Cardiovascular Exam Cardiovascular Exam: +S1, +S2. absent: Gallop - GI/Abdominal Exam GI & Abdominal Exam: Soft, Normal Bowel Sounds. absent: Tenderness - Extremities Exam Extremities Exam: Normal Capillary Refill. absent: Calf Tenderness, Normal Inspection (Right leg covered with Micky wrap. ) - Neurological Exam Neurological Exam: Alert, Awake, Oriented x3 - Psychiatric Exam Psychiatric exam: Anxious, Depressed - Skin Skin Exam: Pallor, Warm Assessment and Plan - Assessment and Plan (Free Text) Assessment: 53 yo female patient admitted due to sepsis, pneumonia and asthma exacerbation. Patient is homeless and has h/o etoh abuse. Plan: Pneumonia/sepsis - Improving - Low grade fever and tachy overnight - WBC WNL - Continue rocephin and azithromycin daily - pulmonology consult. F/U recs - F/U repeat CXR Asthma, intermittent - C/w Duonebs - Pulmonology consult. F/U recs Alcohol abuse - No signs of withdrawal symptoms - Ativan q4h PRN - C/w Folate and thiamine PO R tibial fracture - S/P ORIF 1 m/a - Cast removed - Dehiscence of Sx wound - Podiatry consult appreciated. F/U recs Normocytic anemia - Possible 2/2 alcohol abuse - Stable HTN - Patient is not currently taking any medications - monitor Prophylaxis - DVT: lovenox - GI protonix
--- NOTE | 2018-02-05 11:09 | CP.PCM.PN ---
Subjective - Date & Time of Evaluation Date of Evaluation: 02/05/18 Time of Evaluation: 11:09 - Subjective Subjective: COUGH IMPROVING SOB LESS NO CHEST PAINS Objective - Vital Signs/Intake and Output Vital Signs (last 24 hours): Temp Pulse Resp BP Pulse Ox 98.8 F 94 H 18 137/85 99 02/05/18 07:51 02/05/18 07:51 02/05/18 07:51 02/05/18 07:51 02/05/18 07:51 - Medications Medications: Current Medications Acetaminophen (Tylenol 325mg Tab) 650 mg PO Q6 PRN PRN Reason: Other Last Admin: 02/05/18 00:40 Dose: 650 mg Acetaminophen (Tylenol 325mg Tab) 650 mg PO Q6 PRN PRN Reason: Fever >100.4 F Albuterol/Ipratropium (Duoneb 3 Mg/0.5 Mg (3 Ml) Ud) 3 ml INH RQ6 JAIDA Last Admin: 02/05/18 08:24 Dose: 3 ml Albuterol/Ipratropium (Duoneb 3 Mg/0.5 Mg (3 Ml) Ud) 3 ml INH Q2 PRN PRN Reason: Shortness of Breath Azithromycin (Zithromax) 500 mg PO DAILY [facility]; Protocol Last Admin: 02/05/18 09:36 Dose: 500 mg Enoxaparin Sodium (Lovenox) 40 mg SC DAILY [facility]; Protocol Last Admin: 02/05/18 09:36 Dose: 40 mg Folic Acid (Folic Acid) 1 mg PO DAILY [facility] Last Admin: 02/05/18 09:36 Dose: 1 mg Guaifenesin (Mucinex La) 600 mg PO Q12 [facility] Last Admin: 02/05/18 09:36 Dose: 600 mg Ceftriaxone Sodium 1 gm/ (Sodium Chloride) 100 mls @ 100 mls/hr IVPB DAILY [facility]; Protocol Last Admin: 02/05/18 09:37 Dose: 100 mls/hr Ibuprofen (Motrin Tab) 600 mg PO Q6 PRN PRN Reason: Pain, severe (8-10) Last Admin: 02/05/18 05:53 Dose: 600 mg Lorazepam (Ativan) 0.5 mg IVP Q4 PRN PRN Reason: Agitation Last Admin: 02/05/18 04:00 Dose: 0.5 mg Pantoprazole Sodium (Protonix Ec Tab) 40 mg PO DAILY [facility] Last Admin: 02/05/18 09:36 Dose: 40 mg Sodium Hypochlorite (Dakins Solution 0.125%) 1 appl TOP QOTHERDAY [facility] Thiamine HCl (Vitamin B1 Tab) 100 mg PO DAILY [facility] Last Admin: 02/05/18 09:36 Dose: 100 mg - Labs Labs: 02/05/18 06:18 02/05/18 06:18 - Constitutional Appears: No Acute Distress - Head Exam Head Exam: ATRAUMATIC, NORMAL INSPECTION, NORMOCEPHALIC - Eye Exam Eye Exam: EOMI, Normal appearance, PERRL Pupil Exam: NORMAL ACCOMODATION, PERRL - ENT Exam ENT Exam: Mucous Membranes Moist, Normal Exam - Neck Exam Neck Exam: Full ROM, Normal Inspection. absent: Lymphadenopathy - Respiratory Exam Respiratory Exam: Decreased Breath Sounds, Prolonged Expiratory Phase, Rales, NORMAL BREATHING PATTERN - Cardiovascular Exam Cardiovascular Exam: REGULAR RHYTHM, +S1, +S2. absent: Murmur - GI/Abdominal Exam GI & Abdominal Exam: Soft, Normal Bowel Sounds. absent: Tenderness - Rectal Exam Rectal Exam: NORMAL INSPECTION - Extremities Exam Extremities Exam: Full ROM, Normal Capillary Refill, Tenderness. absent: Joint Swelling, Pedal Edema Additional comments: R LEG IN SURGICAL DRESSING - Back Exam Back Exam: NORMAL INSPECTION - Neurological Exam Neurological Exam: Alert, Awake, CN II-XII Intact, Normal Gait, Oriented x3 - Psychiatric Exam Psychiatric exam: Normal Affect, Normal Mood - Skin Skin Exam: Dry, Intact, Normal Color, Warm Assessment and Plan - Assessment and Plan (Free Text) Assessment: PNEUMONIA CHRONIC ALCOHOLISM ASTHMA EXAC Plan: CONTINUE CURRENT THERAPY REPEAT CXR
[2018-02-05] MEDS: Albuterol-Ipratrop 3 mg / 0.5 (3 ml) UD INH PRN (21:50)
[2018-02-06] MEDS: Albuterol-Ipratrop 3 mg / 0.5 (3 ml) UD INH SCH ×2 (01:01→07:58)
[2018-02-06] MEDS: Albuterol-Ipratrop 3 mg / 0.5 (3 ml) UD INH PRN (05:33)
[2018-02-06 06:35] LABS: HEMOGLOBIN 9.7 g/dL (12.0-16.0); MEAN CELL VOLUME 90.3 fl (81.0-99.0); MEAN CORPUSCULAR HEMOGLOBIN 29.3 pg (27.0-31.0); MEAN CORPUSCULAR HGB CONC 32.5 g/dL (33.0-37.0); RBC 3.31 Mil/uL (3.80-5.20); RED CELL DISTRIBUTION WIDTH 17.3 % (11.5-14.5); WHITE BLOOD COUNT 6.5 K/uL (4.8-10.8)
[2018-02-06 06:46] LABS: BLOOD UREA NITROGEN 17 mg/dl (7-17); CALCIUM 9.3 mg/dL (8.4-10.2); GFR NON-AFRICAN AMERICAN > 60
[2018-02-06] MEDS: Pantoprazole 40 mg EC Tab PO SCH (09:06)
[2018-02-06] MEDS: Enoxaparin 40 mg Syringe SC SCH (09:06)
[2018-02-06] MEDS: guaiFENesin 600 mg ER Tab PO SCH (09:06)
--- NOTE | 2018-02-06 10:43 | CP.PCM.PN ---
Subjective - Date & Time of Evaluation Date of Evaluation: 02/06/18 Time of Evaluation: 10:45 - Subjective Subjective: DENIES CHEST PAIONS/SOB C/O COUGH FIXATED ON NEED FOR FURTHER LEG SURGERY Objective - Vital Signs/Intake and Output Vital Signs (last 24 hours): Temp Pulse Resp BP Pulse Ox 98.0 F 112 H 18 112/71 97 02/06/18 08:00 02/06/18 09:00 02/06/18 08:00 02/06/18 08:00 02/06/18 08:00 - Medications Medications: Current Medications Acetaminophen (Tylenol 325mg Tab) 650 mg PO Q6 PRN PRN Reason: Other Last Admin: 02/05/18 20:46 Dose: 650 mg Acetaminophen (Tylenol 325mg Tab) 650 mg PO Q6 PRN PRN Reason: Fever >100.4 F Albuterol/Ipratropium (Duoneb 3 Mg/0.5 Mg (3 Ml) Ud) 3 ml INH RQ6 JAIDA Last Admin: 02/06/18 07:58 Dose: 3 ml Albuterol/Ipratropium (Duoneb 3 Mg/0.5 Mg (3 Ml) Ud) 3 ml INH Q2 PRN PRN Reason: Shortness of Breath Last Admin: 02/06/18 05:33 Dose: 3 ml Azithromycin (Zithromax) 500 mg PO DAILY JAIDA; Protocol Last Admin: 02/06/18 09:07 Dose: 500 mg Benzonatate (Tessalon Perles) 100 mg PO Q8 PRN PRN Reason: Cough Enoxaparin Sodium (Lovenox) 40 mg SC DAILY JAIDA; Protocol Last Admin: 02/06/18 09:06 Dose: 40 mg Folic Acid (Folic Acid) 1 mg PO DAILY JAIDA Last Admin: 02/06/18 09:06 Dose: 1 mg Guaifenesin (Mucinex La) 600 mg PO Q12 JAIDA Last Admin: 02/06/18 09:06 Dose: 600 mg Ceftriaxone Sodium 1 gm/ (Sodium Chloride) 100 mls @ 100 mls/hr IVPB DAILY JAIDA; Protocol Last Admin: 02/06/18 09:05 Dose: 100 mls/hr Ibuprofen (Motrin Tab) 600 mg PO Q6 PRN PRN Reason: Pain, severe (8-10) Last Admin: 02/05/18 05:53 Dose: 600 mg Lorazepam (Ativan) 0.5 mg IVP Q4 PRN PRN Reason: Agitation Last Admin: 02/06/18 09:13 Dose: 0.5 mg Pantoprazole Sodium (Protonix Ec Tab) 40 mg PO DAILY [facility] Last Admin: 02/06/18 09:06 Dose: 40 mg Sodium Hypochlorite (Dakins Solution 0.125%) 1 appl TOP QOTHERDAY [facility] Thiamine HCl (Vitamin B1 Tab) 100 mg PO DAILY [facility] Last Admin: 02/06/18 09:06 Dose: 100 mg - Labs Labs: 02/06/18 06:02 02/06/18 06:02 - Constitutional Appears: No Acute Distress - Head Exam Head Exam: ATRAUMATIC, NORMAL INSPECTION, NORMOCEPHALIC - Eye Exam Eye Exam: EOMI, Normal appearance, PERRL Pupil Exam: NORMAL ACCOMODATION, PERRL - ENT Exam ENT Exam: Mucous Membranes Moist, Normal Exam - Neck Exam Neck Exam: Full ROM, Normal Inspection. absent: Lymphadenopathy - Respiratory Exam Respiratory Exam: Prolonged Expiratory Phase, Rales, NORMAL BREATHING PATTERN - Cardiovascular Exam Cardiovascular Exam: REGULAR RHYTHM, +S1, +S2. absent: Murmur - GI/Abdominal Exam GI & Abdominal Exam: Soft, Normal Bowel Sounds. absent: Tenderness - Rectal Exam Rectal Exam: NORMAL INSPECTION - Extremities Exam Extremities Exam: Full ROM, Normal Capillary Refill. absent: Joint Swelling, Pedal Edema Additional comments: LEG IN SURGICAL CAST - Back Exam Back Exam: NORMAL INSPECTION - Neurological Exam Neurological Exam: Alert, Awake, CN II-XII Intact, Normal Gait, Oriented x3 - Psychiatric Exam Psychiatric exam: Normal Affect, Normal Mood - Skin Skin Exam: Dry, Intact, Normal Color, Warm Assessment and Plan - Assessment and Plan (Free Text) Assessment: PNEUMONIA-CLINICALLY IMPROVING--CXR MAY LAG FOR WEEKS DESPITE CLINICAL IMPROVEMENT OF PNEUMONIA CHRONIC ALCOHOLISM S/P PODIATRY SURGERY Plan: CONTINUE CURRENT RX IF DISCHARGE IS PLANNED,WILL NEED TO CONTINUE ORAL ANTIBIOTIC RX AND OBTAIN SEIAL CXRS UNTIL PNEUMONIA COMPLETELY RESOLVE.
--- NOTE | 2018-02-06 12:22 | CP.PCM.DIS ---
Provider - Provider Date of Admission: 02/03/18 19:36 Attending physician: Fredis Lakhani Consults: 02/03/18 21:03 Pulmonology Consult Stat Comment: Consulting Provider: Cody Curry I Consulting Physician: Cody Curry I Reason for Consult: R lobe pneumonia 02/04/18 10:02 Podiatry Consult Routine Comment: Consulting Provider: Nohemy Ryan Consulting Physician: Nohemy Ryan Reason for Consult: s/p tibial ORIF Time Spent in preparation of Discharge (in minutes): 40 Diagnosis - Discharge Diagnosis (1) Pneumonia Status: Acute Comment: Stable. to c/w PO abx home (2) Leg wound, right Status: Chronic Comment: Vacum placed by podiatry. will f/u with Dr Ryan as outpatient on WednesdayFeb 14 (3) Fracture, ankle Status: Chronic Comment: Stable. No OM as per Xrays (4) Asthma Status: Chronic Comment: Intermittent. (5) Alcohol abuse Status: Chronic Comment: No signs of withdrawal Hospital Course - Lab Results Lab Results: Micro Results 02/03/18 15:45 Blood Blood Culture - Preliminary NO GROWTH AFTER 48 HOURS 02/04/18 17:02 Sputum Induced Gram Stain - Final 02/04/18 17:02 Sputum Induced Sputum Culture - Preliminary NORMAL ORAL MARY 02/04/18 17:02 Ankle - Right Gram Stain - Final 02/04/18 17:02 Ankle - Right Wound Culture - Preliminary NO GROWTH AFTER 24 HOURS Most Recent Lab Values WBC 6.5 K/uL (4.8-10.8) 02/06/18 06:02 RBC 3.31 Mil/uL (3.80-5.20) L 02/06/18 06:02 Hgb 9.7 g/dL (12.0-16.0) L 02/06/18 06:02 Hct 29.9 % (34.0-47.0) L 02/06/18 06:02 MCV 90.3 fl (81.0-99.0) 02/06/18 06:02 MCH 29.3 pg (27.0-31.0) 02/06/18 06:02 MCHC 32.5 g/dL (33.0-37.0) L 02/06/18 06:02 RDW 17.3 % (11.5-14.5) H 02/06/18 06:02 Plt Count 291 K/uL (130-400) 02/06/18 06:02 MPV 7.4 fl (7.2-11.7) 02/04/18 04:15 Neut % (Auto) 79.4 % (50.0-75.0) H 02/04/18 04:15 Lymph % (Auto) 15.1 % (20.0-40.0) L 02/04/18 04:15 Clark % (Auto) 4.9 % (0.0-10.0) 02/04/18 04:15 Eos % (Auto) 0.2 % (0.0-4.0) 02/04/18 04:15 Baso % (Auto) 0.4 % (0.0-2.0) 02/04/18 04:15 Neut # (Auto) 7.7 K/uL (1.8-7.0) H 02/04/18 04:15 Lymph # (Auto) 1.5 K/uL (1.0-4.3) 02/04/18 04:15 Clark # (Auto) 0.5 K/uL (0.0-0.8) 02/04/18 04:15 Eos # (Auto) 0.0 K/uL (0.0-0.7) 02/04/18 04:15 Baso # (Auto) 0.0 K/uL (0.0-0.2) 02/04/18 04:15 Neutrophils % (Manual) 95 % (42-75) H 02/03/18 18:45 Band Neutrophils % 2 % (0-2) 02/03/18 18:45 Lymphocytes % (Manual) 2 % (20-50) L 02/03/18 18:45 Monocytes % (Manual) 1 % (0-10) 02/03/18 18:45 Platelet Estimate Normal (NORMAL) 02/03/18 18:45 Anisocytosis (manual) Slight 02/03/18 18:45 Ovalocytes Slight 02/03/18 18:45 Stomatocytes Slight 02/03/18 18:45 pO2 71 mm/Hg (30-55) H 02/03/18 20:26 VBG pH 7.46 (7.32-7.43) H 02/03/18 20:26 VBG pCO2 36 mmHg (40-60) L 02/03/18 20: VBG HCO3 26.4 mmol/L 02/03/18 20: VBG Total CO2 26.7 mmol/L (22-28) 02/03/18 20: VBG O2 Sat (Calc) 96.8 % (40-65) H 02/03/18 20: VBG Base Excess 2.0 mmol/L (0.0-2.0) 02/03/18 20: VBG Potassium 3.7 mmol/L (3.6-5.2) 02/03/18 20: Sodium 129.0 mmol/L (132-148) L 02/03/18: Chloride 99.0 mmol/L (98-107) 02/03/18 20: Glucose 141 mg/dL (65-105) H 02/03/18 20: Lactate 1.1 mmol/L (0.7-2.1) 02/03/18: FiO2 21.0 % 02/03/18: Sodium 132 mmol/l (132-148) 02/06/18 06:02 Potassium 4.0 MMOL/L (3.6-5.0) 02/06/18 06:02 Chloride 96 mmol/L (98-107) L 02/06/18 06:02 Carbon Dioxide 28 mmol/L (22-30) 02/06/18 06:02 Anion Gap 12 (10-20) 02/06/18 06:02 BUN 17 mg/dl (7-17) 02/06/18 06:02 Creatinine 0.7 mg/dl (0.7-1.2) 02/06/18 06:02 Est GFR ( Amer) > 60 02/06/18 06:02 Est GFR (Non-Af Amer) > 60 02/06/18 06:02 Random Glucose 117 mg/dL (65-105) H 02/06/18 06:02 Calcium 9.3 mg/dL (8.4-10.2) 02/06/18 06:02 Magnesium 1.6 MG/DL (1.6-2.3) 02/04/18 04:15 Total Bilirubin 0.9 mg/dl (0.2-1.3) 02/04/18 04:15 AST 38 U/L (14-36) H 02/04/18 04:15 ALT 21 U/L (9-52) 02/04/18 04:15 Alkaline Phosphatase 104 U/L (38-126) 02/04/18 04:15 Total Protein 7.1 G/DL (6.3-8.2) 02/04/18 04:15 Albumin 3.4 g/dL (3.5-5.0) L 02/04/18 04:15 Globulin 3.6 gm/dL (2.2-3.9) 02/04/18 04:15 Albumin/Globulin Ratio 0.9 (1.0-2.1) L 02/04/18 04:15 Venous Blood Potassium 3.7 mmol/L (3.6-5.2) 02/03/18 20:26 Urine Opiates Screen Negative (NEGATIVE) 02/03/18 21:10 Urine Methadone Screen Negative (NEGATIVE) 02/03/18 21:10 Ur Barbiturates Screen Negative (NEGATIVE) 02/03/18 21:10 Ur Phencyclidine Scrn Negative (NEGATIVE) 02/03/18 21:10 Ur Amphetamines Screen Negative (NEGATIVE) 02/03/18 21:10 U Benzodiazepines Scrn Negative (NEGATIVE) 02/03/18 21:10 U Oth Cocaine Metabols Negative (NEGATIVE) 02/03/18 21:10 U Cannabinoids Screen Negative (NEGATIVE) 02/03/18 21:10 Alcohol, Quantitative < 10 mg/dl (0-10) 02/03/18 21:10 Influenza Typ A,B (EIA) Negative for flu a/b (NEGATIVE) 02/03/18 18:45 Ur L.pneumophila Ag Negative (NEGATIVE) 02/04/18 17:00 - Hospital Course Hospital Course: 53 y/o with hx of etoh abuse and intermittent asthma, homeless, was admitted to hosp due to right lower lobe pneumonia. Patient had been recently placed on abx which she didnt fill for as outpatient. Started during admission with IV abx and Pulmonology evaluated patient. Patient was also evaluated for right leg wound s/p ORIF/ankle Fx. Podiatry team followed her during her inpatient stay with wound cares. Patient markedly improved clinically and remained afebrile, no WBC, tolerating PO for more than 24 hours. Patient didnt show any signs with ETOH withdrawal during her stay. CXR today showed stable pneumonia. Since patient is clinically improved, afebrile, no white count she is cleared today by Pulmonology and POdiatry to c/w PO abx as outpatient as well as close f/u with Podaitry team. Wound vacum provided to patient and placed by Pod resident before DC. Discharge Exam - Head Exam Head Exam: ATRAUMATIC, NORMAL INSPECTION, NORMOCEPHALIC - Eye Exam Eye Exam: EOMI, PERRL - ENT Exam ENT Exam: Mucous Membranes Moist - Respiratory Exam Respiratory Exam: Decreased Breath Sounds, NORMAL BREATHING PATTERN. absent: Rhonchi, Wheezes, Respiratory Distress - Cardiovascular Exam Cardiovascular Exam: REGULAR RHYTHM, +S1, +S2. absent: Gallop - GI/Abdominal Exam GI & Abdominal Exam: Normal Bowel Sounds, Unremarkable. absent: Distended - Neurological Exam Neurological exam: Alert, Oriented x3 - Skin Skin Exam: Warm Discharge Plan - Discharge Medications Prescriptions: RX: Albuterol HFA [Ventolin HFA 90 mcg/actuation (8 g)] 1 puff IH Q6H PRN #1 inhaler PRN Reason: Shortness Of Breath Amoxicillin/Clavulanate [Augmentin 875 MG-125 MG] 1 tab PO Q12H #20 tab Cefdinir [Omnicef] 300 mg PO Q12H #20 cap - Follow Up Plan Condition: STABLE Disposition: HOME/ ROUTINE Patient education suggested?: Yes Additional Instructions: F/U with Dr Ryan on her office next WednesdayFeb 14 F/U foot doctor recommendations Keep leg dry no Wt bearing as per Podiatry use crutches all the time Continue PO antibiotics as prescribed for 10 days Return to hospital if fever, worsening SOB or any other concerns Referrals: Nohemy Ryan DPM [Staff Provider] - [facility] [Outside]
[2018-02-06] MEDS ORDERED: Influenza Vaccine (5 YR UP)/PF 60 MCG/0.5 ML SYR IM ONE (12:39)
[2018-02-06] MEDS ORDERED: Pneumococcal 23-Valent Vaccine IM ONE (12:39)
--- NOTE | 2018-02-06 12:39 | CP.PCM.PN ---
Subjective - Date & Time of Evaluation Date of Evaluation: 02/06/18 Time of Evaluation: 12:34 - Subjective Subjective: Podiatry progress note for Dr. Ryan 52F seen and evaluated in bedside 5 weeks s/p ORIF R ankle. Resting comfortably. Patient denies any pain at the surgery site. Denies any further pedal complaints at this time. Denies any recent N/V/F/C/CP/SOB/D. Reports cough. Objective - Vital Signs/Intake and Output Vital Signs (last 24 hours): Temp Pulse Resp BP Pulse Ox 98.0 F 112 H 18 112/71 97 02/06/18 08:00 02/06/18 09:00 02/06/18 08:00 02/06/18 08:00 02/06/18 08:00 - Medications Medications: Current Medications Acetaminophen (Tylenol 325mg Tab) 650 mg PO Q6 PRN PRN Reason: Other Last Admin: 02/05/18 20:46 Dose: 650 mg Acetaminophen (Tylenol 325mg Tab) 650 mg PO Q6 PRN PRN Reason: Fever >100.4 F Albuterol/Ipratropium (Duoneb 3 Mg/0.5 Mg (3 Ml) Ud) 3 ml INH RQ6 JAIDA Last Admin: 02/06/18 07:58 Dose: 3 ml Albuterol/Ipratropium (Duoneb 3 Mg/0.5 Mg (3 Ml) Ud) 3 ml INH Q2 PRN PRN Reason: Shortness of Breath Last Admin: 02/06/18 05:33 Dose: 3 ml Azithromycin (Zithromax) 500 mg PO DAILY JAIDA; Protocol Last Admin: 02/06/18 09:07 Dose: 500 mg Benzonatate (Tessalon Perles) 100 mg PO Q8 PRN PRN Reason: Cough Enoxaparin Sodium (Lovenox) 40 mg SC DAILY JAIDA; Protocol Last Admin: 02/06/18 09:06 Dose: 40 mg Folic Acid (Folic Acid) 1 mg PO DAILY JAIDA Last Admin: 02/06/18 09:06 Dose: 1 mg Guaifenesin (Mucinex La) 600 mg PO Q12 JAIDA Last Admin: 02/06/18 09:06 Dose: 600 mg Ceftriaxone Sodium 1 gm/ (Sodium Chloride) 100 mls @ 100 mls/hr IVPB DAILY JAIDA; Protocol Last Admin: 02/06/18 09:05 Dose: 100 mls/hr Ibuprofen (Motrin Tab) 600 mg PO Q6 PRN PRN Reason: Pain, severe (8-10) Last Admin: 02/05/18 05:53 Dose: 600 mg Lorazepam (Ativan) 0.5 mg IVP Q4 PRN PRN Reason: Agitation Last Admin: 02/06/18 09:13 Dose: 0.5 mg Pantoprazole Sodium (Protonix Ec Tab) 40 mg PO DAILY [facility] Last Admin: 02/06/18 09:06 Dose: 40 mg Sodium Hypochlorite (Dakins Solution 0.125%) 1 appl TOP QOTHERDAY [facility] Last Admin: 02/06/18 12:01 Dose: Not Given Thiamine HCl (Vitamin B1 Tab) 100 mg PO DAILY [facility] Last Admin: 02/06/18 09:06 Dose: 100 mg - Labs Labs: 02/06/18 06:02 02/06/18 06:02 - Constitutional Appears: Non-toxic, No Acute Distress - Head Exam Head Exam: ATRAUMATIC, NORMOCEPHALIC - Extremities Exam Additional comments: RLE focused Vasc: DP/PT pulses are 2/4. Cap refill < 3 sec to all digits. Temp gradient warm to cool. Periwound erythema and moderate non pitting edema noted. Neuro: Epicritic and protective sensation grossly diminished to right LE Derm: Anterior ankle surgical site looks dehesced, Open with black yellow necrotic tissue, after debridement (an open ulcer about [id number] with fibrous, necrotic and granular base 50:20:30). positive malodor. Positive drainage of pus. No tracking or probing to bone noted. Other surgical wound looks well coapted and sutures intact and uin place with no signs of dehiscence. MSK: No pain on palpating the surgical sites, Muscle power couldn't be assessed due to the open wound. - Neurological Exam Neurological Exam: Alert, Awake, Oriented x3 - Psychiatric Exam Psychiatric exam: Normal Affect, Normal Mood Assessment and Plan - Assessment and Plan (Free Text) Assessment: 52F 5 weeks s/p ORIF R ankle with wound dehiscence Plan: Patient seen and evaluated Plan discussed with Dr. Ryan Afebrile, absent leukocytosis Continue IV Abx as per ID X-ray - no osteomyelitis appreciated Wound cleansed with sterile saline KENNETH wound VAC applied to wound base and dressed; posterior splint reapplied Patient instructed to maintain the posterior splint C/D/I. Patient might be taken later next week after being cleared from pneumonia to the OR for debridement Patient instructed to stay NWB and to use crutches with ambulation. Patient expressed verbal understanding. Stable for discharge from podiatry standpoint, will follow up with Dr. Ryan at [facility]
[2018-02-06 12:46] VITALS: BP 102/60; PULSE 99; RESP 20; TEMP 98.8; O2SAT 96
--- NOTE | 2018-02-06 12:57 | RAD ---
Date of service: 02/06/2018 HISTORY: PNEUMONIA COMPARISON: Comparison made with chest radiograph 02/03/2018 FINDINGS: LUNGS: There is persistent patchy infiltrate seen in the right mid to lower lung field. Questionable small right-sided effusion PLEURA: As above. No pneumothorax apparent. CARDIOVASCULAR: Mild aortic atherosclerotic calcification present. Normal cardiac size. No pulmonary vascular congestion. OSSEOUS STRUCTURES: No significant abnormalities. VISUALIZED UPPER ABDOMEN: Normal. OTHER FINDINGS: None. IMPRESSION: Persistent patchy infiltrate right mid to lower lung field. Questionable small right-sided effusion
== END 2018-02-06 13:21 | disposition home or self-care (01) | DRG 720 ==
LOC: H.ER 12:12 → H.ERHOLD 19:36 → H.TEL 02-04 00:29
PROVIDERS: ADMIT Internal Medicine; ATTEND Internal Medicine
PROC: 0HDKXZZ Extraction of Right Lower Leg Skin, External Approach (ICD-10-PCS; principal; 2018-02-04)
DX: A41.9 Sepsis, unspecified organism (principal); J18.1 Lobar pneumonia, unspecified organism; T81.31XA Disruption of external operation (surgical) wound, not elsewhere classified, initial encounter; J44.0 Chronic obstructive pulmonary disease with (acute) lower respiratory infection; J45.21 Mild intermittent asthma with (acute) exacerbation; T81.49XA Infection following a procedure, other surgical site, initial encounter; S82.391D Other fracture of lower end of right tibia, subsequent encounter for closed fracture with routine healing; B95.7 Other staphylococcus as the cause of diseases classified elsewhere; F10.20 Alcohol dependence, uncomplicated; F20.9 Schizophrenia, unspecified; D64.9 Anemia, unspecified; I10 Essential (primary) hypertension; Y83.8 Other surgical procedures as the cause of abnormal reaction of the patient, or of later complication, without mention of misadventure at the time of the procedure; Z91.19 Patient's noncompliance with other medical treatment and regimen; F41.9 Anxiety disorder, unspecified; Z86.73 Personal history of transient ischemic attack (TIA), and cerebral infarction without residual deficits; Z87.01 Personal history of pneumonia (recurrent); Z59.0 Homelessness; Z91.013 Allergy to seafood; Y92.9 Unspecified place or not applicable

== ENCOUNTER 2018-02-24 08:28 | Emergency (ER) | payer SELFPAY ==
[2018-02-24 08:29] VITALS: BMI 25.0
[2018-02-24 08:36] VITALS: BP 120/59; PULSE 88; TEMP 98
[2018-02-24] MEDS ORDERED: Povidone Iodine Topical 10% Sol ONE (10:00)
--- NOTE | 2018-02-24 10:08 | ED PDOC ---
Lower Extremity Pain/Injury Time Seen by Provider: 02/24/18 09:12 Chief Complaint (Nursing): Lower Extremity Problem/Injury Chief Complaint (Provider): Lower Extremity Problem/Injury History Per: Patient History/Exam Limitations: no limitations Onset/Duration Of Symptoms: Days Current Symptoms Are (Timing): Still Present Additional Complaint(s): 53 year old female with a past medical history of asthma, COPD, gastritis, hypertension, schizophrenia, anxiety, seizures, and depression who is presenting to the ED complaining of foot pain bilaterally. Patient states that in December she had surgery for her right ankle at [facility] and now her left foot hurts as well. Of note, upon arrival to the ED patient grabbed something in the ED, wrapped it around her neck, and states that she wanted to kill herself. She was also in the hospital for pneumonia in January. Patient offers no other medical complaints at this time. PMD: none provided Past Medical History Reviewed: Historical Data, Nursing Documentation, Vital Signs Vital Signs: Last Vital Signs Temp 98 F 02/24/18 08:33 Pulse 88 02/24/18 08:36 Resp 20 02/24/18 08:36 BP 120/59 L 02/24/18 08:36 Pulse Ox 97 02/24/18 08:36 - Medical History PMH: Anemia, Anxiety, Asthma, COPD, Depression, Fractures (right ankle), Gastritis, HTN, Paranoia, Pneumonia, Schizophrenia, Seizures, TIA Denies: Diabetes, Hepatitis, HIV, Chronic Kidney Disease, Sexually Tra nsmitted Disease - Surgical History Other surgeries: right leg surgery - Family History Family History: States: Unknown Family Hx - Social History Current smoker - smoking cessation education provided: No Alcohol: > 2 Drinks/Day Drugs: Denies - Immunization History Hx Tetanus Toxoid Vaccination: Yes Hx Influenza Vaccination: No Hx Pneumococcal Vaccination: No - Home Medications Home Medications: Ambulatory Orders Medication Instructions Recorded Iron PO DAILY 02/16/18 - Allergies Allergies/Adverse Reactions: Allergies Allergy/AdvReac Type Severity Reaction Status Date / Time shellfish derived Allergy Severe SWELLING Verified 02/24/18 08:33 Wells Criteria for PE - Wells Criteria for Pulmonary Embolism Clinical Signs and Symptoms of DVT: No P.E is #1 Diagnosis, or Equally Likely: No Heart Rate >100: No Immobilization at least 3 days;Surgery previous 4 weeks: No Previous, objectively diagnosed PE or DVT: No Hemoptysis: No Malignancy w/treatment within 6 months, or palliative: No Total Score: 0 Review of Systems ROS Statement: Except As Marked, All Systems Reviewed And Found Negative Musculoskeletal: Positive for: Leg Pain, Foot Pain Psych: Positive for: Suicidal ideation - ECG O2 Sat by Pulse Oximetry: 97 (RA) Pulse Ox Interpretation: Normal Medical Decision Making Medical Decision Making: Time: 9:40 Plan: foot pain, history of prior surgery on R foot --Acetaminophen --Alcohol Serum --CMP --Urine Drug Screen --Salicylate --CBC --1:1 Observation --Urinalysis 9:49 Podiatry made aware of patient. they came down to assess the leg soft cast and place new one. Patient referred to psych. 10:53 Patient was seen by crisis. Diagnosis: depression under Dr. Kumar. patient will be discharged home. She will follow up with Dr. Ryan on Wednesday. Scribe Attestation: Documented by Karen Ray, acting as a scribe for Esperanza Villaseñor MD. Provider Scribe Attestation: All medical record entries made by the Scribe were at my direction and personally dictated by me. I have reviewed the chart and agree that the record accurately reflects my personal performance of the history, physical exam, medical decision making, and the department course for this patient. I have also personally directed, reviewed, and agree with the discharge instructions and disposition. Disposition - Clinical Impression Clinical Impression: Ankle pain, Depression - Patient ED Disposition Is Patient to be Admitted: No Counseled Patient/Family Regarding: Studies Performed, Diagnosis, Need For Followup - Disposition Disposition: Routine/Home Disposition Time: 12:15 Condition: IMPROVED Additional Instructions: follow up with the podiatry clinic on Wednesday at [facility] and with outpatient psychiatric services as instructed return to the ED with any worsening or concerning symptoms Instructions: Ankle Sprain (DC), Depression, Adult (DC) Forms: [employer] ([place])
--- NOTE | 2018-02-24 10:18 | CP.PCM.CON ---
History of Present Illness - History of Present Illness History of Present Illness: Podiatry Consult Note for Dr. Ryan 53F with PMHx of alcohol abuse, HTN, pneumonia, heart murmur, asthma, eczema, anxiety and depression known to Dr. Ryan seen and evaluated in ED 6 weeks s/p ORIF of right pilon fracture and 6 weeks s/p application of delta frame. Pt states she is having a lot of pain to the right ankle as well as the left great toe. States she has not followed medical advice and has been walking on the right ankle since the surgery. Says dressings often get wet and she is not always able to follow up with us. States she was found by a bus stop and taken to [facility] where they changed her foot dressing yesterday. Denies N/V/F/C/SOB PSH: D&C, application of delta frame R ankle, ORIF R ankle All: shellfish SocHx: Drinks 1/2-1 bottle vodka per day; denies cigarette or illicit drug use Past Patient History - Infectious Disease Hx of Infectious Diseases: None - Tetanus Immunizations Tetanus Immunization: Unknown - Past Medical History & Family History Past Medical History?: Yes - Past Social History Alcohol: > 2 Drinks/Day Drugs: Denies - CARDIAC Hx Hypertension: Yes - PULMONARY Hx Asthma: Yes Hx Chronic Obstructive Pulmonary Disease (COPD): Yes Hx Pneumonia: Yes - NEUROLOGICAL Hx Seizures: Yes Hx Transient Ischemic Attacks (TIA): Yes - HEENT Hx HEENT Problems: Yes Other/Comment: Eye glasses - RENAL Hx Chronic Kidney Disease: No - ENDOCRINE/METABOLIC Hx Endocrine Disorders: No - HEMATOLOGICAL/ONCOLOGICAL Hx Anemia: Yes Hx Human Immunodeficiency Virus (HIV): No - INTEGUMENTARY Hx Dermatological Problems: Yes Hx Eczema: Yes Hx Psoriasis: Yes Other/Comment: Scabies - MUSCULOSKELETAL/RHEUMATOLOGICAL Hx Fractures: Yes (right ankle) - GASTROINTESTINAL Hx Gastritis: Yes - GENITOURINARY/GYNECOLOGICAL Hx Sexually Transmitted Disorders: No - PSYCHIATRIC Hx Anxiety: Yes Hx Depression: Yes Hx Paranoia: Yes Hx Schizophrenia: Yes - SURGICAL HISTORY Hx Surgeries: Yes Hx Dilation and Curettage: Yes Other/Comment: rt leg s/p fx - ANESTHESIA Hx Anesthesia: Yes Hx Anesthesia Reactions: No Hx Malignant Hyperthermia: No Meds Allergies/Adverse Reactions: Allergies Allergy/AdvReac Type Severity Reaction Status Date / Time shellfish derived Allergy Severe SWELLING Verified 02/24/18 08:33 Physical Exam - Constitutional Appears: Non-toxic - Head Exam Head Exam: ATRAUMATIC - Extremities Exam Additional comments: LE focused Vasc: DP/PT pulses palpable 2/4 bilaterally. Temperature gradient is warm to warm on right, warm to cool on left. Diffuse edema noted to entirety of right lo wer leg and ankle as well as left 1st MPJ and left great toe. Capillary refill time < 3 sec to all digits Derm: Open wound noted to anterolateral lower right leg measuring approximately 12cm x 10cm x 0.3cm with 70:30 granular:fibrotic wound base and biofilm formation noted. Mild serosanguinous drainage noted. Mild malodor present. No fluctuance, no evidence of abscess formation. Neuro: protective and gross sensation intact to lower extremities Ortho: mild-moderate tenderness elicited upon palpation of left great toe. Minimal tenderness to palpation of right lower leg wound - Neurological Exam Neurological exam: Alert - Psychiatric Exam Psychiatric exam: Normal Affect, Normal Mood Results - Vital Signs Recent Vital Signs: Last Vital Signs Temp 98 F 02/24/18 08:33 Pulse 88 02/24/18 08:36 Resp 20 02/24/18 08:36 BP 120/59 L 02/24/18 08:36 Pulse Ox 97 02/24/18 10:11 Assessment & Plan - Assessment and Plan (Free Text) Assessment: 53F with 1) 6 weeks s/p right ankle open reduction with internal fixation with open post-surgical wound to right lower leg and 2) left great toe pain secondary to metatarsophalangeal joint dislocation Plan: Pt seen and evaluated in ED Discussed plan with attending Dr. Ryan Left foot x-rays taken (02/16) - 1st metatarsophalangeal joint in adequate position; no new fractures Right leg wound cleaned with saline and betadine and dressed with xeroform, DSD; new posterior splint applied to RLE Webril and LYN bandage applied to LLE Pt advised to remain NWB to the right lower extremity and utilize crutches at all times Pt advised to follow up in [facility] pod[facility]ry clinic on Mondays from 12- 3pm Thank you for this consult - Date & Time Date: 02/24/18 Time: 10:21
[2018-02-24 12:19] VITALS: RESP 18
[2018-03-02 02:15] VITALS: O2SAT 97
== END 2018-02-24 12:19 | disposition home or self-care (01) ==
LOC: H.ER 08:28
DX: M25.572 Pain in left ankle and joints of left foot (principal); M25.571 Pain in right ankle and joints of right foot; F32.9 Major depressive disorder, single episode, unspecified; Z86.59 Personal history of other mental and behavioral disorders; I10 Essential (primary) hypertension; J44.9 Chronic obstructive pulmonary disease, unspecified; R56.9 Unspecified convulsions; Z86.73 Personal history of transient ischemic attack (TIA), and cerebral infarction without residual deficits

== ENCOUNTER 2018-03-03 23:47 | Emergency (ER) | payer SELFPAY ==
[2018-03-03 23:47] VITALS: BMI 25.0
--- NOTE | 2018-03-04 01:12 | CP.PCM.CON ---
History of Present Illness - History of Present Illness History of Present Illness: Podiatry - Dr. Ryan 53F PMHx ETOH abuse, HTN, pneumonia, heart murmur, asthma, eczema, anxiety, and depression seen and evaluated in ED 8 weeks s/p R pilon fracture ORIF. Patient states she missed her last [facility] podiatry clinic appointment so came to [facility] ED for a cast change. Patient denies any pain to her right ankle however reports overall RLE weakness. Patient states she has been noncompliant with strict NWB RLE orders. Patient states her left great toe joint s/p dislocation has been healing well and offers no new complaints. Denies n/v/f/d/c/sob/zaragoza/cp. PMHx: ETOH abuse, HTN, pneumonia, heart murmur, asthma, eczema, anxiety, and depression PSH: D&C, application of delta frame R ankle, ORIF R ankle All: shellfish SocHx: Drinks 1/2-1 bottle vodka per day; denies cigarette or illicit drug use Review of Systems - Review of Systems All systems: reviewed and no additional remarkable complaints except (as per HPI) Past Patient History - Infectious Disease Hx of Infectious Diseases: None - Tetanus Immunizations Tetanus Immunization: Unknown - Past Medical History & Family History Past Medical History?: Yes - Past Social History Smoking Status: Never Smoked - CARDIAC Hx Hypertension: Yes - PULMONARY Hx Asthma: Yes Hx Chronic Obstructive Pulmonary Disease (COPD): Yes Hx Pneumonia: Yes - NEUROLOGICAL Hx Seizures: Yes Hx Transient Ischemic Attacks (TIA): Yes - HEENT Hx HEENT Problems: Yes Other/Comment: Eye glasses - RENAL Hx Chronic Kidney Disease: No - ENDOCRINE/METABOLIC Hx Endocrine Disorders: No - HEMATOLOGICAL/ONCOLOGICAL Hx Anemia: Yes - INTEGUMENTARY Hx Dermatological Problems: Yes Hx Eczema: Yes Hx Psoriasis: Yes Other/Comment: Scabies - MUSCULOSKELETAL/RHEUMATOLOGICAL Hx Fractures: Yes (right ankle) - GASTROINTESTINAL Hx Gastritis: Yes - GENITOURINARY/GYNECOLOGICAL Hx Genitourinary Disorders: No - PSYCHIATRIC Hx Anxiety: Yes Hx Depression: Yes Hx Schizophrenia: Yes Hx Substance Use: No - SURGICAL HISTORY Hx Surgeries: Yes Hx Dilation and Curettage: Yes Other/Comment: rt leg s/p fx - ANESTHESIA Hx Anesthesia: Yes Hx Anesthesia Reactions: No Hx Malignant Hyperthermia: No Meds Allergies/Adverse Reactions: Allergies Allergy/AdvReac Type Severity Reaction Status Date / Time shellfish derived Allergy Severe SWELLING Verified 03/03/18 23:56 Physical Exam - Constitutional Appears: Non-toxic, No Acute Distress - Extremities Exam Additional comments: LE focused Vasc: DP/PT pulses palpable 2/4 bilaterally. Temperature gradient is warm to warm on right, warm to cool on left. Diffuse edema noted to entirety of right lower leg and ankle as well as left 1st MPJ and left great toe. Capillary refill time < 3 sec to all digits Derm: Full thickness wound noted to anterolateral lower right leg measuring approximately 12cm x 7 cm x 0.3cm with 70:30 granular:fibrotic wound base and biofilm formation noted. Mild serosanguinous drainage noted. Mild malodor present. No fluctuance, no evidence of abscess formation. No clinical signs of infection noted. Neuro: protective and gross sensation intact to lower extremities Ortho: mild-moderate tenderness elicited upon palpation of left great toe. M inimal tenderness to palpation of right lower leg wound - Neurological Exam Neurological exam: Alert, Oriented x3 - Psychiatric Exam Psychiatric exam: Normal Affect, Normal Mood Results - Vital Signs Recent Vital Signs: Last Vital Signs Temp 98.1 F 03/03/18 23:53 Pulse 87 03/03/18 23:53 Resp 17 03/03/18 23:53 BP 98/55 L 03/03/18 23:53 Pulse Ox 97 03/03/18 23:53 Assessment & Plan - Assessment and Plan (Free Text) Assessment: 53F with 1) 8 weeks s/p right ankle open reduction with internal fixation with open post-surgical wound to right lower leg and 2) left 1st metatarsophalangeal joint dislocation, healed Plan: Pt seen and evaluated in ED Discussed plan with attending Dr. Ryan Right ankle XR obtained, f/u report Posterioer splint reapplied to RLE Pt advised to remain NWB to the right lower extremity and utilize crutches at all times Pt advised to follow up in [facility] podiatry clinic on Mondays from 12- 3pm Thank you for this consult
--- NOTE | 2018-03-04 02:04 | ED PDOC ---
Lower Extremity Pain/Injury Time Seen by Provider: 03/04/18 00:00 Chief Complaint (Nursing): Lower Extremity Problem/Injury Chief Complaint (Provider): Lower Extremity Problem/Injury History Per: Patient History/Exam Limitations: no limitations Onset/Duration Of Symptoms: Days Current Symptoms Are (Timing): Still Present Additional Complaint(s): 53 y/o female presents to the ED for evaluation of a cast check. Patient reports of having a ankle fracture repaired by Dr. Ryan several weeks ago. Patient advised to follow up with podiatry clinic. However, patient states she missed her appointment yesterday. Otherwise, patient denies any new trauma and fever. PMD: none provided Past Medical History Reviewed: Historical Data, Nursing Documentation, Vital Signs Vital Signs: Last Vital Signs Temp 98.1 F 03/03/18 23:53 Pulse 87 03/03/18 23:53 Resp 17 03/03/18 23:53 BP 98/55 L 03/03/18 23:53 Pulse Ox 97 03/03/18 23:53 - Medical History PMH: Anemia, Anxiety, Asthma, COPD, Depression, Fractures (right ankle), Gastritis, HTN, Paranoia, Pneumonia, Schizophrenia, Seizures, TIA Denies: Diabetes, Hepatitis, HIV, Chronic Kidney Disease, Sexually Transmitted Disease - Surgical History Other surgeries: ankle fracture repair - Family History Family History: States: Unknown Family Hx - Immunization History Hx Tetanus Toxoid Vaccination: Yes Hx Influenza Vaccination: No Hx Pneumococcal Vaccination: No - Home Medications Home Medications: Ambulatory Orders Medication Instructions Recorded Iron PO DAILY 02/16/18 - Allergies Allergies/Adverse Reactions: Allergies Allergy/AdvReac Type Severity Reaction Status Date / Time shellfish derived Allergy Severe SWELLING Verified 03/03/18 23:56 Review of Systems ROS Statement: Except As Marked, All Systems Reviewed And Found Negative Musculoskeletal: Positive for: Foot Pain (cast check to the right ankle fracture) Physical Exam - Reviewed Nursing Documentation Reviewed: Yes Vital Signs Reviewed: Yes - Physical Exam Extremity: Positive for: Other (Splint removed by podiatry resident. Healing dehisced wound without surrounding erythema to the anterior right lower extremity.) - ECG O2 Sat by Pulse Oximetry: 97 (RA) Pulse Ox Interpretation: Normal Medical Decision Making Medical Decision Making: Time: 15 Plan: -- Ankle Right 3 Views XR -- Patient being evaluated by podiatry resident who knows patient very well and states wound has improved. Resident discussed case with Dr. Ryan who reports patient to be discharged home with a new splint. No antibiotics required. Scribe Attestation: Documented by Karina Lopez, acting as a scribe for Tadeo Villafuerte PA-C. Provider Scribe Attestation: All medical record entries made by the Scribe were at my direction and sheldon singh dictated by me. I have reviewed the chart and agree that the record accurately reflects my personal performance of the history, physical exam, medical decision making, and the department course for this patient. I have also personally directed, reviewed, and agree with the discharge instructions and disposition. Disposition - Clinical Impression Clinical Impression: Visit for wound check - Patient ED Disposition Is Patient to be Admitted: No - Disposition Referrals: Nohemy Ryan DPM [Staff Provider] - Podiatry Clinic [Outside] Disposition: Routine/Home Disposition Time: 01:00 Condition: STABLE Additional Instructions: FOLLOW UP WITH DR. CRISTINA GARZON PREVIOUSLY DISCUSSED RETURN TO ED IMMEDIATELY IF SYMPTOMS WORSEN FERCHO ZAMORA, thank you for letting us take care of you today. Your provider was Olya Kaufman MD and you were treated for LT FOOT PAIN. The emergency medical care you received today was directed at your acute symptoms. If you were prescribed any medication, please fill it and take as directed. It may take several days for your symptoms to resolve. Return to the Emergency Department if your symptoms worsen, do not improve, or if you have any other problems. Please contact your doctor or call one of the physicians/clinics you have been referred to that are listed on the Patient Visit Information form that is included in your discharge packet. Bring any paperwork you were given at discharge with you along with any medications you are taking to your follow up visit. Our treatment cannot replace ongoing medical care by a primary care provider outside of the emergency department. Thank you for allowing the [facility] team to be part of your care today. If you had an X-Ray or CT scan: A Radiologist will review the ED reading if any change in treatment is needed we will contact you. If you had a blood, urine, or wound culture: It will take several days for the results, if any change in treatment is needed we will contact you. If you had an STI test: It will take 48 hours for the results. Please call after 1 week if you have not heard back. Forms: [employer] (Divehi)
[2018-03-04 06:19] VITALS: BP 101/62; PULSE 86; RESP 16; TEMP 97.1; O2SAT 98
--- NOTE | 2018-03-04 12:44 | RAD ---
Date of service: 03/04/2018 PROCEDURE: Right Ankle Radiographs. HISTORY: as requested by Dr. Ryan COMPARISON: 02/04/2018 FINDINGS: BONES: Evidence of healing primarily callus formation about distal fibula. Less pronounced changes distal tibia. Major fracture fragments are anatomically aligned. No evidence of orthopedic hardware failure. JOINTS: Normal. No osteoarthritis. Ankle mortise maintained. Talar dome intact SOFT TISSUES: Normal. OTHER FINDINGS: None. IMPRESSION: No significant interval change compared to the prior examination(s). Limitations of the current study: Detail obscured by overlying fiberglass cast.
== END 2018-03-04 06:18 | disposition home or self-care (01) ==
LOC: H.ER 23:47
DX: Z47.89 Encounter for other orthopedic aftercare (principal)

== ENCOUNTER 2018-03-06 20:30 | Emergency (ER) | payer SELFPAY ==
[2018-03-06 20:31] VITALS: BMI 25.0
--- NOTE | 2018-03-06 22:39 | ED PDOC ---
HPI: Psych/Substance Abuse Time Seen by Provider: 03/06/18 20:56 Chief Complaint (Nursing): Alcohol Ingestion History Per: EMS Additional Complaint(s): As per EMS pt. assumed to be intoxicated as she had an unsteady gait. Pt. admits to drinking alcohol. Pt. found with bottle of vodka with her in ED. Offers no complaints. Past Medical History Reviewed: Historical Data, Nursing Documentation, Vital Signs Vital Signs: Last Vital Signs Temp 98.6 F 03/06/18 22:02 Pulse 77 03/06/18 22:02 Resp 19 03/06/18 22:02 BP 134/72 03/06/18 22:02 Pulse Ox 97 03/06/18 22:02 - Medical History PMH: Anemia, Anxiety, Asthma, COPD, Depression, Fractures (right ankle), Gastritis, HTN, Paranoia, Pneumonia, Schizophrenia, Seizures, TIA Denies: Diabetes, Hepatitis, HIV, Chronic Kidney Disease, Sexually Transmitted Disease - Family History Family History: States: No Known Family Hx - Immunization History Hx Tetanus Toxoid Vaccination: Yes Hx Influenza Vaccination: No Hx Pneumococcal Vaccination: No - Home Medications Home Medications: Ambulatory Orders Medication Instructions Recorded Iron PO DAILY 02/16/18 - Allergies Allergies/Adverse Reactions: Allergies Allergy/AdvReac Type Severity Reaction Status Date / Time shellfish derived Allergy Severe SWELLING Verified 03/03/18 23:56 Review of Systems ROS Statement: Except As Marked, All Systems Reviewed And Found Negative Physical Exam - Physical Exam Appears: Positive for: Well, Non-toxic, No Acute Distress Skin: Positive for: Normal Color, Warm. Negative for: Rash Eye Exam: Positive for: Normal appearance ENT: Positive for: Normal ENT Inspection Cardiovascular/Chest: Positive for: Regular Rate, Rhythm Respiratory: Positive for: Normal Breath Sounds Gastrointestinal/Abdominal: Positive for: Normal Exam, Soft. Negative for: Tenderness Neurologic/Psych: Positive for: Alert, Other (Slurred speech; AOB) - ECG O2 Sat by Pulse Oximetry: 97 - Progress ED Course And Treament: FSBS: 179 Disposition - Clinical Impression Clinical Impression: Alcohol intoxication - Patient ED Disposition Is Patient to be Admitted: Transfer of Care (Signed out to Kristen HAGEN pending sobriety and re-evaluation) - Disposition Disposition Time: 23:56 Condition: STABLE Forms: [employer] (Spanish)
--- NOTE | 2018-03-07 03:09 | ED PDOC ---
- ECG O2 Sat by Pulse Oximetry: 97 Medical Decision Making Medical Decision Making: Patient received from previous provider. I concur with prior findings without exception. Data reviewed and patient disposition arranged as noted herein. Disposition Doctor Will See Patient In The: Office Counseled Patient/Family Regarding: Diagnosis - Clinical Impression Clinical Impression: Alcohol intoxication, Alcohol intolerance - POA Present On Arrival: None - Disposition Disposition: Routine/Home Disposition Time: 04:00 Condition: STABLE Instructions: Alcohol Use - When Is Drinking a Problem? Forms: [employer] (Frisian)
[2018-03-07 05:29] VITALS: BP 114/76; PULSE 78; RESP 15; TEMP 97.8; O2SAT 95
== END 2018-03-07 05:15 | disposition home or self-care (01) ==
LOC: H.ER 20:30
DX: F10.129 Alcohol abuse with intoxication, unspecified (principal); Z86.59 Personal history of other mental and behavioral disorders; I10 Essential (primary) hypertension; J44.9 Chronic obstructive pulmonary disease, unspecified; Z86.73 Personal history of transient ischemic attack (TIA), and cerebral infarction without residual deficits

== ENCOUNTER 2018-03-16 18:42 | Emergency (ER) | payer SELFPAY ==
[2018-03-16 18:42] VITALS: BMI 25.0
[2018-03-16] MEDS ORDERED: Sodium Chloride 0.9% 1,000 ML IV STA (19:29)
[2018-03-16] MEDS ORDERED: Multivitamin (MVI) 10 ML, Thiamine 100 MG, Folic Acid 1 MG in Dextrose 5%/0.45% NS 1,00... IV ONE (19:31)
[2018-03-16 19:49] LABS: BASO % 0.9 % (0.0-2.0); EOS % 0.2 % (0.0-4.0); HEMOGLOBIN 9.6 g/dL (12.0-16.0); LYMPH # 0.7 K/uL (1.0-4.3); LYMPH % 17.2 % (20.0-40.0); MEAN CORPUSCULAR HEMOGLOBIN 27.1 pg (27.0-31.0); MEAN CORPUSCULAR HGB CONC 31.9 g/dL (33.0-37.0); MEAN PLATELET VOLUME 6.6 fl (7.2-11.7); MONO # 0.4 K/uL (0.0-0.8); MONO % 10.2 % (0.0-10.0); NEUT % 71.5 % (50.0-75.0); NRBC % 0.1 % (0.0-0.0); RBC 3.55 Mil/uL (3.80-5.20); RED CELL DISTRIBUTION WIDTH 17.6 % (11.5-14.5); WHITE BLOOD COUNT 4.1 K/uL (4.8-10.8)
[2018-03-16 19:58] LABS: ALBUMIN 4.2 g/dL (3.5-5.0); ALT/SGPT 27 U/L (9-52); AST/SGOT 57 U/L (14-36); BLOOD UREA NITROGEN 14 mg/dl (7-17); CALCIUM 9.2 mg/dL (8.4-10.2); GFR NON-AFRICAN AMERICAN > 60
[2018-03-16 20:01] LABS: ACETAMINOPHEN < 10.0 ug/ml (10.0-30.0); SALICYLATE < 1.0 mg/dl
--- NOTE | 2018-03-16 20:24 | ED PDOC ---
HPI: General Adult Time Seen by Provider: 03/16/18 19:22 Chief Complaint (Nursing): GI Problem Chief Complaint (Provider): tremors, vomiting and diarrhea History Per: Patient History/Exam Limitations: no limitations Onset/Duration Of Symptoms: Hrs (today) Current Symptoms Are (Timing): Still Present Additional Complaint(s): Marion Hudson is a 53 year old female, with a past medical history of alcohol abuse, who presents to the emergency department complaining of feeling tremors, vomiting and diarrhea onset today. Patient is a chronic alcoholic and states she normally drinks a gallon of vodka daily but has not drank for the past x2 days. Patient reports not feeling well and is also complaining of dizziness. She denies any fever, chills or other medical complaints. PMD: Dr. Sue Past Medical History Reviewed: Historical Data, Nursing Documentation, Vital Signs Vital Signs: Last Vital Signs Temp 98.7 F 03/16/18 18:45 Pulse 115 H 03/16/18 18:45 Resp 22 03/16/18 18:45 BP 154/87 H 03/16/18 18:45 Pulse Ox 100 03/16/18 18:45 - Medical History PMH: Anemia, Anxiety, Asthma, COPD, Depression, Fractures (right ankle), Gastritis, HTN, Paranoia, Pneumonia, Schizophrenia, Seizures, TIA Denies: Diabetes, Hepatitis, HIV, Chronic Kidney Disease, Sexually Transmitted Disease - Surgical History Surgical History: No Surg Hx - Family History Family History: States: Unknown Family Hx - Social History Current smoker - smoking cessation education provided: No Alcohol: > 2 Drinks/Day Drugs: Denies - Immunization History Hx Tetanus Toxoid Vaccination: Yes Hx Influenza Vaccination: No Hx Pneumococcal Vaccination: No - Home Medications Home Medications: Ambulatory Orders Medication Instructions Recorded No Known Home Med 03/15/18 - Allergies Allergies/Adverse Reactions: Allergies Allergy/AdvReac Type Severity Reaction Status Date / Time shellfish derived Allergy Severe SWELLING Verified 03/16/18 18:50 Review of Systems ROS Statement: Except As Marked, All Systems Reviewed And Found Negative Gastrointestinal: Positive for: Vomiting, Diarrhea Neurological: Positive for: Dizziness, Other (tremors) Physical Exam - Reviewed Nursing Documentation Reviewed: Yes Vital Signs Reviewed: Yes - Physical Exam Appears: Positive for: No Acute Distress Head Exam: Positive for: ATRAUMATIC, NORMAL INSPECTION, NORMOCEPHALIC Skin: Positive for: Normal Color, Warm, Dry Eye Exam: Positive for: Normal appearance, EOMI, PERRL ENT: Positive for: Other (tongue fasciculations) Neck: Positive for: Normal, Painless ROM, Supple Cardiovascular/Chest: Positive for: Tachycardia (regular rhythm). Negative for: Murmur Respiratory: Positive for: Normal Breath Sounds. Negative for: Respiratory Distress Gastrointestinal/Abdominal: Positive for: Normal Exam, Soft. Negative for: Tenderness, Guarding, Rebound Back: Positive for: Normal Inspection. Negative for: L CVA Tenderness, R CVA Tenderness, Vertebral Tenderness Extremity: Positive for: Normal ROM (upper and lower extremities). Negative for: Tenderness, Deformity, Swelling Neurologic/Psych: Positive for: Alert, Oriented (x3), Other (tremulous). Negative for: Motor/Sensory Deficits, Aphasia, Facial Droop - Laboratory Results Result Diagrams: 03/16/18 19:45 03/16/18 19:45 Lab Results: Total Bilirubin 0.6 mg/dl (0.2-1.3) 03/16/18 19:45 AST 57 U/L (14-36) H D 03/16/18 19:45 ALT 27 U/L (9-52) 03/16/18 19:45 Alkaline Phosphatase 160 U/L (38-126) H 03/16/18 19:45 Total Protein 8.3 G/DL (6.3-8.2) H 03/16/18 19:45 Albumin 4.2 g/dL (3.5-5.0) 03/16/18 19:45 Globulin 4.1 gm/dL (2.2-3.9) H 03/16/18 19:45 Albumin/Globulin Ratio 1.0 (1.0-2.1) 03/16/18 19:45 - ECG O2 Sat by Pulse Oximetry: 100 (RA) Pulse Ox Interpretation: Normal Medical Decision Making Medical Decision Making: Time: 19:22 A/P: 53 y/o female with history of alcohol abuse presenting with alcohol withdrawal. Will treat with fluids, benzodiazepines and reevaluate Initial Plan: --EKG --Acetaminophen --Alcohol serum --CMP --CPK --Drug screen, urine --Salicylate --CBC w/ differential --Chest one view [RAD] --Ativan 2 mg IV --Dextrose 5%/0.45% NS 1000ml MVI 10 ml Vitamin b1 Inj 100mg Folic Acid 1mg IV 200 mls/hr --NaCl 1,000 ml IV 1,000 mls/hr --Zofran Inj 4 mg IVP --Urinalysis --Reevaluation 100 Patient no longer tremulous, vitals improving 400 HR 93, appearing much improved, no longer having withdrawal symptoms, no longer tremulous Will discharge home Tolerating PO Scribe Attestation: Documented by Aman Weiner, acting as a scribe for Ramírez Stephens MD Provider Scribe Attestation: All medical record entries made by the Scribe were at my direction and personally dictated by me. I have reviewed the chart and agree that the record accurately reflects my personal performance of the history, physical exam, medical decision making, and the department course for this patient. I have also personally directed, reviewed, and agree with the discharge instructions and disposition. Disposition - Clinical Impression Clinical Impression: Alcohol withdrawal - Patient ED Disposition Is Patient to be Admitted: No - Disposition Referrals: [facility] [Outside] Disposition: Routine/Home Disposition Time: 04:00 Condition: IMPROVED Instructions: Alcohol Use - When Is Drinking a Problem?, Alcohol Withdrawal Forms: [employer] (Bulgarian)
[2018-03-16 23:23] LABS: SQUAMOUS EPITHIAL 1 /hpf (0-5); URINE BILIRUBIN NEGATIVE (NEGATIVE); URINE BLOOD NEGATIVE (NEGATIVE); URINE CLARITY CLEAR (Clear); URINE COLOR YELLOW (YELLOW); URINE GLUCOSE (UA) NEG (NEGATIVE); URINE LEUKOCYTE ESTERASE NEG Leu/uL (Negative); URINE PROTEIN 30 mg/dL (NEGATIVE); URINE UROBILINOGEN 0.2-1.0 mg/dL (0.2-1.0)
[2018-03-16 23:32] LABS: BENZODIAZEPINES, UR NEGATIVE (NEGATIVE)
[2018-03-16 23:33] LABS: BARBITURATES, UR NEGATIVE (NEGATIVE); OPIATES, UR NEGATIVE (NEGATIVE); PHENCYCLIDINE, UR NEGATIVE (NEGATIVE)
[2018-03-17 06:16] VITALS: BP 141/90; PULSE 99; RESP 16; TEMP 98.1; O2SAT 99
--- NOTE | 2018-03-17 11:53 | CARD ---
APPROVED REPORT Date of service: 03/16/2018 EKG Measurement Heart [id number] <Conclusion> Sinus tachycardia Otherwise normal ECG
--- NOTE | 2018-03-17 12:55 | RAD ---
Date of service: 03/16/2018 HISTORY: Alcohol withdrawal. COMPARISON: Comparison made with chest radiograph 02/06/2018. FINDINGS: LUNGS: Minor bibasilar atelectasis PLEURA: No significant pleural effusion identified, no pneumothorax apparent. CARDIOVASCULAR: No aortic atherosclerotic calcification present. Normal cardiac size. No pulmonary vascular congestion. OSSEOUS STRUCTURES: No significant abnormalities. VISUALIZED UPPER ABDOMEN: Normal. OTHER FINDINGS: None. IMPRESSION: Minor bibasilar atelectasis.
== END 2018-03-17 05:59 | disposition home or self-care (01) ==
LOC: H.ER 18:42
DX: F10.239 Alcohol dependence with withdrawal, unspecified (principal); F20.9 Schizophrenia, unspecified; F32.9 Major depressive disorder, single episode, unspecified; F41.9 Anxiety disorder, unspecified; Z86.73 Personal history of transient ischemic attack (TIA), and cerebral infarction without residual deficits; I10 Essential (primary) hypertension
CPT/HCPCS: 71045; 80053; 80320; 80324; 80329; 80345; 80346; 80349; 80353; 80358; 80361; 81003; 82550; 83992; 85025; 93005; 96361; 96374; 96375; 99285; J2060; J2405; J3411; J7030; J7042

== ENCOUNTER 2018-03-24 09:25 | Emergency (ER) | payer MEDICAID, SELFPAY ==
[2018-03-24 09:25] VITALS: BMI 25.0
--- NOTE | 2018-03-24 10:09 | ED PDOC ---
Lower Extremity Pain/Injury Additional History Per: Patient Additional Complaint(s): PT is a 53 y/o female, known alcohol abuser and homeless, presents with complaints of RLE. Had Ankle fx repairee 3-4 months ago and has been seen by Podiatry in ED mutliple times with instructions to f/u in outpatient wound care clinic. Pt states she went on Wednesday. Pt is a poor historian as she is intoxicated w/ slurred speech. She also reports pruritic rash in her neck area that is chronic. Denies cough/fever/chills, cp, or hx of recent trauma to foot. <Marilyn Walsh - Last Filed: 03/24/18 13:55> <Esperanza Villaseñor - Last Filed: 03/28/18 07:00> Time Seen by Provider: 03/24/18 09:29 Chief Complaint (Nursing): Lower Extremity Problem/Injury Supervising Attending Note - Supervising Attending Note The Documented history was done by the: Physician Class 1 Owner Operator The documented physical exam was done by the: Physician Class 1 Owner Operator The documented procedures were done by the: Physician Class 1 Owner Operator - Attestation: I have personally seen and examined this patient.: Yes I have fully participated in the care of the patient.: Yes <Esperanza Villaseñor Y - Last Filed: 03/28/18 07:00> Past Medical History Vital Signs: Last Vital Signs Temp 97.8 F 03/24/18 09:34 Pulse 81 03/24/18 09:34 Resp 20 03/24/18 09:34 BP 126/77 03/24/18 09:34 Pulse Ox 97 03/24/18 09:34 - Medical History PMH: Anemia, Anxiety, Asthma, COPD, Depression, Fractures (right ankle), Gastritis, HTN, Paranoia, Pneumonia, Schizophrenia, Seizures, TIA Denies: Diabetes, Hepatitis, HIV, Chronic Kidney Disease, Sexually Transmitted Disease - Family History Family History: States: Unknown Family Hx - Immunization History Hx Tetanus Toxoid Vaccination: Yes Hx Influenza Vaccination: No Hx Pneumococcal Vaccination: No <Marilyn Walsh - Last Filed: 03/24/18 13:55> Vital Signs: Last Vital Signs Temp 98 F 03/24/18 15:22 Pulse 75 03/24/18 15:22 Resp 18 03/24/18 15:22 BP 122/67 03/24/18 15:22 Pulse Ox 99 03/24/18 15:22 <Esperanza Villaseñor Y - Last Filed: 03/28/18 07:00> - Home Medications Home Medications: Ambulatory Orders Medication Instructions Recorded RX: Hydrocortisone 0.5% CREAM 0.5 gm EXT BID PRN #1 tube 03/25/18 [Cortizone 0.5% CREAM] Permethrin 5% [Permethrin] 1 tube TP ONCE #1 tube 03/26/18 - Allergies Allergies/Adverse Reactions: Allergies Allergy/AdvReac Type Severity Reaction Status Date / Time shellfish derived Allergy Severe SWELLING Verified 03/25/18 14:34 Physical Exam - Physical Exam Appears: Positive for: No Acute Distress (Discheveled, poor hygiene) Head Exam: Positive for: ATRAUMATIC Skin: Positive for: Dry (thickened red skin around neck with excoriations diffusely spread across back) Eye Exam: Positive for: Normal appearance. Negative for: Nystagmus Neck: Positive for: Normal Cardiovascular/Chest: Positive for: Regular Rate, Rhythm, Chest Non Tender Respiratory: Positive for: Normal Breath Sounds. Negative for: Decreased Breath Sounds, Crackles, Wheezing Gastrointestinal/Abdominal: Positive for: Normal Exam, Soft. Negative for: Tenderness Extremity: Positive for: Other (RLE- wrapped in magno, when exposed, lateral ankle open draining wound w/ foul odor, no erythema, warmth or tenderness of skin. distal pulses in tact, motor and sensory in tact, no calf tenderness w/ dorsiflexion) Neurologic/Psych: Positive for: Alert, Oriented <Marilyn Walsh - Last Filed: 03/24/18 13:55> - ECG O2 Sat by Pulse Oximetry: 97 <Marilyn Walsh - Last Filed: 03/24/18 13:55> Medical Decision Making Medical Decision Making: Tylenol for pain, Hydrocortisone cream for rash- likely atopic dermatitis. Podiatry consulted, wound dressing completed and instructed to f/u outpatient, cleared for discharge. <Marilyn Walsh - Last Filed: 03/24/18 13:55> Disposition - Disposition Disposition: Routine/Home Disposition Time: 14:00 <Marilyn Walsh - Last Filed: 03/24/18 13:55> <Esperanza Villaseñor Y - Last Filed: 03/28/18 07:00> - Clinical Impression Clinical Impression: Leg ulcer - Disposition Condition: FAIR Additional Instructions: follow up in podiatry clinic as instructed return to the ED with any worsening or concerning symptoms Instructions: Diabetic Foot Ulcer (DC) Forms: [employer] (Setswana)
--- NOTE | 2018-03-24 11:57 | CP.PCM.CON ---
History of Present Illness - History of Present Illness History of Present Illness: Podiatry Consult Note: Dr. Ryan 53 year old female patient seen and evaluated in the ED for R foot pain and redness; patient is s/p 10 week R pilon fracture ORIF. Patient states that her foot started to hurt yesterday. She reports pain to the wound today and generalized weakness. Patient is well known to Dr. Ryan; patient is non- compliant and does not follow up for her appointments. She presents today in surgical shoe. Denies N/V/F/SOB/CP. PMHx: Alcohol abuse, HTN, pneumonia, heart murmur, asthma, eczema, anxiety, and depression PSHx: D&C, application of delta frame R ankle, ORIF R ankle All: shellfish SHx: Drinks 1/2-1 bottle vodka per day; denies cigarette or illicit drug use Past Patient History - Infectious Disease Hx of Infectious Diseases: None - Tetanus Immunizations Tetanus Immunization: Unknown - Past Medical History & Family History Past Medical History?: Yes - Past Social History Smoking Status: Never Smoked - CARDIAC Hx Hypertension: Yes - PULMONARY Hx Asthma: Yes Hx Chronic Obstructive Pulmonary Disease (COPD): Yes Hx Pneumonia: Yes - NEUROLOGICAL Hx Seizures: Yes Hx Transient Ischemic Attacks (TIA): Yes - HEENT Hx HEENT Problems: Yes Other/Comment: Eye glasses - RENAL Hx Chronic Kidney Disease: No - ENDOCRINE/METABOLIC Hx Endocrine Disorders: No - HEMATOLOGICAL/ONCOLOGICAL Hx Anemia: Yes Hx Human Immunodeficiency Virus (HIV): No - INTEGUMENTARY Hx Dermatological Problems: Yes Hx Eczema: Yes Hx Psoriasis: Yes - MUSCULOSKELETAL/RHEUMATOLOGICAL Hx Fractures: Yes (right ankle) - GASTROINTESTINAL Hx Gastritis: Yes - GENITOURINARY/GYNECOLOGICAL Hx Sexually Transmitted Disorders: No - PSYCHIATRIC Hx Anxiety: Yes Hx Depression: Yes Hx Paranoia: Yes Hx Schizophrenia: Yes - SURGICAL HISTORY Hx Surgeries: Yes Hx Dilation and Curettage: Yes Hx Orthopedic Surgery: Yes (R foot / R ankle surgery) Other/Comment: rt leg s/p fx - ANESTHESIA Hx Anesthesia: Yes Hx Anesthesia Reactions: No Hx Malignant Hyperthermia: No Meds Allergies/Adverse Reactions: Allergies Allergy/AdvReac Type Severity Reaction Status Date / Time shellfish derived Allergy Severe SWELLING Verified 03/24/18 09:29 Physical Exam - Head Exam Head Exam: ATRAUMATIC, NORMOCEPHALIC - ENT Exam ENT Exam: Mucous Membranes Moist - Extremities Exam Additional comments: LE focused Vasc: DP/PT pulses palpable 2/4 bilaterally. Temperature gradient is warm to warm on right, warm to cool on left. Diffuse edema noted to entirety of right lower leg and ankle as well as left 1st MPJ and left great toe. Capillary refill time < 3 sec to all digits Derm: Full thickness wound noted to anterolateral lower right leg measuring approximately 12cm x 7 cm x 0.3cm with granular wound base. Mild serosanguinous drainage noted. No malodor present. No fluctuance, no evidence of abscess formation. No clinical signs of infection noted. Neuro: protective and gross sensation intact to lower extremities Ortho: mild-moderate tenderness elicited upon palpation of left great toe. Minimal tenderness to palpation of right lower leg wound Results - Vital Signs Recent Vital Signs: Last Vital Signs Temp 97.8 F 03/24/18 09:34 Pulse 81 03/24/18 09:34 Resp 20 03/24/18 09:34 BP 126/77 03/24/18 09:34 Pulse Ox 97 03/24/18 10:09 Assessment & Plan - Assessment and Plan (Free Text) Assessment: 53F 10 weeks s/p right ankle open reduction with internal fixation with open post-surgical wound to right lower leg and left 1st metatarsophalangeal joint dislocation, healed Plan: Patient seen and evaluated in ED Discussed plan with attending Dr. Ryan Right ankle XR reviewed from 03/21. Posterior splint applied to RLE Advised to remain NWB to the right lower extremity and utilize crutches at all times Patient advised to follow up in [facility] podiatry clinic on Mondays from 12-3pm Thank you for this consult
[2018-03-24 15:23] VITALS: BP 122/67; PULSE 75; RESP 18; TEMP 98; O2SAT 99
== END 2018-03-24 15:00 | disposition home or self-care (01) ==
LOC: H.ER 09:25
DX: S81.801A Unspecified open wound, right lower leg, initial encounter (principal); E11.9 Type 2 diabetes mellitus without complications; J44.9 Chronic obstructive pulmonary disease, unspecified; I10 Essential (primary) hypertension; Z86.59 Personal history of other mental and behavioral disorders; L30.9 Dermatitis, unspecified; Z91.19 Patient's noncompliance with other medical treatment and regimen; Z86.73 Personal history of transient ischemic attack (TIA), and cerebral infarction without residual deficits

== ENCOUNTER 2018-03-25 14:12 | Emergency (ER) | payer MEDICAID ==
[2018-03-25 14:12] VITALS: BMI 20.7
[2018-03-25 14:34] VITALS: RESP 18
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
[2018-03-25 17:59] VITALS: BP 160/82; PULSE 92; TEMP 98.2
[2018-03-25 18:12] VITALS: O2SAT 99
== END 2018-03-25 18:22 | disposition home or self-care (01) ==
LOC: H.ER 14:12
DX: S81.801A Unspecified open wound, right lower leg, initial encounter (principal); Y04.0XXA Assault by unarmed brawl or fight, initial encounter; Y92.89 Other specified places as the place of occurrence of the external cause; F20.9 Schizophrenia, unspecified; Z86.73 Personal history of transient ischemic attack (TIA), and cerebral infarction without residual deficits; I10 Essential (primary) hypertension
CPT/HCPCS: 29515; 81025; 96372; 99283; J2060

== ENCOUNTER 2018-03-25 19:22 | Emergency (ER) | payer MEDICAID ==
[2018-03-25 19:23] VITALS: BMI 20.7
[2018-03-26] MEDS ORDERED: Permethrin 5% CREAM TOP ONE (02:36)
--- NOTE | 2018-03-26 03:34 | ED PDOC ---
HPI: Skin/Bite Injury Time Seen by Provider: 03/26/18 01:25 Chief Complaint (Nursing): Abnormal Skin Integrity Chief Complaint (Provider): Abnormal Skin Integrity History Per: Patient History/Exam Limitations: no limitations Additional Complaint(s): Fercho Hudson is a 53 year old female with a past medical history of HTN and anxiety, who presents to the emergency department complaining of a pruritic rash. Patient is well known to ED and is undomicile. PMD: NO provider Past Medical History Reviewed: Historical Data, Nursing Documentation, Vital Signs Vital Signs: Last Vital Signs Temp 98.1 F 03/25/18 20:31 Pulse 81 03/25/18 20:31 Resp 17 03/25/18 20:31 BP 136/84 03/25/18 20:31 Pulse Ox 99 03/25/18 20:31 - Medical History PMH: Anemia, Anxiety, Asthma, COPD, Depression, Fractures (right ankle), Gastritis, HTN, Paranoia, Pneumonia, Schizophrenia, Seizures, TIA Denies: HIV, Chronic Kidney Disease, Sexually Transmitted Disease - Family History Family History: States: Unknown Family Hx - Immunization History Hx Tetanus Toxoid Vaccination: Yes Hx Influenza Vaccination: No Hx Pneumococcal Vaccination: No - Home Medications Home Medications: Ambulatory Orders Medication Instructions Recorded RX: Hydrocortisone 0.5% CREAM 0.5 gm EXT BID PRN #1 tube 03/25/18 [Cortizone 0.5% CREAM] Permethrin 5% [Permethrin] 1 tube TP ONCE #1 tube 03/26/18 - Allergies Allergies/Adverse Reactions: Allergies Allergy/AdvReac Type Severity Reaction Status Date / Time shellfish derived Allergy Severe SWELLING Verified 03/25/18 14:34 Review of Systems ROS Statement: Except As Marked, All Systems Reviewed And Found Negative Skin: Positive for: Rash Physical Exam - Reviewed Nursing Documentation Reviewed: Yes Vital Signs Reviewed: Yes - Physical Exam Appears: Positive for: Non-toxic, No Acute Distress Head Exam: Positive for: ATRAUMATIC, NORMOCEPHALIC Skin: Positive for: Rash (diffuse redness rash wiht excoriation; rash is non blanching; (-) uticaria) ENT: Positive for: Normal ENT Inspection Cardiovascular/Chest: Positive for: Regular Rate, Rhythm. Negative for: Murmur Respiratory: Negative for: Normal Breath Sounds, Respiratory Distress Extremity: Positive for: Other (Right lower extremity has a clean dry splint) - ECG O2 Sat by Pulse Oximetry: 99 (RA) Pulse Ox Interpretation: Normal Medical Decision Making Medical Decision Making: Time: 235 Plan: --Permethrin 5% cream 1 application topical -- Pt. was decontaminated Scribe Attestation: Documented by Cristian Drummond acting as a scribe for Tadeo Barrett Provider Scribe Attestation: All medical record entries made by the Scribe were at my direction and personally dictated by me. I have reviewed the chart and agree that the record accurately reflects my personal performance of the history, physical exam, medical decision making, and the department course for this patient. I have also personally directed, reviewed, and agree with the discharge instructions and disposition. Disposition - Clinical Impression Clinical Impression: Scabies - Patient ED Disposition Is Patient to be Admitted: No - Disposition Referrals: [facility] [Outside] Disposition: Routine/Home Disposition Time: 02:15 Condition: STABLE Additional Instructions: FERCHO HUDSON, thank you for letting us take care of you today. Your provider was Olya Kaufman MD and you were treated for RASH. The emergency medical care you received today was directed at your acute symptoms. If you were prescribed any medication, please fill it and take as directed. It may take several days for your symptoms to resolve. Return to the Emergency Department if your symptoms worsen, do not improve, or if you have any other problems. Please contact your doctor or call one of the physicians/clinics you have been referred to that are listed on the Patient Visit Information form that is included in your discharge packet. Bring any paperwork you were given at discharge with you along with any medications you are taking to your follow up visit. Our treatment cannot replace ongoing medical care by a primary care provider outside of the emergency department. Thank you for allowing the [facility] team to be part of your care today. If you had an X-Ray or CT scan: A Radiologist will review the ED reading if any change in treatment is needed we will contact you. If you had a blood, urine, or wound culture: It will take several days for the results, if any change in treatment is needed we will contact you. If you had an STI test: It will take 48 hours for the results. Please call after 1 week if you have not heard back. Instructions: Scabies (DC) Forms: [employer] (Syriac)
[2018-03-26 06:40] VITALS: BP 132/59; PULSE 82; RESP 16; TEMP 97.9
[2018-03-26 22:56] VITALS: O2SAT 99
== END 2018-03-26 06:40 | disposition home or self-care (01) ==
LOC: H.ER 19:22
DX: B86 Scabies (principal)

== ENCOUNTER 2018-03-26 08:03 | Emergency (ER) | payer MEDICAID ==
[2018-03-26 08:05] VITALS: BMI 20.7
[2018-03-26 08:11] VITALS: BP 137/86; PULSE 104; RESP 15; TEMP 98.5; O2SAT 100
--- NOTE | 2018-03-26 08:28 | ED PDOC ---
HPI: Skin/Bite Injury Time Seen by Provider: 03/26/18 08:11 Chief Complaint (Provider): Rash History Per: Patient History/Exam Limitations: no limitations Onset/Duration Of Symptoms: Hrs Quality Of Symptoms: Itching Additional Complaint(s): 53 year old female presents to the ED for an evaluation of an itchy rash. Patient was discharged today morning after Permethrin cream applied. Patient is well known to ED and is undomicile. PMD: no family provider Past Medical History Reviewed: Historical Data, Nursing Documentation, Vital Signs Vital Signs: Last Vital Signs Temp 98.5 F 03/26/18 08:10 Pulse 104 H 03/26/18 08:10 Resp 15 03/26/18 08:10 BP 137/86 03/26/18 08:10 Pulse Ox 100 03/26/18 08:10 - Medical History PMH: Anemia, Anxiety, Asthma, COPD, Depression, Fractures (right ankle), Gastritis, HTN, Paranoia, Pneumonia, Schizophrenia, Seizures, TIA Denies: HIV, Chronic Kidney Disease, Sexually Transmitted Disease - Family History Family History: States: Unknown Family Hx - Social History Current smoker - smoking cessation education provided: Yes Alcohol: Social - Immunization History Hx Tetanus Toxoid Vaccination: Yes Hx Influenza Vaccination: No Hx Pneumococcal Vaccination: No - Home Medications Home Medications: Ambulatory Orders Medication Instructions Recorded Hydrocortisone 0.5% CREAM 0.5 gm EXT BID PRN #1 tube 03/25/18 [Cortizone 0.5% CREAM] Permethrin 5% [Permethrin] 1 tube TP ONCE #1 tube 03/26/18 - Allergies Allergies/Adverse Reactions: Allergies Allergy/AdvReac Type Severity Reaction Status Date / Time shellfish derived Allergy Severe SWELLING Verified 03/25/18 14:34 Review of Systems ROS Statement: Except As Marked, All Systems Reviewed And Found Negative Constitutional: Negative for: Fever Cardiovascular: Negative for: Chest Pain Respiratory: Negative for: Shortness of Breath Skin: Positive for: Rash Physical Exam - Reviewed Nursing Documentation Reviewed: Yes Vital Signs Reviewed: Yes - Physical Exam Appears: Positive for: Non-toxic, No Acute Distress Head Exam: Positive for: ATRAUMATIC, NORMAL INSPECTION, NORMOCEPHALIC Skin: Positive for: Rash (Generalized papular lesion consistent with scabies; no vesicle, induration, fluctuance) Eye Exam: Positive for: EOMI, Normal appearance, PERRL Cardiovascular/Chest: Positive for: Regular Rate, Rhythm. Negative for: Murmur Respiratory: Positive for: Normal Breath Sounds. Negative for: Decreased Breath Sounds, Respiratory Distress, Plerual Rub Neurologic/Psych: Positive for: Alert, Oriented (x3). Negative for: Motor/Se nsory Deficits - ECG O2 Sat by Pulse Oximetry: 100 (RA) Pulse Ox Interpretation: Normal Medical Decision Making Medical Decision Making: Time: 827 Impression: scabies Plan: Benadryl 25mg Reevaluation Patient prescribed Permethrin to be applied in 7 days. Upon provider reevaluation patient is feeling better, is medically stable, and requires no further treatment in the ED at this time. Patient will be discharged home with Permethrin cream. Counseling was provided and all questions were answered regarding diagnosis and need for follow up with [facility] [place]. There is agreement to discharge plan. Return if symptoms persist or worsen. Scribe Attestation: Documented by Carlitos Pacheco, acting as a scribe for Janet Jorgensen MD. Provider Scribe Attestation: All medical record entries made by the Scribe were at my direction and personally dictated by me. I have reviewed the chart and agree that the record accurately reflects my personal performance of the history, physical exam, medical decision making, and the department course for this patient. I have also personally directed, reviewed, and agree with the discharge instructions and disposition. Disposition - Clinical Impression Clinical Impression: Scabies - Patient ED Disposition Is Patient to be Admitted: No - Disposition Referrals: [facility] [Outside] Disposition: Routine/Home Disposition Time: 08:26 Condition: STABLE Prescriptions: Permethrin 5% [Permethrin] 1 tube TP ONCE #1 tube Instructions: Scabies Forms: [employer] (Indian)
== END 2018-03-26 08:50 | disposition home or self-care (01) ==
LOC: H.ER 08:03
DX: B86 Scabies (principal)

== ENCOUNTER 2018-03-29 06:52 | Emergency (ER) | payer MEDICAID ==
[2018-03-29 06:52] VITALS: BMI 20.7
[2018-03-29 07:06] VITALS: O2SAT 100
--- NOTE | 2018-03-29 07:27 | ED PDOC ---
Lower Extremity Pain/Injury Time Seen by Provider: 03/29/18 07:06 Chief Complaint (Nursing): Allergic Reaction Chief Complaint (Provider): Right foot pain History Per: Patient History/Exam Limitations: no limitations Onset/Duration Of Symptoms: Other (4 months) Current Symptoms Are (Timing): Still Present Additional Complaint(s): 53 year old undomiciled female with history of asthma and pneumonia presents to the ED for an evaluation of her right foot. Patient reports she has right foot and right ankle pain ongoing for 4 months since fracturing her ankle in . She states she tries to take care of her foot and she goes to the podiatry clinic. She did not take any medication for pain. Otherwise, she denies fever, chills, shortness of breath, cough, chest pain, abdominal pain, nausea, vomiting, diarrhea, dysuria, frequency, incontinence, weakness, numbness or SI/HI. PMD: no family provider Past Medical History Reviewed: Historical Data, Nursing Documentation, Vital Signs Vital Signs: Last Vital Signs Temp Pulse 78 03/29/18 07:03 Resp 17 03/29/18 07:03 BP 132/85 03/29/18 07:03 Pulse Ox 100 03/29/18 07:03 - Medical History PMH: Anemia, Anxiety, Asthma, COPD, Depression, Fractures (right ankle), Gastritis, HTN, Paranoia, Pneumonia, Schizophrenia, Seizures, TIA Denies: HIV, Chronic Kidney Disease, Sexually Transmitted Disease - Family History Family History: States: Unknown Family Hx - Social History Current smoker - smoking cessation education provided: Yes Alcohol: Social - Immunization History Hx Tetanus Toxoid Vaccination: Yes Hx Influenza Vaccination: No Hx Pneumococcal Vaccination: No - Home Medications Home Medications: Ambulatory Orders Medication Instructions Recorded Hydrocortisone 0.5% CREAM 0.5 gm EXT BID PRN #1 tube 03/25/18 [Cortizone 0.5% CREAM] Permethrin 5% [Permethrin] 1 tube TP ONCE #1 tube 03/26/18 Ibuprofen [Motrin] 600 mg PO TID 7 Days tab 03/29/18 - Allergies Allergies/Adverse Reactions: Allergies Allergy/AdvReac Type Severity Reaction Status Date / Time shellfish derived Allergy Severe SWELLING Verified 03/25/18 14:34 Review of Systems ROS Statement: Except As Marked, All Systems Reviewed And Found Negative Constitutional: Negative for: Fever, Chills Cardiovascular: Negative for: Chest Pain Respiratory: Negative for: Cough, Shortness of Breath Gastrointestinal: Negative for: Nausea, Vomiting, Abdominal Pain, Diarrhea Genitourinary Female: Negative for: Dysuria, Frequency, Incontinence Musculoskeletal: Positive for: Foot Pain (right) Neurological: Negative for: Weakness, Numbness Psych: Negative for: Suicidal ideation, Other (homicidal ideation) Physical Exam - Reviewed Nursing Documentation Reviewed: Yes Vital Signs Reviewed: Yes - Physical Exam Appears: Positive for: Non-toxic, No Acute Distress Head Exam: Positive for: ATRAUMATIC, NORMAL INSPECTION, NORMOCEPHALIC Neck: Positive for: Normal, Painless ROM, Supple Cardiovascular/Chest: Positive for: Regular Rate, Rhythm. Negative for: Murmur Respiratory: Positive for: Normal Breath Sounds. Negative for: Decreased Breath Sounds, Wheezing, Respiratory Distress Pulses-Dorsalis Pedis (L): 2+ Pulses-Dorsalis Pedis (R): 2+ Back: Positive for: Normal Inspection. Negative for: L CVA Tenderness, R CVA Tenderness Extremity: Positive for: Tenderness (ankle and foot), Other (right ankle and foot are placed in a splint and able to wiggle her toes ). Negative for: Calf Tenderness Neurologic/Psych: Positive for: Alert, Oriented (x3) - ECG O2 Sat by Pulse Oximetry: 100 (RA) Pulse Ox Interpretation: Normal Medical Decision Making Medical Decision Making: Time: 718 Plan: Acetaminophen 650mg Reevaluation 727 Discussed case with slide attendant [id number] Manager Gift evaluated the patient and requested US to r/o DVT and if results are negative, patient will be placed in splints and discharged. Scribe Attestation: Documented by Carlitos Pacheco, acting as a scribe for Vince Boss MD. Provider Scribe Attestation: All medical record entries made by the Scribe were at my direction and personally dictated by me. I have reviewed the chart and agree that the record accurately reflects my personal performance of the history, physical exam, medical decision making, and the department course for this patient. I have also personally directed, reviewed, and agree with the discharge instructions and disposition. 1030 Stable. No dvt. Chronic pain. Pt. noncompliant. Fu with podiatry. No additional tx at this time. Disposition - Clinical Impression Clinical Impression: Leg pain - Patient ED Disposition Is Patient to be Admitted: No Counseled Patient/Family Regarding: Studies Performed, Diagnosis, Need For Followup, Rx Given - Disposition Referrals: Podiatry Clinic [Outside] - 03/30/18 Disposition: Routine/Home Disposition Time: 09:00 Condition: STABLE Additional Instructions: Return if not better in 3 days. Prescriptions: Ibuprofen [Motrin] 600 mg PO TID 7 Days tab Instructions: Muscle and Bone Pain (DC)
[2018-03-29] MEDS ORDERED: Povidone Iodine Topical 10% Sol ONE (07:42)
--- NOTE | 2018-03-29 09:27 | CP.PCM.CON ---
History of Present Illness - History of Present Illness History of Present Illness: Podiatry Consult Note: Dr. Ryan 53 year old female patient seen and evaluated in the ED for R foot pain and redness; patient is s/p 11 week R pilon fracture ORIF. States she drank a pint Patient states that her foot has been hurting for a couple of weeks. She reports pain to the wound today and generalized weakness. Patient is well known to Dr. Ryan; patient is non-compliant and does not follow up for her appointments. She presents today in surgical shoe. Denies N/V/F/SOB/CP. PMHx: Alcohol abuse, HTN, pneumonia, heart murmur, asthma, eczema, anxiety, and depression PSHx: D&C, application of delta frame R ankle, ORIF R ankle All: shellfish SHx: Drinks 1/2-1 bottle vodka per day; denies cigarette or illicit drug use Past Patient History - Infectious Disease Hx of Infectious Diseases: None - Tetanus Immunizations Tetanus Immunization: Unknown - Past Medical History & Family History Past Medical History?: Yes - Past Social History Alcohol: Social - CARDIAC Hx Hypertension: Yes - PULMONARY Hx Asthma: Yes Hx Chronic Obstructive Pulmonary Disease (COPD): Yes Hx Pneumonia: Yes - NEUROLOGICAL Hx Seizures: Yes Hx Transient Ischemic Attacks (TIA): Yes - HEENT Hx HEENT Problems: Yes Other/Comment: Eye glasses - RENAL Hx Chronic Kidney Disease: No - ENDOCRINE/METABOLIC Hx Endocrine Disorders: No - HEMATOLOGICAL/ONCOLOGICAL Hx Anemia: Yes Hx Human Immunodeficiency Virus (HIV): No - INTEGUMENTARY Hx Dermatological Problems: Yes Hx Eczema: Yes Hx Psoriasis: Yes - MUSCULOSKELETAL/RHEUMATOLOGICAL Hx Fractures: Yes (right ankle) - GASTROINTESTINAL Hx Gastritis: Yes - GENITOURINARY/GYNECOLOGICAL Hx Sexually Transmitted Disorders: No - PSYCHIATRIC Hx Anxiety: Yes Hx Depression: Yes Hx Paranoia: Yes Hx Schizophrenia: Yes - SURGICAL HISTORY Hx Surgeries: Yes Hx Dilation and Curettage: Yes Hx Orthopedic Surgery: Yes (R foot / R ankle surgery) Other/Comment: rt leg s/p fx - ANESTHESIA Hx Anesthesia: Yes Hx Anesthesia Reactions: No Hx Malignant Hyperthermia: No Meds Home Medications: Home Medication List Medication Instructions Recorded Confirmed Type Ibuprofen [Motrin] 600 mg PO TID 7 Days tab 03/29/18 Rx Allergies/Adverse Reactions: Allergies Allergy/AdvReac Type Severity Reaction Status Date / Time shellfish derived Allergy Severe SWELLING Verified 03/25/18 14:34 Physical Exam - Constitutional Appears: Non-toxic - Extremities Exam Additional comments: LE focused Vasc: DP/PT pulses palpable 2/4 bilaterally. Temperature gradient is warm to warm on right, warm to cool on left. Diffuse edema noted to entirety of right lower leg and ankle as well as left 1st MPJ and left great toe. Capillary refill time < 3 sec to all digits Derm: Full thickness wound noted to anterolateral lower right leg measuring a pproximately 12cm x 7 cm x 0.3cm with granular wound base. Mild serosanguinous drainage noted. No malodor present. No fluctuance, no evidence of abscess formation. No clinical signs of infection noted. Neuro: protective and gross sensation intact to lower extremities Ortho: mild-moderate tenderness elicited upon palpation of left great toe. Minimal tenderness to palpation of right lower leg wound Results - Vital Signs Recent Vital Signs: Last Vital Signs Temp Pulse 78 03/29/18 07:03 Resp 17 03/29/18 07:03 BP 132/85 03/29/18 07:03 Pulse Ox 100 03/29/18 08:08 Assessment & Plan - Assessment and Plan (Free Text) Assessment: 53F 11 weeks s/p right ankle open reduction with internal fixation with open post-surgical wound to right lower leg Plan: Patient seen and evaluated in ED Discussed plan with attending Dr. Ryan Right ankle XR reviewed from 03/21. Venous duplex ordered and rviewed; negative for DVT Posterior splint applied to RLE Advised to remain NWB to the right lower extremity and utilize crutches at all times Patient advised to follow up in [facility] podiatry clinic on Mondays from 12-3pm Thank you for this consult
[2018-03-29 11:11] VITALS: BP 105/75; PULSE 93; RESP 18; TEMP 98.1
--- NOTE | 2018-03-29 13:31 | US ---
Date of service: 03/29/2018 PROCEDURE: Right lower extremity venous duplex Doppler. HISTORY: r/o dvt COMPARISON: None available. TECHNIQUE: Common femoral, superficial femoral, popliteal and posterior tibial veins were evaluated. Flow was assessed with color Doppler, compressibility, assessment of phasic flow and augmentation response. FINDINGS: COMMON FEMORAL VEIN: Unremarkable. SUPERFICIAL FEMORAL VEIN: Unremarkable. POPLITEAL VEIN: Unremarkable. POSTERIOR TIBIAL VEIN: Unremarkable. OTHER FINDINGS: Calf edema of, moderate is present. Calf veins however are widely patent and not compromised or narrowed. IMPRESSION: No evidence of deep venous thrombosis in the right lower extremity.
== END 2018-03-29 10:56 | disposition home or self-care (01) ==
LOC: H.ER 06:52
DX: M25.571 Pain in right ankle and joints of right foot (principal)

== ENCOUNTER 2018-04-02 23:13 | Emergency (ER) | payer MEDICAID ==
[2018-04-02 23:14] VITALS: BMI 20.7
[2018-04-02 23:18] VITALS: RESP 16
--- NOTE | 2018-04-03 01:38 | ED PDOC ---
HPI: Psych/Substance Abuse Time Seen by Provider: 04/02/18 23:34 Chief Complaint (Nursing): Alcohol Ingestion Chief Complaint (Provider): Alcohol Ingestion History Per: Patient, EMS History/Exam Limitations: intoxication Onset/Duration Of Symptoms: Unknown Current Symptoms Are (Timing): Still Present Suicide/Self Injury Attempted (Context): None Modifying Factor(s): Alcohol Additional Complaint(s): 53 y/o female who is well known to ED staff and provider presenting to the ED for evaluation of alcohol abuse. Patient reports of only drinking "a few beers" today. Patient additionally reports of having "pain in all her bones" specifically the right leg. PMD: Kam Sue Past Medical History Reviewed: Historical Data, Nursing Documentation, Vital Signs Vital Signs: Last Vital Signs Temp 98.0 F 04/02/18 23:14 Pulse 77 04/02/18 23:14 Resp 16 04/02/18 23:14 BP 123/60 04/02/18 23:14 Pulse Ox 98 04/02/18 23:14 - Medical History PMH: Anemia, Anxiety, Asthma, COPD, Depression, Fractures (right ankle), Gastritis, HTN, Paranoia, Pneumonia, Schizophrenia, Seizures, TIA Denies: HIV, Chronic Kidney Disease, Sexually Transmitted Disease - Surgical History Surgical History: No Surg Hx - Family History Family History: States: Unknown Family Hx - Immunization History Hx Tetanus Toxoid Vaccination: Yes Hx Influenza Vaccination: No Hx Pneumococcal Vaccination: No - Home Medications Home Medications: Ambulatory Orders Medication Instructions Recorded Permethrin 5% [Permethrin 5% Cream] 1 inch TP ONCE #1 tube 03/31/18 - Allergies Allergies/Adverse Reactions: Allergies Allergy/AdvReac Type Severity Reaction Status Date / Time shellfish derived Allergy Severe SWELLING Verified 04/02/18 23:14 Review of Systems ROS Statement: Except As Marked, All Systems Reviewed And Found Negative Musculoskeletal: Positive for: Leg Pain Psych: Positive for: Other (alcohol abuse) Physical Exam - Reviewed Nursing Documentation Reviewed: Yes Vital Signs Reviewed: Yes - Physical Exam Appears: Positive for: No Acute Distress (disheveld, malodorous and intoxicated appearing ) Head Exam: Positive for: ATRAUMATIC, NORMOCEPHALIC Skin: Positive for: Normal Color, Warm, Dry Eye Exam: Positive for: Normal appearance, EOMI, PERRL Neck: Positive for: Normal, Painless ROM Cardiovascular/Chest: Positive for: Regular Rate, Rhythm. Negative for: Murmur Respiratory: Positive for: Normal Breath Sounds. Negative for: Respiratory Distress Pulses-Dorsalis Pedis (L): 2+ Pulses-Dorsalis Pedis (R): 2+ Gastrointestinal/Abdominal: Positive for: Normal Exam, Soft. Negative for: Tenderness Extremity: Positive for: Pedal Edema (Right lower extremity edema), Deformity (5 x 5 cm superficial ulceration to the anterior tibia ) Neurologic/Psych: Positive for: Alert, Oriented. Negative for: Motor/Sensory Deficits - ECG O2 Sat by Pulse Oximetry: 98 (RA) Pulse Ox Interpretation: Normal Medical Decision Making Medical Decision Making: Time: 0028 A/P: alcohol intoxication -- Leg swelling secondary to fracture. Will get US to rule out DVT -- Will monitor for sobriety. -- Glucose, POC -- Motrin 600 mg PO -- Glucose, Blood, POC -- US Duplex Lower Extremity Vein Right. Time: 013 US RESULTS FINDINGS: DEEP VEINS: The common femoral, superficial femoral, and popliteal veins are echolucent and compressible. There is normal color Doppler flow throughout. The visualized calf veins appear patent. SUPERFICIAL VEINS: The visualized greater saphenous vein is patent. SOFT TISSUES: No popliteal fossa cyst or other abnormalities. IMPRESSION: No deep venous thrombosis evident on right lower extremity examination. Electronically signed on Apr 03, 2018 1:39:51 AM EST by: Clint Pierre M.D., ROSE Certified By [facility] [employer] [facility] Trained MRI and CT Specialist 500 Patient is awake, alert, steady gait Will discharge home Will provide podiatry referral and AA Scribe Attestation: Documented by Karina Lopez, acting as a scribe for Ramírez Stephens MD. Provider Scribe Attestation: All medical record entries made by the Scribe were at my direction and personally dictated by me. I have reviewed the chart and agree that the record accurately reflects my personal performance of the history, physical exam, medical decision making, and the department course for this patient. I have also personally directed, reviewed, and agree with the discharge instructions and disposition. Disposition - Clinical Impression Clinical Impression: Alcohol intoxication - Patient ED Disposition Is Patient to be Admitted: No - Disposition Referrals: Podiatry Clinic [Outside] Alcoholics Anonymous [Outside] Disposition: Routine/Home Disposition Time: 05:40 Condition: IMPROVED Instructions: Alcohol Use - When Is Drinking a Problem? Forms: [facility] (Azeri)
[2018-04-03 07:26] VITALS: BP 110/70; PULSE 79; TEMP 98; O2SAT 96
--- NOTE | 2018-04-04 10:50 | US ---
Date of service: 04/03/2018 PROCEDURE: Right lower extremity venous duplex Doppler. HISTORY: Rule out DVT COMPARISON: Comparison made with prior right lower extremity DVT exam 03/29/2018. TECHNIQUE: Common femoral, superficial femoral, popliteal and posterior tibial veins were evaluated. Flow was assessed with color Doppler, compressibility, assessment of phasic flow and augmentation response. FINDINGS: COMMON FEMORAL VEIN: Unremarkable. SUPERFICIAL FEMORAL VEIN: Unremarkable. POPLITEAL VEIN: Unremarkable. POSTERIOR TIBIAL VEIN: Unremarkable. OTHER FINDINGS: None. IMPRESSION: No evidence of deep venous thrombosis in the right lower extremity.
== END 2018-04-03 06:20 | disposition home or self-care (01) ==
LOC: H.ER 23:13
DX: F10.129 Alcohol abuse with intoxication, unspecified (principal); F20.9 Schizophrenia, unspecified; F32.9 Major depressive disorder, single episode, unspecified; F41.9 Anxiety disorder, unspecified; I10 Essential (primary) hypertension; J44.9 Chronic obstructive pulmonary disease, unspecified; Z86.73 Personal history of transient ischemic attack (TIA), and cerebral infarction without residual deficits

== ENCOUNTER 2018-04-07 20:33 | Emergency (ER) | payer MEDICAID ==
[2018-04-07 20:33] VITALS: BMI 20.7
[2018-04-07 20:38] VITALS: TEMP 98
--- NOTE | 2018-04-07 21:04 | ED PDOC ---
Lower Extremity Pain/Injury Time Seen by Provider: 04/07/18 20:58 Chief Complaint (Nursing): Lower Extremity Problem/Injury Chief Complaint (Provider): Right Leg Wound History Per: Patient History/Exam Limitations: no limitations Current Symptoms Are (Timing): Still Present Additional Complaint(s): 53 year old female presents to the ED for evaluation of an ongoing ulcer to her anterior right leg which she follows up at the wound care clinic on Mondays for. Patient is requesting to be admitted at this time because she does not think it is healing. Denies fever and chills. PMD: none provided Past Medical History Reviewed: Historical Data, Nursing Documentation, Vital Signs Vital Signs: Last Vital Signs Temp 98 F 04/07/18 20:34 Pulse 100 H 04/07/18 20:34 Resp 16 04/07/18 20:34 BP 114/66 04/07/18 20:34 Pulse Ox 98 04/07/18 20:34 - Medical History PMH: Anemia, Anxiety, Asthma, COPD, Depression, Fractures (right ankle), Gastritis, HTN, Paranoia, Pneumonia, Schizophrenia, Seizures, TIA Denies: HIV, Chronic Kidney Disease, Sexually Transmitted Disease - Family History Family History: States: Unknown Family Hx - Immunization History Hx Tetanus Toxoid Vaccination: Yes Hx Influenza Vaccination: No Hx Pneumococcal Vaccination: No - Home Medications Home Medications: Ambulatory Orders Medication Instructions Recorded Permethrin 5% [Permethrin 5% Cream] 1 inch TP ONCE #1 tube 03/31/18 - Allergies Allergies/Adverse Reactions: Allergies Allergy/AdvReac Type Severity Reaction Status Date / Time shellfish derived Allergy Severe SWELLING Verified 04/02/18 23:14 Review of Systems ROS Statement: Except As Marked, All Systems Reviewed And Found Negative Constitutional: Negative for: Fever, Chills Skin: Positive for: Other (ulcer to right anterior leg) Physical Exam - Reviewed Nursing Documentation Reviewed: Yes Vital Signs Reviewed: Yes - Physical Exam Appears: Positive for: No Acute Distress Cardiovascular/Chest: Positive for: Regular Rate, Rhythm Respiratory: Positive for: Normal Breath Sounds. Negative for: Respiratory Distress Extremity: Positive for: Normal ROM (bilateral lower extremities), Other (10cm in diameter ulcer to right anterior leg with yellowish discharge coating it, but no surrounding erythema) - ECG O2 Sat by Pulse Oximetry: 98 (RA) Pulse Ox Interpretation: Normal - Progress ED Course And Treament: PODIATRY IN ED TO SEE PATIENT AT 10:00PM. POSTERIOR SPLINT AND WOUND CARE BY HIM. Medical Decision Making Medical Decision Making: Time: 2100 Initial Impression: ulcer to right leg Initial Plan: --Wound culture and gram stain Scribe Attestation: Documented by Angie Cee, acting as a scribe for Hui Villarreal PA-C. Provider Scribe Attestation: All medical record entries made by the Scribe were at my direction and personally dictated by me. I have reviewed the chart and agree that the record accurately reflects my personal performance of the history, physical exam, medical decision making, and the department course for this patient. I have also personally directed, reviewed, and agree with the discharge instructions and disposition. Disposition - Clinical Impression Clinical Impression: Ankle injury, Skin ulcer - Patient ED Disposition Is Patient to be Admitted: No - Disposition Referrals: [facility] [Outside] Disposition: Routine/Home Disposition Time: 22:25 Condition: FAIR Additional Instructions: F/U WITH [facility] ON WEDNESDAY PLEASE Instructions: Wound Care (DC)
--- NOTE | 2018-04-07 22:30 | CP.PCM.CON ---
History of Present Illness - History of Present Illness History of Present Illness: Podiatry Consult Note: Dr. Ryan 53 year old female well known to our service patient seen and evaluated in the ED for R foot pain and redness; patient is 12 weeks s/p R pilon fracture ORIF. Patient is clearly intoxicated and a poor historian as a result. Patient states that her foot has been hurting for a couple of weeks and states that she has been walking on her foot. She reports pain to the wound today and generalized weakness. Patient is non-compliant and does not follow up for her appointments. She presents today in surgical shoe. Denies any further pedal complaints at this time. Denies any new traumatic events. Denies any purulence, drainage, malodor or other clinical signs of infection to her wound. Denies N/V/F/SOB/CP. PMHx: Alcohol abuse, HTN, pneumonia, heart murmur, asthma, eczema, anxiety, and depression PSHx: D&C, application of delta frame R ankle, ORIF R ankle All: shellfish SHx: Drinks 1/2-1 bottle vodka per day; denies cigarette or illicit drug use Review of Systems - Review of Systems All systems: reviewed and no additional remarkable complaints except Review of Systems: as per HPI Past Patient History - Infectious Disease Hx of Infectious Diseases: None - Tetanus Immunizations Tetanus Immunization: Unknown - Past Medical History & Family History Past Medical History?: Yes - Past Social History Smoking Status: Never Smoked - CARDIAC Hx Hypertension: Yes - PULMONARY Hx Asthma: Yes Hx Chronic Obstructive Pulmonary Disease (COPD): Yes Hx Pneumonia: Yes - NEUROLOGICAL Hx Seizures: Yes Hx Transient Ischemic Attacks (TIA): Yes - HEENT Hx HEENT Problems: Yes Other/Comment: Eye glasses - RENAL Hx Chronic Kidney Disease: No - ENDOCRINE/METABOLIC Hx Endocrine Disorders: No - HEMATOLOGICAL/ONCOLOGICAL Hx Anemia: Yes Hx Human Immunodeficiency Virus (HIV): No - INTEGUMENTARY Hx Dermatological Problems: Yes Hx Eczema: Yes Hx Psoriasis: Yes - MUSCULOSKELETAL/RHEUMATOLOGICAL Hx Fractures: Yes (right ankle) - GASTROINTESTINAL Hx Gastritis: Yes - GENITOURINARY/GYNECOLOGICAL Hx Sexually Transmitted Disorders: No - PSYCHIATRIC Hx Anxiety: Yes Hx Depression: Yes Hx Paranoia: Yes Hx Schizophrenia: Yes - SURGICAL HISTORY Hx Surgeries: Yes Hx Dilation and Curettage: Yes Hx Orthopedic Surgery: Yes (R foot / R ankle surgery) Other/Comment: rt leg s/p fx - ANESTHESIA Hx Anesthesia: Yes Hx Anesthesia Reactions: No Hx Malignant Hyperthermia: No Meds Allergies/Adverse Reactions: Allergies Allergy/AdvReac Type Severity Reaction Status Date / Time shellfish derived Allergy Severe SWELLING Verified 04/02/18 23:14 Physical Exam - Constitutional Appears: No Acute Distress, Unkempt, Older Than Stated Age - Extremities Exam Additional comments: LE focused Vasc: DP/PT pulses palpable 2/4 bilaterally. Temperature gradient is warm to warm on right, warm to cool on left. Diffuse edema noted to entirety of right lower leg and ankle as well as left 1st MPJ and left great toe consistent with previous ORIF. Capillary refill time < 3 sec to all digits Derm: Full thickness wound noted to anterolateral lower right leg measuring approximately 12cm x 7 cm x 0.3cm with granular wound base. Mild serosanguinous drainage noted. No malodor present. No fluctuance, no evidence of abscess formation. No clinical signs of infection noted. Neuro: protective and gross sensation intact to lower extremities Ortho: mild-moderate tenderness elicited upon palpation of left great toe. Minimal tenderness to palpation of right lower leg wound - Neurological Exam Neurological exam: Alert, Altered, Oriented x3 - Psychiatric Exam Psychiatric exam: Normal Affect, Normal Mood Results - Vital Signs Recent Vital Signs: Last Vital Signs Temp 98 F 04/07/18 20:34 Pulse 100 H 04/07/18 20:34 Resp 16 04/07/18 20:34 BP 114/66 04/07/18 20:34 Pulse Ox 98 04/07/18 22:26 Assessment & Plan - Assessment and Plan (Free Text) Assessment: 53F 12 weeks s/p right ankle open reduction with internal fixation with open post-surgical wound to right lower leg Plan: Patient seen and evaluated in ED Discussed plan with attending Dr. Ryan Posterior splint applied to RLE Advised to remain NWB to the right lower extremity and utilize crutches at all times Patient advised to follow up in [facility] podiatry clinic on Mondays from 12-3pm - Date & Time Date: 04/07/18 Time: 22:33
[2018-04-07 23:54] VITALS: BP 110/70; PULSE 88; RESP 18; O2SAT 97
--- NOTE | 2018-04-10 10:23 | ED PDOC ---
ED Additional Note - Date & Time of Evaluation Date of Evaluation: 04/10/18 Time of Evaluation: 10:20 - Physician Additional Note Physician Additional Note: 2nd attempt made to contact patient on phone numbers on file. Voicemail left at patient's home number re: abnormal lab result from 04/07. Letter to be to be sent to address on file.
== END 2018-04-08 05:31 | disposition home or self-care (01) ==
LOC: H.ER 20:33
DX: L97.302 Non-pressure chronic ulcer of unspecified ankle with fat layer exposed (principal); S93.401A Sprain of unspecified ligament of right ankle, initial encounter; Y92.89 Other specified places as the place of occurrence of the external cause; D64.9 Anemia, unspecified; I10 Essential (primary) hypertension; Z86.73 Personal history of transient ischemic attack (TIA), and cerebral infarction without residual deficits; Z91.19 Patient's noncompliance with other medical treatment and regimen

== ENCOUNTER 2018-04-08 13:32 | Emergency (ER) | payer MEDICAID ==
[2018-04-08 13:32] VITALS: BMI 20.7
[2018-04-08] MEDS ORDERED: Multivitamin (MVI) 10 ML, Thiamine 100 MG, Folic Acid 1 MG in Dextrose 5%/0.45% NS 1,00... IV ONE ×2 (15:28→15:47)
[2018-04-08] MEDS ORDERED: Permethrin 5% CREAM TOP ONE (15:29)
--- NOTE | 2018-04-08 16:36 | ED PDOC ---
HPI: Skin/Bite Injury Time Seen by Provider: 04/08/18 13:57 Chief Complaint (Nursing): Abnormal Skin Integrity Chief Complaint (Provider): Abnormal Skin Integrity History Per: Patient History/Exam Limitations: no limitations Current Symptoms Are (Timing): Still Present Additional Complaint(s): Marion Hudson is a 53 year old female with a past medical history of alcohol abuse and schizophrenia, who was brought to the emergency department by [place] PD and EMS for generalized rash, nausea and vomiting. Patient states that she usually drinks about half a gallon of vodka a day, but has not had any today and has been feeling shaking. She states she has vomited twice today morning and continues to feel nausea. Patient states she has body wide itching. She further states that she was here on March 31 for a treatment of scabies with Permethrin cream. Patient was not aware that she had to repeat treatment in one week. Of note, patient was last seen in the ED yesterday for leg pain and was evaluated by podiatry for a chronic lower extremity ulcer. Patient was not complaining of itching yesterday. PMD: No provider Past Medical History Reviewed: Historical Data, Nursing Documentation, Vital Signs - Medical History PMH: Anemia, Anxiety, Asthma, COPD, Depression, Fractures (right ankle), Gastritis, HTN, Paranoia, Pneumonia, Schizophrenia, Seizures, TIA Denies: HIV, Chronic Kidney Disease, Sexually Transmitted Disease - Surgical History Surgical History: No Surg Hx - Family History Family History: States: Unknown Family Hx - Immunization History Hx Tetanus Toxoid Vaccination: Yes Hx Influenza Vaccination: No Hx Pneumococcal Vaccination: No - Home Medications Home Medications: Ambulatory Orders Medication Instructions Recorded RX: Permethrin 5% [Permethrin 5% 1 inch TP ONCE #1 tube 03/31/18 Cream] - Allergies Allergies/Adverse Reactions: Allergies Allergy/AdvReac Type Severity Reaction Status Date / Time shellfish derived Allergy Severe SWELLING Verified 04/08/18 13:46 Review of Systems ROS Statement: Except As Marked, All Systems Reviewed And Found Negative Constitutional: Positive for: Other (shaking) Gastrointestinal: Positive for: Nausea, Vomiting Skin: Positive for: Rash Physical Exam - Reviewed Nursing Documentation Reviewed: Yes Vital Signs Reviewed: Yes - Physical Exam Appears: Positive for: Non-toxic, No Acute Distress Head Exam: Positive for: ATRAUMATIC, NORMOCEPHALIC Skin: Positive for: Rash (RLE has an approximately 8 cm by 4 cm ulceration with Telfa dressing over it; (-) associated erythema or purulent drainage) Eye Exam: Positive for: Normal appearance, EOMI, PERRL Gastrointestinal/Abdominal: Positive for: Normal Exam, Soft. Negative for: T enderness Comments: Multiple body wide excoriations with some associated erythema and multiple areas of dry skin. - Laboratory Results Result Diagrams: 04/08/18 16:57 04/08/18 16:57 Medical Decision Making Medical Decision Making: Time: 1527 Plan: --Alcohol serum --CMP --CBC with differential --Banana bag --Librium 25 mg PO --Benadryl 25 mg PO --Zofran inj 4 mg IVP --Permethrin 5% cream --Accucheck glucose, blood -Podiatry consultation placed to replace RLE dressing. Time: 2109 --Spoke with podiatry, who state that dressing could be reapplied by ED staff using xeroform abdominal pads, perlex gauze, posterior splint with an mango bandage on top. --Xeroform applied by NADIYA and additional dressings applied by ED highway engineering technician. --Placement reviewed by NADIYA. 22:30: patient showered and removed Permethrin cream with RLE dressing wrapped in plastic. Labs unchanged from baseline. serum ETOH < 10 ambulating with steady gait. Stable for d/c home. Pt advised to keep skin moisturized and use Benadryl as needed for itching. Scribe Attestation: Documented by Cristian Drummond, acting as a scribe for Mirna Sharma PA-C. Provider Scribe Attestation: All medical record entries made by the Scribe were at my direction and personally dictated by me. I have reviewed the chart and agree that the record accurately reflects my personal performance of the history, physical exam, medical decision making, and the department course for this patient. I have also personally directed, reviewed, and agree with the discharge instructions and disposition. Disposition - Clinical Impression Clinical Impression: Alcohol withdrawal - Patient ED Disposition Is Patient to be Admitted: No Counseled Patient/Family Regarding: Studies Performed, Diagnosis, Need For Followup - Disposition Referrals: Alcoholics Anonymous [Outside] [facility] [Outside] Disposition: Routine/Home Disposition Time: 22:40 Condition: IMPROVED Forms: [employer] (Indonesian)
[2018-04-08 16:42] VITALS: BP 150/81; PULSE 85; RESP 18; TEMP 98; O2SAT 98
[2018-04-08 17:13] LABS: BASO % 1.4 % (0.0-2.0); EOS # 0.1 K/uL (0.0-0.7); EOS % 1.9 % (0.0-4.0); HEMOGLOBIN 9.4 g/dL (12.0-16.0); LYMPH # 0.8 K/uL (1.0-4.3); LYMPH % 24.3 % (20.0-40.0); MEAN CELL VOLUME 83.5 fl (81.0-99.0); MEAN CORPUSCULAR HEMOGLOBIN 26.5 pg (27.0-31.0); MEAN CORPUSCULAR HGB CONC 31.7 g/dL (33.0-37.0); MONO # 0.4 K/uL (0.0-0.8); MONO % 13.4 % (0.0-10.0); NEUT # 1.8 K/uL (1.8-7.0); NRBC % 0.2 % (0.0-0.0); RBC 3.55 Mil/uL (3.80-5.20); RED CELL DISTRIBUTION WIDTH 18.2 % (11.5-14.5); WHITE BLOOD COUNT 3.1 K/uL (4.8-10.8)
[2018-04-08 17:18] LABS: ALBUMIN 4.1 g/dL (3.5-5.0); ALT/SGPT 20 U/L (9-52); AST/SGOT 55 U/L (14-36); BLOOD UREA NITROGEN 12 mg/dl (7-17); CALCIUM 9.4 mg/dL (8.4-10.2); GFR NON-AFRICAN AMERICAN > 60
== END 2018-04-08 22:51 | disposition home or self-care (01) ==
LOC: H.ER 13:32
DX: F10.239 Alcohol dependence with withdrawal, unspecified (principal); B86 Scabies; F20.9 Schizophrenia, unspecified; I10 Essential (primary) hypertension; Z86.73 Personal history of transient ischemic attack (TIA), and cerebral infarction without residual deficits
CPT/HCPCS: 80053; 80320; 82948; 85025; 96374; 99284; J2405; J3411; J7042

== ENCOUNTER 2018-04-13 00:02 | Emergency (ER) | payer MEDICAID, SELFPAY ==
[2018-04-13 00:02] VITALS: BMI 20.7
[2018-04-13 00:05] VITALS: BP 144/68; PULSE 92; RESP 16; TEMP 98; O2SAT 96
--- NOTE | 2018-04-13 03:02 | ED PDOC ---
HPI: General Adult Time Seen by Provider: 04/13/18 00:09 Chief Complaint (Nursing): Medical Clearance History Per: Patient History/Exam Limitations: no limitations Onset/Duration Of Symptoms: Hrs Additional Complaint(s): 53 year old with ETOH abuse, frequent visits to ER, recent pilon fracture status post repair presenting with ETOH abuse and leg pain. PAtient was initially brought in by police for medical clearance for being found trespassing and spitting at an EMT but on arrival to ED patient was released by police. Patient was recently seen by podiatry in ED and leg was dressed and splinted, but patient has not yet followed up podiatry clinic. Admits to alcohol use. Past Medical History Reviewed: Historical Data, Nursing Documentation, Vital Signs Vital Signs: Last Vital Signs Temp 98.0 F 04/13/18 00:03 Pulse 92 H 04/13/18 00:03 Resp 16 04/13/18 00:03 BP 144/68 04/13/18 00:03 Pulse Ox 96 04/13/18 00:03 - Medical History PMH: Anemia, Anxiety, Asthma, COPD, Depression, Fractures (right ankle), Gastritis, HTN, Paranoia, Pneumonia, Schizophrenia, Seizures, TIA Denies: HIV, Chronic Kidney Disease, Sexually Transmitted Disease - Family History Family History: States: Unknown Family Hx - Immunization History Hx Tetanus Toxoid Vaccination: Yes Hx Influenza Vaccination: No Hx Pneumococcal Vaccination: No - Home Medications Home Medications: Ambulatory Orders Medication Instructions Recorded Permethrin 5% [Permethrin 5% Cream] 1 inch TP ONCE #1 tube 03/31/18 - Allergies Allergies/Adverse Reactions: Allergies Allergy/AdvReac Type Severity Reaction Status Date / Time shellfish derived Allergy Severe SWELLING Verified 04/13/18 00:03 Review of Systems ROS Statement: Except As Marked, All Systems Reviewed And Found Negative Musculoskeletal: Positive for: Leg Pain Physical Exam - Reviewed Nursing Documentation Reviewed: Yes Vital Signs Reviewed: Yes - Physical Exam Appears: Positive for: Non-toxic, No Acute Distress. Negative for: Well (Disheveled) Head Exam: Positive for: ATRAUMATIC, NORMAL INSPECTION, NORMOCEPHALIC Skin: Positive for: Normal Color, Warm, DRY Eye Exam: Positive for: EOMI, Normal appearance, PERRL ENT: Positive for: Normal ENT Inspection Neck: Positive for: Normal, Painless ROM Cardiovascular/Chest: Positive for: Regular Rate, Rhythm Respiratory: Positive for: CNT, Normal Breath Sounds Gastrointestinal/Abdominal: Positive for: Normal Exam, Soft Back: Positive for: Normal Inspection Extremity: Positive for: Other (RLE with circumferential nonpitting edema, poor hygeine, 4x5cm clean ulceration lower anteiror tibia) Neurologic/Psych: Positive for: Alert, Oriented - ECG O2 Sat by Pulse Oximetry: 96 Medical Decision Making Medical Decision Making: Patient presenting with ETOH abuse and leg pain, however clinically sober at this time Dressing was taken down, wound ulcer was dressed in xeroform, splint replaced and wrapped Xray taken, no changes Will discharge and refer to podiatry clinic Disposition - Clinical Impression Clinical Impression: Alcohol intoxication, Leg pain - Disposition Referrals: Podiatry Clinic [Outside] Disposition: Routine/Home Disposition Time: 03:07 Condition: GOOD Instructions: General (DC), Alcohol Use - When Is Drinking a Problem?, Muscle and Bone Pain (DC)
--- NOTE | 2018-04-13 08:34 | RAD ---
Date of service: 04/13/2018 PROCEDURE: Right Ankle Radiographs. HISTORY: previous pilon fx, 12 wks ago, pain COMPARISON: 03/04/2018 and 02/04/2018 FINDINGS: BONES: Comminuted distal tibial metaphyseal-epiphyseal fracture line still present. Fibular fracture line is not appreciated. Bordering the posterior tibial and fibular cortices exuberant periosteal reaction noted; in part healing callus formation here is possible. Additional periosteal reaction associated with other etiologies including infection cannot be excluded. There is interval increased osseous fusion suggested between the tibia and fibula. There is periosteal reaction along the lateral fibular cortex series 268, image 1. The plate and screws transfixing the distal tibial fracture appear similar without interval hardware fracture or gross failing appreciated. Inferior calcaneal spur present. JOINTS: Tibiotalar osteoarthrosis present. Ankle mortise maintained. The visualization of the talar dome especially lateral aspect is limited. SOFT TISSUES: Diffuse soft tissue swelling lower leg and ankle level OTHER FINDINGS: None. IMPRESSION: Multiple comminuted fractures of the distal tibial metaphysis-epiphysis/plafond-multiple separate fracture fragments here noted along with probable osseous graft plug. No complete intraosseous healing/incorporation of the fracture fragments suggested. Overall appearance is similar. The lateral and medial lupe cortical periosteal thickening is similar compatible at least in part healing callus formation . Subacute osteomyelitis cannot be excluded. Is extensive subcutaneous edema compatible with lymphedema and/or cellulitis. Correlate clinically.
== END 2018-04-13 07:10 | disposition home or self-care (01) ==
LOC: H.ER 00:02
DX: F10.129 Alcohol abuse with intoxication, unspecified (principal); M25.571 Pain in right ankle and joints of right foot; F20.9 Schizophrenia, unspecified; F32.9 Major depressive disorder, single episode, unspecified; J44.9 Chronic obstructive pulmonary disease, unspecified; Z86.73 Personal history of transient ischemic attack (TIA), and cerebral infarction without residual deficits; I10 Essential (primary) hypertension

== ENCOUNTER 2018-04-16 01:41 | Emergency (ER) | payer MEDICAID, SELFPAY ==
[2018-04-16 01:41] VITALS: BMI 20.7
[2018-04-16 01:50] VITALS: O2SAT 100
--- NOTE | 2018-04-16 06:14 | ED PDOC ---
HPI: Trauma/Fall - HPI Time Seen by Provider: 04/16/18 03:20 Chief Complaint (Nursing): Lower Extremity Problem/Injury Chief Complaint (Provider): Lower Extremity Problem/Injury History Per: Patient History/Exam Limitations: no limitations Onset/Duration Of Symptoms: Persistent Injury Occurred (Timing): Just Before Arrival Additional Complaint(s): 53 year old female presents to the emergency department for an evaluation of persistent right foot and ankle pain. Patient states she slipped on ice 1 week ago but did not seek medical attention at the time. Patient had a secondary fall prior to arrival, thus, prompting ED visit. At present, she denies any recent drug or alcohol use. Patient is receiving wound care to right foot at clinic on weekly basis. PCP: Dr. Kam Sue Past Medical History Reviewed: Historical Data, Nursing Documentation, Vital Signs Vital Signs: Last Vital Signs Temp 99.1 F 04/16/18 01:46 Pulse 96 H 04/16/18 01:46 Resp 18 04/16/18 01:46 BP 136/84 04/16/18 01:46 Pulse Ox 100 04/16/18 01:46 - Medical History PMH: Anemia, Anxiety, Asthma, COPD, Depression, Fractures (right ankle), Gastritis, HTN, Paranoia, Pneumonia, Schizophrenia, Seizures, TIA Denies: HIV, Chronic Kidney Disease, Sexually Transmitted Disease - Family History Family History: States: Unknown Family Hx - Social History Alcohol: None Drugs: Denies - Immunization History Hx Tetanus Toxoid Vaccination: Yes Hx Influenza Vaccination: No Hx Pneumococcal Vaccination: No - Home Medications Home Medications: Ambulatory Orders Medication Instructions Recorded Permethrin 5% [Permethrin 5% Cream] 1 inch TP ONCE #1 tube 03/31/18 - Allergies Allergies/Adverse Reactions: Allergies Allergy/AdvReac Type Severity Reaction Status Date / Time shellfish derived Allergy Severe SWELLING Verified 04/21/18 23:40 Review of Systems ROS Statement: Except As Marked, All Systems Reviewed And Found Negative Musculoskeletal: Positive for: Foot Pain (right-sided ankle. chronic wounds on right foot) Physical Exam - Reviewed Nursing Documentation Reviewed: Yes Vital Signs Reviewed: Yes - Physical Exam Appears: Positive for: No Acute Distress Extremity: Positive for: Tenderness (well-healing right foot wound with good granulation tissue; multiple chronic scabs on all extremites and torso), Swelling (and ecchymosis to right lateral malleolus), Other (well-healing right foot wound with good granulation tissue without drainage) Neurologic/Psych: Positive for: Alert, Oriented, Mood/Affect (sleepy but arousable). Negative for: Motor/Sensory Deficits - ECG O2 Sat by Pulse Oximetry: 100 (RA) Pulse Ox Interpretation: Normal Medical Decision Making Medical Decision Making: Time: 541 Initial Plan: * XR right ankle Time: 708 Xray shows no change from previous. Wound to be redressed with wet to dry Betadine dressing. Discharge home. Scribe Attestation: Documented by Marisa Kwan, acting as a scribe for Olya Kaufman MD. Provider Scribe Attestation: All medical record entries made by the Scribe were at my direction and personally dictated by me. I have reviewed the chart and agree that the record accurately reflects my personal performance of the history, physical exam, medical decision making, and the department course for this patient. I have also personally directed, reviewed, and agree with the discharge instructions and disposition. Disposition - Clinical Impression Clinical Impression: Chronic pain due to injury, Leg pain, Ulcer - Patient ED Disposition Is Patient to be Admitted: No - Disposition Disposition: Routine/Home Disposition Time: 06:55 Condition: IMPROVED Additional Instructions: Follow up with sash sticker for wound evaluation and dressing change. Instructions: Chronic Pain (DC), Muscle and Bone Pain (DC) Forms: [employer] ([place]izen [place]) Print Language: [place]
[2018-04-16] MEDS ORDERED: Povidone Iodine Oint 10% Foilpak UD TOP ONE (07:17)
[2018-04-16] MEDS ORDERED: Povidone Iodine Topical 10% Sol ONE (07:41)
[2018-04-16 08:43] VITALS: BP 127/68; PULSE 79; RESP 17; TEMP 98.3
--- NOTE | 2018-04-16 10:46 | RAD ---
Date of service: 04/16/2018 PROCEDURE: Right Ankle Radiographs. HISTORY: right ankle pain s/p fall COMPARISON: Right ankle radiographs dated 04/13/2018. FINDINGS: There has been prior open reduction internal plate and screw fixation of the distal tibia. Hardware appears intact. Heterotopic ossification surrounding callus formation is similar. No acute fracture is definitely seen. There is increased lateral malleolar soft tissue swelling. IMPRESSION: Prior or of the distal tibia. Interval increase in lateral malleolar soft tissue swelling without definite demonstrated acute fracture.
== END 2018-04-16 08:00 | disposition home or self-care (01) ==
LOC: H.ER 01:41
DX: M79.661 Pain in right lower leg (principal); G89.21 Chronic pain due to trauma; I10 Essential (primary) hypertension; Z86.59 Personal history of other mental and behavioral disorders; J44.9 Chronic obstructive pulmonary disease, unspecified; Z86.73 Personal history of transient ischemic attack (TIA), and cerebral infarction without residual deficits; W00.0XXA Fall on same level due to ice and snow, initial encounter

== ENCOUNTER 2018-04-21 23:36 | Emergency (ER) | payer MEDICAID, SELFPAY ==
[2018-04-21 23:36] VITALS: BMI 20.7
[2018-04-21 23:43] VITALS: BP 137/86; PULSE 96; RESP 18; TEMP 98; O2SAT 99
--- NOTE | 2018-04-22 02:23 | ED PDOC ---
Lower Extremity Pain/Injury Time Seen by Provider: 04/22/18 00:54 Chief Complaint (Nursing): Lower Extremity Problem/Injury Chief Complaint (Provider): right leg pain History Per: Patient History/Exam Limitations: no limitations Onset/Duration Of Symptoms: Days, Persistent Current Symptoms Are (Timing): Still Present Severity: Mild Pain Scale Rating Of: 6 Additional Complaint(s): 53 y/o female presents to the ED for evaluation of right ankle wound. Pt reports she had ankle surgery in december after a fall and since then she has had nonhealing wound to right lower leg and has been following up at the podiatry clinic at [facility] (last visit was one week ago, pt reports dressing change was done at that time). Pt denies fever, new fall/trauma, numbness/weakness right lower extremity, calf swelling/tenderness Past Medical History Reviewed: Historical Data, Nursing Documentation, Vital Signs Vital Signs: Last Vital Signs Temp 98 F 04/21/18 23:40 Pulse 96 H 04/21/18 23:40 Resp 18 04/21/18 23:40 BP 137/86 04/21/18 23:40 Pulse Ox 99 04/21/18 23:40 - Medical History PMH: Anemia, Anxiety, Asthma, COPD, Depression, Fractures (right ankle), Gas tritis, HTN, Paranoia, Pneumonia, Schizophrenia, Seizures, TIA Denies: HIV, Chronic Kidney Disease, Sexually Transmitted Disease - Surgical History Other surgeries: right ankle sx in december - Family History Family History: States: Unknown Family Hx - Living Arrangements Living Arrangements: Alone - Immunization History Hx Tetanus Toxoid Vaccination: Yes Hx Influenza Vaccination: No Hx Pneumococcal Vaccination: No - Home Medications Home Medications: Ambulatory Orders Medication Instructions Recorded Permethrin 5% [Permethrin 5% Cream] 1 inch TP ONCE #1 tube 03/31/18 - Allergies Allergies/Adverse Reactions: Allergies Allergy/AdvReac Type Severity Reaction Status Date / Time shellfish derived Allergy Severe SWELLING Verified 04/21/18 23:40 Wells Criteria for PE - Wells Criteria for Pulmonary Embolism Clinical Signs and Symptoms of DVT: No P.E is #1 Diagnosis, or Equally Likely: No Heart Rate >100: No Immobilization at least 3 days;Surgery previous 4 weeks: No Previous, objectively diagnosed PE or DVT: No Hemoptysis: No Malignancy w/treatment within 6 months, or palliative: No Total Score: 0 Review of Systems ROS Statement: Except As Marked, All Systems Reviewed And Found Negative Musculoskeletal: Positive for: Leg Pain (chronic right leg pain and swelling ) Skin: Positive for: Other (right leg wound) Physical Exam - Reviewed Nursing Documentation Reviewed: Yes Vital Signs Reviewed: Yes - Physical Exam Appears: Positive for: Well, Non-toxic, No Acute Distress Head Exam: Positive for: ATRAUMATIC, NORMAL INSPECTION, NORMOCEPHALIC Skin: Positive for: Normal Color, Warm, DRY Eye Exam: Positive for: EOMI, Normal appearance, PERRL ENT: Positive for: Normal ENT Inspection Neck: Positive for: Normal, Painless ROM Cardiovascular/Chest: Positive for: Regular Rate, Rhythm Respiratory: Positive for: CNT, Normal Breath Sounds Gastrointestinal/Abdominal: Positive for: Normal Exam, Soft Back: Positive for: Normal Inspection Extremity: Positive for: Normal ROM, Pedal Edema (right 4+ pedal edema, no redness or increase warmth to skin ), Swelling, Other (dressing to right lower leg removed, noted serous drainage on dressing. 8x6 cm wound noted anterior right ankle, + granulation tissue with scant bleeding noted. No erythema surrounding edges. ) Neurological/Psych: Positive for: Awake, Alert, Normal Tone - ECG O2 Sat by Pulse Oximetry: 99 - Progress ED Course And Treament: MEDS: MOTRIN 600MG PO TYLENOL 650MG PO WOUND CARE COMPLETED, CLEANED WITH 250CC OF NORMAL SALINE, APPLIED TWO LAYERS OF PETROLEUM DRESSING, DRY DRESSING ON TOP AND KRISTINE. PATIENT DOES NOT REQUIRE FURTHER INTERVENTION IN ED AND IS STABLE FOR DISCHARGE AT THIS TIME PATIENT WAS ADVISED TO FOLLOW-UP IN PODIATRY CLINIC ON WEDNESDAY. INSTRUCTED TO MAINTAIN DRESSING CLEAN AND ELEVATE LEG UPON RESTING. PATIENT VERBALIZES UNDERSTANDING. RETURN TO ED PRECAUTIONS PROVIDED. Disposition - Clinical Impression Clinical Impression: Leg pain, Leg ulcer, Leg wound, right, Visit for wound check - Patient ED Disposition Is Patient to be Admitted: No - Disposition Referrals: Podiatry Clinic [Outside] Disposition Time: 02:34 Condition: STABLE Instructions: Wound Care Print Language: [place]
== END 2018-04-22 06:02 | disposition home or self-care (01) ==
LOC: H.ER 23:36
DX: Z48.01 Encounter for change or removal of surgical wound dressing (principal)

== ENCOUNTER 2018-04-22 07:39 | Emergency (ER) | payer MEDICAID, SELFPAY ==
[2018-04-22 07:40] VITALS: BMI 20.7
[2018-04-22 07:49] VITALS: BP 147/80; PULSE 95; RESP 18; TEMP 98.2; O2SAT 99
--- NOTE | 2018-04-22 08:47 | ED PDOC ---
Lower Extremity Pain/Injury Time Seen by Provider: 04/22/18 08:10 Chief Complaint (Nursing): Lower Extremity Problem/Injury Chief Complaint (Provider): Lower Extremity Problem/Injury History Per: Patient History/Exam Limitations: no limitations Onset/Duration Of Symptoms: Sudden Onset Current Symptoms Are (Timing): Still Present Additional Complaint(s): 53 year old female with history of chronic right ankle wound status post right ankle surgery in 12/2017, arrives to the emergency department for an evaluation of increased pain, swelling, and redness to affected foot. Patient states that she pulled a stitch from her wound which was left from surgery because she thought it was a scab. Otherwise, she offers no further complaints. Patient has regular wound check-up at the clinic. PCP: Dr. Kam Sue Past Medical History Reviewed: Historical Data, Nursing Documentation, Vital Signs Vital Signs: Last Vital Signs Temp 98.2 F 04/22/18 07:48 Pulse 95 H 04/22/18 07:48 Resp 18 04/22/18 07:48 BP 147/80 04/22/18 07:48 Pulse Ox 99 04/22/18 07:48 - Medical History PMH: Anemia, Anxiety, Asthma, COPD, Depression, Fractures (right ankle), Gastritis, HTN, Paranoia, Pneumonia, Schizophrenia, Seizures, TIA Denies: HIV, Chronic Kidney Disease, Sexually Transmitted Disease - Family History Family History: States: Unknown Family Hx - Immunization History Hx Tetanus Toxoid Vaccination: Yes Hx Influenza Vaccination: No Hx Pneumococcal Vaccination: No - Home Medications Home Medications: Ambulatory Orders Medication Instructions Recorded Permethrin 5% [Permethrin 5% Cream] 1 inch TP ONCE #1 tube 03/31/18 - Allergies Allergies/Adverse Reactions: Allergies Allergy/AdvReac Type Severity Reaction Status Date / Time shellfish derived Allergy Severe SWELLING Verified 04/21/18 23:40 Review of Systems ROS Statement: Except As Marked, All Systems Reviewed And Found Negative Musculoskeletal: Positive for: Foot Pain (right ankle with swelling and redness) Physical Exam - Reviewed Nursing Documentation Reviewed: Yes Vital Signs Reviewed: Yes - Physical Exam Appears: Positive for: Non-toxic, No Acute Distress Extremity: Positive for: Tenderness (right ankle), Swelling (right ankle), Other (right ankle in cast with heel exposed) Neurological/Psych: Positive for: Awake, Alert, Normal Tone, Oriented (x3) - ECG O2 Sat by Pulse Oximetry: 99 (RA) Pulse Ox Interpretation: Normal Medical Decision Making Medical Decision Making: Time: 809 Initial Plan: * Suture removal Scribe Attestation: Documented by Marisa Kwan, acting as a scribe Sangeetha Trammell MD. Provider Scribe Attestation: All medical record entries made by the Scribe were at my direction and personally dictated by me. I have reviewed the chart and agree that the record accurately reflects my personal performance of the history, physical exam, medical decision making, and the department course for this patient. I have also personally directed, reviewed, and agree with the discharge instructions and disposition. 9.00 -single remaining suture removed. patient stable for discharge Disposition - Clinical Impression Clinical Impression: Encounter for removal of sutures - Patient ED Disposition Is Patient to be Admitted: No Doctor Will See Patient In The: Office Counseled Patient/Family Regarding: Diagnosis - Disposition Disposition: Routine/Home Disposition Time: 09:07 Condition: STABLE Instructions: How to Prevent Surgical Site Infections Forms: [employer] ([place]) - POA Present On Arrival: None
== END 2018-04-22 09:47 | disposition home or self-care (01) ==
LOC: H.ER 07:39
DX: Z48.02 Encounter for removal of sutures (principal)

== ENCOUNTER 2018-04-25 22:00 | Emergency (ER) | payer MEDICAID, SELFPAY ==
[2018-04-25 22:00] VITALS: BMI 20.7
--- NOTE | 2018-04-25 22:44 | ED PDOC ---
HPI: Psych/Substance Abuse Chief Complaint (Nursing): Alcohol Ingestion Chief Complaint (Provider): Malingering ED Caveat: Uncooperative History Per: Patient Associated Symptoms: Anger (Pt well known to the ED that visitied her PMD yesterday; pt is exemplfying bed seeking behavior and causing significant disruption in the ER when she does not get her way. Pt has no emergency medical conditions and is in no need of emergency medical treatment) Past Medical History Reviewed: Historical Data, Nursing Documentation, Vital Signs - Medical History PMH: Anemia, Anxiety, Asthma, COPD, Depression, Fractures (right ankle), Gastritis, HTN, Paranoia, Pneumonia, Schizophrenia, Seizures, TIA Denies: HIV, Chronic Kidney Disease, Sexually Transmitted Disease - Family History Family History: States: Unknown Family Hx - Immunization History Hx Tetanus Toxoid Vaccination: Yes Hx Influenza Vaccination: No Hx Pneumococcal Vaccination: No - Home Medications Home Medications: Ambulatory Orders Medication Instructions Recorded Permethrin 5% [Permethrin 5% Cream] 1 inch TP ONCE #1 tube 03/31/18 - Allergies Allergies/Adverse Reactions: Allergies Allergy/AdvReac Type Severity Reaction Status Date / Time shellfish derived Allergy Severe SWELLING Verified 04/24/18 09:11 Physical Exam - Reviewed Nursing Documentation Reviewed: Yes Vital Signs Reviewed: Yes - Physical Exam Appears: Positive for: Non-toxic, No Acute Distress Head Exam: Positive for: ATRAUMATIC, NORMAL INSPECTION Skin: Positive for: Normal Color, Warm, Dry Neck: Positive for: Supple Cardiovascular/Chest: Positive for: Regular Rate, Rhythm Respiratory: Positive for: Normal Breath Sounds Medical Decision Making Medical Decision Making: I: homeless person seeking bed Disposition - Clinical Impression Clinical Impression: Homeless single person - Patient ED Disposition Is Patient to be Admitted: No Counseled Patient/Family Regarding: Diagnosis, Need For Followup - Disposition Disposition: Routine/Home Disposition Time: 22:42 Condition: STABLE
== END 2018-04-25 23:01 | disposition home or self-care (01) ==
LOC: H.ER 22:00
DX: Z76.5 Malingerer [conscious simulation] (principal); Z59.0 Homelessness; Z86.59 Personal history of other mental and behavioral disorders; I10 Essential (primary) hypertension; J44.9 Chronic obstructive pulmonary disease, unspecified; Z86.73 Personal history of transient ischemic attack (TIA), and cerebral infarction without residual deficits

== ENCOUNTER 2018-05-16 08:17 | Emergency (ER) | payer MEDICAID, SELFPAY ==
[2018-05-16 08:17] VITALS: BMI 20.7
--- NOTE | 2018-05-16 10:15 | ED PDOC ---
Lower Extremity Pain/Injury Time Seen by Provider: 05/16/18 08:49 Chief Complaint (Nursing): Lower Extremity Problem/Injury Chief Complaint (Provider): Right foot pain History Per: Patient History/Exam Limitations: no limitations Onset/Duration Of Symptoms: Days (chronic) Current Symptoms Are (Timing): Still Present Additional Complaint(s): 53 year old female presents to the ED complaining of chronic right foot pain, worsened today. Patient reports she had surgery a while ago on the right foot and has had a wound there since. She admits she is supposed to see Dr. Ryan at [facility] podiatry clinic, however she is lost to follow up. [place] [facility] [place] was told it was infected, offered admission, and then signed out AMA. Today the pain worsened, prompting patient to come to the ED for further evaluation. She is not taking any antibiotic or pain medication. She denies any recent injury or trauma. Past Medical History Reviewed: Historical Data, Nursing Documentation, Vital Signs Vital Signs: Last Vital Signs Temp 97.9 F 05/16/18 08:20 Pulse 69 05/16/18 08:20 Resp 17 05/16/18 08:20 BP 120/72 05/16/18 08:20 Pulse Ox 96 05/16/18 08:20 - Medical History PMH: Anemia, Anxiety, Asthma, COPD, Depression, Fractures (right ankle), Gastritis, HTN, Paranoia, Pneumonia, Schizophrenia, Seizures, TIA Denies: HIV, Chronic Kidney Disease, Sexually Transmitted Disease - Surgical History Other surgeries: Right foot surgery - Family History Family History: States: Unknown Family Hx - Immunization History Hx Tetanus Toxoid Vaccination: Yes Hx Influenza Vaccination: No Hx Pneumococcal Vaccination: No - Home Medications Home Medications: Ambulatory Orders Medication Instructions Recorded Permethrin 5% [Permethrin 5% Cream] 1 inch TP ONCE #1 tube 05/06/18 Sulfamethoxazole/Trimethoprim 1 tab PO BID #14 tab 05/06/18 [Bactrim DS 800 mg-160 mg] Amoxicillin/Clavulanate [Augmentin 1 tab PO BID #20 tab 05/16/18 875 MG-125 MG] - Allergies Allergies/Adverse Reactions: Allergies Allergy/AdvReac Type Severity Reaction Status Date / Time shellfish derived Allergy Severe SWELLING Verified 05/17/18 20:31 Review of Systems ROS Statement: Except As Marked, All Systems Reviewed And Found Negative Constitutional: Negative for: Fever Cardiovascular: Negative for: Chest Pain Respiratory: Negative for: Shortness of Breath Gastrointestinal: Negative for: Nausea, Vomiting, Diarrhea Musculoskeletal: Positive for: Foot Pain Neurological: Negative for: Weakness, Numbness Physical Exam - Reviewed Nursing Documentation Reviewed: Yes Vital Signs Reviewed: Yes - Physical Exam Appears: Positive for: Well, Non-toxic, No Acute Distress Head Exam: Positive for: ATRAUMATIC, NORMOCEPHALIC Skin: Positive for: Normal Color, Warm, DRY Eye Exam: Positive for: Normal appearance, EOMI, PERRL Neck: Positive for: Normal, Supple Cardiovascular/Chest: Positive for: Regular Rate, Rhythm. Negative for: Murmur Respiratory: Positive for: Normal Breath Sounds. Negative for: Accessory Muscle Use, Respiratory Distress Pulses-Dorsalis Pedis (L): 2+ Pulses-Dorsalis Pedis (R): 2+ Gastrointestinal/Abdominal: Positive for: Normal Exam, Soft. Negative for: Tenderness Extremity: Positive for: Tenderness (diffusely to right foot), Swelling (to right foot), Other (Surgical wound to the right foot, with small amount of discharge). Negative for: Calf Tenderness, Deformity Neurological/Psych: Positive for: Alert, Oriented (x 3), Other (Slurred speech, unsteady gait, appears intoxicated). Negative for: Motor/Sensory Deficits - Laboratory Results Result Diagrams: 05/16/18 11:14 05/16/18 11:14 - ECG O2 Sat by Pulse Oximetry: 96 (RA) Pulse Ox Interpretation: Normal - Progress Re-evaluation Time: 16:40 Condition: Re-examined, Improved Medical Decision Making Medical Decision Making: Initial Impression: Right foot pain/swelling, Alcohol intoxication Plan: - BMP - CBC - Alcohol serum - ESR - Blood culture - Wound culture - Right foot x-ray - Right ankle x-ray - Podiatry consult Discussed with podiatry resident, who will evaluate patient in the ED. 9:45 Podiatry resident is at bedside. Discussed with podiatry, patient can be discharged home and follow up in Dr. Ryan's clinic on Wednesday. Wound care and sterile dressing provided by podiatry resident. Still awaiting labs. Labs resulted. Alcohol 360 ESR 46 Right ankle x-ray: FINDINGS: BONES: Stable postoperative findings primarily related to distal right tibia. No evidence of orthopedic hardware failure. JOINTS: Secondary posttraumatic degenerative change. SOFT TISSUES: Normal. OTHER FINDINGS: Small plantar calcaneal spur. IMPRESSION: No significant interval change compared to the prior examination(s). Right foot x-ray: FINDINGS: BONES: No compelling evidence for acute osteomyelitis. JOINTS: Postoperative changes right ankle are stable. SOFT TISSUES: Marked soft tissue swelling at the level of the distal metatarsals. This is s een both on the plantar as well as dorsal aspects of the feet. Air identified within dorsal aspect soft tissues. Jonathan remarked OTHER FINDINGS: None. IMPRESSION: Extensive soft tissue swelling and air within soft tissues without evidence of acute osteomyelitis radiographically. Patient complains of continued foot pain. Given 600mg PO Motrin. On reassessment patient is resting comfortably and remains afebrile, AAOx3. Patient is stable for discharge home, given Rx for Augmentin. Counseling was provided and all questions were answered regarding diagnosis and need for follow up with Podiatry Clinic. There is agreement to discharge plan. Return if symptoms persist or worsen. ----- Scribe Attestation: Documented by Eri Cerda, acting as a scribe for Arnold Aguirre MD. Provider Scribe Attestation: All medical record entries made by the Scribe were at my direction and personally dictated by me. I have reviewed the chart and agree that the record accurately reflects my personal performance of the history, physical exam, medical decision making, and the department course for this patient. I have also personally directed, reviewed, and agree with the discharge instructions and disposition. Disposition - Clinical Impression Clinical Impression: Foot pain, right, Alcoholic intoxication - Patient ED Disposition Is Patient to be Admitted: No Counseled Patient/Family Regarding: Diagnosis, Need For Followup, Rx Given - Disposition Referrals: Nohemy Ryan DPM [Staff Provider] - Disposition: Routine/Home Disposition Time: 16:49 Condition: IMPROVED Additional Instructions: FERCHO ZAMORA, thank you for letting us take care of you today. Your provider was Arnold Aguirre MD and you were treated for RIGHT FOOT PAIN. The emergency medical care you received today was directed at your acute symptoms. If you were prescribed any medication, please fill it and take as directed. It may take several days for your symptoms to resolve. Return to the Emergency Department if your symptoms worsen, do not improve, or if you have any other problems. Please contact your doctor or call one of the physicians/clinics you have been referred to that are listed on the Patient Visit Information form that is included in your discharge packet. Bring any paperwork you were given at discharge with you along with any medications you are taking to your follow up visit. Our treatment cannot replace ongoing medical care by a primary care provider outside of the emergency department. Thank you for allowing the [facility] team to be part of your care today. Prescriptions: Amoxicillin/Clavulanate [Augmentin 875 MG-125 MG] 1 tab PO BID #20 tab Instructions: Cellulitis (Skin Infection), Adult (DC), Alcohol Abuse and Alcoholism (DC)
[2018-05-16 13:17] LABS: BASO % 1.3 % (0.0-2.0); EOS # 0.2 K/uL (0.0-0.7); EOS % 7.5 % (0.0-4.0); LYMPH # 1.1 K/uL (1.0-4.3); LYMPH % 35.3 % (20.0-40.0); MEAN CELL VOLUME 83.6 fl (81.0-99.0); MEAN CORPUSCULAR HEMOGLOBIN 26.4 pg (27.0-31.0); MEAN CORPUSCULAR HGB CONC 31.6 g/dL (33.0-37.0); MONO # 0.2 K/uL (0.0-0.8); MONO % 5.3 % (0.0-10.0); NEUT # 1.6 K/uL (1.8-7.0); NEUT % 50.6 % (50.0-75.0); NRBC % 0.2 % (0.0-0.0); RBC 3.77 Mil/uL (3.80-5.20); RED CELL DISTRIBUTION WIDTH 20.1 % (11.5-14.5); WHITE BLOOD COUNT 3.1 K/uL (4.8-10.8)
[2018-05-16 13:36] LABS: BLOOD UREA NITROGEN 18 mg/dl (7-17); CALCIUM 8.8 mg/dL (8.4-10.2); GFR NON-AFRICAN AMERICAN > 60
--- NOTE | 2018-05-16 13:52 | CP.PCM.CON ---
History of Present Illness - History of Present Illness History of Present Illness: Podiatry consult note - Dr. Ryan 53F seen and evaluated at bedside in the ED. Patient well known to podiatry service. Patient had right ankle surgery and has had wound/healing complications due to noncompliance. Patient appears intoxicated today. States [place] [facility] [place] told she had an infection and imaging was performed however she left against medical advice. States she has pain to her right ankle which she rates 9/10. States she has been walking a lot and not elevating/resting her right leg. Denies n/v/f/c today and has no other acute complaints. PMHx: Alcohol abuse, HTN, pneumonia, heart murmur, asthma, eczema, anxiety, and depression PSHx: D&C, application of delta frame R ankle, ORIF R ankle All: shellfish Past Patient History - Infectious Disease Hx of Infectious Diseases: None - Tetanus Immunizations Tetanus Immunization: Unknown - Past Medical History & Family History Past Medical History?: Yes - Past Social History Smoking Status: Never Smoked - CARDIAC Hx Hypertension: Yes - PULMONARY Hx Asthma: Yes Hx Chronic Obstructive Pulmonary Disease (COPD): Yes Hx Pneumonia: Yes - NEUROLOGICAL Hx Seizures: Yes Hx Transient Ischemic Attacks (TIA): Yes - HEENT Hx HEENT Problems: Yes Other/Comment: Eye glasses - RENAL Hx Chronic Kidney Disease: No - ENDOCRINE/METABOLIC Hx Endocrine Disorders: No - HEMATOLOGICAL/ONCOLOGICAL Hx Anemia: Yes Hx Human Immunodeficiency Virus (HIV): No - INTEGUMENTARY Hx Dermatological Problems: Yes Hx Eczema: Yes Hx Psoriasis: Yes Other/Comment: Has history of bedbugs in the past - MUSCULOSKELETAL/RHEUMATOLOGICAL Hx Fractures: Yes (right ankle) - GASTROINTESTINAL Hx Gastritis: Yes - GENITOURINARY/GYNECOLOGICAL Hx Sexually Transmitted Disorders: No - PSYCHIATRIC Hx Anxiety: Yes Hx Depression: Yes Hx Paranoia: Yes Hx Schizophrenia: Yes - SURGICAL HISTORY Hx Surgeries: Yes Hx Dilation and Curettage: Yes Hx Orthopedic Surgery: Yes (R foot / R ankle surgery) Other/Comment: rt leg s/p fx - ANESTHESIA Hx Anesthesia: Yes Hx Anesthesia Reactions: No Hx Malignant Hyperthermia: No Meds Allergies/Adverse Reactions: Allergies Allergy/AdvReac Type Severity Reaction Status Date / Time shellfish derived Allergy Severe SWELLING Verified 05/06/18 08:46 Physical Exam - Constitutional Appears: Non-toxic - Head Exam Head Exam: ATRAUMATIC - Extremities Exam Additional comments: LE focused Vasc: DP/PT pulses palpable 2/4 bilaterally. Temperature gradient is warm to warm on right, warm to cool on left. Diffuse edema noted to entirety of right lo wer leg and ankle as well as the right foot. Capillary refill time < 3 sec to all digits Derm: Full thickness wound noted to anterolateral lower right leg measuring approximately 12cm x 7 cm x 0.1cm with granular wound base. Mild serous drainage noted. Periwound erythema noted. No malodor present. No fluctuance, no evidence of abscess formation. No clinical signs of infection noted. Neuro: protective and gross sensation intact to lower extremities Ortho: tenderness noted on palpation of the right ankle and right ankle wound - Neurological Exam Neurological exam: Alert, Oriented x3 Results - Vital Signs Recent Vital Signs: Last Vital Signs Temp 97.9 F 05/16/18 08:20 Pulse 69 05/16/18 08:20 Resp 17 05/16/18 08:20 BP 120/72 05/16/18 08:20 Pulse Ox 96 05/16/18 12:45 - Labs Result Diagrams: 05/16/18 11:14 05/16/18 11:14 Labs: Laboratory Results - last 24 hr 05/16/18 05/16/18 11:14 11:14 WBC 3.1 L RBC 3.77 L Hgb 10.0 L Hct 31.5 L MCV 83.6 MCH 26.4 L MCHC 31.6 L RDW 20.1 H Plt Count 340 D MPV 7.0 L Neut % (Auto) 50.6 Lymph % (Auto) 35.3 Mcnairy % (Auto) 5.3 Eos % (Auto) 7.5 H Baso % (Auto) 1.3 Neut # (Auto) 1.6 L Lymph # (Auto) 1.1 Mcnairy # (Auto) 0.2 Eos # (Auto) 0.2 Baso # (Auto) 0.0 Sodium 145 Potassium 3.9 Chloride 106 Carbon Dioxide 28 Anion Gap 15 BUN 18 H Creatinine 0.6 L Est GFR ( Amer) > 60 Est GFR (Non-Af Amer) > 60 Random Glucose 86 Calcium 8.8 Alcohol, Quantitative 360 H* Assessment & Plan - Assessment and Plan (Free Text) Assessment: 53F with right ankle wound 2/2 surgical wound dehiscence and noncompliance Plan: Patient seen and evaluated Discussed with Dr. Ryan Afebrile, WBC 3.1 X-rays reviewed - no new fractures or hardware failure Wound cleansed with sterile saline, dressed with xeroform, dry sterile dressing, and LYN Patient acknowledges her noncompliance and lack of follow up Patient instructed to f/u with Dr. Ryan in clinic at [facility] on Wednesday Patient educated on importance of f/u as deep infection can lead to loss of limb RICE therapy Thank you for the consult - Date & Time Date: 05/16/18 Time: 14:01
--- NOTE | 2018-05-16 16:28 | RAD ---
Date of service: 05/16/2018 PROCEDURE: Right Ankle Radiographs. HISTORY: right ankle Pain. No history of recent/ related trauma provided. COMPARISON: 04/16/2018. TECHNIQUE: 3 views obtained. FINDINGS: BONES: Stable postoperative findings primarily related to distal right tibia. No evidence of orthopedic hardware failure. JOINTS: Secondary posttraumatic degenerative change. SOFT TISSUES: Normal. OTHER FINDINGS: Small plantar calcaneal spur. IMPRESSION: No significant interval change compared to the prior examination(s).
--- NOTE | 2018-05-16 16:31 | RAD ---
Date of service: 05/16/2018 PROCEDURE: Right Foot Radiographs. HISTORY: right foot ulcers COMPARISON: May 16, 2018. Right ankle reported separately. TECHNIQUE: 3 views obtained. FINDINGS: BONES: No compelling evidence for acute osteomyelitis. JOINTS: Postoperative changes right ankle are stable. SOFT TISSUES: Marked soft tissue swelling at the level of the distal metatarsals. This is seen both on the plantar as well as dorsal aspects of the feet. Air identified within dorsal aspect soft tissues. Jonathan remarked OTHER FINDINGS: None. IMPRESSION: Extensive soft tissue swelling and air within soft tissues without evidence of acute osteomyelitis radiographically.
[2018-05-16 17:00] VITALS: BP 129/71; PULSE 97; RESP 16; TEMP 98.4
[2018-05-18 09:13] VITALS: O2SAT 96
== END 2018-05-16 18:30 | disposition home or self-care (01) ==
LOC: H.ER 08:17
DX: L97.519 Non-pressure chronic ulcer of other part of right foot with unspecified severity (principal); L30.9 Dermatitis, unspecified; T81.31XA Disruption of external operation (surgical) wound, not elsewhere classified, initial encounter; Z91.14 Patient's other noncompliance with medication regimen; Z91.19 Patient's noncompliance with other medical treatment and regimen

== ENCOUNTER 2018-05-17 20:16 | Emergency (ER) | payer MEDICAID, SELFPAY ==
[2018-05-17 20:16] VITALS: BMI 20.7
[2018-05-17 20:35] VITALS: RESP 18
--- NOTE | 2018-05-17 21:14 | ED PDOC ---
Lower Extremity Pain/Injury Time Seen by Provider: 05/17/18 20:41 Chief Complaint (Nursing): Alcohol Ingestion Chief Complaint (Provider): Right Foot Pain History Per: Patient, EMS History/Exam Limitations: other (pt is a poor historian) Onset/Duration Of Symptoms: Days (x1) Current Symptoms Are (Timing): Still Present Additional Complaint(s): 53 year old female presents to the ED via EMS after being found sitting on a public bench intoxicated. Patient is a poor historian, sleeping but easily arousable. She complains of right foot pain which she was seen here yesterday for with a full workup including XR, podiatry consult, mango wrap placement, antibiotics script given, and recommended podiatry outpatient follow up. Patient notes she has been taking the antibiotics, and wanted to follow up, but is just in a lot of pain and hungry. Denies numbness and tingling. Also yesterday, patient states she was at [facility] [place], but they lost her clothing so she signed out AMA. Also of note, patient states she has not been drinking tonight. PMD: none provided Past Medical History Reviewed: Historical Data, Nursing Documentation, Vital Signs Vital Signs: Last Vital Signs Temp 96.7 F L 05/17/18 20:31 Pulse 84 05/17/18 20:31 Resp 18 05/17/18 20:31 BP 129/84 05/17/18 20:31 Pulse Ox 97 05/17/18 20:31 - Medical History PMH: Anemia, Anxiety, Asthma, COPD, Depression, Fractures (right ankle), Gastritis, HTN, Paranoia, Pneumonia, Schizophrenia, Seizures, TIA Denies: HIV, Chronic Kidney Disease, Sexually Transmitted Disease - Surgical History Other surgeries: Yes: R foot / R ankle surgery / R leg; D&C - Family History Family History: States: Unknown Family Hx - Social History Drugs: Other (hx abuse) - Immunization History Hx Tetanus Toxoid Vaccination: Yes Hx Influenza Vaccination: No Hx Pneumococcal Vaccination: No - Home Medications Home Medications: Ambulatory Orders Medication Instructions Recorded Permethrin 5% [Permethrin 5% Cream] 1 inch TP ONCE #1 tube 05/06/18 Sulfamethoxazole/Trimethoprim 1 tab PO BID #14 tab 05/06/18 [Bactrim DS 800 mg-160 mg] Amoxicillin/Clavulanate [Augmentin 1 tab PO BID #20 tab 05/16/18 875 MG-125 MG] - Allergies Allergies/Adverse Reactions: Allergies Allergy/AdvReac Type Severity Reaction Status Date / Time shellfish derived Allergy Severe SWELLING Verified 05/17/18 20:31 Review of Systems ROS Statement: Except As Marked, All Systems Reviewed And Found Negative Musculoskeletal: Positive for: Foot Pain (right) Neurological: Negative for: Numbness (or tingling) Physical Exam - Reviewed Nursing Documentation Reviewed: Yes Vital Signs Reviewed: Yes - Physical Exam Comments: GENERAL APPEARANCE: Patient is drowsy, but verbally arousable, alert, and oriented, in no acute distress. Patient is malodorous. SKIN: Warm, dry; (-) cyanosis. HEAD: (-) scalp swelling, (-) scalp tenderness. EYES: (-) conjunctival pallor, (-) scleral icterus, (-) nystagmus. ENMT: Mucous membranes moist. Airway patent: (-) stridor. NECK: (-) tenderness, (-) stiffness, (-) lymphadenopathy. CHEST AND RESPIRATORY: (-) rales, (-) rhonchi, (-) wheezes; breath sounds equalbilaterally. HEART AND CARDIOVASCULAR: (-) irregularity; (-) murmur, (-) gallop. ABDOMEN AND GI: Soft; (-) tenderness. RIGHT LOWER EXTREMITY: Foot: wrapped in mango bandage and placed in hard shoe. pulses 2+. capillary refill less than 2 seconds. CARDIOVASCULAR: regular rate and rhythm NEURO AND PSYCH: Mental status as above, (-) apparent hallucinations ordelusions. Affect: intoxicated. parts interpreter: Pupils reactive; (-) facial asymmetry; tongue anduvula midline. Strength: Symmetric. - ECG O2 Sat by Pulse Oximetry: 97 (RA) Pulse Ox Interpretation: Normal Medical Decision Making Medical Decision Making: Time: 2051 Initial Impression: right foot pain Initial Plan: --Tylenol 650mg PO records, labs, xrays and consults reviewed from yesterday and documented below, pt was seen by podiatry, taking her antibiotics, no further treatment needed at this time, will help pain 23:45 pt originally talking, alert and oriented, pt has been sleeping since first eval, pt on re eval now continues to sleep and be drowsy, will wake up with physical stimuli but then goes back to sleep with check glucose and ETOH 00:00 case endorsed to HIEU Chen, pending re eval and dispo XRs FROM 05/16 RIGHT FOOT FINDINGS: BONES: No compelling evidence for acute osteomyelitis. JOINTS: Postoperative changes right ankle are stable. SOFT TISSUES: Marked soft tissue swelling at the level of the distal metatarsals. This is seen both on the plantar as well as dorsal aspects of the feet. Air identified within dorsal aspect soft tissues. Jonathan remarked OTHER FINDINGS: None. IMPRESSION: Extensive soft tissue swelling and air within soft tissues without evidence of acute osteomyelitis radiographically. RIGHT ANKLE FINDINGS: BONES: Stable postoperative findings primarily related to distal right tibia. No evidence of orthopedic hardware failure. JOINTS: Secondary posttraumatic degenerative change. SOFT TISSUES: Normal. OTHER FINDINGS: Small plantar calcaneal spur. IMPRESSION: No significant interval change compared to the prior examination(s). Scribe Attestation: Documented by Angie Cee acting as a scribe for Buck Hansen PA-C. Provider Scribe Attestation: All medical record entries made by the Scribe were at my direction and personally dictated by me. I have reviewed the chart and agree that the record accurately reflects my personal performance of the history, physical exam, medical decision making, and the department course for this patient. I have also personally directed, reviewed, and agree with the discharge instructions and disposition. Disposition - Clinical Impression Clinical Impression: Alcohol intoxication - Patient ED Disposition Is Patient to be Admitted: Transfer of Care (case endorsed to RANCHO Chen, pending re eval and dispo) - Disposition Disposition: Transfer of Care (case endorsed to April, PAC, pending re eval and dispo) Disposition Time: 00:00 Condition: STABLE Forms: [facility] (Norwegian)
[2018-05-18 02:17] VITALS: O2SAT 98
--- NOTE | 2018-05-18 02:29 | ED PDOC ---
- ECG O2 Sat by Pulse Oximetry: 98 - Progress ED Course And Treament: Case endorsed to newspaper writer from Araceli Myrick PA-C pending sobriety 2:30 Patient awake, alert, oriented x 3. Ambulating at baseline. Tolerated PO Patient requires no further intervention in the ED and is stable for discharge at this time Disposition - Clinical Impression Clinical Impression: Alcohol intoxication - POA Present On Arrival: None - Disposition Disposition: Routine/Home Disposition Time: 02:28 Condition: STABLE Instructions: Alcohol Abuse and Alcoholism (DC)
[2018-05-18 05:30] VITALS: BP 104/78; PULSE 86; TEMP 98.2
== END 2018-05-18 05:31 | disposition home or self-care (01) ==
LOC: H.ER 20:16
DX: F10.129 Alcohol abuse with intoxication, unspecified (principal); F20.9 Schizophrenia, unspecified; I10 Essential (primary) hypertension; Z86.73 Personal history of transient ischemic attack (TIA), and cerebral infarction without residual deficits

== ENCOUNTER 2018-05-23 08:30 | Emergency (ER) | payer MEDICAID, SELFPAY ==
[2018-05-23 08:33] VITALS: RESP 18; O2SAT 99
[2018-05-23] MEDS ORDERED: Albuterol 0.083% Inhal Sol (2.5 mg/3 mL) UD INH STA (09:03)
[2018-05-23] MEDS ORDERED: Albuterol 0.083% Inhal Sol (2.5 mg/3 mL) UD ONE (09:16)
--- NOTE | 2018-05-23 09:22 | ED PDOC ---
HPI: General Adult Time Seen by Provider: 05/23/18 08:56 Chief Complaint (Nursing): GI Problem Chief Complaint (Provider): Cough History Per: Patient History/Exam Limitations: no limitations Onset/Duration Of Symptoms: Persistent Have you had recent travel within the past 21 days to any of the following countries: [place], [place], [place] or [place]?: No Current Symptoms Are (Timing): Still Present Recently: Seen In ED ([facility]) Additional Complaint(s): 53 year old female with a history of alcohol abuse and asthma presents to the ED for evaluation of cough. Patient reports that she ran out of medications for her asthma and has recently had pneumonia. She was seen in [facility] three days ago for evaluation and was discharged after a normal workup. Patient is well known to this ED for multiple visits. Denies other complaints. PMD none provided Past Medical History Reviewed: Historical Data, Nursing Documentation, Vital Signs Vital Signs: Last Vital Signs Temp 98.3 F 05/23/18 08:32 Pulse 116 H 05/23/18 08:32 Resp 18 05/23/18 08:32 BP 143/99 H 05/23/18 08:32 Pulse Ox 99 05/23/18 08:32 - Medical History PMH: Anemia, Anxiety, Asthma, COPD, Depression, Fractures (right ankle), Gastritis, HTN, Paranoia, Pneumonia, Schizophrenia, Seizures, TIA Denies: HIV, Chronic Kidney Disease, Sexually Transmitted Disease - Family History Family History: States: Unknown Family Hx - Immunization History Hx Tetanus Toxoid Vaccination: Yes Hx Influenza Vaccination: No Hx Pneumococcal Vaccination: No - Home Medications Home Medications: Ambulatory Orders Medication Instructions Recorded Albuterol HFA [Ventolin HFA 90 2 puff IH [id number] #1 inh 05/23/18 mcg/actuation (8 g)] - Allergies Allergies/Adverse Reactions: Allergies Allergy/AdvReac Type Severity Reaction Status Date / Time shellfish derived Allergy Severe SWELLING Verified 05/20/18 07:32 Review of Systems ROS Statement: Except As Marked, All Systems Reviewed And Found Negative Respiratory: Positive for: Cough Physical Exam - Reviewed Nursing Documentation Reviewed: Yes Vital Signs Reviewed: Yes - Physical Exam Appears: Positive for: Non-toxic, No Acute Distress Head Exam: Positive for: ATRAUMATIC, NORMAL INSPECTION, NORMOCEPHALIC Skin: Positive for: Normal Color Eye Exam: Positive for: Normal appearance, EOMI Neck: Positive for: Normal, Painless ROM, Supple Cardiovascular/Chest: Positive for: Regular Rate, Rhythm Respiratory: Negative for: Respiratory Distress Extremity: Positive for: Normal ROM (x 4) Neurological/Psych: Positive for: Awake, Alert, Oriented (x 3) - ECG O2 Sat by Pulse Oximetry: 99 (RA) Pulse Ox Interpretation: Normal - Progress Re-evaluation Time: 14:26 Condition: Re-examined, Improved Medical Decision Making Medical Decision Makin:03 Impression: cough Initial Plan: --CXR --Motrin 600 mg PO --Albuterol 0.083% 2.5 mg INH --Peak flow pre/post Scribe Attestation: Documented by Ladan Johnson, acting as a scribe for Arnold Aguirre MD Provider Scribe Attestation: All medical record entries made by the Scribe were at my direction and personally dictated by me. I have reviewed the chart and agree that the record accurately reflects my personal performance of the history, physical exam, medical decision making, and the department course for this patient. I have also personally directed, reviewed, and agree with the discharge instructions and disposition. Disposition - Clinical Impression Clinical Impression: COPD (chronic obstructive pulmonary disease), Alcohol abuse - Patient ED Disposition Is Patient to be Admitted: No Doctor Will See Patient In The: Office Counseled Patient/Family Regarding: Studies Performed, Diagnosis, Need For Followup - Disposition Referrals: Kam Sue MD [Staff Provider] - Disposition: Routine/Home Disposition Time: 14:27 Condition: GOOD Additional Instructions: FERCHO ZAMORA, thank you for letting us take care of you today. Your provider was Arnold Aguirre MD and you were treated for ETOH. The emergency medical care you received today was directed at your acute symptoms. If you were prescribed any medication, please fill it and take as directed. It may take several days for your symptoms to resolve. Return to the Emergency Department if your symptoms worsen, do not improve, or if you have any other problems. Please contact your doctor or call one of the physicians/clinics you have been referred to that are listed on the Patient Visit Information form that is included in your discharge packet. Bring any paperwork you were given at discharge with you along with any medications you are taking to your follow up visit. Our treatment cannot replace ongoing medical care by a primary care provider outside of the emergency department. Thank you for allowing the [facility] team to be part of your care today. Prescriptions: Albuterol HFA [Ventolin HFA 90 mcg/actuation (8 g)] 2 puff IH [id number] #1 inh Instructions: Chronic Obstructive Pulmonary Disease (COPD), Including Emphysema, Alcohol Use - When Is Drinking a Problem?
--- NOTE | 2018-05-23 09:41 | RAD ---
Date of service: 05/23/2018 HISTORY: Cough COMPARISON: 03/16/2018. TECHNIQUE: Chest PA and lateral FINDINGS: LINES AND TUBES: None. LUNG AND PLEURA: The lungs are well inflated and clear. No pleural effusion or pneumothorax. HEART AND MEDIASTINUM: The heart is not enlarged. No aortic atherosclerotic calcifications present. The hilar and mediastinal contours are within normal limits. SKELETAL STRUCTURES: The bony structures are within normal limits for the patient's age. VISUALIZED UPPER ABDOMEN: Normal. OTHER FINDINGS: None. IMPRESSION: No active pulmonary disease.
[2018-05-23 15:05] VITALS: BP 138/88; PULSE 104; TEMP 98.2
== END 2018-05-23 15:03 | disposition home or self-care (01) ==
LOC: H.ER 08:30
DX: J44.9 Chronic obstructive pulmonary disease, unspecified (principal); F10.129 Alcohol abuse with intoxication, unspecified; I10 Essential (primary) hypertension; Z86.73 Personal history of transient ischemic attack (TIA), and cerebral infarction without residual deficits; Z79.899 Other long term (current) drug therapy

== ENCOUNTER 2018-05-27 02:47 | Emergency (ER) | payer MEDICAID, SELFPAY ==
[2018-05-27 03:16] VITALS: BP 126/84; TEMP 98.6
--- NOTE | 2018-05-27 05:56 | ED PDOC ---
HPI: Psych/Substance Abuse Time Seen by Provider: 05/27/18 03:08 Chief Complaint (Nursing): Alcohol Ingestion Chief Complaint (Provider): Alcohol Ingestion History Per: Patient, EMS History/Exam Limitations: no limitations Additional Complaint(s): 53 years old female brought in by EMS for public intoxication. Patient admits to alcohol use. She offers no complaints and denies drugs, injuries, suicidal or homicidal ideation. PMD: None provided Past Medical History Reviewed: Historical Data, Nursing Documentation, Vital Signs Vital Signs: Last Vital Signs Temp 98.6 F 05/27/18 02:58 Pulse 90 05/27/18 02:58 Resp 18 05/27/18 02:58 BP 126/84 05/27/18 02:58 Pulse Ox 99 05/27/18 02:58 - Medical History PMH: Anemia, Anxiety, Asthma, COPD, Depression, Fractures (right ankle), Gastritis, HTN, Paranoia, Pneumonia, Schizophrenia, Seizures, TIA Denies: HIV, Chronic Kidney Disease, Sexually Transmitted Disease - Family History Family History: States: Unknown Family Hx - Social History Alcohol: Social Drugs: Denies - Immunization History Hx Tetanus Toxoid Vaccination: Yes Hx Influenza Vaccination: No Hx Pneumococcal Vaccination: No - Home Medications Home Medications: Ambulatory Orders Medication Instructions Recorded Albuterol HFA [Ventolin HFA 90 2 puff IH [id number] #1 inh 05/23/18 mcg/actuation (8 g)] - Allergies Allergies/Adverse Reactions: Allergies Allergy/AdvReac Type Severity Reaction Status Date / Time shellfish derived Allergy Severe SWELLING Verified 05/20/18 07:32 Review of Systems ROS Statement: Except As Marked, All Systems Reviewed And Found Negative Psych: Negative for: Suicidal ideation (or homicidal) Physical Exam - Reviewed Nursing Documentation Reviewed: Yes Vital Signs Reviewed: Yes - Physical Exam Appears: Positive for: No Acute Distress (Disheveled, malodor, intoxicated) Head Exam: Positive for: ATRAUMATIC, NORMOCEPHALIC Skin: Positive for: Normal Color, Warm, Dry Eye Exam: Positive for: Normal appearance, EOMI, PERRL ENT: Positive for: Normal ENT Inspection Neck: Positive for: Normal, Painless ROM, Supple Cardiovascular/Chest: Positive for: Regular Rate, Rhythm. Negative for: Murmur Respiratory: Positive for: Normal Breath Sounds. Negative for: Respiratory Distress Gastrointestinal/Abdominal: Positive for: Normal Exam, Soft. Negative for: Tenderness Back: Positive for: Normal Inspection. Negative for: L CVA Tenderness, R CVA Tenderness Extremity: Positive for: Normal ROM. Negative for: Pedal Edema, Deformity Neurological/Psych: Positive for: Awake, Alert, Oriented (x3), Gait (steady). Negative for: Motor/Sensory Deficits - ECG O2 Sat by Pulse Oximetry: 99 (RA) Pulse Ox Interpretation: Normal Medical Decision Making Medical Decision Making: Time: 0330 A/P: Alcohol intoxication, no signs of trauma 0553 Upon reevaluation, patient is clinically sober and stable for discharge. Scribe Attestation: Documented by Jaye Jamil, acting as a scribe for Ramírez Stephens MD. Provider Scribe Attestation: All medical record entries made by the Scribe were at my direction and personally dictated by me. I have reviewed the chart and agree that the record accurately reflects my personal performance of the history, physical exam, medical decision making, and the department course for this patient. I have also personally directed, reviewed, and agree with the discharge instructions and disposition. Disposition - Clinical Impression Clinical Impression: Alcohol ingestion - Patient ED Disposition Is Patient to be Admitted: No - Disposition Referrals: Alcoholics Anonymous [Outside] Disposition: Routine/Home Disposition Time: 05:53 Condition: GOOD Instructions: Alcohol Use - When Is Drinking a Problem? Forms: [employer] (German)
[2018-05-27 06:50] VITALS: PULSE 68; RESP 17; O2SAT 100
== END 2018-05-27 06:05 | disposition home or self-care (01) ==
LOC: H.ER 02:47
DX: F10.129 Alcohol abuse with intoxication, unspecified (principal); Z86.59 Personal history of other mental and behavioral disorders; I10 Essential (primary) hypertension; J44.9 Chronic obstructive pulmonary disease, unspecified; Z86.73 Personal history of transient ischemic attack (TIA), and cerebral infarction without residual deficits

== ENCOUNTER 2018-05-30 07:30 | Emergency (ER) | payer MEDICAID, SELFPAY ==
[2018-05-30 07:35] VITALS: PULSE 85; RESP 17; TEMP 98.3; O2SAT 98
--- NOTE | 2018-05-30 07:53 | ED PDOC ---
Lower Extremity Pain/Injury Time Seen by Provider: 05/30/18 07:37 Chief Complaint (Nursing): Lower Extremity Problem/Injury Chief Complaint (Provider): Lower Extremity Problem/Injury History Per: Patient History/Exam Limitations: no limitations Additional Complaint(s): 53 y/o female brought in by EMS presents to the ED evaluation of right foot wound. Patient has a chronic ulcer but does not take any antibiotic or comply with recommended treatment. She is complaining of drainage through bandage. Patient denies any fever. PMD: none provided Past Medical History Reviewed: Historical Data, Nursing Documentation, Vital Signs Vital Signs: Last Vital Signs Temp 98.3 F 05/30/18 07:34 Pulse 85 05/30/18 07:34 Resp 17 05/30/18 07:34 BP 146/116 H 05/30/18 07:34 Pulse Ox 98 05/30/18 07:36 - Medical History PMH: Anemia, Anxiety, Asthma, COPD, Depression, Fractures (right ankle), Gastritis, HTN, Paranoia, Pneumonia, Schizophrenia, Seizures, TIA Denies: HIV, Chronic Kidney Disease, Sexually Transmitted Disease Other PMH: chronic ulcer right foot - Family History Family History: States: Unknown Family Hx - Immunization History Hx Tetanus Toxoid Vaccination: Yes Hx Influenza Vaccination: No Hx Pneumococcal Vaccination: No - Home Medications Home Medications: Ambulatory Orders Medication Instructions Recorded Albuterol HFA [Ventolin HFA 90 2 puff IH [id number] #1 inh 05/23/18 mcg/actuation (8 g)] Naproxen [Naprosyn] 500 mg PO Q12H #20 tab 05/30/18 - Allergies Allergies/Adverse Reactions: Allergies Allergy/AdvReac Type Severity Reaction Status Date / Time shellfish derived Allergy Severe SWELLING Verified 05/30/18 07:36 Review of Systems ROS Statement: Except As Marked, All Systems Reviewed And Found Negative Constitutional: Negative for: Fever Musculoskeletal: Negative for: Foot Pain Physical Exam - Reviewed Nursing Documentation Reviewed: Yes Vital Signs Reviewed: Yes - Physical Exam Appears: Positive for: Well, Non-toxic, No Acute Distress Head Exam: Positive for: ATRAUMATIC, NORMOCEPHALIC Skin: Positive for: Normal Color, Warm, DRY Eye Exam: Positive for: EOMI, Normal appearance, PERRL ENT: Positive for: Normal ENT Inspection Neck: Positive for: Normal, Painless ROM, Supple Cardiovascular/Chest: Positive for: Regular Rate, Rhythm. Negative for: Murmur Respiratory: Positive for: Normal Breath Sounds. Negative for: Respiratory Distress Gastrointestinal/Abdominal: Positive for: Normal Exam, Soft. Negative for: Tenderness Back: Positive for: Normal Inspection. Negative for: L CVA Tenderness, R CVA Tenderness Extremity: Positive for: Normal ROM, Other (5cm area of ulceration with yellowish discharge, lateral aspect of foot malleolus. No surrounding erythema ) Neurological/Psych: Positive for: Awake, Alert, Normal Tone, Oriented (x3). Negative for: Motor/Sensory Deficits - ECG O2 Sat by Pulse Oximetry: 98 Medical Decision Making Medical Decision Making: Time: 749 Will have podiatry evaluate. Wound evaluated and redressed by podiatry. Repeat BT 152/94 Pt to f/u podiatry clinic ----- Scribe Attestation: Documented by Mirtha Zacarias, acting as a scribe for King Kline. Provider Scribe Attestation: All medical record entries made by the Scribe were at my direction and personally dictated by me. I have reviewed the chart and agree that the record accurately reflects my personal performance of the history, physical exam, medical decision making, and the department course for this patient. I have also personally directed, reviewed, and agree with the discharge instructions and disposition. Disposition - Clinical Impression Clinical Impression: Leg wound, right - Patient ED Disposition Is Patient to be Admitted: No Counseled Patient/Family Regarding: Diagnosis, Need For Followup, Rx Given - Disposition Referrals: Podiatry Clinic [Outside] Disposition: Routine/Home Disposition Time: 09:12 Condition: FAIR Prescriptions: Naproxen [Naprosyn] 500 mg PO Q12H #20 tab Instructions: Wound Care Forms: [employer] (Malian)
[2018-05-30 09:18] VITALS: BP 152/92
== END 2018-05-30 09:19 | disposition short-term general hospital (02) ==
LOC: H.ER 07:30
DX: S81.801A Unspecified open wound, right lower leg, initial encounter (principal); Z86.73 Personal history of transient ischemic attack (TIA), and cerebral infarction without residual deficits; J44.9 Chronic obstructive pulmonary disease, unspecified; I10 Essential (primary) hypertension; Z86.59 Personal history of other mental and behavioral disorders

== ENCOUNTER 2018-05-31 17:35 | Emergency (ER) | payer MEDICAID, SELFPAY ==
[2018-05-31 17:41] VITALS: TEMP 98
--- NOTE | 2018-05-31 18:13 | ED PDOC ---
HPI: Psych/Substance Abuse Time Seen by Provider: 05/31/18 18:01 Chief Complaint (Nursing): Alcohol Ingestion Chief Complaint (Provider): Possible Etoh Use, RLE Pain History Per: Patient, EMS History/Exam Limitations: no limitations Current Symptoms Are (Timing): Still Present Additional Complaint(s): 53 year old female well known to the ED presents via EMS for evaluation of possible etoh use. EMS states they found patient sleeping in an alleyway, easily arousable, and brought her to ED. Patient states she remembers sleeping and then EMS woke her up. She denies drug or alcohol use today, stating she just feels tired. Additionally, she reports she has a chronic ulcer to her right lower leg which she has been seeing podiatry for, last time yesterday. At this time, she is requesting the dressing to be changed, pain medication, and some water. PMD: none provided Past Medical History Reviewed: Historical Data, Nursing Documentation, Vital Signs Vital Signs: Last Vital Signs Temp 98.0 F 05/31/18 17:37 Pulse 94 H 05/31/18 17:37 Resp 16 05/31/18 17:37 BP 110/68 05/31/18 17:37 Pulse Ox 98 05/31/18 17:37 - Medical History PMH: Anemia, Anxiety, Asthma, COPD, Depression, Fractures (right ankle), Gastritis, HTN, Paranoia, Pneumonia, Schizophrenia, Seizures, TIA Denies: HIV, Chronic Kidney Disease, Sexually Transmitted Disease - Family History Family History: States: Unknown Family Hx - Living Arrangements Living Arrangements: Other (homeless) - Social History Alcohol: Other (hx abuse) - Immunization History Hx Tetanus Toxoid Vaccination: Yes Hx Influenza Vaccination: No Hx Pneumococcal Vaccination: No - Home Medications Home Medications: Ambulatory Orders Medication Instructions Recorded Albuterol HFA [Ventolin HFA 90 2 puff IH [id number] #1 inh 05/23/18 mcg/actuation (8 g)] Naproxen [Naprosyn] 500 mg PO Q12H #20 tab 05/30/18 - Allergies Allergies/Adverse Reactions: Allergies Allergy/AdvReac Type Severity Reaction Status Date / Time shellfish derived Allergy Severe SWELLING Verified 05/31/18 17:37 Review of Systems ROS Statement: Except As Marked, All Systems Reviewed And Found Negative Constitutional: Positive for: Other (feels tired) Musculoskeletal: Positive for: Leg Pain (right lower leg: chronic ulcer with dressing over it) Physical Exam - Reviewed Nursing Documentation Reviewed: Yes Vital Signs Reviewed: Yes - Physical Exam Appears: Positive for: No Acute Distress Head Exam: Positive for: ATRAUMATIC, NORMOCEPHALIC Skin: Positive for: Normal Color, Warm Eye Exam: Positive for: Normal appearance Neck: Positive for: Normal, Painless ROM Cardiovascular/Chest: Positive for: Regular Rate, Rhythm Respiratory: Positive for: Normal Breath Sounds. Negative for: Respiratory Distress Gastrointestinal/Abdominal: Positive for: Normal Exam, Soft. Negative for: Tenderness Back: Positive for: Normal Inspection Extremity: Positive for: Normal ROM (all extremities), Other (right lower foot wound: granulation tissue noted, but no eschar, or foul drainage) Neurological/Psych: Positive for: Awake, Alert, Oriented (x3) - ECG O2 Sat by Pulse Oximetry: 98 (RA) Pulse Ox Interpretation: Normal Medical Decision Making Medical Decision Making: Time: 1806 Initial Impression: right leg pain, possible etoh use Initial Plan: --Tylenol 975mg PO --Change dressing on RLE --Alcohol serum:386 --Accucheck: 105 --Pending alcohol serum, reevaluation, and gait 1900: Patient comfortable in bed, awake and alert. pending sobriety. 21:24: Patient ambulating with a steady gait, noted leaving out the exit. Patient verbalizes that she feels better and is leaving. Scribe Attestation: Documented by Angie Cee, acting as a scribe for Jenny Cooper APN. Provider Scribe Attestation: All medical record entries made by the Scribe were at my direction and personally dictated by me. I have reviewed the chart and agree that the record accurately reflects my personal performance of the history, physical exam, medical decision making, and the department course for this patient. I have also personally directed, reviewed, and agree with the discharge instructions and disposition. Disposition - Clinical Impression Clinical Impression: Alcohol abuse - Patient ED Disposition Is Patient to be Admitted: No - Disposition Disposition: Routine/Home Disposition Time: 21:24 Condition: STABLE Forms: [employer] (C[place]ican)
[2018-05-31 21:24] VITALS: BP 118/60; PULSE 88; RESP 18
[2018-05-31 22:49] VITALS: O2SAT 98
== END 2018-05-31 21:24 | disposition home or self-care (01) ==
LOC: H.ER 17:35
DX: F10.10 Alcohol abuse, uncomplicated (principal); Z86.59 Personal history of other mental and behavioral disorders; I10 Essential (primary) hypertension; J44.9 Chronic obstructive pulmonary disease, unspecified; Z86.73 Personal history of transient ischemic attack (TIA), and cerebral infarction without residual deficits; Y90.8 Blood alcohol level of 240 mg/100 ml or more

== ENCOUNTER 2018-06-01 00:13 | Emergency (ER) | payer MEDICAID, SELFPAY ==
[2018-06-01 00:22] VITALS: RESP 16; O2SAT 98
--- NOTE | 2018-06-01 06:21 | ED PDOC ---
Lower Extremity Pain/Injury Time Seen by Provider: 06/01/18 00:29 Chief Complaint (Nursing): Lower Extremity Problem/Injury Chief Complaint (Provider): Lower Extremity Problem/Injury History Per: Patient History/Exam Limitations: intoxication Additional Complaint(s): 53 y/o female with a past medical history of alcohol abuse presents to the ED due to alcohol intoxication. Patient denies suicidal ideation, homicidal id eation, or any other complaints. PMD: none provided Past Medical History Reviewed: Historical Data, Nursing Documentation, Vital Signs Vital Signs: Last Vital Signs Temp 98.7 F 06/01/18 00:20 Pulse 87 06/01/18 00:20 Resp 16 06/01/18 00:20 BP 134/89 06/01/18 00:20 Pulse Ox 98 06/01/18 00:20 - Medical History PMH: Anemia, Anxiety, Asthma, COPD, Depression, Fractures (right ankle), Gastritis, HTN, Paranoia, Pneumonia, Schizophrenia, Seizures, TIA Denies: HIV, Chronic Kidney Disease, Sexually Transmitted Disease - Family History Family History: States: Unknown Family Hx - Immunization History Hx Tetanus Toxoid Vaccination: Yes Hx Influenza Vaccination: No Hx Pneumococcal Vaccination: No - Home Medications Home Medications: Ambulatory Orders Medication Instructions Recorded Albuterol HFA [Ventolin HFA 90 2 puff IH [id number] #1 inh 05/23/18 mcg/actuation (8 g)] Naproxen [Naprosyn] 500 mg PO Q12H #20 tab 05/30/18 - Allergies Allergies/Adverse Reactions: Allergies Allergy/AdvReac Type Severity Reaction Status Date / Time shellfish derived Allergy Severe SWELLING Verified 05/31/18 17:37 Review of Systems ROS Statement: Except As Marked, All Systems Reviewed And Found Negative Review Of Systems: ROS cannot be obtained secondary to pt's inabilty to answer questions. (alcohol intoxication) Psych: Positive for: Other (homicidal ideation). Negative for: Suicidal ideation Physical Exam - Reviewed Nursing Documentation Reviewed: Yes Vital Signs Reviewed: Yes - Physical Exam Appears: Positive for: No Acute Distress. Negative for: Non-toxic (toxicated appearing) Head Exam: Positive for: ATRAUMATIC, NORMOCEPHALIC Skin: Positive for: Normal Color, Warm, Dry Eye Exam: Positive for: EOMI, Normal appearance, PERRL ENT: Positive for: Normal ENT Inspection Neck: Positive for: Normal, Painless ROM, Supple Cardiovascular/Chest: Positive for: Regular Rate, Rhythm. Negative for: Murmur Respiratory: Positive for: Normal Breath Sounds. Negative for: Wheezing, Respiratory Distress Gastrointestinal/Abdominal: Positive for: Normal Exam, Soft. Negative for: Tenderness Back: Positive for: Normal Inspection. Negative for: L CVA Tenderness, R CVA Tenderness Extremity: Positive for: Normal ROM, Other (Fresh splint on RLQ) Neurological/Psych: Positive for: Awake, Alert, Normal Tone. Negative for: Or iented, Motor/Sensory Deficits - ECG O2 Sat by Pulse Oximetry: 98 Medical Decision Making Medical Decision Making: Time: 010 Initial Impression: alcohol intoxication without signs of acute trauma Time: 500 Patient is awake, alert, steady gait, stable for discharge Scribe Attestation: Documented by Mirtha Zacarias, acting as a scribe for Ramírez Stephens. Provider Scribe Attestation: All medical record entries made by the Scribe were at my direction and personally dictated by me. I have reviewed the chart and agree that the record accurately reflects my personal performance of the history, physical exam, medi gennaro decision making, and the department course for this patient. I have also personally directed, reviewed, and agree with the discharge instructions and disposition. Disposition - Clinical Impression Clinical Impression: Alcohol dependence - Patient ED Disposition Is Patient to be Admitted: No - Disposition Disposition: Routine/Home Disposition Time: 06:30 Condition: FAIR Forms: [employer] (Polish)
[2018-06-01 06:29] VITALS: BP 136/89; PULSE 63; TEMP 98
== END 2018-06-01 06:10 | disposition home or self-care (01) ==
LOC: H.ER 00:13
DX: F10.229 Alcohol dependence with intoxication, unspecified (principal)

== ENCOUNTER 2018-06-23 04:32 | Emergency (ER) | payer MEDICAID ==
[2018-06-23 04:49] VITALS: BP 120/65; PULSE 98; RESP 16; TEMP 97.8; O2SAT 100
--- NOTE | 2018-06-23 05:22 | ED PDOC ---
Lower Extremity Pain/Injury Time Seen by Provider: 06/23/18 04:59 Chief Complaint (Nursing): Lower Extremity Problem/Injury Chief Complaint (Provider): Right Foot Pain History Per: Patient History/Exam Limitations: no limitations Onset/Duration Of Symptoms: Days (x5) Current Symptoms Are (Timing): Still Present Additional Complaint(s): 53 year old female with pmhx of chronic alcoholism presents to the ED for evaluation of right root pain. Patient states that she was recently diagnosed with cellulitis of the right foot, which was positive for MRSA, and hospitalized at [facility] on the 06/18 for this. At that time, she left against medical advice but has since reconsidered and would like more impressive treatment for her foot infection. Otherwise, denies fever and chills. PMD: none provided Past Medical History Reviewed: Historical Data, Nursing Documentation, Vital Signs Vital Signs: Last Vital Signs Temp 97.8 F 06/23/18 04:42 Pulse 98 H 06/23/18 04:42 Resp 16 06/23/18 04:42 BP 120/65 06/23/18 04:42 Pulse Ox 100 06/23/18 04:42 Primary Care Provider: FAMILY PROVIDER,NO - Medical History PMH: Anemia, Anxiety, Arthritis (R ANKLE FX W/ ORIF 12/2017), Asthma, COPD, D epression, Fractures (right ankle), Gastritis, HTN, Paranoia, Pneumonia, Schizophrenia, Seizures, TIA Denies: HIV, Chronic Kidney Disease, Sexually Transmitted Disease - Surgical History Other surgeries: right ankle ORIF - Family History Family History: States: Unknown Family Hx - Social History Current smoker - smoking cessation education provided: Yes Alcohol: Other (hx chronic alcoholism) Drugs: Denies - Immunization History Hx Tetanus Toxoid Vaccination: Yes Hx Influenza Vaccination: No Hx Pneumococcal Vaccination: No - Home Medications Home Medications: Ambulatory Orders Medication Instructions Recorded Albuterol HFA [Ventolin HFA 90 2 puff IH [id number] #1 inh 05/23/18 mcg/actuation (8 g)] - Allergies Allergies/Adverse Reactions: Allergies Allergy/AdvReac Type Severity Reaction Status Date / Time shellfish derived Allergy Severe SWELLING Verified 06/23/18 00:31 Review of Systems ROS Statement: Except As Marked, All Systems Reviewed And Found Negative Constitutional: Negative for: Fever, Chills Musculoskeletal: Positive for: Foot Pain (right foot pain with cellulitis and MRSA) Physical Exam - Reviewed Nursing Documentation Reviewed: Yes Vital Signs Reviewed: Yes - Physical Exam Appears: Positive for: No Acute Distress Head Exam: Positive for: ATRAUMATIC Skin: Positive for: Warm, Dry Eye Exam: Positive for: Normal appearance Neck: Positive for: Normal, Painless ROM Cardiovascular/Chest: Positive for: Regular Rate, Rhythm Respiratory: Positive for: Normal Breath Sounds. Negative for: Respiratory Distress Pulses-Dorsalis Pedis (L): 2+ Pulses-Dorsalis Pedis (R): 2+ Extremity: Positive for: Normal ROM (all extremities, right foot and all toes included), Capillary Refill (less than 2 seconds), Other (clean, dry, and intact dressing applied to right foot; desquamation noted at base of right foot) Neurological/Psych: Positive for: Awake, Alert, Oriented (x3), Other (sensation intact to right foot and all toes). Negative for: Motor/Sensory Deficits - ECG O2 Sat by Pulse Oximetry: 100 (RA) Pulse Ox Interpretation: Normal Medical Decision Making Medical Decision Making: Time: 514 Initial Impression: 53 year old female with cellulitis and MRSA infection of right foot Initial Plan: --Podiatry consult 05 Discussed case with podiatry resident Rickie who is agreeable to evaluate patient in ED 0700 Patient evaluated and cleared for discharge by [place]iatry [facility] Scribe Attestation: Documented by Angie Cee, acting as a scribe for Emeka Carrera MD. Provider Scribe Attestation: All medical record entries made by the Scribe were at my direction and personally dictated by me. I have reviewed the chart and agree that the record accurately reflects my personal performance of the history, physical exam, medical decision making, and the department course for this patient. I have also personally directed, reviewed, and agree with the discharge instructions and disposition. Disposition - Clinical Impression Clinical Impression: Cellulitis - Patient ED Disposition Is Patient to be Admitted: Transfer of Care - Disposition Referrals: Podiatry Clinic [Outside] Disposition: Transfer of Care Disposition Time: 07:00 Condition: STABLE Instructions: Cellulitis and Erysipelas (Skin Infections) Forms: [employer] (Qatari)
--- NOTE | 2018-06-23 07:14 | CP.PCM.CON ---
Past Patient History - Infectious Disease Hx of Infectious Diseases: None - Tetanus Immunizations Tetanus Immunization: Unknown - Past Medical History & Family History Past Medical History?: Yes - Past Social History Alcohol: Other (hx chronic alcoholism) Drugs: Denies - CARDIAC Hx Hypertension: Yes - PULMONARY Hx Asthma: Yes Hx Chronic Obstructive Pulmonary Disease (COPD): Yes Hx Pneumonia: Yes - NEUROLOGICAL Hx Seizures: Yes Hx Transient Ischemic Attacks (TIA): Yes - HEENT Hx HEENT Problems: Yes Other/Comment: Eye glasses - RENAL Hx Chronic Kidney Disease: No - ENDOCRINE/METABOLIC Hx Endocrine Disorders: No - HEMATOLOGICAL/ONCOLOGICAL Hx Anemia: Yes Hx Human Immunodeficiency Virus (HIV): No - INTEGUMENTARY Hx Dermatological Problems: Yes Hx Eczema: Yes Hx Psoriasis: Yes Other/Comment: Has history of bedbugs in the past - MUSCULOSKELETAL/RHEUMATOLOGICAL Hx Arthritis: Yes (R ANKLE FX W/ ORIF 12/2017) Hx Fractures: Yes (right ankle) - GASTROINTESTINAL Hx Gastritis: Yes - GENITOURINARY/GYNECOLOGICAL Hx Sexually Transmitted Disorders: No - PSYCHIATRIC Hx Anxiety: Yes Hx Depression: Yes Hx Paranoia: Yes Hx Schizophrenia: Yes - SURGICAL HISTORY Hx Surgeries: Yes Hx Dilation and Curettage: Yes Hx Orthopedic Surgery: Yes (R foot / R ankle surgery) Other/Comment: rt leg s/p fx - ANESTHESIA Hx Anesthesia: Yes Hx Anesthesia Reactions: No Hx Malignant Hyperthermia: No Meds Allergies/Adverse Reactions: Allergies Allergy/AdvReac Type Severity Reaction Status Date / Time shellfish derived Allergy Severe SWELLING Verified 06/23/18 00:31 Results - Vital Signs Recent Vital Signs: Last Vital Signs Temp 97.8 F 06/23/18 04:42 Pulse 98 H 06/23/18 04:42 Resp 16 06/23/18 04:42 BP 120/65 06/23/18 04:42 Pulse Ox 100 06/23/18 06:47
== END 2018-06-23 07:10 | disposition home or self-care (01) ==
LOC: H.ER 04:32
DX: L03.115 Cellulitis of right lower limb (principal); D64.9 Anemia, unspecified

== ENCOUNTER 2018-06-24 13:39 | Emergency (ER) | payer MEDICAID ==
[2018-06-24 13:47] VITALS: BP 106/66; PULSE 85; RESP 18; TEMP 97; O2SAT 100
--- NOTE | 2018-06-24 14:53 | ED PDOC ---
HPI: Psych/Substance Abuse Time Seen by Provider: 06/24/18 13:49 Chief Complaint (Nursing): Alcohol Ingestion Chief Complaint (Provider): Alcohol Ingestion History Per: Patient History/Exam Limitations: no limitations Additional Complaint(s): 53 y/o female brought in by EMS presents to the ED due to intoxication. Patient visits the hospital frequently. Patient has a chronic leg ulcer bilaterally and admits being intoxicated. Patient was [place] in by EMS [place] Patient was evaluated and states she was recently hospitalized for ulcer and she was AMA due to not wanting surgery. Patient is refusing wound to be addresses and states she just wants to sleep and is demanding food and a blanket. Patient denies chest pain or any shortness of breath. PMD: none provided Past Medical History Reviewed: Historical Data, Nursing Documentation, Vital Signs Vital Signs: Last Vital Signs Temp 97 F L 06/24/18 13:46 Pulse 85 06/24/18 13:46 Resp 18 06/24/18 13:46 BP 106/66 06/24/18 13:46 Pulse Ox 100 06/24/18 13:46 Primary Care Provider: Doctor,Conversion - Medical History PMH: Anemia, Anxiety, Arthritis (R ANKLE FX W/ ORIF 12/2017), Asthma, COPD, Depression, Fractures (right ankle), Gastritis, HTN, Paranoia, Pneumonia, Schizophrenia, Seizures, TIA Denies: HIV, Chronic Kidney Disease, Sexually Transmitted Disease - Family History Family History: States: Unknown Family Hx - Immunization History Hx Tetanus Toxoid Vaccination: Yes Hx Influenza Vaccination: No Hx Pneumococcal Vaccination: No - Home Medications Home Medications: Ambulatory Orders Medication Instructions Recorded Albuterol HFA [Ventolin HFA 90 2 puff IH [id number] #1 inh 05/23/18 mcg/actuation (8 g)] - Allergies Allergies/Adverse Reactions: Allergies Allergy/AdvReac Type Severity Reaction Status Date / Time shellfish derived Allergy Severe SWELLING Verified 06/24/18 13:46 Review of Systems ROS Statement: Except As Marked, All Systems Reviewed And Found Negative Cardiovascular: Negative for: Chest Pain Respiratory: Negative for: Shortness of Breath Physical Exam - Reviewed Nursing Documentation Reviewed: Yes Vital Signs Reviewed: Yes - Physical Exam Appears: Positive for: Well, No Acute Distress. Negative for: Non-toxic Head Exam: Positive for: ATRAUMATIC, NORMAL INSPECTION, NORMOCEPHALIC Skin: Positive for: Normal Color (Multiple scabs in extremity. No erythema, swelling, or discharge.), Warm, Dry Eye Exam: Positive for: EOMI, Normal appearance, PERRL ENT: Positive for: Normal ENT Inspection Neck: Positive for: Normal, Painless ROM, Supple Cardiovascular/Chest: Positive for: Regular Rate, Rhythm. Negative for: Murmur Respiratory: Positive for: Normal Breath Sounds. Negative for: Wheezing Gastrointestinal/Abdominal: Positive for: Normal Exam, Soft. Negative for: Tenderness Back: Positive for: Normal Inspection Extremity: Positive for: Normal ROM, Other (Right foot/ankle wrapped in bandage and ice, clean and dry. No foul odor.) Neurological/Psych: Positive for: Awake, Alert, Normal Tone, Oriented (x3), Gait (steady), Other (Coherent. ). Negative for: Motor/Sensory Deficits - ECG O2 Sat by Pulse Oximetry: 100 Medical Decision Making Medical Decision Making: Time: 1430 Initial Impression: Intoxication. Patient has to follow up with Podiatry clinic. No deficit due to intoxication. Patient is stable for discharge. Scribe Attestation: Documented by Mirtha Zacarias, acting as a scribe for Olya Carrizales Provider Scribe Attestation: All medical record entries made by the Scribe were at my direction and personally dictated by me. I have reviewed the chart and agree that the record accurately reflects my personal performance of the history, physical exam, medical decision making, and the department course for this patient. I have also personally directed, reviewed, and agree with the discharge instructions and disposition. Disposition - Clinical Impression Clinical Impression: Alcohol intoxication - Disposition Disposition Time: 14:30 Condition: STABLE Additional Instructions: Follow up with the podiatry clinic for wound care. Do not drink alcohol. Seek professional help for alcoholism. Instructions: Alcohol Use - When Is Drinking a Problem? Forms: [employer] (Sierra Leonean) Print Language: ERITREAN
== END 2018-06-24 15:08 | disposition home or self-care (01) ==
LOC: H.ER 13:39
DX: F10.129 Alcohol abuse with intoxication, unspecified (principal); Z86.59 Personal history of other mental and behavioral disorders; I10 Essential (primary) hypertension; J44.9 Chronic obstructive pulmonary disease, unspecified; Z86.73 Personal history of transient ischemic attack (TIA), and cerebral infarction without residual deficits

== ENCOUNTER 2018-06-26 10:57 | Emergency (ER) | payer MEDICAID ==
--- NOTE | 2018-06-26 12:10 | ED PDOC ---
Lower Extremity Pain/Injury Time Seen by Provider: 06/26/18 11:23 Chief Complaint (Nursing): Lower Extremity Problem/Injury Chief Complaint (Provider): lower extremity problem History Per: Patient History/Exam Limitations: no limitations Onset/Duration Of Symptoms: Persistent Additional History Per: Patient Additional Complaint(s): 53 year old female c/o pain to chronic right lower leg ulcer. Patient was admitted for cellulitis to leg between 06/10-06/20. Patient at that time signed out [facility] medical advice. Since patient has been seen multiple times in the ED For same. Last visit on 06/23/2018 patient was seen by podiatry and discharged home with follow up with podiatry clinic. Patient today is c/o same pain but states wound looks better. Patient denies fever, chills, bodyaches. She denies alcohol use today. - Risk Factors DVT Risk Factors: Pos: None Past Medical History Reviewed: Historical Data, Nursing Documentation, Vital Signs Vital Signs: Last Vital Signs Temp 97.2 F L 06/26/18 10:59 Pulse 81 06/26/18 10:59 Resp 16 06/26/18 10:59 BP 134/86 06/26/18 10:59 Pulse Ox 95 06/26/18 10:59 Primary Care Provider: FAMILY PROVIDER,NO - Medical History PMH: Anemia, Anxiety, Arthritis (R ANKLE FX W/ ORIF 12/2017), Asthma, COPD, Depression, Fractures (right ankle), Gastritis, HTN, Paranoia, Pneumonia, Schizophrenia, Seizures, TIA Denies: HIV, Chronic Kidney Disease, Sexually Transmitted Disease - Surgical History Other surgeries: right leg sx - Family History Family History: States: Unknown Family Hx - Living Arrangements Living Arrangements: Alone (homeless) - Social History Alcohol: > 2 Drinks/Day Drugs: Denies - Immunization History Hx Tetanus Toxoid Vaccination: Yes Hx Influenza Vaccination: No Hx Pneumococcal Vaccination: No - Home Medications Home Medications: Ambulatory Orders Medication Instructions Recorded Albuterol HFA [Ventolin HFA 90 2 puff IH [id number] #1 inh 05/23/18 mcg/actuation (8 g)] - Allergies Allergies/Adverse Reactions: Allergies Allergy/AdvReac Type Severity Reaction Status Date / Time shellfish derived Allergy Severe SWELLING Verified 06/26/18 11:14 Wells Criteria for PE - Wells Criteria for Pulmonary Embolism Clinical Signs and Symptoms of DVT: No P.E is #1 Diagnosis, or Equally Likely: No Heart Rate >100: No Immobilization at least 3 days;Surgery previous 4 weeks: No Previous, objectively diagnosed PE or DVT: No Hemoptysis: No Malignancy w/treatment within 6 months, or palliative: No Total Score: 0 Review of Systems ROS Statement: Except As Marked, All Systems Reviewed And Found Negative Constitutional: Negative for: Fever, Chills, Sweats, Weakness, Malaise Cardiovascular: Negative for: Chest Pain, Palpitations Respiratory: Negative for: Cough, Shortness of Breath, SOB with Exertion, Wheezing Gastrointestinal: Negative for: Nausea, Vomiting, Abdominal Pain Skin: Positive for: Other (right lowe leg ulcer ) Physical Exam - Reviewed Nursing Documentation Reviewed: Yes Vital Signs Reviewed: Yes - Physical Exam Appears: Positive for: Well, Non-toxic, No Acute Distress Head Exam: Positive for: ATRAUMATIC, NORMAL INSPECTION, NORMOCEPHALIC Skin: Positive for: Normal Color, Warm, DRY Eye Exam: Positive for: EOMI, Normal appearance, PERRL ENT: Positive for: Normal ENT Inspection Neck: Positive for: Normal, Painless ROM Cardiovascular/Chest: Positive for: Regular Rate, Rhythm Respiratory: Positive for: CNT, Normal Breath Sounds Pulses-Dorsalis Pedis (L): 2+ Pulses-Dorsalis Pedis (R): 2+ Gastrointestinal/Abdominal: Positive for: Normal Exam, Soft Back: Positive for: Normal Inspection Extremity: Positive for: Normal ROM (limited rom of right lower leg. ), Pedal Edema (3+ edema to right foot), Capillary Refill (<2secs ), Swelling (rightj foot ), Other (right lower leg ulcer noted. wound is 3.5cm in width, 7cm in length. wound base is erythematous, neg drainage, edges are clean. neg for streaking. ). Negative for: Tenderness, Calf Tenderness, Deformity Neurological/Psych: Positive for: Awake, Alert, Normal Tone, Oriented - ECG O2 Sat by Pulse Oximetry: 95 Medical Decision Making Medical Decision Making: --Tylenol 975 --redressed: wet to dry dressing and mango bandage -follow up with podiatry in clinic --Patient stable for d/c. Disposition - Clinical Impression Clinical Impression: Alcohol abuse, Leg wound, right - Patient ED Disposition Is Patient to be Admitted: No Counseled Patient/Family Regarding: Diagnosis, Need For Followup - Disposition Referrals: Podiatry Clinic [Outside] Disposition: Routine/Home Disposition Time: 12:17 Condition: GOOD Instructions: Effects of Alcohol on Your Health, Wound Care (DC) Forms: [employer] (Mongolian) Print Language: CAYMAN ISLANDER - POA Present On Arrival: None
[2018-06-26 13:58] VITALS: BP 117/85; PULSE 79; RESP 18; TEMP 97.5
[2018-06-26 14:01] VITALS: O2SAT 95
== END 2018-06-26 12:22 | disposition home or self-care (01) ==
LOC: H.ER 10:57
DX: F10.10 Alcohol abuse, uncomplicated (principal); S81.801A Unspecified open wound, right lower leg, initial encounter; Z86.73 Personal history of transient ischemic attack (TIA), and cerebral infarction without residual deficits; Z86.59 Personal history of other mental and behavioral disorders; I10 Essential (primary) hypertension; J44.9 Chronic obstructive pulmonary disease, unspecified

== ENCOUNTER 2018-06-26 23:13 | Emergency (ER) | payer MEDICAID | END 2018-06-26 23:15 | disposition left against medical advice (07) | LOC: H.ER 23:13 | DX: Z02.89 Encounter for other administrative examinations (principal) ==

== ENCOUNTER 2018-06-27 02:13 | Emergency (ER) | payer MEDICAID ==
[2018-06-27 02:15] VITALS: TEMP 97.5
--- NOTE | 2018-06-27 02:59 | ED PDOC ---
Lower Extremity Pain/Injury Time Seen by Provider: 06/27/18 02:46 Chief Complaint (Nursing): Lower Extremity Problem/Injury Chief Complaint (Provider): right leg wound History Per: Patient (53 y/o female h/o Alcoholism/homeless recent admission 06/18-06/22 for wound infection with subsequent AMA is here today for wound evaluation. Iliana has been seen in ED by podiatry several ED visits with change of wound dressing. Of note patient is concerned for persistent infectio n. Notes she was in rain today and dressing was soaked.) Past Medical History Reviewed: Historical Data, Nursing Documentation, Vital Signs Vital Signs: Last Vital Signs Temp 97.5 F L 06/27/18 02:13 Pulse 88 06/27/18 02:13 Resp 18 06/27/18 02:13 BP 136/95 H 06/27/18 02:13 Pulse Ox 97 06/27/18 02:13 Primary Care Provider: FAMILY PROVIDER,NO - Medical History PMH: Anemia, Anxiety, Arthritis (R ANKLE FX W/ ORIF 12/2017), Asthma, COPD, Depression, Fractures (right ankle), Gastritis, HTN, Paranoia, Pneumonia, Schizophrenia, Seizures, TIA Denies: HIV, Chronic Kidney Disease, Sexually Transmitted Disease - Family History Family History: States: Unknown Family Hx - Immunization History Hx Tetanus Toxoid Vaccination: Yes Hx Influenza Vaccination: No Hx Pneumococcal Vaccination: No - Home Medications Home Medications: Ambulatory Orders Medication Instructions Recorded Albuterol HFA [Ventolin HFA 90 2 puff IH [id number] #1 inh 05/23/18 mcg/actuation (8 g)] - Allergies Allergies/Adverse Reactions: Allergies Allergy/AdvReac Type Severity Reaction Status Date / Time shellfish derived Allergy Severe SWELLING Verified 06/26/18 18:28 Review of Systems ROS Statement: Except As Marked, All Systems Reviewed And Found Negative Physical Exam - Reviewed Nursing Documentation Reviewed: Yes Vital Signs Reviewed: Yes - Physical Exam Appears: Positive for: Well, Non-toxic, No Acute Distress Head Exam: Positive for: ATRAUMATIC, NORMAL INSPECTION, NORMOCEPHALIC Skin: Positive for: Normal Color, Warm, DRY Eye Exam: Positive for: EOMI, Normal appearance, PERRL ENT: Positive for: Normal ENT Inspection Neck: Positive for: Normal, Painless ROM Cardiovascular/Chest: Positive for: Regular Rate, Rhythm Respiratory: Positive for: CNT, Normal Breath Sounds Gastrointestinal/Abdominal: Positive for: Normal Exam, Soft Back: Positive for: Normal Inspection Extremity: Positive for: Normal ROM, Other (well healing wound right anterior leg. No signs of cellulitis noted. Patient has escoriations noted along leg from previous scabies infection.) Neurological/Psych: Positive for: Awake, Alert, Normal Tone - ECG O2 Sat by Pulse Oximetry: 97 - Progress ED Course And Treament: Wound changed.Bacitracin ointment applied to wound with clean dressing applied. Patient request meal. States she will f/u with podiatry clinic at [facility]. Disposition - Clinical Impression Clinical Impression: Leg wound, right - Disposition Referrals: Podiatry Clinic [Outside] Disposition: Routine/Home Disposition Time: 03:15 Condition: FAIR Instructions: Wound Care (DC), Effects of Alcohol on Your Health
[2018-06-27 06:54] VITALS: BP 134/89; PULSE 82; RESP 17; O2SAT 99
== END 2018-06-27 06:00 | disposition home or self-care (01) ==
LOC: H.ER 02:13
DX: S81.801A Unspecified open wound, right lower leg, initial encounter (principal); X58.XXXA Exposure to other specified factors, initial encounter; Y92.89 Other specified places as the place of occurrence of the external cause

== ENCOUNTER 2018-06-27 10:55 | Emergency (ER) | payer MEDICAID ==
--- NOTE | 2018-06-27 13:31 | ED PDOC ---
Lower Extremity Pain/Injury Time Seen by Provider: 06/27/18 12:04 Chief Complaint (Nursing): Lower Extremity Problem/Injury Chief Complaint (Provider): Abnormal skin integrity History Per: Patient History/Exam Limitations: no limitations Onset/Duration Of Symptoms: Persistent Current Symptoms Are (Timing): Still Present Severity: Moderate Additional Complaint(s): 53 year old homeless female well known to the ED, seen in the ED multiple times for a chronic right leg ulcer, seen in the ED 2x times yesterday and at [facility] for the same complaint, presents to the ED for a dressing change. Patient states that after she left the ED yesterday, it was raining outside, and her bandages got soaked. Patient also reports having itchiness throughout her body. Patient states that she has MRSA to her right leg with pain. Patient reports taking benadryl prior to arrival for the itching. Patient denies having fevers. Of note: Patient has a history of bug infestations (scabies, lice). PMD: None provided. Past Medical History Reviewed: Historical Data, Nursing Documentation, Vital Signs Vital Signs: Last Vital Signs Temp 98.3 F 06/27/18 11:32 Pulse 113 H 06/27/18 11:32 Resp 16 06/27/18 11:32 BP 123/70 06/27/18 11:32 Pulse Ox 99 06/27/18 11:32 TERRI Report Viewed: Yes - Medical History PMH: Anemia, Anxiety, Arthritis (R ANKLE FX W/ ORIF 12/2017), Asthma, COPD, Depression, Fractures (right ankle), Gastritis, HTN, Paranoia, Pneumonia, Schizophrenia, Seizures, TIA Denies: HIV, Chronic Kidney Disease, Sexually Transmitted Disease - Family History Family History: States: No Known Family Hx - Living Arrangements Living Arrangements: Other (homeless) - Immunization History Hx Tetanus Toxoid Vaccination: Yes Hx Influenza Vaccination: No Hx Pneumococcal Vaccination: No - Home Medications Home Medications: Ambulatory Orders Medication Instructions Recorded Albuterol HFA [Ventolin HFA 90 2 puff IH [id number] #1 inh 05/23/18 mcg/actuation (8 g)] Amoxicillin/Clavulanate [Augmentin 1 tab PO BID #20 tab 06/27/18 875 MG-125 MG] - Allergies Allergies/Adverse Reactions: Allergies Allergy/AdvReac Type Severity Reaction Status Date / Time shellfish derived Allergy Severe SWELLING Verified 06/27/18 11:52 Review of Systems ROS Statement: Except As Marked, All Systems Reviewed And Found Negative Constitutional: Negative for: Fever Skin: Positive for: Other (itching throughout entire body, right leg ulcer.) Physical Exam - Reviewed Nursing Documentation Reviewed: Yes Vital Signs Reviewed: Yes - Physical Exam Appears: Positive for: Non-toxic, No Acute Distress. Negative for: Well (patient scratching, innumerable amount of scratches to the body from scra tching. All different healing stages. (-) bugs noted anywhere to body.) Head Exam: Positive for: ATRAUMATIC, NORMOCEPHALIC Skin: Positive for: Normal Color, Warm, Dry Eye Exam: Positive for: Normal appearance Pulses-Dorsalis Pedis (L): 2+ Pulses-Dorsalis Pedis (R): 2+ Extremity: Positive for: Normal ROM, Capillary Refill (<2 seconds), Other (3+ pedal edema. right lower leg ulcer noted, open wound. wound is 3.5cm in width, 7cm in length. wound base is erythematous, neg drainage, edges are clean. neg for streaking. Slight increase in redness than when seen yesterday. ). Negative for: Calf Tenderness, Deformity Neurological/Psych: Positive for: Awake, Alert, Oriented (3x) - Laboratory Results Result Diagrams: 06/27/18 17:07 - ECG O2 Sat by Pulse Oximetry: 99 (RA) Pulse Ox Interpretation: Normal Medical Decision Making Medical Decision Makin:04 Initial impression: 53 year old female with a chronic leg ulcer and itching throughout entire body. Plan: * podiatry consult * reevaluation 13:10 Podiatry resident aware of patient in the ED with complaints of pain. Will come see patient in the ED. Will recommend scabies treatment for possible scabies. 16:23 Patient evaluated at bedside by podiatry resident who recommends a CBC, ESR, and XRay ankle right. CBC, ESR, and XRay ankle right ordered. 17:29 WBC's 5.8, xray films seen by podiatry resident Dr. valdez. Patient may be discharged without ESR result. Lab cancellled as blood was Q&S for both CBC and ESr. Patient d/c on Augmentin for 10 days. Follow-up at the podiatry clinic. Return to ED precautions given. Patient states understanding and agrees with plan. ScribeAttestation: Documented byOlya Grey, acting as a scribe for Jenny Cooper APN. Provider ScribeAttestation: All medical record entries made by the Scribe were at my direction and personally dictated by me. I have reviewed the chart and agree that the record accurately reflects my personal performance of the history, physical exam, medical decision making, and the department course for this patient. I have also personally directed, reviewed, and agree with the discharge instructions and disposition. Disposition - Clinical Impression Clinical Impression: Alcohol intoxication, Chronic ulcer of leg - Patient ED Disposition Is Patient to be Admitted: No Counseled Patient/Family Regarding: Diagnosis, Need For Followup, Rx Given - Disposition Referrals: Podiatry Clinic [Outside] Disposition Time: 17:33 Condition: GOOD Prescriptions: Amoxicillin/Clavulanate [Augmentin 875 MG-125 MG] 1 tab PO BID #20 tab Instructions: Alcohol Abuse and Alcoholism (DC) Forms: [employer] (Mohawk) - POA Present On Arrival: None
[2018-06-27] MEDS ORDERED: Permethrin 1% Kit 59 ML BOTTLE TOP STA (14:13)
--- NOTE | 2018-06-27 16:54 | CP.PCM.CON ---
Past Patient History - Infectious Disease Hx of Infectious Diseases: None - Tetanus Immunizations Tetanus Immunization: Unknown - Past Medical History & Family History Past Medical History?: Yes - Past Social History Smoking Status: Never Smoked - CARDIAC Hx Hypertension: Yes - PULMONARY Hx Asthma: Yes Hx Chronic Obstructive Pulmonary Disease (COPD): Yes Hx Pneumonia: Yes - NEUROLOGICAL Hx Seizures: Yes Hx Transient Ischemic Attacks (TIA): Yes - HEENT Hx HEENT Problems: Yes Other/Comment: Eye glasses - RENAL Hx Chronic Kidney Disease: No - ENDOCRINE/METABOLIC Hx Endocrine Disorders: No - HEMATOLOGICAL/ONCOLOGICAL Hx Anemia: Yes Hx Human Immunodeficiency Virus (HIV): No - INTEGUMENTARY Hx Dermatological Problems: Yes Hx Eczema: Yes Hx Psoriasis: Yes Other/Comment: Has history of bedbugs in the past - MUSCULOSKELETAL/RHEUMATOLOGICAL Hx Arthritis: Yes (R ANKLE FX W/ ORIF 12/2017) Hx Fractures: Yes (right ankle) - GASTROINTESTINAL Hx Gastritis: Yes - GENITOURINARY/GYNECOLOGICAL Hx Sexually Transmitted Disorders: No - PSYCHIATRIC Hx Anxiety: Yes Hx Depression: Yes Hx Paranoia: Yes Hx Schizophrenia: Yes - SURGICAL HISTORY Hx Surgeries: Yes Hx Dilation and Curettage: Yes Hx Orthopedic Surgery: Yes (R foot / R ankle surgery) Other/Comment: rt leg s/p fx - ANESTHESIA Hx Anesthesia: Yes Hx Anesthesia Reactions: No Hx Malignant Hyperthermia: No Meds Allergies/Adverse Reactions: Allergies Allergy/AdvReac Type Severity Reaction Status Date / Time shellfish derived Allergy Severe SWELLING Verified 06/27/18 11:52 Results - Vital Signs Recent Vital Signs: Last Vital Signs Temp 98.3 F 06/27/18 11:32 Pulse 113 H 06/27/18 11:32 Resp 16 06/27/18 11:32 BP 123/70 06/27/18 11:32 Pulse Ox 99 06/27/18 16:32
[2018-06-27 17:21] LABS: BASO # 0.1 K/uL (0.0-0.2); BASO % 0.9 % (0.0-2.0); EOS # 0.3 K/uL (0.0-0.7); EOS % 4.9 % (0.0-4.0); HEMOGLOBIN 8.7 g/dL (12.0-16.0); LYMPH # 1.1 K/uL (1.0-4.3); LYMPH % 18.5 % (20.0-40.0); MEAN CELL VOLUME 85.8 fl (81.0-99.0); MEAN CORPUSCULAR HEMOGLOBIN 27.2 pg (27.0-31.0); MEAN CORPUSCULAR HGB CONC 31.7 g/dL (33.0-37.0); MEAN PLATELET VOLUME 6.6 fl (7.2-11.7); MONO # 0.5 K/uL (0.0-0.8); MONO % 9.3 % (0.0-10.0); NEUT # 3.8 K/uL (1.8-7.0); NEUT % 66.4 % (50.0-75.0); RBC 3.21 Mil/uL (3.80-5.20); RED CELL DISTRIBUTION WIDTH 20.7 % (11.5-14.5); WHITE BLOOD COUNT 5.8 K/uL (4.8-10.8)
[2018-06-27] MEDS ORDERED: Amoxicillin-Clav 875-125 mg Tab PO STA (17:34)
[2018-06-27] MEDS ORDERED: Amoxicillin-Clav 875-125 mg Tab PO ONE (17:59)
[2018-06-27 18:17] VITALS: BP 149/84; PULSE 86; RESP 18; TEMP 98.5; O2SAT 98
--- NOTE | 2018-06-28 09:50 | RAD ---
Date of service: 06/27/2018 PROCEDURE: Right Ankle Radiographs. HISTORY: swelling/ redness COMPARISON: Right ankle radiographs 05/16/2018.. TECHNIQUE: 3 views obtained. FINDINGS: BONES: Prior ORIF reiterated including lengthy distal tibial compression plate and multiple compression screws as well as a solitary isolated medial malleolar compression screw. Deformity from prior old healed distal tibial fracture is appreciate as well as likely external fixator related defects at the mid and distal diaphysis of the right femur. No definite acute fracture is identified. No focal destructive bony lesion appreciable. JOINTS: Degenerative changes are appreciate the tibiotalar joint with the ankle mortise maintained. Talar dome intact. SOFT TISSUES: Surrounding soft tissue edema may be diminished in the interval remains diffuse. No emphysema soft tissue changes. OTHER FINDINGS: Moderate-sized plantar calcaneal spur identified. IMPRESSION: No interval fracture, subluxation or dislocation post ORIF with fixation hardware appearing intact. Deformity from healed fracture is appreciable once again, without significant change. Diminished surrounding soft tissue edema, though significant diffuse edema does still remain surrounding the ankle. No definitive pattern to suggest osteomyelitis. Further clinical correlation is advised.
== END 2018-06-27 17:36 | disposition home or self-care (01) ==
LOC: H.ER 10:55
DX: F10.129 Alcohol abuse with intoxication, unspecified (principal); L97.909 Non-pressure chronic ulcer of unspecified part of unspecified lower leg with unspecified severity; D64.9 Anemia, unspecified; Z86.73 Personal history of transient ischemic attack (TIA), and cerebral infarction without residual deficits